=== PATIENT | male | born 1945 | race Caucasian/White ===

== ENCOUNTER 2019-08-30 08:35 | Outpatient (CLI) | payer MEDICARE, SELFPAY ==
--- NOTE | 2019-08-30 08:49 | CT_ITS ---
WS: [id number] CT ABDOMEN PELVIS TECHNIQUE: Noncontrast CT of the abdomen and pelvis with coronal and sagittal reformatted images. CLINICAL INFORMATION: NEOPLASM OF PROSTASTE COMPARISON: CT abdomen pelvis and PET/CT December 18, 2018 DLP: 517.[address] scans at [facility] use at least one of these dose optimization techniques: automat ed exposure control; mA and/or kV adjustment per patient size (includes targeted exams where dose is matched to clinical indication); or iterative reconstruction. FINDINGS: Again seen are multiple low-attenuation lesions in the liver unchanged on this noncontrast examinatio n. Splenomegaly measuring 17.0 cm appears progressed. Noncontrast pancreas appears unremarkable. Adre nal glands are normal. Bilateral renal cortical atrophy with renal cortical cysts. Exophytic increase d attenuation left renal lesion measuring 2.1 cm appears unchanged. Advanced emphysematous change Partially visualized in the lung bases with bullous formation. Multiple nodular areas likely pleural fluid in the lung bases. Small bilateral pleural effusions. Recommend c hest CT follow-up.Cardiomegaly. Loculated pleural fluid along both visualized fissures. Vascular calc ification including coronary. Previously described sclerotic lesion involving the left ilium adjacent to the SI joint measuring 1.3 cm is stable. Additional smaller unchanged left iliac wing sclerotic lesion. Aortic calcification. Normal caliber abdominal aorta. Shotty retroperitoneal and periaortic lymph nod es. Small amount of free fluid in the pelvis. Diverticulosis. No evidence of acute diverticulitis. Small amount of fluid in the right pericolic gutter. IMPRESSION: 1. Stable low-attenuation lesions in both hepatic lobes. 2. Hypodense cyst or exophytic mass lower pole left kidney measuring 2.0 cm is unchanged. 3. Prostate gland enlargement. Recommend correlation PSA. 4. Small amount of free fluid in the pelvis. 5. Diverticulosis. No evidence of acute diverticulitis. 6. Shotty periaortic and retroperitoneal lymph nodes. No significant lymphadenopathy. 7. Splenomegaly appears progressed since the prior examination measuring 17 cm [id number]. 8. Small bilateral pleural effusions with loculated pleural fluid in both lung bases and along the fissures. 9. Cardiomegaly. 10. Previously described sclerotic lesion involving the left ilium adjacent to the SI joint measurin g 1.3 cm is stable. Additional smaller unchanged left iliac wing sclerotic lesion.
--- NOTE | 2019-08-30 08:50 | NM_ITS ---
WS: [id number] NUCLEAR MEDICINE BONE SCAN Radiopharmaceutical: 27.3 Tc-99m MDP mCi IV Injection site: Left antecubital Postinjection imaging delay: 2 hr CLINICAL INFORMATION: RESTAGING EVALUATION COMPARISON: Bone scan November 03, 2018 FINDINGS: Bone lesions: Again seen is the small punctate focus of radiotracer uptake along the left superior sa croiliac joints slightly less intense today. No evidence of disease progression. Low-grade calvarial activity is unchanged and of doubtful clinical significance. No other abnormal areas of uptake. Soft tissue contours: Normal. Kidneys: Normal. Other findings: None. NM/NM bone scan whole body* [id number] IMPRESSION: 1. Again seen is a small punctate focus of radiotracer uptake along the left s uperior sacroiliac joint slightly less intense today. 2. No evidence of disease progression.
[2019-08-30] MEDS: iohexol 300 mg/mL 50 mL Btl IV (08:55)
[2019-08-30 09:53] LABS: Basophils % 0.2 %; Eosinophils # 0.1 10^3/uL (0.0-0.8); Eosinophils % 1.2 %; Hematocrit 37.8 % (42.0-52.0); Hemoglobin 11.3 g/dL (11.7-16.6); Lymphocytes # 0.9 10^3/uL (0.8-4.8); Mean Corpuscular HGB Conc 29.9 g/dL (30.0-36.0); Mean Corpuscular Hemoglobin 27.5 pg (28.0-34.0); Mean Platelet Volume 10.7 fL (7.4-10.4); Monocytes # 0.6 10^3/uL (0.2-0.9); Monocytes % 11.8 %; Neutrophils # 3.3 10^3/uL (1.8-7.7); Neutrophils % 68.6 %; Nucleated Red Blood Cells % 0 %; Platelet Count 130 10^3/cmm (130-400); Red Blood Count 4.11 10^6/uL (4.1-5.3); Red Cell Distribution Width 20.4 % (12.1-15.1); White Blood Count 4.8 10^3/uL (4.0-10.0)
[2019-08-30 10:09] LABS: Alanine Aminotransferase 12 U/L (0-41); Albumin Level 4.3 g/dL (3.5-5.2); Alkaline Phosphatase 194 IU/L (40-130); Anion Gap 17.7 (5-19); Aspartate Amino Transferase 14 U/L (0-40); Blood Urea Nitrogen 37 mg/dL (8-23); Calcium 9.6 mg/Dl (8.8-10.2); Carbon Dioxide 22 mmol/L (22-29); Chloride 106 mmol/L (98-107); Globulin 3.3 g/dL (1.3-4.6); Glucose 97 mg/dL (74-106); Potassium 4.7 mmol/L (3.5-5.1); Sodium 141 mmol/L (136-145); Total Bilirubin 1.3 mg/dL (0.15-1.2); Total Protein 7.6 g/dL (6.6-8.7)
[2019-08-31 15:31] LABS: Testosterone Total 13.3 ng/dL (193-740)
[2019-08-31 15:32] LABS: Prostate Specific Antigen 0.03 ng/mL (0-4)
== END 2019-08-30 08:36 | disposition home or self-care (01) ==
LOC: RAD 08:42
PROVIDERS: Family Provider Family Medicine; PCP Family Medicine; Visit Provider Internal Medicine Hematology & Oncology
DX: C79.51 Secondary malignant neoplasm of bone (principal); C61 Malignant neoplasm of prostate; N28.89 Other specified disorders of kidney and ureter; N40.0 Benign prostatic hyperplasia without lower urinary tract symptoms; K57.90 Diverticulosis of intestine, part unspecified, without perforation or abscess without bleeding; R16.1 Splenomegaly, not elsewhere classified; J90 Pleural effusion, not elsewhere classified; I51.7 Cardiomegaly
CPT/HCPCS: 74176; 78306; 80053; 84153; 84403; 85025; A9561

== ENCOUNTER 2019-08-31 14:11 | Outpatient (CLI) | payer MEDICARE, SELFPAY ==
[2019-08-31] MEDS: denosumab 120 mg SDV SUBCUT (14:20)
[2019-08-31] MEDS: goserelin acetate 10.8 mg Implant SUBCUT (14:22)
--- NOTE | 2019-08-31 15:07 | ONC FU_ITS ---
Dr. Nicholson follow up note Patient: Sam Arevalo Unit #: [id number]: [id number] Dicatated By: Desi Nicholson M.D.Date of Visit:Aug 31, 2019 Onc Med Follow-up/Prog Note History of Present Illness: Mr. Sam Arevalo, is a 73-year-old gentleman with history of elevated PSA recently underwent prostate biopsy on 10/22/2018 which showed adenocarcinoma in 5 cores obtained from right side.PSA checked in August 2018 was 23.9 Patient was seen by Dr. Ahumada, and he was started on Casodex 50 mg by mouth daily Bone scan was done on 11/03/2018 showed focal area of increase activity involving left ilium adjacent to this SI joint most consistent with metastatic disease corresponding sclerotic lesion on the concurrent CT measuring 1.4 cm. Additional 1.4 cm sclerotic lesion seen on CT scan in the left iliac wing and smaller sclerotic lesion right ischium measuring 0.4 cm without corresponding bone scan activity. Some mild amount of low-grade nonspecific activity in the right parieto-occipital calvarium. Next CT scan of abdomen pelvis done on 11/03/2018, showed chronic emphysema, small pleural effusion, small sliding hiatal hernia abnormal liver, ill-defined foci of decreased attenuation/enhancement surrounded by hypervascularity right lobe and medial segment of left lobe. Additional ill-defined non-hypervascular lesion of the lateral segment left lobe. Benign liver lesions including cysts and caudate lobe cavernous hemangioma. Hyperdense cyst or exophytic mass lower pole left kidney Last colonoscopy was done more than [address] scan of abdomen showing hepatic lesions, concern was whether patient has second primary tumor marker were checked including CA 19???9 which was within normal limit at 17.6 and CEA which was [address] PET scan done on 12/18/2018 showed there are multiple hepatic hypodensities, all with uptake isometabolic to normal hepatic background. This makes a benign diagnosis more likely. 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 No additional similar osseous lesion seen. on Casodex 50 mg daily. 3 monthly Zoladex and Xgeva Follow-up bone scan done on 08/30/2019 showed a small punctate focus of radiotracer uptake along the left superior sacroiliac joint slightly less intense today. No evidence of disease progression. Low-grade chlamydial activities unchanged and self doubtful clinical significance CT scan of chest done on 08/30/2019 showed previously described sclerotic lesion involving left ilium adjacent to SI joint migrating 1.3 cm stable. Additional smaller unchanged left iliac wing sclerotic lesion. Splenomegaly appears progressed since prior exam now 17 cm. Bilateral pleural effusion small with loculated pleural fluid in both lungs bases. Cardiomegaly. Shotty periaortic and retroperitoneal lymph nodes. No significant lymphadenopathy Prostrate gland enlargement. Hypodense cyst or exophytic mass lower pole left kidney measured 2 cm is unchanged. Stable low-attenuation lesions in liver both lobes Came for follow-up, denies any specific complaints, no fever or chills, no nausea or vomiting, no diarrhea constipation, no dysuria or hematuria hot flashes otherwise tolerating ADT with Zoladex/Casodex and Xgeva, well Medications: Bicalutamide 1 Tablet (of 50 mg) Oral daily, Lasix 1 Tablet (of 40 mg) Oral b.i.d., Metoprolol Tartrate 1 Tablet (of 25 mg) Oral daily, Plavix 1 Tablet (of 75 mg) Oral daily, Potassium Chloride ER 1 Tablet (of 40 meq) Tablet, controlled release Oral b.i.d., Simvastatin 1 Tablet (of 40 mg) Oral at bedtime, Trelegy Ellipta 1 puff(s) (of 100-62.5-25 mcg/inh) Aerosol Powder, Breath Activated Inhalation daily Allergies: No Known Allergies. Review of Systems: Review of Systems is not available for this patient. Vital Signs: Performed on Aug 31, 2019 14:25 Height - 70.00 in Weight - 160.6 lbs (LOW) BSA - 1.90 sq.m BMI - 23.04 Temperature - 97.2 F (LOW) Pulse - 65 /min Respiration - 18 /min BP - 126/63 mm(hg) O2 Sat - 95 % (LOW) Pain - 0 Performance Status: 2 - Ambulatory/capable of all self-care, unable to perform any work activities. Up and about more than 50% of waking hours. (ECOG) Physical Examination: ENMT - . No oral exudates, ulcers, masses, thrush or mucositis. Oropharynx clear. Tongue normal, Respiratory - Poor air entry bilaterally, Cardiovascular - Regular rate and rhythm of heart without murmurs, gallops or rubs, Abdomen - Non-tender, non-distended, Good bowel sounds. No guarding or rebound tenderness. No pulsatile masses, Extremities - No edema rash. Lab/Imaging: Test performed on Aug 30, 2019 09:10 Glucose 97 mg/dL BUN 37 mg/dL Creatinine 2.3 mg/dL Cr Clearance (Est) 29.99 mL/min Sodium 141 mmol/L Potassium 4.7 mmol/L Chloride 106 mmol/L CO2 22 mmol/L Calcium 9.6 mg/dL Protein, Total 7.6 g/dL Albumin 4.3 g/dL Bilirubin, Total 1.3 mg/dL Alkaline Phosphatase 194 IU/L AST (SGOT) 14 IU/L ALT (SGPT) 12 IU/L WBC 4.8 10 3/uL RBC 4.11 10^12/L HGB 11.3 g/dL HCT 37.8 % MCV 92.0 fL MCH 27.5 pg MCHC 29.9 g/dL Platelet Count 130 10^9/L RDW 20.4 % MPV 10.7 fL Lymphocytes 0.9 10^9/L Neutrophils 0.0 10 3/uL Monocytes 0.6 10^9/L Eosinophils 0.1 10^9/L Basophils 0.0 10^9/L Neutrophil % 1.2 % Manual Lymphocytes 18.0 % Manual Monocytes 11.8 % Manual Eosinophils 1.2 % Manual Basophils 0.2 % NRBCs 0.0 /100 WBC Test performed on Jun 03, 2019 08:52 Anion Gap 16.9 Impression: Prostatic adenocarcinoma per needle biopsy done on 10/22/2018, showed right lateral apex, prostatic adenocarcinoma, [place] score 3+3, 30% involvement Right lateral mid, prostatic adenocarcinoma, [place] score 3+4, 30% involvement Right lateral base, prostatic adenocarcinoma, [place] score 3+3, 95% involvement Right mid, prostatic adenocarcinoma 3+4, 100% involvement Right base, adenocarcinoma, [place] score 3+4, 95% involvement PSA checked in August 2018 was 23.9. Bone scan done on 11/03/2018 showed focal area of increase activity involving left ilium adjacent to the SI joint most consistent with metastatic disease. Or responding sclerotic lesion on the concurrent CT scan measuring 1.4 cm Additional 1.4 cm sclerotic lesion seen on CT scan in the left iliac wing and smaller sclerotic lesion right ischium measuring 0.4 cm without corresponding bone scan activity. Small amount of low-grade nonspecific activity in the right parietal occipital calvarium. CT scan of abdomen pelvis done on 11/03/2018 showed abnormal liver, ill-defined foci of decreased attenuation/enhancement surrounded by hypervascularity right lobe and medial segment of left lobe. Additional ill-defined non-hyper vascular lesions of the lateral segment of left lobe. Next Additional benign liver lesions including cysts and caudate lobe cavernous hemangioma Hyperdense cyst or exophytic mass lower pole left kidney There was a concern about hepatic lesion seen on CT scan, regarding this second primary so tumor markers, CA 19???9, CEA and CT PET scan was ordered, labs done on 11/16/2018 showed CA 19???9 and CEA were within normal limits and PSA was 17.[address] PET scan done on 12/18/2018 showed minimally FDG positive left iliac lesion, consistent with unifocal osseous metastatic disease from prostrate cancer. Uptake in liver hypodensities is iso-metabolic with a normal background, metastatic disease is less likely. Started on Casodex 50 mg by mouth daily by Dr. Ahuamda on 11/04/2018 And Zoladex 10.8 mg on 11/30/2018 [address] Nicholson discussed with patient his CT PET scan findings and tumor markers as there was a concern but possibility of second primary involving the liver. CT scan of liver showed extensive hepatic lesions but CT PET scan findings are consistent with benign hepatic lesion rather than malignant. Tumor markers also within normal range, and a single bone lesion in left iliac bone. So at this point, Dr Nicholson did not feel any further workup was needed. Mr Arevalo has continued with 3 monthly dose of Zoladex and daily Casodex and also change Xgeva to every 3 months. Mr Amezcua returns to clinic in 3 months with CBC CMP and PSA and for Zoladex and Xgeva injection. Mr. Arevalo is here today for follow-up. He is doing well overall. He is tolerating the Casodex, Zoladex and Xgeva well. Plan: Discussed with patient regarding his labs white blood count 4.8 hemoglobin 11.3 crit 37.8 platelets 130,000 CMP within normal limits except creatinine 2.3 compared to 1.8 on 06/03/2019 and 2.4 on 05/30/2019 PSA is pending and bone scan and CT scan of chest abdomen pelvis findings. Clinically, patient is doing well no signs symptoms suggestive of disease progression. Tolerating ADT with Casodex/Zoladex well but with expected side effects e.g. hot flashes and generalized weakness and fatigue. Patient is concern about hot flashes so we will consider discontinuing Casodex as his follow-up CT scan and bone scan showed excellent response as for metastatic prostrate cancer is concern in the meantime we'll continue with 3 monthly Zoladex today along with Xgeva and then he will return to clinic in 3 months with CBC CMP and PSA Mild anemia could be multifactorial we'll continue to monitor if there is a further drop in his hemoglobin may consider anemia workup next Mild thrombocytopenia for due to splenic sequestration due to splenomegaly Patient has history of alcohol abuse so he may have underlying hepatic cirrhosis/portal hypertension. Signed By: Desi Nicholson M.D. <<Signature on File>>
== END 2019-08-31 14:12 | disposition home or self-care (01) ==
LOC: ONCMED 14:17
PROVIDERS: Family Provider Family Medicine; PCP Family Medicine; Visit Provider Internal Medicine Hematology & Oncology
DX: C61 Malignant neoplasm of prostate (principal); C79.51 Secondary malignant neoplasm of bone; J43.9 Emphysema, unspecified; K44.9 Diaphragmatic hernia without obstruction or gangrene; R16.1 Splenomegaly, not elsewhere classified; J90 Pleural effusion, not elsewhere classified; I51.7 Cardiomegaly; D64.9 Anemia, unspecified; F10.21 Alcohol dependence, in remission; Z79.818 Long term (current) use of other agents affecting estrogen receptors and estrogen levels; Z79.899 Other long term (current) drug therapy
CPT/HCPCS: 96372; 96402; 99214; J0897; J9202

== ENCOUNTER 2019-11-22 06:15 | Inpatient (IN) | payer MEDICARE, SELFPAY ==
[2019-11-22] VITALS (24 sets, daily range): BP systolic 110–129; BP diastolic 56–71; PULSE 61–78; RESP 19–29; TEMP 36.3–37.1; O2SAT 73–100; BMI 22.9
--- NOTE | 2019-11-22 | SCC_ITS ---
Procedure Done: Ultrasound-guided hemodialysis catheter placement via right IJ vein 3.6 seconds of fluoroscopic guidance, for a cumulative dose of 0.49 mGy, was provided to Dr. Islas by the radiology department. C-arm images of the chest were saved for the patient's permanent record. [facility]
--- NOTE | 2019-11-22 06:23 | PC.NURSE ---
Patient states that he was tested for COVID-19 last week at [facility] and did not get any results from that test.
--- NOTE | 2019-11-22 06:25 | ED_ITS ---
HPI - Nausea/Vomiting/Diarrhea General: Chief complaint: Nausea/Vomiting/Diarrhea Stated complaint: N/V Time Seen by Provider: 11/22/19 06:24 History of Present Illness: HPI Narrative: 74-year-old male presents emergency room with persistent nausea vomiting diarrhea. He has a history of prostate cancer is been progressively weakening the last few days. Further discussion patient states he has recently traveled to [place] just 2 days ago he has a pending covid 19 test from an outside clinic. He denies any chest pain he has had a bit of a cough denies any fever. Associated nausea: Yes Associated symtoms: Reports bloating, fatigue, malaise and nausea; Denies chest pain or dysuria Review of Systems Const: Reports: fatigue and malaise; Denies: fever, chills, body aches or change in appetite ENMT: Denies: throat pain, ear pain, nasal discharge or nasal congestion Card: Reports: shortness of breath on exertion; Denies: chest pain, edema or shortness of breath when lying down Resp: Reports: non-productive cough; Denies: shortness of breath or productive cough GI: Reports: nausea, vomiting, diarrhea and bloating; Denies: abdominal pain, vomiting blood, coffee grounds in vomit, constipation, blood in stool or black tarry stool : Denies: flank pain, painful urination, urinary frequency or urinary urgency Skin/Breast: Denies: rash or itching PFSH ED PFSH: Medical History Aortic stenosis Arteriosclerosis Atrial fibrillation Cardiac pacemaker COPD (chronic obstructive pulmonary disease) Dementia Diabetes mellitus Glaucoma HTN (hypertension) Hyperlipidemia Hyperthyroidism HUMAIRA (obstructive sleep apnea) Prostate cancer PVD (peripheral vascular disease) Renal mass Varicose vein of leg Vitamin D deficiency Surgical History S/P cataract surgery S/P cholecystectomy Family History Mother , 86; lung Cancer Father , 60's; stomach Cancer Social History Smoking and tobacco status: former smoker Physical Exam Const: GENERAL APPEARANCE: cooperative ORIENTATION/CONSCIOUSNESS: Yes awake, Yes oriented to person, Yes oriented to place and Yes oriented to time HENMT: COMMON NORMALS: normocephalic, head/scalp atraumatic, hearing grossly normal bilaterally, external ears normal, EAC's normal, TM's normal bilaterally, nasal mucous membranes and turbinates normal, moist oral mucous membranes and oropharynx normal HEAD & SCALP: normocephalic and atraumatic NOSE: nasal mucous membranes and turbinates normal EXTERNAL EAR: Yes external ears normal EXTERNAL AUDITORY CANAL: EAC's normal TYMPANIC MEMBRANE: TM's normal bilaterally Eye: COMMON NORMALS: PERRL, EOMs intact bilaterally, conjunctivae normal and no scleral icterus CONJUNCTIVA: Yes conjunctivae normal PUPIL: Yes PERRL Neck/C-Spine: COMMON NORMALS: full ROM, no lymphadenopathy, supple and no JVD Lymph: LYMPHATIC: no lymphadenopathy noted and no lymphedema noted Resp: COMMON NORMALS: normal respiratory effort, no retractions, no use of accessory muscles and clear to auscultation bilaterally AUSCULTATION: clear to auscultation bilaterally Cardio: COMMON NORMALS: no JVD, regular rate, regular rhythm and no murmurs RATE: regular rate RHYTHM: regular rhythm GI: COMMON NORMALS: soft to palpation and no hepatosplenomegaly AUSCULTATION: Yes normoactive bowel sounds PALPATION: Yes soft, Yes tender, No guarding and Yes no hepatosplenomegaly Extremity: COMMON NORMALS: normal to inspection, normal capillary refill, no clubbing, cyanosis or edema, no calf tenderness and no pedal edema Neuro: SENSORIUM/ORIENTATION: Yes oriented to person, Yes oriented to place and Yes oriented to time Skin: COMMON NORMALS: no rashes or lesions noted GENERAL SKIN EXAM: no rashes or lesions noted Course Vital Signs: Vital signs: Vital Signs Temperature 97.6 F 11/24/19 04:00 Pulse Rate 62 11/24/19 04:00 Respiratory Rate 20 H 11/24/19 04:00 Blood Pressure 107/59 11/24/19 04:00 Pulse Oximetry 99 11/24/19 04:00 MDM - Nausea/Vomiting/Diarrhea MDM Narrative: Medical decision making narrative: Patient is in acute renal failure is severe hyperkalemia with EKG changes. Margie taken in the emergency room to decrease his potassium is given sodium bicarb calcium gluconate Kayexalate insulin and glucose. We had considered giving nebulizers however because of the uncertainty of the status concerning Kovic 19 the nebulizers were skipped. There was a big question of whether or not he was still taking Pradaxa it was listed by him but not listed in an oncology note from February to August of this year he states he is only been taking one 1 tablet a day 75 mg but when questioning him further he is not sure if it is clopidogrel or the Pradaxa. Recall to his pharmacy is neither which recorded prescribing those medicines to him in the last several months. Because of the uncertainty and the risk after discussion with Dr. Pickett we went ahead and gave the Praxbind. He will leave here and go to surgery for placement of dialysis catheter. Dr. Eagle has been consulted and will arrange for dialysis. We will continue to be kept in isolation until the results of the coated test are known. We did repeat his covered testing since the outside test would still take several more days repeated test through the hospital lab could be done within 24 hours. Patient also has a significant transaminase elevated of his bilirubin they will need to be further evaluated as an inpatient. Lab Data: Labs: Lab Results 11/22/19 11/22/19 11/22/19 Range/Units 06:35 06:35 06:35 WBC 10.5 H (4.0-10.0) 10^3/ uL RBC 4.81 (4.1-5.3) 10^6/u L Hgb 13.6 (11.7-16.6) g/dL Hct 43.4 (42.0-52.0) % MCV 90.2 (80-94) fL MCH 28.3 (28.0-34.0) pg MCHC 31.3 (30.0-36.0) g/dL RDW 18.7 H (12.1-15.1) % Plt Count 100 L (130-400) 10^3/c mm MPV 10.9 H (7.4-10.4) fL Neut % (Auto) 81.7 % Lymph % (Auto) 8.6 % [place] % (Auto) 9.1 % Eos % (Auto) 0.0 % Baso % (Auto) 0.2 % Neut # (Auto) 8.6 H (1.8-7.7) 10^3/u L Lymph # (Auto) 0.9 (0.8-4.8) 10^3/u L [place] # (Auto) 1.0 H (0.2-0.9) 10^3/u L Eos # (Auto) 0.0 (0.0-0.8) 10^3/u L Baso # (Auto) 0.0 (0.0-0.1) 10^3/u L Nucleated RBC % (a uto) 0 % Nucleated RBCs # 0.0 /100WBC PT (10.5-13.3) SECO NDS INR (0.8-1.2) APTT (23.9-36.7) SECO NDS Sodium 130 L (136-145) mmol/L Potassium 7.5 H* (3.5-5.1) mmol/L Chloride 96 L (98-107) mmol/L Carbon Dioxide 11 L (22-29) mmol/L Anion Gap 30.5 H (5-19) BUN 97 H* D (8-23) mg/dL Creatinine 8.6 H* (0.7-1.2) mg/dL Glucose 82 (65-115) mg/dL POC Glucose (70-110) mg/dL Calculated Osmolal ity 270 L (285-295) mOsm/k g Calcium 8.5 (8.5-10.5) mg/dL Total Bilirubin 2.4 H (0.15-1.2) mg/dL AST 438 H (0-40) U/L ALT 180 H (0-41) U/L Alkaline Phosphata se 428 H (40-130) IU/L Total Protein 8.3 (6.6-8.7) g/dL Albumin 4.2 (3.5-5.2) g/dL Globulin 4.1 (1.3-4.6) g/dL Lipase 96 H (13-60) U/L PTH Intact (15-65) pg/mL Calcium (PTH Intac t) (8.5-10.5) mg/dL Urine Color (Yellow) Urine Appearance (CLEAR) Urine pH (5-7) Ur Specific Gravit y (1.005-1.030) Urine Protein (Negative) Urine Glucose (UA) (Normal) Urine Ketones (Negative) Urine Blood (Negative) Urine Nitrate (Negative) Urine Bilirubin (NEGATIVE) Urine Urobilinogen (Negative) mg/dL Ur Leukocyte Laura ase (Negative) Urine RBC (0-2) /hpf Urine WBC (0-5) /hpf Ur Eosinophil Smea r (0-0) Ur Squamous Epith Cells (0-5) Ur Transition Epit h Cell /hpf Urine Bacteria (NONE) Urine Mucus Urine Eosinophils U Random Total Pro tein mg/dL Ur Random Sodium mmol/L Ur Random Potassiu m mmol/L Ur Random Chloride mmol/L Urine Creatinine (39-259) mg/dL Serum Ketones Negative (Negative) Nasal/Oral COVID-1 9 PCR Hep Bs Antigen (Nonreactive) Hep Bs Antibody (0-8.5) Hepatitis C Antibo dy (Nonreactive) 11/22/19 11/22/19 11/22/19 Range/Units 06:35 06:35 06:35 WBC (4.0-10.0) 10^3/ uL RBC (4.1-5.3) 10^6/u L Hgb (11.7-16.6) g/dL Hct (42.0-52.0) % MCV (80-94) fL MCH (28.0-34.0) pg MCHC (30.0-36.0) g/dL RDW (12.1-15.1) % Plt Count (130-400) 10^3/c mm MPV (7.4-10.4) fL Neut % (Auto) % Lymph % (Auto) % [place] % (Auto) % Eos % (Auto) % Baso % (Auto) % Neut # (Auto) (1.8-7.7) 10^3/u L Lymph # (Auto) (0.8-4.8) 10^3/u L [place] # (Auto) (0.2-0.9) 10^3/u L Eos # (Auto) (0.0-0.8) 10^3/u L Baso # (Auto) (0.0-0.1) 10^3/u L Nucleated RBC % (a uto) % Nucleated RBCs # /100WBC PT 21.70 H (10.5-13.3) SECO NDS INR 1.87 H (0.8-1.2) APTT 51.4 H (23.9-36.7) SECO NDS Sodium (136-145) mmol/L Potassium (3.5-5.1) mmol/L Chloride (98-107) mmol/L Carbon Dioxide (22-29) mmol/L Anion Gap (5-19) BUN (8-23) mg/dL Creatinine (0.7-1.2) mg/dL Glucose (65-115) mg/dL POC Glucose (70-110) mg/dL Calculated Osmolal ity (285-295) mOsm/k g Calcium (8.5-10.5) mg/dL Total Bilirubin (0.15-1.2) mg/dL AST (0-40) U/L ALT (0-41) U/L Alkaline Phosphata se (40-130) IU/L Total Protein (6.6-8.7) g/dL Albumin (3.5-5.2) g/dL Globulin (1.3-4.6) g/dL Lipase (13-60) U/L PTH Intact (15-65) pg/mL Calcium (PTH Intac t) (8.5-10.5) mg/dL Urine Color (Yellow) Urine Appearance (CLEAR) Urine pH (5-7) Ur Specific Gravit y (1.005-1.030) Urine Protein (Negative) Urine Glucose (UA) (Normal) Urine Ketones (Negative) Urine Blood (Negative) Urine Nitrate (Negative) Urine Bilirubin (NEGATIVE) Urine Urobilinogen (Negative) mg/dL Ur Leukocyte Laura ase (Negative) Urine RBC (0-2) /hpf Urine WBC (0-5) /hpf Ur Eosinophil Smea r (0-0) Ur Squamous Epith Cells (0-5) Ur Transition Epit h Cell /hpf Urine Bacteria (NONE) Urine Mucus Urine Eosinophils U Random Total Pro tein mg/dL Ur Random Sodium mmol/L Ur Random Potassiu m mmol/L Ur Random Chloride mmol/L Urine Creatinine (39-259) mg/dL Serum Ketones (Negative) Nasal/Oral COVID-1 9 PCR Hep Bs Antigen Non-reactive (Nonreactive) Hep Bs Antibody 3.5 (0-8.5) Hepatitis C Antibo dy Non-reactive (Nonreactive) 11/22/19 11/22/19 11/22/19 Range/Units 06:35 07:57 08:45 WBC (4.0-10.0) 10^3/ uL RBC (4.1-5.3) 10^6/u L Hgb (11.7-16.6) g/dL Hct (42.0-52.0) % MCV (80-94) fL MCH (28.0-34.0) pg MCHC (30.0-36.0) g/dL RDW (12.1-15.1) % Plt Count (130-400) 10^3/c mm MPV (7.4-10.4) fL Neut % (Auto) % Lymph % (Auto) % [place] % (Auto) % Eos % (Auto) % Baso % (Auto) % Neut # (Auto) (1.8-7.7) 10^3/u L Lymph # (Auto) (0.8-4.8) 10^3/u L [place] # (Auto) (0.2-0.9) 10^3/u L Eos # (Auto) (0.0-0.8) 10^3/u L Baso # (Auto) (0.0-0.1) 10^3/u L Nucleated RBC % (a uto) % Nucleated RBCs # /100WBC PT (10.5-13.3) SECO NDS INR (0.8-1.2) APTT (23.9-36.7) SECO NDS Sodium (136-145) mmol/L Potassium (3.5-5.1) mmol/L Chloride (98-107) mmol/L Carbon Dioxide (22-29) mmol/L Anion Gap (5-19) BUN (8-23) mg/dL Creatinine (0.7-1.2) mg/dL Glucose (65-115) mg/dL POC Glucose 61 (70-110) mg/dL Calculated Osmolal ity (285-295) mOsm/k g Calcium (8.5-10.5) mg/dL Total Bilirubin (0.15-1.2) mg/dL AST (0-40) U/L ALT (0-41) U/L Alkaline Phosphata se (40-130) IU/L Total Protein (6.6-8.7) g/dL Albumin (3.5-5.2) g/dL Globulin (1.3-4.6) g/dL Lipase (13-60) U/L PTH Intact 582.8 H (15-65) pg/mL Calcium (PTH Intac t) 8.2 L (8.5-10.5) mg/dL Urine Color Yellow (Yellow) Urine Appearance Sl hazy (CLEAR) Urine pH 5.0 (5-7) Ur Specific Gravit y 1.015 (1.005-1.030) Urine Protein 3+ H (Negative) Urine Glucose (UA) Norm (Normal) Urine Ketones Negative (Negative) Urine Blood 3+ H (Negative) Urine Nitrate Negative (Negative) Urine Bilirubin Neg (NEGATIVE) Urine Urobilinogen Norm (Negative) mg/dL Ur Leukocyte Laura ase Negative (Negative) Urine RBC 15-25 H (0-2) /hpf Urine WBC None (0-5) /hpf Ur Eosinophil Smea r 0 (0-0) Ur Squamous Epith Cells 0-4 H (0-5) Ur Transition Epit h Cell 0-4 /hpf Urine Bacteria 1+ H (NONE) Urine Mucus 1+ Urine Eosinophils No eosinophils se en U Random Total Pro tein mg/dL Ur Random Sodium mmol/L Ur Random Potassiu m mmol/L Ur Random Chloride mmol/L Urine Creatinine (39-259) mg/dL Serum Ketones (Negative) Nasal/Oral COVID-1 9 PCR Hep Bs Antigen (Nonreactive) Hep Bs Antibody (0-8.5) Hepatitis C Antibo dy (Nonreactive) 11/22/19 11/22/19 11/22/19 Range/Units 08:45 08:52 10:08 WBC (4.0-10.0) 10^3/ uL RBC (4.1-5.3) 10^6/u L Hgb (11.7-16.6) g/dL Hct (42.0-52.0) % MCV (80-94) fL MCH (28.0-34.0) pg MCHC (30.0-36.0) g/dL RDW (12.1-15.1) % Plt Count (130-400) 10^3/c mm MPV (7.4-10.4) fL Neut % (Auto) % Lymph % (Auto) % [place] % (Auto) % Eos % (Auto) % Baso % (Auto) % Neut # (Auto) (1.8-7.7) 10^3/u L Lymph # (Auto) (0.8-4.8) 10^3/u L [place] # (Auto) (0.2-0.9) 10^3/u L Eos # (Auto) (0.0-0.8) 10^3/u L Baso # (Auto) (0.0-0.1) 10^3/u L Nucleated RBC % (a uto) % Nucleated RBCs # /100WBC PT 24.80 H (10.5-13.3) SECO NDS INR 2.22 H (0.8-1.2) APTT 44.1 H (23.9-36.7) SECO NDS Sodium (136-145) mmol/L Potassium (3.5-5.1) mmol/L Chloride (98-107) mmol/L Carbon Dioxide (22-29) mmol/L Anion Gap (5-19) BUN (8-23) mg/dL Creatinine (0.7-1.2) mg/dL Glucose (65-115) mg/dL POC Glucose 116 (70-110) mg/dL Calculated Osmolal ity (285-295) mOsm/k g Calcium (8.5-10.5) mg/dL Total Bilirubin (0.15-1.2) mg/dL AST (0-40) U/L ALT (0-41) U/L Alkaline Phosphata se (40-130) IU/L Total Protein (6.6-8.7) g/dL Albumin (3.5-5.2) g/dL Globulin (1.3-4.6) g/dL Lipase (13-60) U/L PTH Intact (15-65) pg/mL Calcium (PTH Intac t) (8.5-10.5) mg/dL Urine Color (Yellow) Urine Appearance (CLEAR) Urine pH (5-7) Ur Specific Gravit y (1.005-1.030) Urine Protein (Negative) Urine Glucose (UA) (Normal) Urine Ketones (Negative) Urine Blood (Negative) Urine Nitrate (Negative) Urine Bilirubin (NEGATIVE) Urine Urobilinogen (Negative) mg/dL Ur Leukocyte Laura ase (Negative) Urine RBC (0-2) /hpf Urine WBC (0-5) /hpf Ur Eosinophil Smea r (0-0) Ur Squamous Epith Cells (0-5) Ur Transition Epit h Cell /hpf Urine Bacteria (NONE) Urine Mucus Urine Eosinophils U Random Total Pro tein 207 mg/dL Ur Random Sodium 12 mmol/L Ur Random Potassiu m 50 mmol/L Ur Random Chloride 11 mmol/L Urine Creatinine 103 (39-259) mg/dL Serum Ketones (Negative) Nasal/Oral COVID-1 9 PCR Hep Bs Antigen (Nonreactive) Hep Bs Antibody (0-8.5) Hepatitis C Antibo dy (Nonreactive) 11/22/19 11/22/19 Range/Units 11:36 11:40 WBC (4.0-10.0) 10^3/ uL RBC (4.1-5.3) 10^6/u L Hgb (11.7-16.6) g/dL Hct (42.0-52.0) % MCV (80-94) fL MCH (28.0-34.0) pg MCHC (30.0-36.0) g/dL RDW (12.1-15.1) % Plt Count (130-400) 10^3/c mm MPV (7.4-10.4) fL Neut % (Auto) % Lymph % (Auto) % [place] % (Auto) % Eos % (Auto) % Baso % (Auto) % Neut # (Auto) (1.8-7.7) 10^3/u L Lymph # (Auto) (0.8-4.8) 10^3/u L [place] # (Auto) (0.2-0.9) 10^3/u L Eos # (Auto) (0.0-0.8) 10^3/u L Baso # (Auto) (0.0-0.1) 10^3/u L Nucleated RBC % (a uto) % Nucleated RBCs # /100WBC PT (10.5-13.3) SECO NDS INR (0.8-1.2) APTT (23.9-36.7) SECO NDS Sodium 134 L (136-145) mmol/L Potassium 6.2 H (3.5-5.1) mmol/L Chloride 101 (98-107) mmol/L Carbon Dioxide 13 L (22-29) mmol/L Anion Gap 26.2 H (5-19) BUN 93 H* (8-23) mg/dL Creatinine 8.1 H* (0.7-1.2) mg/dL Glucose 154 H (65-115) mg/dL POC Glucose (70-110) mg/dL Calculated Osmolal ity 282 L (285-295) mOsm/k g Calcium 7.5 L (8.5-10.5) mg/dL Total Bilirubin 2.2 H (0.15-1.2) mg/dL AST 734 H (0-40) U/L ALT 279 H (0-41) U/L Alkaline Phosphata se 362 H (40-130) IU/L Total Protein 6.9 (6.6-8.7) g/dL Albumin 3.5 (3.5-5.2) g/dL Globulin 3.4 (1.3-4.6) g/dL Lipase (13-60) U/L PTH Intact (15-65) pg/mL Calcium (PTH Intac t) (8.5-10.5) mg/dL Urine Color (Yellow) Urine Appearance (CLEAR) Urine pH (5-7) Ur Specific Gravit y (1.005-1.030) Urine Protein (Negative) Urine Glucose (UA) (Normal) Urine Ketones (Negative) Urine Blood (Negative) Urine Nitrate (Negative) Urine Bilirubin (NEGATIVE) Urine Urobilinogen (Negative) mg/dL Ur Leukocyte Laura ase (Negative) Urine RBC (0-2) /hpf Urine WBC (0-5) /hpf Ur Eosinophil Smea r (0-0) Ur Squamous Epith Cells (0-5) Ur Transition Epit h Cell /hpf Urine Bacteria (NONE) Urine Mucus Urine Eosinophils U Random Total Pro tein mg/dL Ur Random Sodium mmol/L Ur Random Potassiu m mmol/L Ur Random Chloride mmol/L Urine Creatinine (39-259) mg/dL Serum Ketones (Negative) Nasal/Oral COVID-1 9 PCR Negative Hep Bs Antigen (Nonreactive) Hep Bs Antibody (0-8.5) Hepatitis C Antibo dy (Nonreactive) Discharge Plan Discharge Patient Disposition: Admitted As Inpatient Admit Provider: Jorge Head Clinical Impression: Acute renal failure, Hyperkalemia, Transaminitis, Aortic stenosis, Atrial fibrillation Condition: Stable Referrals: Yao Weeks MD [Primary Care Provider] - Interventions: ED Discharge Assessment Last Done: 11/22/19 11:46 Discharge Date/Time: 11/22/19 11:51 Coding Level of Care Code ED Machine Wedger for Chg Fwd Exam Comprehensive
[2019-11-22] MEDS: sodium chloride 0.9% 1,000 ML 999 ML IV ×3 (06:46→12:00)
[2019-11-22] MEDS: ondansetron 2 mg/ML SDV 2 mL 4 MG IVP (06:46)
[2019-11-22 06:49] LABS: Ketone (Acetest) Serum Negative (Negative)
[2019-11-22 07:04] LABS: Basophils % 0.2 %; Hematocrit 43.4 % (42.0-52.0); Hemoglobin 13.6 g/dL (11.7-16.6); Lymphocytes # 0.9 10^3/uL (0.8-4.8); Lymphocytes % 8.6 %; Mean Corpuscular HGB Conc 31.3 g/dL (30.0-36.0); Mean Corpuscular Hemoglobin 28.3 pg (28.0-34.0); Mean Corpuscular Volume 90.2 fL (80-94); Mean Platelet Volume 10.9 fL (7.4-10.4); Monocytes % 9.1 %; Neutrophils # 8.6 10^3/uL (1.8-7.7); Neutrophils % 81.7 %; Nucleated Red Blood Cells % 0 %; Platelet Count 100 10^3/cmm (130-400); Red Blood Count 4.81 10^6/uL (4.1-5.3); Red Cell Distribution Width 18.7 % (12.1-15.1); White Blood Count 10.5 10^3/uL (4.0-10.0)
[2019-11-22 07:12] LABS: Alanine Aminotransferase 180 U/L (0-41); Albumin Level 4.2 g/dL (3.5-5.2); Alkaline Phosphatase 428 IU/L (40-130); Anion Gap 30.5 (5-19); Calcium 8.5 mg/dL (8.5-10.5); Carbon Dioxide 11 mmol/L (22-29); Chloride 96 mmol/L (98-107); Globulin 4.1 g/dL (1.3-4.6); Glucose 82 mg/dL (65-115); Lipase 96 U/L (13-60); Osmolality Calculated 270 mOsm/kg (285-295); Sodium 130 mmol/L (136-145); Total Bilirubin 2.4 mg/dL (0.15-1.2); Total Protein 8.3 g/dL (6.6-8.7)
[2019-11-22 07:27] LABS: Blood Urea Nitrogen 97 mg/dL (8-23); Potassium 7.5 mmol/L (3.5-5.1)
[2019-11-22 07:28] LABS: Aspartate Amino Transferase 438 U/L (0-40)
--- NOTE | 2019-11-22 08:08 | ECG_ITS ---
Measurements Intervals [place] Rate: 70 P: -70 ND: 168 QRS: -58 QRSD: 194 T: 111 QT: 515 QTc: 557 SINUS RHYTHM WITH OCCASIONAL VENTRICULAR PREMATURE COMPLEXES MARKED LEFT AXIS DEVIATION [QRS AXIS < -30] LEFT BUNDLE BRANCH BLOCK [120+ ms QRS DURATION, 80+ ms Q/S IN V1/V2, 85+ ms R IN I/aVL/V5/V6] Compared to ECG 11/02/2016 22:16:23 Ventricular premature complex(es) now present Left-axis deviation now present Left bundle-branch block now present Left anterior fascicular block no longer present T-wave abnormality no longer present Possible ischemia no longer present Electronically Signed On 11-23-2019 18:01:08 CDT by Humphrey Del Rio M.D. [email or web address]
[2019-11-22] MEDS: sodium bicarbonate 8.4% 1 mEq/mL 50mL Syr 100 MEQ IVP (08:16)
[2019-11-22] MEDS: insulin regular-human 100 units/1 mL 10 UNIT IVP (08:17)
[2019-11-22] MEDS: dextrose 50% syringe 50 mL IVP ×2 (08:17)
[2019-11-22] MEDS: calcium gluconate 0.1 gm/mL 10% SDV 10mL 1 GM IVP (08:17)
--- NOTE | 2019-11-22 08:17 | US_ITS ---
WS: [id number] ULTRASOUND RENAL TECHNIQUE: Ultrasound examination of both kidneys. CLINICAL INFORMATION: acute renal failure COMPARISON: None. FINDINGS: RIGHT: Right kidney is normal in size and appearance. Echogenicity: Normal. Hydronephrosis: None. Perinephric fluid: None. Right kidney measures: 11.4 cm x 5.5 cm x 5.9 cm. LEFT: Left kidney is normal in size and appearance. Echogenicity: Normal. Hydronephrosis: None. Perinephric fluid: None. Left kidney measures: 11.6 cm x 4.8 cm x 5.7 cm. Normal visualized aorta. Normal bladder. US/US renal BI with bladder IMPRESSION: 1. Normal kidneys and bladder. 2. Small amount of fluid/ascites in the midabdomen
[2019-11-22] MEDS: sodium chloride 0.9% 100 ML (08:24)
[2019-11-22] MEDS: dextrose 5% 1,000 ML 100 ML IV (08:26)
--- NOTE | 2019-11-22 08:40 | P.CONIM_ITS ---
Providers/Reason For Consult Consulting Physican/Specialty*: parag nuno md telenephrology Reason for Consult*: GRACIELA on ckd stage 4 and hyperkalemia Requesting Physcian: Dr. Chavez Primary Care Provider: Yao Weeks MD History of Present Illness History of Present Illness Sam Arevalo is a 74 year old male w/ met prostate ca on casodex and zoladex. Pt has h/o COPD, Moderate , a fib, and CKD stage 4- b/l cr 1.8- 2.3 mg/dl. Pt has been weak recently- had a recent COVID-19 test. Pt here w/ nausea, weakness and lethargy. he was found to be in GRACIELA w/ cr of 8.6 mg/dl and Hyperkalemic- k of 7.5 mmol/l. renal was called and luis placed. note pt is on pradaxa, potassium, and lasix at home. he is not sure if he took NSAID's. Review of Systems General: Reports: 10 or more systems reviewed and unremarkable except in HPI and below Narrative: weak, denies fevers, + headaches, no cp, +SOB, nausea, abd distention, dec uop, min edema. + forgetful, no diarrhea. no change in vision or hearing. no rash. no other complaints Meds/Allergies Home Medications and Allergies Home Medications Medication Instructions Recorded Confirmed Type albuterol sulfate 90 mcg/actuation 2 puff INHALATION Q6H PRN 09/19/19 09/19/19 History aerosol inhaler alprazolam 0.25 mg tablet 0.25 mg PO BID PRN 09/19/19 09/19/19 History dabigatran etexilate 75 mg capsule 75 mg PO DAILY cap 09/19/19 09/19/19 History denosumab 60 mg/mL subcutaneous 60 mg SUBCUT .q 3 months ml 09/19/19 09/19/19 History syringe fluticasone fur. 100 mcg-umeclid 1 inh INHALATION DAILY 09/19/19 09/19/19 History 62.5 mcg-vilant 25 mcg inhalat.powder furosemide 40 mg tablet 40 mg PO BID PRN 09/19/19 09/19/19 History goserelin 10.8 mg subcutaneous 10.8 mg SUBCUT .q 3 months each 09/19/19 09/19/19 History implant metoprolol tartrate 50 mg tablet 50 mg PO DAILY 09/19/19 09/19/19 History potassium chloride 20 mEq 20 meq PO BID 09/19/19 09/19/19 History tablet,extended release simvastatin 40 mg tablet 40 mg PO DAILY 09/19/19 09/19/19 History Allergies Allergy/AdvReac Type Severity Reaction Status Date / Time No Known Allergies Allergy Unverified 09/19/19 09:48 Current Medications Current Medications Generic Name Dose Route Start Last Admin Trade Name Marily PRN Reason Stop Dose Admin Dextrose 1,000 mls @ 100 mls/hr 11/22/19 08:15 11/22/19 08:26 D5w IV 100 mls/hr .Q10H FRIEDA Administration PFSH Acute PFSH: Medical History Aortic stenosis Atrial fibrillation Cardiac pacemaker HTN (hypertension) Hyperlipidemia PVD (peripheral vascular disease) Family History Mother , 86; lung Cancer Father , 60's; stomach Cancer Social History Smoking and tobacco status: former smoker Vitals/I&O/Wt Last Vital Signs Temp 97.3 F L 11/22/19 06:16 Pulse 67 11/22/19 06:16 Resp 20 H 11/22/19 06:16 BP 120/61 11/22/19 06:16 Pulse Ox 98 11/22/19 06:16 Weight last 48 hrs Weight 72.575 kg Physical Exam Narrative: EXAM NARRATIVE: elderly man- VS stable NARD heent- nc/at neck + jvp Lung dull bases and crackles heart irreg irreg, +LIZBET abd distended, soft, +BS ext 1 + b/l leg edema neuro- a,a, o x 3 pulses + b/l mood appropriate A&P Additional A&P Information 74 yr old man CKD stage 4- b/l cr approx 2.3, , Diastolic dysfunction, COPD, a fib, PVD, and htn. pt here w/ weakness and found to have GRACIELA. 1. F/u COVID-19 test results 2. CKD stage 4- b/l cr 1.9- 2.3 mg/dl from age, htn, CRS. 3. GRACIELA- stat us to r/o obstruction -luis -urine studies Q of ATN, prerenal -check ck for possible rhabso 4. INC AGMA- check abg -given bicarb 5. hyperkalemia- from GRACIELA and potassium pills -rx medically 6. check cxr 7. unless obstructive uropathy on renal us- will proceed w/ dialysis- WOULD CONSIDER TEMPORARY LINE ON PRADAXA- Then hd for 3 hrs, 2k bath, remove 1.5 liters Consult Attestations Medical Necessity Statement: graciela, met acidosis, hyperkalemia, sob Time Spent in Patient Care: Greater than 35 minutes Coding Level of Care Code Acute [employer] for [employer]on
[2019-11-22 08:49] LABS: INR 1.87 (0.8-1.2); Partial Thromboplastin Time 51.4 SECONDS (23.9-36.7)
--- NOTE | 2019-11-22 08:59 | XR_ITS ---
WS: [id number] CHEST XRAY TECHNIQUE: Portable chest. CLINICAL INFORMATION: chf, as, alirio COMPARISON: November 02, 2016 FINDINGS: Heart: Cardiomegaly. Lungs: Chronic emphysematous changes. Small right pleural effusion. Interstitial thickening right gre ater than left lung. No focal pneumonia. Suspected right hilar and anterior mediastinal lymphadenopat hy. Bones: Mild thoracic curve convex left. XR/XR chest 1V portable [id number] IMPRESSION: 1. Cardiomegaly. 2. Suspected right hilar and mediastinal lymphadenopathy. This can be further evaluated with chest CT. 3. Chronic emphysematous changes with interstitial thickening in the right gre ater than left lung appears chronic. 4. Small right pleural effusion. 5. No focal pneumonia.
[2019-11-22 09:24] LABS: Hepatitis B Surface AB. 3.5 (0-8.5); Hepatitis B Surface Antigen. Non-Reactive (Nonreactive)
--- NOTE | 2019-11-22 09:24 | ANES.PREANE2 ---
Pre-Anesthetic Assessment Pre-Anesthetic Assessment: Height/Weight: Height 1.78 m Weight 72.575 kg Temp Pulse Resp BP Pulse Ox 97.3 F L 67 20 H 120/61 98 11/22/19 06:16 11/22/19 06:16 11/22/19 06:16 11/22/19 06:16 11/22/19 06:16 Preop Diagnosis: ARF Proposed Procedure: Dialysis catheter Familial anesthetic complications: None Last intake: NPO > 8hrs Exam: Pre-Anes Outpt Exam: alert, oriented x 3, clear to auscultation bilaterally and regular rate & rhythm Airway: Cervical ROM: WNL Additional comments: edentulous Pulmonary: Pulmonary: COPD Comments: covid test awaiting CV/HEM: CV/HEM: Afib, HTN and PVD Comments: pacemaker Aortic stenosis 2016 - echo shows ef 55% mild LVH and Mod w/ valve area 0.89 cm2 : : Chronic renal failure Comments: GRACIELA Hepatic: Comments: increased lfts Metabolic: Comments: hyperakalemic K 7.5, on plavix and pradaxa Neuropsych: Neuropsych: None reported Anesthetic Plan: ASA status: 4E Anesthesia: Nurse-admin mod sedation Risk of > 500 ml blood loss (7ml/kg in children): No Other Pertinent Information: INR 1.87 PTT 51.4 K+ 7.5 Na 130 Patient very high risk - will proceed with fentanyl only Meds/Allergies Current Medications: Current Medications Generic Name Dose Route Start Last Admin Trade Name Freq PRN Reason Stop Dose Admin Dextrose 1,000 mls @ 100 m ls/hr 11/22/19 08:15 11/22/19 08:26 D5w IV 100 mls/hr .Q10H FRIEDA Administration PFSH Anesthesia PFSH: Medical History Aortic stenosis Arteriosclerosis Atrial fibrillation Cardiac pacemaker COPD (chronic obstructive pulmonary disease) Dementia Diabetes mellitus Glaucoma HTN (hypertension) Hyperlipidemia Hyperthyroidism HUMAIRA (obstructive sleep apnea) Prostate cancer PVD (peripheral vascular disease) Renal mass Varicose vein of leg Vitamin D deficiency Surgical History S/P cataract surgery S/P cholecystectomy Family History Mother , 86; lung Cancer Father , 60's; stomach Cancer Social History Smoking and tobacco status: former smoker Data Anesthesia CBC & Chem 7: 11/22/19 06:35 11/22/19 06:35 Other Labs: Laboratory Results - last 48 hr 11/22/19 11/22/19 11/22/19 06:35 06:35 06:35 WBC 10.5 H RBC 4.81 Hgb 13.6 Hct 43.4 MCV 90.2 MCH 28.3 MCHC 31.3 RDW 18.7 H Plt Count 100 L MPV 10.9 H Neut % (Auto) 81.7 Lymph % (Auto) 8.6 Williamson % (Auto) 9.1 Eos % (Auto) 0.0 Baso % (Auto) 0.2 Neut # (Auto) 8.6 H Lymph # (Auto) 0.9 Williamson # (Auto) 1.0 H Eos # (Auto) 0.0 Baso # (Auto) 0.0 Nucleated RBC % (auto) 0 Nucleated RBCs # 0.0 PT INR APTT Sodium 130 L Potassium 7.5 H* Chloride 96 L Carbon Dioxide 11 L Anion Gap 30.5 H BUN 97 H* D Creatinine 8.6 H* Glucose 82 Calculated Osmolality 270 L Calcium 8.5 Total Bilirubin 2.4 H AST 438 H ALT 180 H Alkaline Phosphatase 428 H Total Protein 8.3 Albumin 4.2 Globulin 4.1 Lipase 96 H Serum Ketones Negative 11/22/19 06:35 WBC RBC Hgb Hct MCV MCH MCHC RDW Plt Count MPV Neut % (Auto) Lymph % (Auto) Williamson % (Auto) Eos % (Auto) Baso % (Auto) Neut # (Auto) Lymph # (Auto) Williamson # (Auto) Eos # (Auto) Baso # (Auto) Nucleated RBC % (auto) Nucleated RBCs # PT 21.70 H INR 1.87 H APTT 51.4 H Sodium Potassium Chloride Carbon Dioxide Anion Gap BUN Creatinine Glucose Calculated Osmolality Calcium Total Bilirubin AST ALT Alkaline Phosphatase Total Protein Albumin Globulin Lipase Serum Ketones Cardiac Studies: No Data to Display
[2019-11-22 09:25] LABS: Hepatitis C Virus Antibody Non-Reactive (Nonreactive)
[2019-11-22 09:29] LABS: Bilirubin Urine Neg (NEGATIVE); Blood Urine 3+ (Negative); Glucose Urine UA Norm (Normal); Ketones Urine Negative (Negative); Leukocyte Esterase Urine Negative (Negative); Nitrate Urine Negative (Negative); Protein Urine 3+ (Negative); Specific Gravity, Urine 1.015 (1.005-1.030); Urine Appearance SL Hazy (CLEAR); Urine Color Yellow (Yellow); Urobilinogen Urine Norm (Negative)
[2019-11-22 09:36] LABS: Add Urine Culture? Yes; Bacteria Urine 1+; Mucus Urine 1+; RBC Urine 15-25 /hpf (0-2); Squamous Epithelial Cell Urine 0-4 (0-5); Transitional Epi Cells Urine 0-4 /hpf
[2019-11-22 09:45] LABS: Urine Creatinine 103 mg/dL (39-259)
[2019-11-22 09:50] LABS: Calcium 8.2 mg/dL (8.5-10.5); Parathyroid Hormone 582.8 pg/mL (15-65)
[2019-11-22 09:56] LABS: Potassium, Radom Urine 50 mmol/L
[2019-11-22 10:03] LABS: Urine Protein Random 207 mg/dL; Urine Random Chloride 11 mmol/L; Urine Random Sodium 12 mmol/L
[2019-11-22 10:27] LABS: INR 2.22 (0.8-1.2); Partial Thromboplastin Time 44.1 SECONDS (23.9-36.7)
--- NOTE | 2019-11-22 10:33 | P.CONIM_ITS ---
Providers/Reason For Consult Consulting Physican/Specialty*: Maurisio Islas MD Reason for Consult*: Urgent hemodialysis catheter placement Requesting Physcian: Dr Peng Primary Care Provider: Yao Weeks MD History of Present Illness History of Present Illness Chief Complaint: I am tired History of present illness: Sam Arevalo is a 74 year old male presents to the emergency department with worsening nausea vomiting and diarrhea apparently the patient comes from [facility] and 2 days ago was tested for COVID-19 pending results. I was contacted with regard to patient's hyperkalemic status and and need for urgent hemodialysis catheter placement, going through the chart and further discussion with Dr. Lewis anesthesiologist she mentioned to me that the patient has been on Pradaxa and consequently would require to be reversed prior to any invasive procedure. Patient was seen and evaluated in the emergency department under droplet precautions Review of Systems General: Reports: 10 or more systems reviewed and unremarkable except in HPI and below Meds/Allergies Home Medications and Allergies Home Medications Medication Instructions Recorded Confirmed Type albuterol sulfate 90 mcg/actuation 2 puff INHALATION Q6H PRN 09/19/19 11/22/19 History aerosol inhaler alprazolam 0.25 mg tablet 0.25 mg PO BID PRN 09/19/19 11/22/19 History dabigatran etexilate 75 mg capsule 75 mg PO DAILY cap 09/19/19 11/22/19 History denosumab 60 mg/mL subcutaneous 60 mg SUBCUT .q 3 months ml 09/19/19 11/22/19 History syringe fluticasone fur. 100 mcg-umeclid 1 inh INHALATION DAILY 09/19/19 11/22/19 History 62.5 mcg-vilant 25 mcg inhalat.powder furosemide 40 mg tablet 40 mg PO BID PRN 09/19/19 11/22/19 History goserelin 10.8 mg subcutaneous 10.8 mg SUBCUT Q90D each 09/19/19 11/22/19 History implant metoprolol tartrate 50 mg tablet 25 mg PO DAILY 09/19/19 11/22/19 History potassium chloride 20 mEq 20 meq PO BID PRN 09/19/19 11/22/19 History tablet,extended release amoxicillin 875 mg PO BID 11/22/19 11/22/19 History clopidogrel [Plavix] 75 mg PO DAILY 11/22/19 11/22/19 History rosuvastatin [Crestor] 40 mg PO DAILY 11/22/19 11/22/19 History Allergies Allergy/AdvReac Type Severity Reaction Status Date / Time No Known Allergies Allergy Unverified 11/22/19 10:34 Current Medications Current Medications Generic Name Dose Route Start Last Admin Trade Name Freq PRN Reason Stop Dose Admin Dextrose 1,000 mls @ 100 mls/hr 11/22/19 08:15 11/22/19 08:26 D5w IV 100 mls/hr .Q10H FRIEDA Administration PFSH Acute PFSH: Medical History Aortic stenosis Arteriosclerosis Atrial fibrillation Cardiac pacemaker COPD (chronic obstructive pulmonary disease) Dementia Diabetes mellitus Glaucoma HTN (hypertension) Hyperlipidemia Hyperthyroidism HUMAIRA (obstructive sleep apnea) Prostate cancer PVD (peripheral vascular disease) Renal mass Varicose vein of leg Vitamin D deficiency Surgical History S/P cataract surgery S/P cholecystectomy Family History Mother , 86; lung Cancer Father , 60's; stomach Cancer Social History Smoking and tobacco status: former smoker Vitals/I&O/Wt Last Vital Signs Temp 97.3 F L 11/22/19 06:16 Pulse 67 11/22/19 06:16 Resp 20 H 11/22/19 06:16 BP 120/61 11/22/19 06:16 Pulse Ox 98 11/22/19 06:16 Weight last 48 hrs Weight 160 lb Physical Exam Narrative: EXAM NARRATIVE: Patient is conscious alert oriented X3 BMI 23 Head and neck examination PERRLA no masses no cervical lymphadenopathy no jaundice Patient is wearing a mask Cardiac examination audible S1-S2 no murmurs no gallops no arrhythmias Chest is clear bilateral,abscence of Rhonchi or wheezes,no surgical emphysema Abdomen nontender nondistended soft no organomegaly guarding or rigidity/no signs of peritonitis Extremities no cyanosis no clubbing no edema A&P Assessment and plan (1) Acute renal failure: Plan of care; After thorough history physical examination and reviewing the chart, I counseled the patient for tunneled hemodialysis catheter placement, indications, risks including pneumothorax and injury of major vascular structures, benefits, and alternatives were all discussed with the patient, patient understands and is interested to proceed. Also patient has been on Pradaxa for atrial fibrillation he will have to receive the reversal agent for Pradaxa prior to any invasive procedure. The case has been discussed with Dr. Lopez ER attending as well as Dr. Head and Also the whole staff is aware and educated about droplet precautions Informed consent per chart Assurance and education All questions have been answered Status: Acute Consult Attestations Medical Necessity Statement: Per hospitalist service Time Spent in Patient Care: 16 - 35 minutes (>than 50% of time spent in counselling and/or direct pt care on unit) . Coding Level of Care Code Acute Acid Bleacher for Kristel Lennon Diagnoses Acute renal failure N17.9
[2019-11-22 11:02] LABS: Eosinophil Urine No Eosinophils Seen; Urine Eosinophil Count 0 (0-0)
--- NOTE | 2019-11-22 11:51 | CTR_ITS ---
PROCEDURE INFORMATION: Exam: CT Abdomen And Pelvis Without Contrast Exam date and time: 11/22/2019 7:19 AM Age: 74 years old Clinical indication: Abnormal findings; Abnormal lab test; Elevated liver enzymes; Additional info: Elevated liver enzymes and acute kidney injury. TECHNIQUE: Imaging protocol: Computed tomography of the abdomen and pelvis without contrast. Total DLP: 1083.26 mGy-cm Radiation optimization: All CT scans at this facility use at least one of these dose optimization techniques: automated exposure control; mA and/or kV adjustment per patient size (includes targeted exams where dose is matched to clinical indication); or iterative reconstruction. COMPARISON: CT abdomen pelvis wo con [id number] 08/30/2019 11:30 AM FINDINGS: Mild cardiomegaly. Marked emphysematous changes at the right lung base. Moderate atelectasis and/or consolidation at the right lung base. Mild atelectasis and/or consolidation at the left lung base. Small right pleural fluid collection, similar to prior study. There is a defined rim at the posterior margin of the collection, suggesting empyema. Small left pleural fluid collection, decreased from prior study. There is a defined rim at the posterior margin of the collection, suggesting empyema. Many indeterminate hypodense lesions scattered throughout the liver. The largest measures 2.4 cm and is located in the left hepatic lobe on series 2, image 22. These are similar to prior study. Differential diagnosis includes cysts and metastatic disease. Status post cholecystectomy. Mild splenomegaly (craniocaudal measurement of spleen is roughly 13 cm), decreased from prior study. Several small calcified granulomata noted in the spleen. The pancreas is unremarkable within the limits of a noncontrast study. The adrenal glands are unremarkable within the limits of a noncontrast study. Several focal lesions in each kidney, statistically likely to represent cysts. These are similar to prior study. The appendix is not identified as a separate structure. No evidence of bowel obstruction. Diverticulosis of the descending and sigmoid colon without findings to specifically suggest diverticulitis. No free intraperitoneal air identified. Moderate ascites throughout the abdomen and pelvis, overall increased from prior study. Mcbride catheter is noted in the bladder. Extensive atherosclerotic aortoiliac calcification. No abdominal aortic aneurysm. 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 This is similar to prior study. There is a 1.2 cm lesion sclerotic lesion in the left ilium near the sacroiliac joint (series 2, image 58). There is a 0.8 cm sclerotic lesion in the left iliac wing (series 2, image 58). These are similar to prior study. If additional or more detailed information is needed, an addendum can be generated on request. CT/CT abdomen pelvis wo con [id number] IMPRESSION: 1. Moderate ascites throughout the abdomen and pelvis, overall increased from prior study. 2. Many indeterminate hypodense lesions scattered throughout the liver. These are similar to prior study. Differential diagnosis includes cysts and metastatic disease. 3. 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 This is similar to prior study. 4. Mild splenomegaly (craniocaudal measurement of spleen is roughly 13 cm), decreased from prior study. 5. Abnormal appearance of lower thorax. 5.1 Moderate atelectasis and/or consolidation at the right lung base. Mild atelectasis and/or consolidation at the left lung base. 5.2 Small right pleural fluid collection, similar to prior study. There is a defined rim at the posterior margin of the collection, suggesting empyema. 5.3 Small left pleural fluid collection, decreased from prior study. There is a defined rim at the posterior margin of the collection, suggesting empyema. Radiation Dose CTDIVOL = (mGy): DLP = 1083.26 (mGy-cm)
--- NOTE | 2019-11-22 11:54 | SC_ITS ---
WS: [id number] INTRAOPERATIVE TECHNIQUE: 2 Spot fluoroscopic images for intraoperative purposes. FLUOROSCOPY TIME: 3.6 seconds CLINICAL INFORMATION: hemodialysis catheter placement via right IJ vein COMPARISON: None. FINDINGS: Right IJ central venous catheter with tip in the SVC. SC/C-arm FL for CVA [id number] IMPRESSION: Images obtained for intraoperative purposes.
[2019-11-22 11:57] LABS: Alanine Aminotransferase 279 U/L (0-41); Albumin Level 3.5 g/dL (3.5-5.2); Alkaline Phosphatase 362 IU/L (40-130); Anion Gap 26.2 (5-19); Calcium 7.5 mg/dL (8.5-10.5); Carbon Dioxide 13 mmol/L (22-29); Chloride 101 mmol/L (98-107); Globulin 3.4 g/dL (1.3-4.6); Glucose 154 mg/dL (65-115); Osmolality Calculated 282 mOsm/kg (285-295); Potassium 6.2 mmol/L (3.5-5.1); Sodium 134 mmol/L (136-145); Total Bilirubin 2.2 mg/dL (0.15-1.2); Total Protein 6.9 g/dL (6.6-8.7)
[2019-11-22] MEDS: lidocaine 2% INJ 20 mL 10 ML INJECTION (12:15)
--- NOTE | 2019-11-22 12:15 | PM.OP ---
Operative Report Date of procedure: November 22, 2019 Pre-op Diagnosis: ARF Post-op diagnosis: same Post-op Findings: Wide patent right IJ Procedure Done: Ultrasound-guided hemodialysis catheter placement via right IJ vein All fluoroscopic and ultrasound guided interpretation was done by me through the whole entire procedure Implants: Right IJ vein hemodialysis catheter 12 Bulgarian Surgeon: Maurisio Islas Control Tower Radio Operator: Lilliana Velez Anesthesia: Local (Boris Vazquez) Estimated blood loss (mL): 3 Complications: No immediate complication Condition: stable Disposition: ICU Brief History: This is a pleasant 74 years old gentleman presents to the emergency department with weakness associated with history of nausea vomiting diarrhea in the interim patient developed acute renal failure that required urgent hemodialysis access. Patient was tested for Covid-19 pending results Plan of care; After thorough history physical examination and reviewing the chart, I counseled the patient for urgent temporary hemodialysis cath placement, indications, risks including pneumothorax and injury of major vascular structures, benefits, and alternatives were all discussed with the patient, patient understands and is interested to proceed. Informed consent per chart Assurance and education All questions have been answered Informed consent per chart The plan is to perform the procedure in a negative pressure room in the OR also patient is being a high risk. Also the patient has been on Pradaxa per nephrology notes and anesthesia input and thus anti-reversal agent will be given prior to the procedure. Procedure: Pre Procedure diagnosis; acute renal failure Postprocedure diagnoses the same Procedure done; placement of 11 Bulgarian temporary dialysis catheter Indication acute renal failure Medications were reviewed to assess for anticoagulant usage. Risks and benefits and prevention of central line associated blood stream infection (CLABSI) were discussed with the patient/CPOA, and a consent was obtained. Monitors were in place and monitored throughout the procedure. All necessary supplies were available prior to start. Hand hygiene was completed prior to starting. Maximum barrier technique was utilized including a sterile gown, sterile gloves with a hat and mask. Site was was prepped with [chlorhexidine] and a full body drape was placed. 5 mL of 2% lidocaine was injected into the skin with a 25 gauge needle. Description Local anesthetic in the form of 1% lidocaine infiltrated at the site of insertion of the catheter Prep& drape was done under the usual sterile technique of upper chest right and left as well as the neck both sides, lidocaine 1% was injected at the site of the stick, started by right internal jugular vein stick under ultrasound guidance there was no evidence of intraluminal thrombus,retrieved venous blood was obtained from the first stick, a guidewire was then threaded under ultrasound guidance and was found to be in the IVC there was minimal PVC changes so I had to pull the wire which made it gone. At that point the guidewire was secured to the drapes with a hemostat and the needle was taken out, followed by that serial dilators ,the dilator was then taken out, glide wire maintained to be in good position and the hemodialysis catheter 11 Bulgarian was introduced onto the guidewire, with venous and arterial hubs were flushed and retrieved venous blood without difficulty Hep-Lock's were then applied Postprocedure chest x-ray was done, showed catheter in good position and no pneumothorax Patient tolerated the procedure well I Was present for the whole entire procedure
--- NOTE | 2019-11-22 12:17 | XR_ITS ---
WS: [id number] CHEST XRAY TECHNIQUE: Portable chest. CLINICAL INFORMATION: Status post insertion of right IJ vein hemodialysis catheter COMPARISON: November 22, 2019 FINDINGS: Right IJ central venous catheter with tip in the mid to distal SVC in good position. No pneumothorax. Heart: Cardiomegaly. Lungs: Chronic emphysematous changes with chronic interstitial thickening. Stable right suprahilar/az ygo esophageal and AP window lymphadenopathy. Chronic interstitial fibrosis right lung. Chronic left posterior rib fractures with callus formation. Bones: Normal visualized bony structures. XR/XR chest 1V portable [id number] IMPRESSION: 1. Right IJ central venous catheter with tip in distal SVC. No visualized pneu mothorax. 2. Cardiomegaly with stable suprahilar and left AP window lymphadenopathy. 3. Chronic appearing fibrotic changes right lung.
[2019-11-22 12:28] LABS: Glucose Point of Care 116 mg/dL (70-110)
[2019-11-22 12:28] LABS: Glucose Point of Care 61 mg/dL (70-110)
[2019-11-22 12:33] LABS: Blood Urea Nitrogen 93 mg/dL (8-23)
[2019-11-22 12:34] LABS: Aspartate Amino Transferase 734 U/L (0-40)
[2019-11-22] MEDS: heparin, porcine 1,000 unit/mL INJ 10 mL 10000 UNIT INJECTION (12:38)
[2019-11-22 13:58] LABS: ABG PCO2 23.5 mmHg (35-45); ABG PH Result 7.26 (7.35-7.45); Alveolar-Arterial Oxygen Gradi 77.5 mmHg (5-10); Arterial Blood Gas Hematocrit 40.4 % (42-52); Base Excess ABG -14.8 mmol/L (-2.0-2.0); Blood Gas Allen Test Pos; Blood Gas Sample Site Brachial, left; Blood Gas Sample Type Arterial; Carboxyhemoglobin 0.4 %THgb (0.4-20.1); HCO3 ABG 10.4 mmol/L (22-26); HGB O2 Sat 94.6 % (95-100); Ionized Calcium Level - ABG 0.9 mmol/L (1.1-1.4); Methemoglobin 0.9 % (0.4-1.5); Oxygen Device NC; Oxygen Saturation ABG 95.9; PO2 ABG 87.7 mmHg (80.0-100.0); Potassium Level - ABG 5.9 mmol/L (3.5-5.0); Total Hemoglobin 13.2 g/dL (14-18)
--- NOTE | 2019-11-22 14:01 | P.HP_ITS ---
Providers/Chief Complaint Admitting Physician: Jorge Head MD Primary Care Provider: Yao Weeks MD Chief Complaint: N/V History of Present Illness Sam Arevalo is a 74 year old male presents to emergency department with multiple complaints. Reports being nauseous and dry heaving. Denies having abdominal pain or diarrhea although ER records mentioned that he did have. Patient initially told me that he developed cough several days ago and was short of breath but when asked again several minutes later he denied being short of breath in the last 1 week. Apparently patient was tested for COVID nineteen 1 week ago and we have call to [facility] and it appears that result is not back yet. Patient had repeat test performed in ER and currently on droplet and c ontact isolation. He was noted to be in acute kidney injury and had significantly elevated liver enzymes. His potassium was 6.2 with EKG changes and patient was seen by Dr. Eagle with recommendation to proceed with hemodialysis. In ER patient was given Kayexalate, calcium gluconate and Dr. Le performed right IJ dialysis catheter. Apparently there was concern for patient being on Pradaxa and he received reversal agent. Patient himself is a poor historian and does not know what medications he is receiving. He reports that today he feels much better than he fell 2 days ago but could not tell me why he did not present to hospital earlier. I have evaluated patient in ICU as he was getting ready to receive hemodialysis. He has a right IJ dialysis catheter placed. He has bear hugger on as he feels cold. Patient's history is complicated by what appears to be metastatic prostate ca ncer with possible primary liver cancer. He is currently treated with Zoladex and Xgeva. Patient's mild thrombocytopenia felt to be related to splenomegaly. Mcbride catheter was placed with very minimal dark concentrated urine out. Review of Systems Narrative: Except as mentioned above Const: Reports: chills; Denies: fever Eyes: Denies: change in vision ENMT: Denies: throat pain or change in hearing Card: Denies: chest pain, edema or lightheadedness Resp: Reports: non-productive cough; Denies: shortness of breath or productive cough GI: Reports: nausea; Denies: abdominal pain, vomiting, difficulty swallowing, diarrhea, constipation, blood in stool or black tarry stool Musc: Denies: joint pain or joint swelling Skin/Breast: Denies: rash or redness Neuro: Denies: headache or weakness in extremities Psych: Denies: depression Endo: Denies: excessive sweating Romie/Lymph: Denies: easy bleeding or tender lymph nodes All/Imm: Denies: throat swelling Medications/Allergies Home Medications Medication Instructions Recorded Confirmed Last Taken Type amoxicillin 875 mg PO BID 11/22/19 11/22/19 11/21/19 History clopidogrel [Plavix] 75 mg PO DAILY 11/22/19 11/22/19 11/21/19 History rosuvastatin [Crestor] 40 mg PO DAILY 11/22/19 11/22/19 11/21/19 History Allergies Allergy/AdvReac Type Severity Reaction Status Date / Time No Known Allergies Allergy Unverified 11/22/19 10:34 PFSH Acute PFSH: Medical History Aortic stenosis Arteriosclerosis Atrial fibrillation Cardiac pacemaker COPD (chronic obstructive pulmonary disease) Dementia Diabetes mellitus Glaucoma HTN (hypertension) Hyperlipidemia Hyperthyroidism HUMAIRA (obstructive sleep apnea) Prostate cancer PVD (peripheral vascular disease) Renal mass Varicose vein of leg Vitamin D deficiency Surgical History S/P cataract surgery S/P cholecystectomy Family History Mother , 86; lung Cancer Father , 60's; stomach Cancer Social History Smoking and tobacco status: former smoker Vitals/I&O/Wt Last Vital Signs Temp 97.3 F L 11/22/19 06:16 Pulse 78 11/22/19 13:28 Resp 20 H 11/22/19 11:46 BP 125/62 11/22/19 11:46 Pulse Ox 100 11/22/19 13:28 11/21/19 11/22/19 11/22/19 22:59 06:59 14:59 Intake Total 50 / 50 Balance 50 / 50 Weight last 48 hrs Weight 72.575 kg Physical Exam Const: COMMON NORMALS: no apparent distress, oriented x3 and alert HENMT: COMMON NORMALS: normocephalic and head/scalp atraumatic HEAD & SCALP: normocephalic and atraumatic Eye: COMMON NORMALS: EOMs intact bilaterally, conjunctivae normal and no scleral icterus CONJUNCTIVA: Yes conjunctivae normal Neck/C-Spine: COMMON NORMALS: no lymphadenopathy and no meningeal signs Lymph: LYMPHATIC: no lymphadenopathy noted Chest: COMMONS NORMALS: palpation of chest normal Resp: COMMON NORMALS: normal respiratory effort and no use of accessory muscles OTHER: Minimal bibasilar Rales. Cardio: COMMON NORMALS: regular rate, regular rhythm and no murmurs RATE: regular rate RHYTHM: regular rhythm OTHER: Trace lower extremity edema GI: COMMON NORMALS: soft to palpation and non-tender PALPATION: Yes soft RECTAL EXAM: Yes deferred : COMMON NORMALS: Yes no CVA tenderness BLADDER/KIDNEY EXAM: Yes no CVA tenderness Back/Pelvis: COMMON NORMALS: no CVA tenderness and thoracic and lumbar spine normal to inspection Extremity: COMMON NORMALS: normal to inspection and normal capillary refill Neuro: COMMON NORMALS: oriented x3 and no focal motor deficits SENSORIUM/ORIENTATION: Yes alert MENINGEAL SIGNS: Yes no meningeal signs Psych: COMMON NORMALS: mental status grossly normal, thought process normal and cooperative THOUGHT PROCESS: normal thought process Skin: COMMON NORMALS: no rashes or lesions noted GENERAL SKIN EXAM: no rashes or lesions noted Data : 11/22/19 06:35 11/22/19 11:36 A&P Assessment and plan (1) Acute kidney injury superimposed on chronic kidney disease: Status: Acute (2) Hyperkalemia: Status: Acute (3) Transaminitis: Status: Acute (4) Hyponatremia: Status: Acute Additional A&P Information PLAN: Check troponin and CK as significantly elevated AST concerning for muscle damage including cardiac. Denies alcohol use. Will check hepatitis panel including hepatitis A. Hold statin for now. Continue metoprolol and Plavix. Patient's medication list shows amoxicillin and will need to find out why patient is on it. Continue COVID19 precautions until result is back. Obtain echocardiogram to evaluate wall motion and ejection fraction. Obtain CT scan of abdomen and pelvis for further evaluation of reported diarrhea, acute kidney injury and elevated liver enzymes. Stool studies if diarrhea continues. Patient reports good appetite. We will avoid any IV fluids at this point. Attestations Medical Necessity Statement*: Patient with acute kidney injury and transaminitis as well as concern for recent DC requires close ICU monitoring and treatment due to high risk of deterioration. I expect patient will require more than 2 midnights. Coding Level of Care Code Acute Closet Builder for Kristel Lennon Diagnoses Acute kidney injury superimposed on chronic kidney disease N17.9; N18.9 Hyperkalemia E87.5 Transaminitis R74.0 Hyponatremia E87.1
--- NOTE | 2019-11-22 16:15 | PC.NURSE ---
received critical troponin results from lab, let primary nurse Beth GARCIA know.
[2019-11-22 16:26] LABS: Procalcitonin 1.08 ng/mL (0-0.5)
[2019-11-22 16:30] LABS: Hepatitis A Antibody IgM. Non-Reactive (Nonreactive); Hepatitis B Core IgM Non-Reactive (Nonreactive); Hepatitis B Surface Antigen. Non-Reactive (Nonreactive); Hepatitis C Virus Antibody Non-Reactive (Nonreactive)
[2019-11-22 16:32] LABS: Troponin(5th) Baseline 134 ng/mL (0-15)
--- NOTE | 2019-11-22 16:47 | ECG_ITS ---
Measurements Intervals [place] Rate: 75 P: 111 MT: 199 QRS: -62 QRSD: 189 T: 111 QT: 488 QTc: 549 SINUS RHYTHM MARKED LEFT AXIS DEVIATION [QRS AXIS < -30] LEFT BUNDLE BRANCH BLOCK [120+ ms QRS DURATION, 80+ ms Q/S IN V1/V2, 85+ ms R IN I/aVL/V5/V6] WARNING: DATA QUALITY MAY AFFECT INTERPRETATION Compared to ECG 11/02/2016 22:16:23 Left-axis deviation now present Left bundle-branch block now present Left anterior fascicular block no longer present T-wave abnormality no longer present Possible ischemia no longer present Electronically Signed On 11-23-2019 18:09:39 CDT by Humphrey Del Rio M.D. [email or web address]
[2019-11-22 16:55] LABS: Creatine Phosphokinase 4587 U/L (39-308)
[2019-11-22 18:01] LABS: Troponin 5 2HR 131.6 ng/mL (0-15); Troponin 5 2HR Delta -2.4 ABS# (0-10)
[2019-11-22 20:36] LABS: Coronavirus Lab Test PTC Negative
[2019-11-22] MEDS: sodium chloride 0.9% 1,000 ML 100 ML IV (20:37)
--- NOTE | 2019-11-22 20:47 | ECG_ITS ---
Measurements Intervals [place] Rate: 76 P: 101 VT: 196 QRS: -63 QRSD: 193 T: 110 QT: 491 QTc: 554 ELECTRONIC VENTRICULAR PACEMAKER ABNORMAL RHYTHM ECG Compared to ECG 11/02/2016 22:16:23 Sinus rhythm no longer present Left anterior fascicular block no longer present T-wave abnormality no longer present Possible ischemia no longer present Electronically Signed On 11-23-2019 18:08:57 CDT by Humphrey Del Rio M.D. [email or web address]
--- NOTE | 2019-11-22 21:18 | PC.NURSE ---
COVID-19 TESTING RESULT CAME BACK NEGATIVE. DR LOPEZ GAVE THE OKAY TO CALL THE . [facility] WAS UPDATED ON NEGATIVE RESULT. DR LOPEZ GAVE ORDER TO STOP ISOLATION PRECAUTIONS.
[2019-11-22] MEDS: morphine 4 mg/mL SDV 1 mL 2 MG IVP (23:00)
[2019-11-23] VITALS (12 sets, daily range): BP systolic 97–128; BP diastolic 45–62; PULSE 61–74; RESP 12–20; TEMP 36.4–37.2; O2SAT 94–100
[2019-11-23 01:10] LABS: Basophils % 0.1 %; Eosinophils % 0.1 %; Hematocrit 38.3 % (42.0-52.0); Hemoglobin 11.9 g/dL (11.7-16.6); Lymphocytes # 0.5 10^3/uL (0.8-4.8); Mean Corpuscular HGB Conc 31.1 g/dL (30.0-36.0); Mean Corpuscular Hemoglobin 28.4 pg (28.0-34.0); Mean Corpuscular Volume 91.4 fL (80-94); Monocytes # 0.8 10^3/uL (0.2-0.9); Neutrophils # 8.8 10^3/uL (1.8-7.7); Neutrophils % 86.3 %; Nucleated Red Blood Cells % 0 %; Platelet Count 58 10^3/cmm (130-400); Red Blood Count 4.19 10^6/uL (4.1-5.3); Red Cell Distribution Width 18.6 % (12.1-15.1); White Blood Count 10.2 10^3/uL (4.0-10.0)
[2019-11-23 01:32] LABS: Alanine Aminotransferase 261 U/L (0-41); Albumin Level 3.4 g/dL (3.5-5.2); Alkaline Phosphatase 335 IU/L (40-130); Blood Urea Nitrogen 43 mg/dL (8-23); Calcium 7.6 mg/dL (8.5-10.5); Carbon Dioxide 14 mmol/L (22-29); Chloride 99 mmol/L (98-107); Globulin 2.7 g/dL (1.3-4.6); Glucose 85 mg/dL (65-115); Magnesium 2.3 mg/dL (1.7-2.3); Osmolality Calculated 279 mOsm/kg (285-295); Phosphorus 4.9 mg/dL (2.5-4.5); Sodium 136 mmol/L (136-145); Total Protein 6.1 g/dL (6.6-8.7)
[2019-11-23 01:45] LABS: Aspartate Amino Transferase 794 U/L (0-40)
[2019-11-23 01:46] LABS: Creatine Phosphokinase 6946 U/L (39-308)
--- NOTE | 2019-11-23 02:03 | PC.NURSE ---
DR NOTIFICATION DR RAO WAS CONTACTED DUE TO CK LEVEL. DAY NURSE HAD PASSED IN REPORT HE WOULD LIKE VALUE AFTER 500ML OF NS WENT IN. PUT IN ORDERS FOR HEMODIALYSIS THIS MORNING. HE SAID TO REDRAW LABS NEEDED FOR DIALYSIS.
[2019-11-23 02:12] LABS: Slide Review Slide Review Perform
--- NOTE | 2019-11-23 06:15 | PC.NURSE ---
SHIFT SUMMARY PT HAS REMAINED ALERT AND ORIENTATED. PT HAS COMPLAINED OF PAIN ONCE AND WAS GIVEN PAIN MEDS. PT HAS BEEN TURNED NEEDED, NO BREAK DOWN NOTED. DR RAO IS AWARE OF LOW URINE OUTPUT. PT HAS NOT COMPLAINED OF ANY NAUSEA.
[2019-11-23] MEDS: pantoprazole DR 40 mg Tablet PO (08:00)
[2019-11-23] MEDS: metoprolol tartrate 50 mg Tablet 25 MG PO (08:00)
[2019-11-23] MEDS: clopidogrel 75 mg Tablet PO (08:00)
--- NOTE | 2019-11-23 10:01 | P.PN_ITS ---
Subjective Subjective: Interval history: Patient reports feeling better this morning. Denies shortness of breath, cough or chest pain. Denies abdominal pain. I was told yesterday that CT scan cannot be performed until COVID test is back but it appears that the patient had CT performed yesterday around noon. There is a concern for empyema and patient had minimal ascites. Discussed with Dr. Finnegan this morning. Pulmonary fluid appears to be loculated fluid in the fissure and not suggestive of empyema. Patient has moderate ascites and Dr. Finnegan thinks that paracentesis will be risky to perform but if amount of fluid increases this can be revisited. Patient has multiple liver hypodense lesions and underlying malignancy versus cyst considered. He has evidence of rhabdomyolysis and since patient does not make any urine fluids were not recommended by Dr. Eagle. Platelets are down to 58 and appears to be related to underlying infection. Vitals/I&O/Wt Last Vital Signs Temp 98.7 F 11/23/19 08:00 Pulse 73 11/23/19 08:00 Resp 16 11/23/19 08:00 BP 123/61 11/23/19 08:00 Pulse Ox 96 11/23/19 08:00 11/22/19 11/23/19 11/23/19 22:59 06:59 14:59 Intake Total 1000 / 4150 1000 / 5150 120 / 120 Balance 1000 / 4150 1000 / 5150 120 / 120 Weight last 48 hrs Weight 84.731 kg Weight 72.575 kg Physical Exam Const: COMMON NORMALS: no apparent distress and oriented x3 Resp: COMMON NORMALS: normal respiratory effort and clear to auscultation bilaterally AUSCULTATION: clear to auscultation bilaterally Cardio: COMMON NORMALS: regular rate, regular rhythm and S2 normal heart sound RATE: regular rate RHYTHM: regular rhythm HEART SOUNDS: S2 normal OTHER: No lower extremity edema GI: COMMON NORMALS: normal to inspection, nondistended, normoactive bowel sounds, soft to palpation and non-tender PALPATION: Yes soft Neuro: COMMON NORMALS: oriented x3 and no focal motor deficits Data : 11/23/19 01:05 11/23/19 01:05 Micro: Microbiology 11/22/19 08:45 Urine Culture - Preliminary Urine,Clean Catch 11/22/19 17:13 Blood Culture - Preliminary Blood SPECIMEN COLLECTED 11/22/19 15:16 Blood Culture - Preliminary Blood SPECIMEN COLLECTED A&P Assessment and plan (1) Acute kidney injury superimposed on chronic kidney disease: Status: Acute (2) Hyperkalemia: Status: Acute (3) Transaminitis: Status: Acute (4) Hyponatremia: Status: Acute Additional A&P Information PLAN: Start patient on ceftriaxone and Flagyl for possible SBP. Patient's INR and increasing INR in view of thrombocytopenia will go ahead and give patient 10 mg of vitamin K. Will discontinue Plavix for now and avoid any anticoagulation at this point. Discussed with pharmacy and appears patient received 6000 units of heparin during hemodialysis catheter placement. Heparin-induced thrombocytopenia felt unlikely. Patient currently has no clinical evidence of thrombosis or bleeding. We will discuss with Dr. Gomez later today after her evaluation. Awaiting echocardiogram report. Acute coronary syndrome felt unlikely. Elevated troponin is most likely secondary to acute kidney injury. Attestations Medical Necessity Statement*: Patient with rhabdomyolysis and acute kidney injury as well as coagulopathy requires close ICU monitoring and treatment due to risk of deterioration. Coding Level of Care Code Acute Certified Registered Nurse Practitioner for Kristel Lennon Diagnoses Acute kidney injury superimposed on chronic kidney disease N17.9; N18.9 Hyperkalemia E87.5 Transaminitis R74.0 Hyponatremia E87.1
[2019-11-23] MEDS: cefTRIAXone 1,000 MG in sodium chloride 0.9% (plus) 50 ML 100 MG IV ×2 (10:11→21:45)
[2019-11-23] MEDS: metroNIDAZOLE IV 500 MG/100 ML PREMIX 100 MG IV ×2 (10:12→17:07)
--- NOTE | 2019-11-23 10:16 | USCV_ITS ---
Sam Arevalo Age: 74 Gender: M : 1945 Exam Date: 11/23/2019 14:33 Ordering Phys: Jorge Head MD Technologist: Rebecca Malave [place]am Location[place] [facility] [place]: ACUTE KIDNEY INJURY RHABDOMOLYSIS BP: / HR: 71 Rhythm: Sinus Technical Quality: Adequate MEASUREMENTS (Male / Female) Normal Values 2D ECHO LV Diastolic Diameter PLAX 5.0 cm 4.2 - 5.9 / 3.9 - 5.3 cm LV Systolic Diameter PLAX 4.3 cm LV Chamber Size 5.1 cm IVS Diastolic Thickness 1.5 cm 0.6 - 1.0 / 0.6 - 0.9 cm IVS Systolic Thickness 1.8 cm LVPW Diastolic Thickness 1.3 cm 0.6 - 1.0 / 0.6 - 0.9 cm LVPW Systolic Thickness 1.5 cm RV Chamber Size 5.4 cm LVOT Diameter 1.9 cm LV Ejection Fraction 2D Teich 29.1 % LV Ejection Fraction MOD 2C 63.3 % LV Ejection Fraction 2C AL 62.6 % LA Diameter 5.2 cm LA Width 4.6 cm LA Height 5.8 cm RA Width 3.7 cm RA Height 6.0 cm Aorta at Sinotubular Diameter 2.9 cm M-MODE LV Diastolic Diameter MM 5.5 cm 4.2 - 5.9 / 3.9 - 5.3 cm LV Systolic Diameter MM 4.9 cm LV Ejection Fraction MM Teich 24.8 % IVS Diastolic Thickness MM 1.3 cm 0.6 - 1.0 / 0.6 - 0.9 cm IVS Systolic Thickness MM 1.6 cm LVPW Diastolic Thickness MM 1.1 cm 0.6 - 1.0 / 0.6 - 0.9 cm LVPW Systolic Thickness MM 1.5 cm RV Diastolic Diameter MM 3.0 cm Aortic Annulus Diameter 3.3 cm LA Ao Ratio MM 1.6 MV E Point Septal Separation 1.7 cm DOPPLER AV Peak Velocity 340.0 cm/s LVOT Peak Velocity 55.0 cm/s AV Area Cont Eq vti 0.4 cm squared AV Area Cont Eq pk 0.5 cm squared MV Area PHT 8.5 cm squared Mitral E to A Ratio 1.0 MV E' Velocity 8.0 cm/s Mitral E to MV E' Ratio 14.2 Mitral E to LV E' Lateral Ratio 10.2 Mitral E to LV E' Septal Ratio 23.6 TR Peak Velocity 238.4 cm/s TR Peak Gradient 22.7 mmHg TR Mean Velocity 147.9 cm/s TR Mean Gradient 11.1 mmHg TR Velocity Time Integral 92.4 cm TV Peak E Velocity 80.0 cm/s Right Atrial Pressure 3.0 mmHg Pulmonary Artery Systolic Pressu 25.7 mmHg PV Peak Velocity 61.0 cm/s RV Acceleration Time 0.1 s RV Ejection Time 0.4 s RV AcT/ET 0.3 FINDINGS Left Ventricle Mildly increased left ventricular cavity size. Normal left ventricular wall thickness. Severely decreased left ventricular systolic function. Global left ventricular hypokinesis. Grade II/IV diastolic dysfunction, moderately elevated filling pressures. Left ventricular ejection fraction is estimated at 20-25 %. Right Ventricle Mildly increased right ventricular size. Moderately decreased right ventricular systolic function. Normal right ventricular systolic pressure. Right Atrium Moderately increased right atrial size. Left Atrium Moderately increased left atrial size. Mitral Valve Structurally normal mitral valve. Mild mitral valve regurgitation. Aortic Valve Severe aortic valve calcification. Severe aortic valve stenosis, mean gradient 20.1 mmHg, MONCHO 0.44 cm squared. The gradient is low because of the low ejection fraction. This is likely severe aortic stenosis. Mild aortic insufficiency. Tricuspid Valve Structurally normal tricuspid valve. [id number] tricuspid valve regurgitation. Pulmonic Valve Pulmonic valve not well visualized. [id number] pulmonary valve regurgitation. Pericardium Normal pericardium without effusion. Aorta Normal ascending aorta dimension. CONCLUSIONS Mildly increased left ventricular cavity size. Normal left ventricular wall thickness. Severely decreased left ventricular systolic function. Global left ventricular hypokinesis. Grade II/IV diastolic dysfunction, moderately elevated filling pressures. Left ventricular ejection fraction is estimated at 20-25 %. Moderately increased right atrial size. Moderately increased left atrial size. Structurally normal mitral valve. Mild mitral valve regurgitation. Severe aortic valve calcification. Severe aortic valve stenosis, mean gradient 20.1 mmHg, MONCHO 0.44 cm squared. The gradient is low because of the low ejection fraction. This is likely severe aortic stenosis. Mild aortic insufficiency. Dr. Jacques Baird MD (Electronically Signed) Final Date: 24 November 2019 08:09 S
[2019-11-23] MEDS: phytonadione (ADULT) 10 mg/mL Ampule 1 mL PO (10:40)
--- NOTE | 2019-11-23 12:14 | P.PN_ITS ---
Subjective Subjective: Interval history: seen during dialysis, denies pain or dyspnea minimal urine output (none yesterday, 50 ml today) Medications: Reviewed: Yes Vitals/I&O/Wt Last Vital Signs Temp 98.7 F 11/23/19 10:00 Pulse 61 11/23/19 10:00 Resp 16 11/23/19 10:00 BP 97/54 11/23/19 10:00 Pulse Ox 95 11/23/19 10:00 11/22/19 11/23/19 11/23/19 22:59 06:59 14:59 Intake Total 1000 / 4150 1000 / 5150 170 / 170 Balance 1000 / 4150 1000 / 5150 170 / 170 Weight last 48 hrs Weight 84.731 kg Weight 72.575 kg Physical Exam Const: COMMON NORMALS: no apparent distress GENERAL APPEARANCE: cooperative HENMT: COMMON NORMALS: normocephalic HEAD & SCALP: normocephalic Neck/C-Spine: GENERAL: Yes other (right IJ dialysis catheter) Resp: COMMON NORMALS: normal respiratory effort and clear to auscultation bilaterally AUSCULTATION: clear to auscultation bilaterally Cardio: COMMON NORMALS: regular rate and regular rhythm RATE: regular rate RHYTHM: regular rhythm Data : 11/23/19 01:05 11/23/19 01:05 Micro: Microbiology 11/22/19 08:45 Urine Culture - Preliminary Urine,Clean Catch 11/22/19 17:13 Blood Culture - Preliminary Blood SPECIMEN COLLECTED 11/22/19 15:16 Blood Culture - Preliminary Blood SPECIMEN COLLECTED A&P Additional A&P Information 1. Acute kidney injury, rhabdomyolysis (unclear etiology), chronic kidney disease, essentially anuric. Second dialysis treatment today 2. Volume overload, ascites, goal UF 2 liters today 3. Metabolic acidosis - dialysis, add oral sodium bicarbonate 4. Hyperkalemia resolved 5. Secondary hyperparathyroidism 6. Thrombocytopenia, splenomegaly, coagulopathy, elevated LFTs 7. Possible sepsis Plan: Hemodialysis today. Add oral sodium bicarbonate. 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
--- NOTE | 2019-11-23 12:15 | PC.NURSE ---
Pt is receiving HD at this time. No complaints voiced. Will monitor.
[2019-11-23] MEDS: sodium bicarbonate 650 mg Tablet PO ×2 (15:41→21:44)
[2019-11-23] MEDS: heparin, porcine 1,000 unit/mL INJ 10 mL HE (15:41)
[2019-11-23] MEDS: acetaminophen 325 mg Tablet 650 MG PO (16:43)
--- NOTE | 2019-11-23 18:39 | PC.NURSE ---
7a-7p summary: Pt has rested at intervals this shift. Repositioned frequently for comfort. Pt had HD today with 2300 taken off. Pt has little appetite and eating approximately 10% of each meal. Pt is AAOX3, pleasant and cooperative with staff and care. Pt is on O2 @ 1/2LNC. All pt's meds were sent home with the when she brought the pt's dentures. No noted changes in condition, will continue to monitor closely. Report given to RADHA Rich.
--- NOTE | 2019-11-23 21:00 | PC.NURSE ---
DR LOPEZ GAVE VERBAL ORDER TO MOVE TO [facility] FLOOR.
--- NOTE | 2019-11-23 21:58 | PC.NURSE ---
TRANSFER NOTE Pt received via bed from ICU at 2134. Is alert and oriented. Says is feeling much better than when he came to the hospital. c/o hungry on arrival to floor and is eating sandwich. Denies any nausea. Dialysis catheter intact to right neck. Has PIID's to each ac area. Bruising to left arm. monitor technician applied. SCD's to BLE. Bed alarm on for safety. Mcbride catheter in place with minute amt dark selwyn/brown urine present.
[2019-11-24] VITALS: BP 103/56; PULSE 61; RESP 20; TEMP 36.8; O2SAT 99
[2019-11-24] MEDS: metroNIDAZOLE IV 500 MG/100 ML PREMIX 100 MG IV ×3 (01:25→17:16)
[2019-11-24] MEDS: acetaminophen 325 mg Tablet 650 MG PO ×2 (03:58→20:13)
[2019-11-24 04:00] VITALS: BP 107/59; PULSE 62; RESP 20; TEMP 36.4; O2SAT 99
[2019-11-24 05:23] LABS: Basophils % 0.1 %; Eosinophils % 0.1 %; Hematocrit 34.6 % (42.0-52.0); Hemoglobin 11.2 g/dL (11.7-16.6); Lymphocytes # 0.5 10^3/uL (0.8-4.8); Mean Corpuscular HGB Conc 32.4 g/dL (30.0-36.0); Mean Corpuscular Hemoglobin 28.6 pg (28.0-34.0); Mean Corpuscular Volume 88.5 fL (80-94); Mean Platelet Volume 12.2 fL (7.4-10.4); Monocytes # 0.8 10^3/uL (0.2-0.9); Monocytes % 8.9 %; Neutrophils # 7.6 10^3/uL (1.8-7.7); Neutrophils % 84.5 %; Nucleated Red Blood Cells % 0 %; Platelet Count 67 10^3/cmm (130-400); Red Blood Count 3.91 10^6/uL (4.1-5.3); Red Cell Distribution Width 18.6 % (12.1-15.1)
[2019-11-24 05:52] LABS: Alanine Aminotransferase 161 U/L (0-41); Albumin Level 3.1 g/dL (3.5-5.2); Alkaline Phosphatase 350 IU/L (40-130); Anion Gap 18.2 (5-19); Aspartate Amino Transferase 528 U/L (0-40); Blood Urea Nitrogen 30 mg/dL (8-23); Calcium 8.1 mg/dL (8.5-10.5); Carbon Dioxide 26 mmol/L (22-29); Chloride 100 mmol/L (98-107); Globulin 3.1 g/dL (1.3-4.6); Glucose 124 mg/dL (65-115); Magnesium 2.3 mg/dL (1.7-2.3); Osmolality Calculated 289 mOsm/kg (285-295); Phosphorus 3.7 mg/dL (2.5-4.5); Potassium 4.2 mmol/L (3.5-5.1); Sodium 140 mmol/L (136-145); Total Bilirubin 1.7 mg/dL (0.15-1.2); Total Protein 6.2 g/dL (6.6-8.7)
[2019-11-24 06:16] LABS: Creatine Phosphokinase 13095 U/L (39-308)
[2019-11-24 07:19] VITALS: BP 115/62; PULSE 65; RESP 16; TEMP 36.3; O2SAT 98
--- NOTE | 2019-11-24 07:42 | ANE.PACU2 ---
 Inpatient post-anesthesia follow up: Airway intact: Yes Vital signs: Temperature 97.3 F Pulse Rate [Monito r] 67 Pulse Rate 65 Respiratory Rate 16 Blood Pressure [Ri ght Arm] 120/61 Blood Pressure 115/62 Pulse Oximetry 98 Oxygen Delivery Me thod [ Nasal Cannula Current Rate & Del cale] Oxygen Delivery Me thod Nasal Cannula Oxygen Flow Rate [ Current Rate 2 & Delivery] Oxygen Flow Rate 2 Fraction of Inspir ed Oxygen Hydration adequate: Yes Nausea and vomiting: No Pain level: 1 Mental status: Baseline
--- NOTE | 2019-11-24 08:31 | P.PN_ITS ---
Subjective Subjective: Interval history: Patient reports feeling better this morning. He had minimal bilateral lower extremity cramps yesterday. His EF is down to 20 to 25%. He had 50 mL urinary output. He was dialyzed yesterday with approximate 2 L removed. His CK continues to increase. White blood cell count and platelets appear to be improving. He remains afebrile with stable vitals. Reports that his appetite is getting better. Medications: Reviewed: Yes Vitals/I&O/Wt Last Vital Signs Temp 97.3 F L 11/24/19 07:19 Pulse 65 11/24/19 07:19 Resp 16 11/24/19 07:19 BP 115/62 11/24/19 07:19 Pulse Ox 98 11/24/19 07:19 11/23/19 11/24/19 11/24/19 22:59 06:59 14:59 Intake Total 520 / 1110 250 / 1360 Output Total 50 / 50 Balance 520 / 1110 200 / 1310 Weight last 48 hrs Weight 72.167 kg Weight 84.731 kg Physical Exam Const: COMMON NORMALS: no apparent distress and oriented x3 Resp: COMMON NORMALS: normal respiratory effort and clear to auscultation bilaterally AUSCULTATION: clear to auscultation bilaterally Cardio: COMMON NORMALS: regular rate, regular rhythm and S2 normal heart sound RATE: regular rate RHYTHM: regular rhythm HEART SOUNDS: S2 normal OTHER: No lower extremity edema GI: COMMON NORMALS: normal to inspection, nondistended, normoactive bowel sounds, soft to palpation and non-tender PALPATION: Yes soft Neuro: COMMON NORMALS: oriented x3 and no focal motor deficits Data : 11/24/19 04:48 11/24/19 04:48 Micro: Microbiology 11/22/19 08:45 Urine Culture - Final Urine,Clean Catch 11/22/19 17:13 Blood Culture - Preliminary Blood NEGATIVE TO DATE 11/22/19 15:16 Blood Culture - Preliminary Blood NEGATIVE TO DATE A&P Assessment and plan (1) Acute kidney injury superimposed on chronic kidney disease: Status: Acute (2) Hyperkalemia: Status: Acute (3) Transaminitis: This is likely secondary to heart failure related to passive congestion. Status: Acute (4) Hyponatremia: Status: Acute (5) Severe aortic stenosis: Status: Acute (6) Acute combined systolic and diastolic heart failure: Present on admission. Currently appears compensated. Status: Acute Additional A&P Information PLAN: We will continue current antibiotics as patient appears to be responding well. Discussed case with Dr. Gomez this morning and will continue current monitoring and dialysis treatment as needed. Patient appears stable so most likely no dialysis will be performed today unless to remove CK and I will let Dr. Gomez to make that call. Discussed case with Dr. Del Rio will see patient in consultation given drop in EF. In 2016 patient had attempt for left heart catheterization for preparation of aortic valve surgery but unfortunately had difficulty with access and procedure was aborted. Attestations Medical Necessity Statement*: Acute kidney injury and systolic heart failure requires close inpatient monitoring and treatment. Coding Level of Care Code Acute [employer] for Kristel Lennon Diagnoses Acute kidney injury superimposed on chronic kidney disease N17.9; N18.9 Hyperkalemia E87.5 Transaminitis R74.0 Hyponatremia E87.1 Severe aortic stenosis I35.0 Acute combined systolic and diastolic heart failure I50.41
[2019-11-24] MEDS: metoprolol tartrate 50 mg Tablet 25 MG PO (08:40)
[2019-11-24] MEDS: sodium bicarbonate 650 mg Tablet PO ×3 (08:40→20:14)
[2019-11-24] MEDS: pantoprazole DR 40 mg Tablet PO (08:40)
[2019-11-24] MEDS: cefTRIAXone 1,000 MG in sodium chloride 0.9% (plus) 50 ML 100 MG IV ×2 (08:40→20:14)
--- NOTE | 2019-11-24 10:31 | PM.CONSULT ---
Providers/Reason For Consult Consulting Physican/Specialty*: LANI Del Rio MD/cardiology Reason for Consult*: Patient with a severe aortic valve stenosis and diminished LV ejection fraction Attending Physician: Jorge Head MD Primary Care Provider: Yao Weeks MD History of Present Illness History of Present Illness Sam Arevalo is a 74 year old male with multiple medical problems, is admitted to hospital with features of an acute kidney injury requiring hemodialysis. 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 He had an echocardiogram done which revealed a severe aortic valve stenosis with markedly diminished LV ejection fraction. Cardiology consult is requested for further cardiac evaluation recommendations. Patient is a very poor historian. He apparently has been in his baseline state of health up until a week prior to the hospital admission when he started having nausea vomiting and diarrhea. There was some questionable history of cough and shortness of breath as well. He denied any chest pain or palpitation. No unusual dizziness or syncopal episodes. Because of the ongoing GI symptoms and also feeling of generalized weakness, he decided to come to the hospital. He has a history of chronic kidney disease. No other specific symptoms, prior to the hospital admission. At the time of admission, he was found to have features of acute kidney injury with a creatinine of about 8. He underwent emergency dialysis through the right IJ. Currently the patient is feeling better. His echocardiogram revealed LV ejection fraction around 25%. He also was found to have features of a low gradient severe aortic valve stenosis. The lesion fraction was around 55% in 2016. His troponin T was slightly elevated with a negative delta. His CPK was found to be markedly elevated. The liver enzymes also were found to be elevated. At the time of my examination, patient is feeling little better. He denies any chest pain or shortness of breath. Review of Systems Narrative: CONSTITUTIONAL: No fever or chills. Mild had some cough and shortness of breath. EYES: No blurring of vision or other visual disturbances lately. ENT: No hoarseness of voice, auditory disturbances or sore throat. CARDIOVASCULAR: As mentioned above. History of heart failure RESPIRATORY: No significant cough. GASTROINTESTINAL: Nausea, vomiting and diarrhea as mentioned above currently it is resolved. Splenomegaly and enlargement of the lymph nodes in the abdomen and in the mediastinum. GENITOURINARY: History of metastatic prostate cancer INTEGUMENTARY: No skin rashes or history of skin cancer. NEURO: No transient ischemic attacks or amaurosis. PSYCHIATRIC: No history of psychosis or major depression. HEMATOLOGIC: History of thrombocytopenia. ENDOCRINE: History of hyperthyroidism MUSCULOSKELETAL: No recent joint pain or swelling. ALLERGY/IMMUNOLOGY: As mentioned above. Meds/Allergies Home Medications and Allergies Home Medications Medication Instructions Recorded Confirmed Type albuterol sulfate 90 mcg/actuation 2 puff INHALATION Q6H PRN 09/19/19 11/22/19 History aerosol inhaler alprazolam 0.25 mg tablet 0.25 mg PO BID PRN 09/19/19 11/22/19 History dabigatran etexilate 75 mg capsule 75 mg PO DAILY cap 09/19/19 11/22/19 History denosumab 60 mg/mL subcutaneous 60 mg SUBCUT .q 3 months ml 09/19/19 11/22/19 History syringe fluticasone fur. 100 mcg-umeclid 1 inh INHALATION DAILY 09/19/19 11/22/19 History 62.5 mcg-vilant 25 mcg inhalat.powder furosemide 40 mg tablet 40 mg PO BID PRN 09/19/19 11/22/19 History goserelin 10.8 mg subcutaneous 10.8 mg SUBCUT Q90D each 09/19/19 11/22/19 History implant metoprolol tartrate 50 mg tablet 25 mg PO DAILY 09/19/19 11/22/19 History potassium chloride 20 mEq 20 meq PO BID PRN 09/19/19 11/22/19 History tablet,extended release amoxicillin 875 mg PO BID 11/22/19 11/22/19 History clopidogrel [Plavix] 75 mg PO DAILY 11/22/19 11/22/19 History rosuvastatin [Crestor] 40 mg PO DAILY 11/22/19 11/22/19 History Allergies Allergy/AdvReac Type Severity Reaction Status Date / Time No Known Allergies Allergy Unverified 11/22/19 10:34 Current Medications Current Medications Generic Name Dose Route Start Last Admin Trade Name Freq PRN Reason Stop Dose Admin Acetaminophen 650 mg 11/23/19 16:31 11/24/19 03:58 Tylenol PO 650 mg Q6H PRN Administration MILD PAIN Dextrose 1,000 mls @ 100 mls/hr 11/22/19 08:15 11/24/19 04:47 D5w IV Not Given .Q10H FRIEDA Ceftriaxone Sodium 1,000 mg/ 50 mls @ 100 mls/hr 11/23/19 10:00 11/24/19 08:40 Sodium Chloride IV 100 mls/hr Q12H FRIEDA Administration Protocol Metronidazole 500 mg in 100 mls @ 100 mls/hr 11/23/19 10:00 11/24/19 02:29 Flagyl Iv IV Infused Q8H FRIEDA Infusion Protocol Metoprolol Tartrate 25 mg 11/23/19 09:00 11/24/19 08:40 Lopressor PO 25 mg DAILY FRIEDA Administration Morphine Sulfate 2 mg 11/22/19 13:53 11/22/19 23:00 Morphine IVP 2 mg Q4H PRN Administration SEVERE PAIN Non-Formulary Medication 1 inh 11/23/19 09:00 11/23/19 08:01 [id number] [Trelegy Ellipta] INHALATION Not Given DAILY FRIEDA Pantoprazole Sodium 40 mg 11/23/19 09:00 11/24/19 08:40 Protonix PO 40 mg DAILY FRIEDA Administration Sodium Bicarbonate 650 mg 11/23/19 15:00 11/24/19 08:40 Sodium Bicarbonate PO 650 mg TID FRIEDA Administration PFSH Acute PFSH: Medical History Aortic stenosis Arteriosclerosis Atrial fibrillation Cardiac pacemaker COPD (chronic obstructive pulmonary disease) Dementia Diabetes mellitus Glaucoma HTN (hypertension) Hyperlipidemia Hyperthyroidism HUMAIRA (obstructive sleep apnea) Prostate cancer PVD (peripheral vascular disease) Renal mass Severe aortic stenosis Varicose vein of leg Vitamin D deficiency Surgical History S/P cataract surgery S/P cholecystectomy Family History Mother , 86; lung Cancer Father , 60's; stomach Cancer Social History Smoking and tobacco status: former smoker Vitals/I&O/Wt Last Vital Signs Temp 97.3 F L 11/24/19 07:19 Pulse 65 11/24/19 07:19 Resp 16 11/24/19 07:19 BP 115/62 11/24/19 07:19 Pulse Ox 98 11/24/19 07:19 11/23/19 11/24/19 11/24/19 22:59 06:59 14:59 Intake Total 520 / 1110 250 / 1360 240 / 240 Output Total 50 / 50 Balance 520 / 1110 200 / 1310 240 / 240 Weight last 48 hrs Weight 159 lb 1.6 oz Weight 186 lb 12.8 oz Physical Exam Narrative: EXAM NARRATIVE: GENERAL: The patient is alert and chronically ill looking. Lethargic. Not in any acute distress. No lymphadenopathy. HEENT: Moderate pallor and mild icterus.. No lymphadenopathy. Fundus is not visualized. NECK: Trachea appears to be central. No masses noted. No JVD or thyromegaly appreciated. No carotid bruit. RESPIRATORY: Chest is symmetrical. No intercostals muscle retraction or any accessory muscle activation. There is no chest wall tenderness. Breath sounds are heard bilaterally. No rales or rhonchi heard. No evidence of any consolidation. BREASTS: Deferred. HEART: The PMI is slightly shifted to the left. No other palpable events. The first heart sound is soft. Ejection systolic murmur grade 3/6 in the aortic area. No diastolic murmurs. No pericardial rub. ABDOMEN: No vessel pulsations or distention. No tenderness. Splenomegaly appreciated. Minimal abdominal distention. No abdominal bruit. Bowel sounds are normally heard. : Deferred. RECTAL: Deferred. LYMPHATIC: No lymphadenopathy noted in the neck . EXTREMITIES: Trace to 1+ edema bilaterally in the lower extremities. No cyanosis. Peripheral pulse extremely weak bilaterally. MUSCULOSKELETAL: No acute joint deformities or swelling. SKIN: There are no significant scars or skin rash noted. NEUROPSYCHIATRIC: The patient is alert and oriented x3. Lethargic. Complaints of generalized weakness. No focal deficits. Data Micro: Micro: Microbiology 11/22/19 08:45 Urine Culture - Fi nal Urine,Clean Catch 11/22/19 17:13 Blood Culture - Pr eliminary Blood NEGATIVE TO DOROTHY E 11/22/19 15:16 Blood Culture - Pr eliminary Blood NEGATIVE TO DOROTHY E Imaging^: Echo: My impression: Echocardiogram done on 11/22/2018 revealed mildly increased left ventricular cavity size. Normal left ventricular wall thickness. Severely decreased left ventricular systolic function. Global left ventricular hypokinesis. Grade II/IV diastolic dysfunction, moderately elevated filling pressures. Left ventricular ejection fraction is estimated at 20-25 %. Moderately increased right atrial size. Moderately increased left atrial size. Structurally normal mitral valve. Mild mitral valve regurgitation. Severe aortic valve calcification. Severe aortic valve stenosis, mean gradient 20.1 mmHg, MONCHO 0.44 cm squared. The gradient is low because of the low ejection fraction. This is likely severe aortic stenosis. Mild aortic insufficiency. CT Abd/Pel: Radiologist's impression: 11/03/2018 1.? Chronic emphysema.? 2.? Smaller pleural effusion.? 3.? Small sliding-type hiatal hernia.? 4.? Prior cholecystectomy.? 5.? Abnormal liver. Ill-defined foci of decreased attenuation/enhancement surrounded by hypervascularity right lobe and medial segment of the left lobe. Additional ill-defined nonhypervascular lesion of the lateral segment left lobe. Metastatic disease is not excluded.? 6.? Additional benign liver lesions including cysts and caudate lobe cavernous hemangioma.? 7.? Hyperdense cyst or exophytic mass lower pole left kidney.? 8.? Prostate gland enlargement.? 9.? Small umbilical hernia.? 10.? Extensive atherosclerotic peripheral vascular changes including complete occlusion of the infrarenal abdominal aorta extending through the iliac arteries. Reconstitution of the common femoral arteries via inferior epigastric arterial collateral branches.? 11.? Suspicious for blastic metastatic lesion involving the left ilium with bone scan correlation.? CXR: My impression: Cardiomegaly. Increased interstitial markings and possible scarring in the right lower lobe area. Severe emphysema. Small pleural effusion on the right side.? Mediastinal adenopathy EKG^: EKG 1: My Interpretation: Normal sinus rhythm with PVCs. Left bundle branch block. Nonspecific ST-T changes. A&P Assessment and plan (1) Severe aortic valve stenosis: Patient appears to have severe nonrheumatic aortic valve stenosis. For further management of his condition, he may benefit from an aortic valve replacement. Because of the drop in the LV ejection fraction, he requires a cardiac catheterization, prior to the valve replacement. In view of his renal failure and poor LV ejection fraction, he carries a high risk for any interventional procedures. Patient and the family seems to understand this well Status: Acute (2) Acute combined systolic and diastolic heart failure: Patient currently seems to be compensated clinically. He is undergoing dialysis. He is scheduled for the next dialysis tomorrow. The BUN/creatinine ratio seems to be getting better. Status: Acute (3) Cardiomyopathy as manifestation of underlying disease: The etiology of the cardiomyopathy is not clear at this time. Possibility of underlying coronary ischemia causing this is a consideration. The severe aortic valve stenosis also could be a contributing factor. He may require a cardiac catheterization, to further evaluate the coronary status. Status: Acute (4) Acute kidney injury superimposed on chronic kidney disease: The etiology of the acute kidney failure is not clear. The low output state from the severe aortic valve stenosis is a consideration. Because of his history of nausea and vomiting for more than a week, dehydration also could be a contributing factor. May continue on the current management, as per the nephrology service Status: Acute (5) Atrial fibrillation: The arrhythmia is under control. Patient is currently in sinus rhythm. Status: Acute Qualifiers: Atrial fibrillation type: longstanding persistent Qualified Code(s): I48.11 - Longstanding persistent atrial fibrillation (6) Cardiac pacemaker: The pacemaker function appears to be appropriate. We will continue the monitoring. Status: Acute Additional A&P Information His other problems are 1. Elevated liver enzymes, from ischemic liver injury, seems to be improving 2. Metastatic CA of the prostate-discussed with the oncology service. The cancer seems to have a fairly good prognosis. But his oncologist Dr. Nicholson is going to review his chart and will get back with me on this. 3. History of dyslipidemia 4. History of essential benign hypertension 5. Leriche's syndrome/peripheral arterial disease Discussed the further management options with the patient and his . The patient would like to undergo further cardiac evaluation for possible aortic valve replacement, if it is going to help him. So at this point, it would be appropriate to pursue this, once the metabolic status is stabilized. I will be contacting the numerical tool programmer at the [facility] and discussed the case to decide on further management. Based on the patient clinical progress, further recommendations will be made. Thank you for the opportunity to evaluate this patient and make these recommendations. Consult Attestations Medical Necessity Statement: Patient requires continued hospital stay for close monitoring and further management Coding Level of Care Code Acute Alterations Tailor for Chg Fwd History Comprehensive Exam Comprehensive Medical Decision Making High Complexity Diagnoses Severe aortic valve stenosis I35.0 Acute combined systolic and diastolic heart failure I50.41 Cardiomyopathy as manifestation of underlying disease I43 Acute kidney injury superimposed on chronic kidney disease N17.9; N18.9 Atrial fibrillation I48.11 Atrial fibrillation type: longstanding persistent Cardiac pacemaker Z95.0 Time Spent (min) 70
[2019-11-24] MEDS: dextrose 5% 1,000 ML 100 ML IV (10:42)
--- NOTE | 2019-11-24 13:08 | PM.PN ---
Subjective Subjective: Interval history: has moved out of ICU. No complaints Medications: Reviewed: Yes Vitals/I&O/Wt Last Vital Signs Temp 97.3 F L 11/24/19 07:19 Pulse 65 11/24/19 07:19 Resp 16 11/24/19 07:19 BP 115/62 11/24/19 07:19 Pulse Ox 98 11/24/19 07:19 11/23/19 11/24/19 11/24/19 22:59 06:59 14:59 Intake Total 520 / 1110 250 / 1360 240 / 240 Output Total 50 / 50 Balance 520 / 1110 200 / 1310 240 / 240 Weight last 48 hrs Weight 72.167 kg Weight 84.731 kg Physical Exam Const: COMMON NORMALS: no apparent distress GENERAL APPEARANCE: cooperative Cardio: COMMON NORMALS: regular rhythm; negative for no murmurs RHYTHM: regular rhythm Data : 11/24/19 04:48 11/24/19 04:48 Other Labs: CK 13,000, LFTs improving Micro: Microbiology 11/22/19 08:45 Urine Culture - Final Urine,Clean Catch 11/22/19 17:13 Blood Culture - Preliminary Blood NEGATIVE TO DATE 11/22/19 15:16 Blood Culture - Preliminary Blood NEGATIVE TO DATE A&P Additional A&P Information 1. Acute kidney injury, rhabdomyolysis, essentially anuric 2. CHF, aortic stenosis 3. metabolic acidosis, resolved 4. Sepsis syndrome - improved Recommend: No indication for dialysis today. Will plan for tomorrow. Discontinue oral sodium bicarbonate. Temporary dialysis catheter should be changed to tunneled - cyber intel planner to refer to outpatient dialysis unit. Attestations Medical Necessity Statement*: per primary service Coding Level of Care Code Acute Blackjack Supervisor for Chg Fwd Exam Expanded Problem Focused
--- NOTE | 2019-11-24 15:04 | PC.RESP ---
Patient was sent information for Pulmonary rehab.
[2019-11-24 15:19] VITALS: BP 106/63; PULSE 102; RESP 16; TEMP 36.3; O2SAT 96
[2019-11-24 19:00] VITALS: BP 102/59; PULSE 61; RESP 18; TEMP 36.3; O2SAT 100
[2019-11-24 23:00] VITALS: BP 103/56; PULSE 58; RESP 16; TEMP 36.4; O2SAT 99
[2019-11-25] MEDS: dextrose 5% 1,000 ML 100 ML IV (00:28)
[2019-11-25] MEDS: metroNIDAZOLE IV 500 MG/100 ML PREMIX 100 MG IV ×3 (00:28→19:46)
[2019-11-25] MEDS: phenol oral Spray 177 mL 3 SPRAY MUCOUS MEM (00:57)
[2019-11-25 03:00] VITALS: BP 108/61; PULSE 58; RESP 14; TEMP 36.6; O2SAT 100
[2019-11-25 05:34] LABS: Eosinophils % 0.2 %; Hemoglobin 11.3 g/dL (11.7-16.6); Lymphocytes # 0.7 10^3/uL (0.8-4.8); Lymphocytes % 8.2 %; Mean Corpuscular HGB Conc 31.4 g/dL (30.0-36.0); Mean Corpuscular Hemoglobin 28.7 pg (28.0-34.0); Mean Corpuscular Volume 91.4 fL (80-94); Mean Platelet Volume 11.7 fL (7.4-10.4); Monocytes # 0.7 10^3/uL (0.2-0.9); Neutrophils # 6.7 10^3/uL (1.8-7.7); Neutrophils % 82.2 %; Nucleated Red Blood Cells % 0 %; Platelet Count 66 10^3/cmm (130-400); Red Blood Count 3.94 10^6/uL (4.1-5.3); Red Cell Distribution Width 18.7 % (12.1-15.1); White Blood Count 8.2 10^3/uL (4.0-10.0)
[2019-11-25 05:49] LABS: INR 1.45 (0.8-1.2)
[2019-11-25 05:58] LABS: Alanine Aminotransferase 102 U/L (0-41); Albumin Level 3.1 g/dL (3.5-5.2); Alkaline Phosphatase 350 IU/L (40-130); Anion Gap 17.9 (5-19); Aspartate Amino Transferase 373 U/L (0-40); Blood Urea Nitrogen 36 mg/dL (8-23); Calcium 7.5 mg/dL (8.5-10.5); Carbon Dioxide 25 mmol/L (22-29); Chloride 93 mmol/L (98-107); Globulin 3.2 g/dL (1.3-4.6); Glucose 132 mg/dL (65-115); Magnesium 2.2 mg/dL (1.7-2.3); Osmolality Calculated 273 mOsm/kg (285-295); Phosphorus 3.6 mg/dL (2.5-4.5); Potassium 3.9 mmol/L (3.5-5.1); Sodium 132 mmol/L (136-145); Total Bilirubin 1.3 mg/dL (0.15-1.2); Total Protein 6.3 g/dL (6.6-8.7)
[2019-11-25 07:00] VITALS: BP 110/64; PULSE 64; RESP 20; TEMP 36.6; O2SAT 98
[2019-11-25 11:00] VITALS: BP 109/59; PULSE 63; RESP 20; TEMP 36.1; O2SAT 92
--- NOTE | 2019-11-25 11:47 | P.PN_ITS ---
Subjective Subjective: Interval history: Seen on dialysis, feels comfortable. No new issues. Hemodynamics reviewed. Urine output is picking up a little. No ext edema. No other volume Sx. Medications: Reviewed: Yes Vitals/I&O/Wt Last Vital Signs Temp 96.9 F L 11/25/19 11:00 Pulse 63 11/25/19 11:00 Resp 20 H 11/25/19 11:00 BP 109/59 11/25/19 11:00 Pulse Ox 92 11/25/19 11:00 11/24/19 11/25/19 11/25/19 22:59 06:59 14:59 Intake Total 1340 / 1970 120 / 2090 1390 / 1390 Output Total 250 / 250 Balance 1310 / 1940 120 / 2060 1140 / 1140 Weight last 48 hrs Weight 72.575 kg Weight 72.167 kg Physical Exam Narrative: EXAM NARRATIVE: GENERAL: The patient is alert and chronically ill looking. Lethargic. Not in any acute distress. No lymphadenopathy. HEENT: Moderate pallor and mild icterus.. No lymphadenopathy. Fundus is not visualized. NECK: Trachea appears to be central. No masses noted. No JVD or thyromegaly appreciated. No carotid bruit. RESPIRATORY: Chest is symmetrical. No intercostals muscle retraction or any accessory muscle activation. There is no chest wall tenderness. Breath sounds are heard bilaterally. No rales or rhonchi heard. No evidence of any consolidation. BREASTS: Deferred. HEART: The PMI is slightly shifted to the left. No other palpable events. The first heart sound is soft. Ejection systolic murmur grade 3/6 in the aortic area. No diastolic murmurs. No pericardial rub. ABDOMEN: No vessel pulsations or distention. No tenderness. Splenomegaly appreciated. Minimal abdominal distention. No abdominal bruit. Bowel sounds are normally heard. : Deferred. RECTAL: Deferred. LYMPHATIC: No lymphadenopathy noted in the neck . EXTREMITIES: Trace to 1+ edema bilaterally in the lower extremities. No cya nosis. Peripheral pulse extremely weak bilaterally. MUSCULOSKELETAL: No acute joint deformities or swelling. SKIN: There are no significant scars or skin rash noted. NEUROPSYCHIATRIC: The patient is alert and oriented x3. Lethargic. Complaints of generalized weakness. No focal deficits. Const: COMMON NORMALS: no apparent distress, oriented x3 and alert GENERAL APPEARANCE: cooperative ORIENTATION/CONSCIOUSNESS: Yes awake, Yes oriented to person, Yes oriented to place and Yes oriented to time HENMT: COMMON NORMALS: normocephalic, head/scalp atraumatic, hearing grossly normal bilaterally, external ears normal, EAC's normal, TM's normal bilaterally, nasal mucous membranes and turbinates normal, moist oral mucous membranes and oropharynx normal HEAD & SCALP: normocephalic and atraumatic NOSE: nasal mucous membranes and turbinates normal EXTERNAL EAR: Yes external ears normal EXTERNAL AUDITORY CANAL: EAC's normal TYMPANIC MEMBRANE: TM's normal bilaterally Eye: COMMON NORMALS: PERRL, EOMs intact bilaterally, conjunctivae normal and no scleral icterus CONJUNCTIVA: Yes conjunctivae normal PUPIL: Yes PERRL Neck/C-Spine: COMMON NORMALS: full ROM, no lymphadenopathy, supple, no meningeal signs and no JVD GENERAL: Yes other (right IJ dialysis catheter) Lymph: LYMPHATIC: no lymphadenopathy noted and no lymphedema noted Chest: COMMONS NORMALS: palpation of chest normal Resp: COMMON NORMALS: normal respiratory effort, no retractions, no use of accessory muscles and clear to auscultation bilaterally AUSCULTATION: clear to auscultation bilaterally OTHER: Minimal bibasilar Rales. Cardio: COMMON NORMALS: no JVD, regular rate, regular rhythm and S2 normal heart sound; negative for no murmurs RATE: regular rate RHYTHM: regular rhythm HEART SOUNDS: S2 normal OTHER: No lower extremity edema GI: COMMON NORMALS: normal to inspection, nondistended, normoactive bowel sounds, soft to palpation, non-tender and no hepatosplenomegaly AUSCULTATION: Yes normoactive bowel sounds PALPATION: Yes soft, Yes tender, No guarding and Yes no hepatosplenomegaly RECTAL EXAM: Yes deferred : COMMON NORMALS: Yes no CVA tenderness BLADDER/KIDNEY EXAM: Yes no CVA tenderness Back/Pelvis: COMMON NORMALS: no CVA tenderness and thoracic and lumbar spine normal to inspection Extremity: COMMON NORMALS: normal to inspection, normal capillary refill, no clubbing, cyanosis or edema, no calf tenderness and no pedal edema Neuro: COMMON NORMALS: oriented x3 and no focal motor deficits SENSOR IUM/ORIENTATION: Yes alert, Yes oriented to person, Yes oriented to place and Yes oriented to time MENINGEAL SIGNS: Yes no meningeal signs Psych: COMMON NORMALS: mental status grossly normal, thought process normal and cooperative THOUGHT PROCESS: normal thought process Skin: COMMON NORMALS: no rashes or lesions noted GENERAL SKIN EXAM: no rashes or lesions noted Data : 11/25/19 05:00 11/25/19 05:00 Micro: Microbiology 11/25/19 04:15 C.difficile Toxin B Gene (PCR) - Final Stool 11/22/19 08:45 Urine Culture - Final Urine,Clean Catch A&P Additional A&P Information 1. GRACIELA - case d/w Dr Del Rio; we feel that this is more consistent with pre-renal, renal hypoperfusion. He has and low cardiac output, in combination with diuretic use and recent nausea and vomiting. Rhabdo was present on admission but was mild at ~4K, i.e. not a level that would typically cause pigment nephropathy. CPK now rising to 13k which may now start to cause pigment nephropathy - cont supportive care, serial CPK levels, leave on the wetter side - seen on dialysis, monitoring over the weekend for recovery - am labs - strict Is and Os - avoid the usuals 2. Severe - mgmt per Dr Del Rio; if he demonstrates no renal recovery in the next few days, then it may be worth pursuing AVR prior to recovery, however, there is some potential for recovery from the pre-renal insult he sustained. Rhabdo also needs to resolve - At this time, angiogram and CTA with runoff for TAVR prep will obviously jeopardize renal recovery. - keep wet, as pre-load dependent 3. lytes - looks stable, DC bicarb tabs - thanks Attestations Medical Necessity Statement*: maira for GRACIELA Coding Level of Care Code Acute Ground Crew Lines Person for Kristel Lennon
--- NOTE | 2019-11-25 12:14 | P.PN_ITS ---
Subjective Subjective: Interval history: The patient is feeling little better. He denies any chest pain or palpitations. Shortness of breath is improving. Today he is getting the hemodialysis. Urine output is still low. Medications: Reviewed: Yes Medication Review Details: Current Medications Acetaminophen (Tylenol) 650 mg PO Q6H PRN PRN Reason: MILD PAIN Last Admin: 11/24/19 20:13 Dose: 650 mg Documented by: Albuterol Sulfate (Ventolin) 2 puff INHALATION Q6H PRN PRN Reason: Shortness Of Breath Alprazolam (Xanax) 0.25 mg PO BID PRN PRN Reason: Anxiety Dextrose (D5w) 1,000 mls @ 100 mls/hr IV .Q10H [facility] Last Infusion: 11/25/19 11:12 Dose: Infused Documented by: Ceftriaxone Sodium 1,000 mg/ (Sodium Chloride) 50 mls @ 100 mls/hr IV Q12H [facility]; Protocol Last Infusion: 11/25/19 07:14 Dose: Infused Documented by: Metronidazole (Flagyl Iv) 500 mg in 100 mls @ 100 mls/hr IV Q8H [facility]; Protocol Last Infusion: 11/25/19 07:14 Dose: Infused Documented by: Metoprolol Tartrate (Lopressor) 25 mg PO DAILY [facility] Last Admin: 11/25/19 11:13 Dose: Not Given Documented by: Non-Formulary Medication (Czmhauvkktq-Asapzhtat-Elmwfvdc [Trelegy Ellipta]) 1 inh INHALATION DAILY [facility] Last Admin: 11/24/19 14:21 Dose: Not Given Documented by: Ondansetron HCl (Zofran) 4 mg IVP Q6H PRN PRN Reason: NAUSEA AND VOMITING Pantoprazole Sodium (Protonix) 40 mg PO DAILY [facility] Last Admin: 11/25/19 11:14 Dose: Not Given Documented by: Phenol (Phenaseptic) 3 spray MUCOUS MEM Q2H PRN PRN Reason: SORE THROAT Last Admin: 11/25/19 00:57 Dose: 3 spray Documented by: Vitals/I&O/Wt Last Vital Signs Temp 96.9 F L 11/25/19 11:00 Pulse 63 11/25/19 11:00 Resp 20 H 11/25/19 11:00 BP 109/59 11/25/19 11:00 Pulse Ox 92 11/25/19 11:00 11/24/19 11/25/19 11/25/19 22:59 06:59 14:59 Intake Total 1340 / 1970 120 / 0 1390 / 1390 Output Total 250 / 250 Balance 1310 / 1940 120 / 0 1140 / 1140 Weight last 48 hrs Weight 160 lb Weight 159 lb 1.6 oz Physical Exam Narrative: EXAM NARRATIVE: GENERAL: The patient is alert and chronically ill looking. Somewhat lethargic. Not in any acute distress. No lymphadenopathy. HEENT: Moderate pallor and mild icterus.. No lymphadenopathy. Fundus is not visualized. NECK: Trachea appears to be central. No masses noted. No JVD or thyromegaly appreciated. No carotid bruit. RESPIRATORY: Chest is symmetrical. No intercostals muscle retraction or any accessory muscle activation. There is no chest wall tenderness. Breath sounds are heard bilaterally. No rales or rhonchi heard. No evidence of any consolidation. Diminished intensity of breath sounds in the bases. Occasional coarse crackles. BREASTS: Deferred. HEART: The PMI is slightly shifted to the left. No other palpable events. The first heart sound is soft. Ejection systolic murmur grade 3/6 in the aortic area. No diastolic murmurs. No pericardial rub. ABDOMEN: No vessel pulsations or distention. No tenderness. Splenomegaly appreciated. Minimal abdominal distention. No abdominal bruit. Bowel sounds are normally heard. : Deferred. RECTAL: Deferred. LYMPHATIC: No lymphadenopathy noted in the neck . EXTREMITIES: Trace to 1+ edema bilaterally in the lower extremities. No cyanosis. Peripheral pulse extremely weak bilaterally. MUSCULOSKELETAL: No acute joint deformities or swelling. SKIN: There are no significant scars or skin rash noted. NEUROPSYCHIATRIC: The patient is alert and oriented x3. Lethargic. Complaints of generalized weakness. No focal deficits. Data : 11/25/19 05:00 11/25/19 05:00 Micro: Microbiology 11/25/19 04:15 C.difficile Toxin B Gene (PCR) - Final Stool 11/22/19 08:45 Urine Culture - Final Urine,Clean Catch Echo: My impression: Mildly increased left ventricular cavity size. Normal left ventricular wall thickness. Severely decreased left ventricular systolic function. Global left ventricular hypokinesis. Grade II/IV diastolic dysfunction, moderately elevated filling pressures. Left ventricular ejection fraction is estimated at 20-25 %. Moderately increased right atrial size. Moderately increased left atrial size. Structurally normal mitral valve. Mild mitral valve regurgitation. Severe aortic valve calcification. Severe aortic valve stenosis, mean gradient 20.1 mmHg, MONCHO 0.44 cm squared. The gradient is low because of the low ejection fraction. This is likely severe aortic stenosis. Mild aortic insufficiency. A&P Assessment and plan (1) Severe aortic valve stenosis: Patient appears to have severe nonrheumatic, low gradient aortic valve stenosis. For further management of his condition, he may benefit from an aortic valve replacement. Because of the drop in the LV ejection fraction, he requires a cardiac catheterization, prior to the valve replacement. In view of his renal failure and poor LV ejection fraction, he carries a high risk for any interventional procedures. Patient and the family seems to understand this well Status: Acute (2) Acute decompensated heart failure: The heart failure seems to be getting compensated. Coronary ischemia versus aortic valve stenosis causing the heart failure are considerations. Status: Acute (3) Cardiomyopathy as manifestation of underlying disease: The etiology of the cardiomyopathy is not clear at this time. Possibility of underlying coronary ischemia causing this is a consideration. The severe aortic valve stenosis also could be a contributing factor. He may require a cardiac catheterization, to further evaluate the coronary status. The low output state might be contributing to his renal failure and the elevated liver enzymes Status: Acute (4) Acute kidney injury superimposed on chronic kidney disease: The etiology of the acute kidney failure is not clear. The low output state from the severe aortic valve stenosis is a consideration. Because of his history of nausea and vomiting for more than a week, dehydration also could be a contributing factor. May continue on the current management, as per the nephrology service Status: Acute (5) Atrial fibrillation: The arrhythmia is under control. Patient is currently in sinus rhythm. Status: Acute Qualifiers: Atrial fibrillation type: longstanding persistent Qualified Code(s): I48.11 - Longstanding persistent atrial fibrillation (6) Cardiac pacemaker: The pacemaker function appears to be appropriate. We will continue the monitoring. Status: Acute Additional A&P Information His other problems are 1. Elevated liver enzymes, from ischemic liver injury, seems to be improving 2. Metastatic CA of the prostate-discussed with the oncology service. The cancer seems to have a fairly good prognosis. But his oncologist Dr. Nicholson is going to review his chart and will get back with me on this. 3. History of dyslipidemia 4. History of essential benign hypertension, currently normotensive 5. Leriche's syndrome/peripheral arterial disease 6 . Thrombocytopenia 7. History of long-term oral anticoagulation currently on hold May continue on the current management. Will closely monitor his status over the weekend to see whether the kidney function is improving or not. May consider early aortic valve intervention, depending on his clinical progress. May continue on the current medications for the time being. I may add baby aspirin a day. Because of the elevated liver enzymes and the thrombocytopenia, will hold off on any anticoagulation at this time. Attestations Medical Necessity Statement*: Patient requires continued hospital stay for close monitoring and further management Coding Level of Care Code Acute Short Goods Drier for Kristel Lennon Diagnoses Severe aortic valve stenosis I35.0 Acute decompensated heart failure I50.9 Cardiomyopathy as manifestation of underlying disease I43 Acute kidney injury superimposed on chronic kidney disease N17.9; N18.9 Atrial fibrillation I48.11 Atrial fibrillation type: longstanding persistent Cardiac pacemaker Z95.0
[2019-11-25 13:04] LABS: Creatine Phosphokinase 9996 U/L (39-308)
[2019-11-25 13:45] VITALS: BP 109/70; PULSE 59; RESP 16; TEMP 36.6
--- NOTE | 2019-11-25 13:51 | PM.PN ---
Subjective Subjective: Interval history: Reports feeling better this morning. His appetite is gradually improving. He denies shortness of breath or chest pain. Cardiology and nephrology notes reviewed. Discussed with Dr. Del Rio this morning. Medications: Reviewed: Yes Vitals/I&O/Wt Last Vital Signs Temp 97.8 F 11/25/19 13:45 Pulse 59 L 11/25/19 13:45 Resp 16 11/25/19 13:45 BP 109/70 11/25/19 13:45 Pulse Ox 92 11/25/19 11:00 11/24/19 11/25/19 11/25/19 22:59 06:59 14:59 Intake Total 1340 / 1970 120 / 0 1390 / 1390 Output Total 250 / 250 Balance 1310 / 1940 120 / 0 1140 / 1140 Weight last 48 hrs Weight 72.575 kg Weight 72.167 kg Physical Exam Const: COMMON NORMALS: no apparent distress and oriented x3 HENMT: THROAT: posterior oropharynx normal Resp: COMMON NORMALS: normal respiratory effort and clear to auscultation bilaterally AUSCULTATION: clear to auscultation bilaterally Cardio: COMMON NORMALS: regular rate, regular rhythm and S2 normal heart sound RATE: regular rate RHYTHM: regular rhythm HEART SOUNDS: S2 normal OTHER: trace lower extremity edema GI: COMMON NORMALS: normal to inspection, nondistended, normoactive bowel sounds, soft to palpation and non-tender PALPATION: Yes soft Neuro: COMMON NORMALS: oriented x3 and no focal motor deficits Data : 11/25/19 05:00 11/25/19 05:00 Micro: Microbiology 11/25/19 04:15 C.difficile Toxin B Gene (PCR) - Final Stool A&P Assessment and plan (1) Acute kidney injury superimposed on chronic kidney disease: Status: Acute (2) Hyperkalemia: Status: Acute (3) Transaminitis: This is likely secondary to heart failure related to passive congestion. Status: Acute (4) Hyponatremia: Status: Acute (5) Severe aortic stenosis: Status: Acute (6) Acute combined systolic and diastolic heart failure: Present on admission. Currently appears compensated. Status: Acute Additional A&P Information PLAN: Continue current monitoring and treatment. Hopefully patient's kidney function improves. Discussed with Dr. Le and if patient's kidney function does not improve he will change current catheter to tunneled 1 in several days. Patient may require transfer to [place] versus outpatient follow-up depending on patient's progress for aortic valve surgery. Attestations Medical Necessity Statement*: Patient with acute kidney injury and rhabdomyolysis requires close inpatient monitoring and treatment Coding Level of Care Code Acute Project Associate for Kristel Olivaresd Diagnoses Acute kidney injury superimposed on chronic kidney disease N17.9; N18.9 Hyperkalemia E87.5 Transaminitis R74.0 Hyponatremia E87.1 Severe aortic stenosis I35.0 Acute combined systolic and diastolic heart failure I50.41
[2019-11-25] MEDS: cefTRIAXone 1,000 MG in sodium chloride 0.9% (plus) 50 ML 100 MG IV (14:26)
[2019-11-25 15:41] VITALS: BP 110/64; PULSE 58; RESP 16; TEMP 36.7; O2SAT 93
[2019-11-25 21:00] VITALS: BP 106/61; PULSE 70; RESP 18; TEMP 36.6; O2SAT 97
[2019-11-25 21:46] LABS: Glucose Point of Care 134 mg/dL (70-110)
[2019-11-26] VITALS (7 sets, daily range): BP systolic 93–117; BP diastolic 49–67; PULSE 63–79; RESP 17–18; TEMP 36.6–37; O2SAT 92–100
[2019-11-26] MEDS: cefTRIAXone 1,000 MG in sodium chloride 0.9% (plus) 50 ML 100 MG IV ×2 (00:17→12:40)
[2019-11-26] MEDS: metroNIDAZOLE IV 500 MG/100 ML PREMIX 100 MG IV ×3 (05:36→21:35)
[2019-11-26 05:57] LABS: Creatine Phosphokinase 5332 U/L (39-308)
[2019-11-26 06:31] LABS: Glucose Point of Care 89 mg/dL (70-110)
[2019-11-26 08:14] LABS: Basophils % 0.2 %; Eosinophils % 0.2 %; Hematocrit 34.4 % (42.0-52.0); Hemoglobin 10.7 g/dL (11.7-16.6); Lymphocytes # 0.6 10^3/uL (0.8-4.8); Lymphocytes % 9.5 %; Mean Corpuscular HGB Conc 31.1 g/dL (30.0-36.0); Mean Corpuscular Hemoglobin 28.2 pg (28.0-34.0); Mean Corpuscular Volume 90.8 fL (80-94); Monocytes # 0.7 10^3/uL (0.2-0.9); Monocytes % 10.3 %; Neutrophils # 5.3 10^3/uL (1.8-7.7); Neutrophils % 79.5 %; Nucleated Red Blood Cells % 0 %; Platelet Count 55 10^3/cmm (130-400); Red Blood Count 3.79 10^6/uL (4.1-5.3); Red Cell Distribution Width 18.7 % (12.1-15.1); White Blood Count 6.6 10^3/uL (4.0-10.0)
[2019-11-26] MEDS: aspirin 81 mg EC Tablet PO (08:38)
[2019-11-26] MEDS: pantoprazole DR 40 mg Tablet PO (08:38)
[2019-11-26] MEDS: acetaminophen 325 mg Tablet 650 MG PO ×2 (08:38→19:21)
[2019-11-26 09:19] LABS: Alanine Aminotransferase 72 U/L (0-41); Albumin Level 3.1 g/dL (3.5-5.2); Alkaline Phosphatase 352 IU/L (40-130); Aspartate Amino Transferase 240 U/L (0-40); Blood Urea Nitrogen 24 mg/dL (8-23); Calcium 7.8 mg/dL (8.5-10.5); Carbon Dioxide 28 mmol/L (22-29); Chloride 95 mmol/L (98-107); Globulin 2.5 g/dL (1.3-4.6); Glucose 115 mg/dL (65-115); Osmolality Calculated 276 mOsm/kg (285-295); Sodium 134 mmol/L (136-145); Total Bilirubin 1.3 mg/dL (0.15-1.2); Total Protein 5.6 g/dL (6.6-8.7)
--- NOTE | 2019-11-26 09:36 | PM.PN ---
Subjective Subjective: Interval history: Mr. Arevalo is 74 years old and was admitted 4 days ago for a multitude of problems. He had weakness, fatigue and a variety of other symptoms. He was found to be in acute renal failure on top of chronic kidney disease. His creatinine was 8.6 and his potassium was 7.5. He had transaminitis. He required urgent dialysis. He was on Pradaxa which was reversed prior to placing the dialysis catheter. He is now improved somewhat and is moved up to the second floor. His echo shows a significant cardiomyopathy, global hypokinesis with an ejection fraction of 20 to 25%. He has severe low gradient aortic stenosis. He has a multitude of other problems that includes severe COPD, metastatic prostate cancer, stage IV chronic kidney disease, chronic atrial fibrillation, cognitive dysfunction, diabetes and Leriche syndrome. He remains mildly anemic. His creatinine has come down to 3.9. His transaminases are trending downward. His CPK has been extremely high greater than 10,000 and is trending downward as well. He seems reasonably alert but is very frail. He is unable to get out of bed on his own. Today he has no pain and is not short of breath. Medications: Reviewed: Yes Vitals/I&O/Wt Last Vital Signs Temp 97.8 F 11/26/19 08:06 Pulse 72 11/26/19 08:06 Resp 17 11/26/19 08:06 BP 99/61 11/26/19 08:06 Pulse Ox 98 11/26/19 08:06 11/25/19 11/26/19 11/26/19 22:59 06:59 14:59 Intake Total 760 / 2200 50 / 2250 580 / 580 Output Total 100 / 350 0 / 350 Balance 660 / 1850 50 / 1900 580 / 580 Weight last 48 hrs Weight 165 lb 7 oz Weight 160 lb Physical Exam Narrative: EXAM NARRATIVE: GENERAL: In general he is frail and weak HEENT: Exam within normal limits. NECK: Supple without jugular vein distention. The carotid upstroke is normal without bruits. BACK: Exam normal. LUNGS: Clear. HEART: Irregular rate and rhythm. Difficult to hear short aortic stenosis murmur ABDOMEN: Benign without organomegaly or tenderness. EXTREMITIES: No edema. NEUROLOGIC: Exam normal. SKIN: Unremarkable. Data : 11/26/19 04:45 11/26/19 04:45 Micro: Microbiology 11/25/19 04:15 Enteric Pathogens (PCR) - Final Stool C.difficile Toxin B Gene (PCR) - Final A&P Assessment and plan (1) Acute decompensated heart failure: Status: Acute (2) Cardiomyopathy as manifestation of underlying disease: Status: Acute (3) Severe aortic valve stenosis: Status: Acute (4) Acute combined systolic and diastolic heart failure: Status: Acute (5) Hyponatremia: Status: Acute (6) Transaminitis: Status: Acute (7) Hyperkalemia: Status: Acute (8) Acute kidney injury superimposed on chronic kidney disease: Status: Acute (9) Hyperlipidemia: Status: Acute (10) Cardiac pacemaker: Status: Acute (11) Atrial fibrillation: Status: Acute Qualifiers: Atrial fibrillation type: longstanding persistent Qualified Code(s): I48.11 - Longstanding persistent atrial fibrillation (12) PVD (peripheral vascular disease): Status: Acute (13) HTN (hypertension): Status: Acute (14) Diabetes mellitus: Status: Acute (15) COPD (chronic obstructive pulmonary disease): Status: Acute (16) Elevated CPK: Status: Acute Additional A&P Information Things seem relatively stable at this point time. If consideration is being given to a aortic valve procedure, I would seriously reconsider this. He is a terrible candidate for even a TAVR. Given his Leriche syndrome, this would have to be done from the carotid artery. I am not sure given his underlying comorbidities that he will be a candidate for this. Attestations Medical Necessity Statement*: Not applicable Coding Level of Care Code Acute Nuclear Test Technician for Chg Fwd History Comprehensive Exam Comprehensive Medical Decision Making High Complexity Diagnoses Acute decompensated heart failure I50.9 Cardiomyopathy as manifestation of underlying disease I43 Severe aortic valve stenosis I35.0 Acute combined systolic and diastolic heart failure I50.41 Hyponatremia E87.1 Transaminitis R74.0 Hyperkalemia E87.5 Acute kidney injury superimposed on chronic kidney disease N17.9; N18.9 Hyperlipidemia E78.5 Cardiac pacemaker Z95.0 Atrial fibrillation I48.11 Atrial fibrillation type: longstanding persistent PVD (peripheral vascular disease) I73.9 HTN (hypertension) I10 Diabetes mellitus E11.9 COPD (chronic obstructive pulmonary disease) J44.9 Elevated CPK R74.8
--- NOTE | 2019-11-26 11:04 | PM.PN ---
Subjective Subjective: Interval history: Patient denies shortness of breath or chest pain this morning. Denies abdominal pain. Reports that his oral intake is gradually improving. His vitals appears stable. He had 100 mL of urinary output. Platelets continue to decline. CK is improving and down to 5332 this morning. Liver enzymes also appear to be trending down. Vitals/I&O/Wt Last Vital Signs Temp 97.8 F 11/26/19 08:06 Pulse 72 11/26/19 08:06 Resp 17 11/26/19 08:06 BP 99/61 11/26/19 08:06 Pulse Ox 98 11/26/19 08:06 11/25/19 11/26/19 11/26/19 22:59 06:59 14:59 Intake Total 760 / 2200 50 / 2250 580 / 580 Output Total 100 / 350 0 / 350 Balance 660 / 1850 50 / 1900 580 / 580 Weight last 48 hrs Weight 75.041 kg Weight 72.575 kg Physical Exam Const: COMMON NORMALS: no apparent distress and oriented x3 Resp: COMMON NORMALS: normal respiratory effort and clear to auscultation bilaterally AUSCULTATION: clear to auscultation bilaterally Cardio: COMMON NORMALS: regular rate, regular rhythm and S2 normal heart sound RATE: regular rate RHYTHM: regular rhythm HEART SOUNDS: S2 normal OTHER: No lower extremity edema GI: COMMON NORMALS: normal to inspection, nondistended, normoactive bowel sounds, soft to palpation and non-tender PALPATION: Yes soft Neuro: COMMON NORMALS: oriented x3 and no focal motor deficits Data : 11/26/19 04:45 11/26/19 04:45 Micro: Microbiology 11/25/19 04:15 Enteric Pathogens (PCR) - Final Stool C.difficile Toxin B Gene (PCR) - Final A&P Assessment and plan (1) Acute kidney injury superimposed on chronic kidney disease: Status: Acute (2) Hyperkalemia: Status: Acute (3) Transaminitis: This is likely secondary to heart failure related to passive congestion. Status: Acute (4) Hyponatremia: Status: Acute (5) Severe aortic stenosis: Status: Acute (6) Acute combined systolic and diastolic heart failure: Present on admission. Currently appears compensated. Status: Acute Additional A&P Information PLAN: Continue current monitoring and treatment. Hopefully patient's kidney function gradually improved. We will hold off on putting permanent hemodialysis catheter as patient's creatinine and urinary output appears to be improving. Considering overall patient's underlying functional status and comorbidities patient would benefit from conservative treatment. Continue with physical therapy. Family voiced that they want patient to go home when ready to be discharged. They did not want senior care facility placement. Clinically appears to be improving therefore I expect platelets would plateau soon and start improving. Continue ceftriaxone and Flagyl which were started for concern for spontaneous bacterial peritonitis. Attestations Medical Necessity Statement*: Patient with acute kidney injury requires close inpatient monitoring and treatment. Coding Level of Care Code Acute Candy Catcher for g Fwd Diagnoses Acute kidney injury superimposed on chronic kidney disease N17.9; N18.9 Hyperkalemia E87.5 Transaminitis R74.0 Hyponatremia E87.1 Severe aortic stenosis I35.0 Acute combined systolic and diastolic heart failure I50.41
--- NOTE | 2019-11-26 11:41 | P.PN_ITS ---
Subjective Subjective: Interval history: He had dialysis yesterday, feels comfortable. No new issues. Hemodynamics reviewed. Urine output remains very poor and smaller volumes overnight. Mild LE edema. No other volume Sx. No uremic Sx. Eating and drinking ok. Medications: Reviewed: Yes Vitals/I&O/Wt Last Vital Signs Temp 97.8 F 11/26/19 08:06 Pulse 72 11/26/19 08:06 Resp 17 11/26/19 08:06 BP 99/61 11/26/19 08:06 Pulse Ox 98 11/26/19 08:06 11/25/19 11/26/19 11/26/19 22:59 06:59 14:59 Intake Total 760 / 2200 50 / 2250 580 / 580 Output Total 100 / 350 0 / 350 Balance 660 / 1850 50 / 1900 580 / 580 Weight last 48 hrs Weight 75.041 kg Weight 72.575 kg Physical Exam Narrative: EXAM NARRATIVE: GENERAL: The patient is alert and chronically ill looking. Lethargic. Not in any acute distress. No lymphadenopathy. HEENT: Moderate pallor and mild icterus.. No lymphadenopathy. Fundus is not visualized. NECK: Trachea appears to be central. No masses noted. No JVD or thyromegaly appreciated. No carotid bruit. RESPIRATORY: Chest is symmetrical. No intercostals muscle retraction or any accessory muscle activation. There is no chest wall tenderness. Breath sounds are heard bilaterally. No rales or rhonchi heard. No evidence of any consolid ation. BREASTS: Deferred. HEART: The PMI is slightly shifted to the left. No other palpable events. The first heart sound is soft. Ejection systolic murmur grade 3/6 in the aortic area. No diastolic murmurs. No pericardial rub. ABDOMEN: No vessel pulsations or distention. No tenderness. Splenomegaly appreciated. Minimal abdominal distention. No abdominal bruit. Bowel sounds are normally heard. : Deferred. RECTAL: Deferred. LYMPHATIC: No lymphadenopathy noted in the neck . EXTREMITIES: Trace to 1+ edema bilaterally in the lower extremities. No cyanosis. Peripheral pulse extremely weak bilaterally. MUSCULOSKELETAL: No acute joint deformities or swelling. SKIN: There are no significant scars or skin rash noted. NEUROPSYCHIATRIC: The patient is alert and oriented x3. Lethargic. Complaints of generalized weakness. No focal deficits. Const: COMMON NORMALS: no apparent distress, oriented x3 and alert GENERAL APPEARANCE: cooperative ORIENTATION/CONSCIOUSNESS: Yes awake, Yes oriented to person, Yes oriented to place and Yes oriented to time HENMT: COMMON NORMALS: normocephalic, head/scalp atraumatic, hearing grossly normal bilaterally, external ears normal, EAC's normal, TM's normal bilaterally, nasal mucous membranes and turbinates normal, moist oral mucous membranes and oropharynx normal HEAD & SCALP: normocephalic and atraumatic NOSE: nasal mucous membranes and turbinates normal EXTERNAL EAR: Yes external ears normal EXTERNAL AUDITORY CANAL: EAC's normal TYMPANIC MEMBRANE: TM's normal bilaterally Eye: COMMON NORMALS: PERRL, EOMs intact bilaterally, conjunctivae normal and no scleral icterus CONJUNCTIVA: Yes conjunctivae normal PUPIL: Yes PERRL Neck/C-Spine: COMMON NORMALS: full ROM, no lymphadenopathy, supple, no meningeal signs and no JVD GENERAL: Yes other (right IJ dialysis catheter) Lymph: LYMPHATIC: no lymphadenopathy noted and no lymphedema noted Chest: COMMONS NORMALS: palpation of chest normal Resp: COMMON NORMALS: normal respiratory effort, no retractions, no use of accessory muscles and clear to auscultation bilaterally AUSCULTATION: clear to auscultation bilaterally OTHER: Minimal bibasilar Rales. Cardio: COMMON NORMALS: no JVD, regular rate, regular rhythm and S2 normal heart sound; negative for no murmurs RATE: regular rate RHYTHM: regular rhythm HEART SOUNDS: S2 normal OTHER: No lower extremity edema GI: COMMON NORMALS: normal to inspection, nondistended, normoactive bowel sounds, soft to palpation, non-tender and no hepatosplenomegaly AUSCULTATION: Yes normoactive bowel sounds PALPATION: Yes soft, Yes tender, No guarding and Yes no hepatosplenomegaly RECTAL EXAM: Yes deferred : COMMON NORMALS: Yes no CVA tenderness BLADDER/KIDNEY EXAM: Yes no CVA tenderness Back/Pelvis: COMMON NORMALS: no CVA tenderness and thoracic and lumbar spine normal to inspection Extremity: COMMON NORMALS: normal to inspection, normal capillary refill, no clubbing, cyanosis or edema, no calf tenderness and no pedal edema Neuro: COMMON NORMALS: oriented x3 and no focal motor deficits SENSORIUM/ORIENTATION: Yes alert, Yes oriented to person, Yes oriented to place and Yes oriented to time MENINGEAL SIGNS: Yes no meningeal signs Psych: COMMON NORMALS: mental status grossly normal, thought process normal and cooperative THOUGHT PROCESS: normal thought process Skin: COMMON NORMALS: no rashes or lesions noted GENERAL SKIN EXAM: no rashes or lesions noted Data : 11/26/19 04:45 11/26/19 04:45 Micro: Microbiology 11/25/19 04:15 Enteric Pathogens (PCR) - Final Stool C.difficile Toxin B Gene (PCR) - Final A&P Additional A&P Information 1. GRACIELA - case d/w Dr Del Rio; we feel that this is more consistent with pre-renal, renal hypoperfusion. He has and low cardiac output, in combination with diuretic use and recent nausea and vomiting. Rhabdo was present on admission but was mild at ~4K, i.e. not a level that would typically cause pigment nephropathy. CPK now rising to 13k which may now start to cause pigment nephropathy, fortunately is now trending down to ~5k - cont supportive care, serial CPK levels, leave on the wetter side - monitoring over the weekend for recovery; will likely need dialysis again on Thursday if not recovering - am labs - strict Is and Os - avoid the usuals 2. Severe - mgmt per Dr Del Rio; if he demonstrates no renal recovery in the next few days, then it may be worth pursuing AVR prior to recovery, however, there is some potential for recovery from the pre-renal insult he sustained. Rhabdo now resolving - At this time, angiogram and CTA with runoff for TAVR prep will obviously jeopardize renal recovery. - keep wet, as pre-load dependent 3. 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
[2019-11-26 18:10] LABS: Creatinine, Random Urine 164 mg/dL (20-320); Protein, Total, Random 1476 mg/dL (5-25); Protein/Creatinine Ratio 9000 mg/g creat (22-128)
[2019-11-27] VITALS (7 sets, daily range): BP systolic 108–129; BP diastolic 50–68; PULSE 61–73; RESP 16–18; TEMP 36.3–36.7; O2SAT 94–100
[2019-11-27] MEDS: cefTRIAXone 1,000 MG in sodium chloride 0.9% (plus) 50 ML 100 MG IV ×2 (01:00→13:16)
[2019-11-27 05:20] LABS: Basophils % 0.2 %; Eosinophils % 0.3 %; Hematocrit 34.9 % (42.0-52.0); Hemoglobin 11.1 g/dL (11.7-16.6); Lymphocytes # 0.6 10^3/uL (0.8-4.8); Lymphocytes % 10.1 %; Mean Corpuscular HGB Conc 31.8 g/dL (30.0-36.0); Mean Corpuscular Hemoglobin 28.7 pg (28.0-34.0); Mean Corpuscular Volume 90.2 fL (80-94); Mean Platelet Volume 10.8 fL (7.4-10.4); Monocytes # 0.6 10^3/uL (0.2-0.9); Monocytes % 9.9 %; Neutrophils # 4.8 10^3/uL (1.8-7.7); Nucleated Red Blood Cells % 0 %; Platelet Count 56 10^3/cmm (130-400); Red Blood Count 3.87 10^6/uL (4.1-5.3); Red Cell Distribution Width 18.9 % (12.1-15.1)
[2019-11-27 05:39] LABS: Alanine Aminotransferase 55 U/L (0-41); Albumin Level 3.3 g/dL (3.5-5.2); Alkaline Phosphatase 327 IU/L (40-130); Anion Gap 20.1 (5-19); Aspartate Amino Transferase 156 U/L (0-40); Blood Urea Nitrogen 32 mg/dL (8-23); Calcium 7.8 mg/dL (8.5-10.5); Carbon Dioxide 22 mmol/L (22-29); Chloride 97 mmol/L (98-107); Globulin 2.6 g/dL (1.3-4.6); Glucose 110 mg/dL (65-115); Osmolality Calculated 278 mOsm/kg (285-295); Potassium 4.1 mmol/L (3.5-5.1); Sodium 135 mmol/L (136-145); Total Bilirubin 1.1 mg/dL (0.15-1.2); Total Protein 5.9 g/dL (6.6-8.7)
[2019-11-27 06:00] LABS: Creatine Phosphokinase 2704 U/L (39-308)
[2019-11-27] MEDS: metroNIDAZOLE IV 500 MG/100 ML PREMIX 100 MG IV ×3 (06:24→21:06)
--- NOTE | 2019-11-27 07:56 | PM.PN ---
Subjective Subjective: Interval history: Sam thinks he is getting little stronger. He did not sleep last night but wants me to give him something today so that he can sleep the day away. Platelet count continues to decline slowly but appears to have leveled off in the last couple days. He remains anemic. CPK continues to trend downward. Transaminases continue to trend downward. His creatinine however is up from 3.9 yesterday to 4.8 today. He does not have any pain. Medications: Reviewed: Yes Vitals/I&O/Wt Last Vital Signs Temp 98.0 F 11/27/19 04:00 Pulse 70 11/27/19 04:00 Resp 18 11/27/19 04:00 BP 129/68 11/27/19 04:00 Pulse Ox 96 11/27/19 04:00 11/26/19 11/27/19 11/27/19 22:59 06:59 14:59 Intake Total 460 / 1430 50 / 1480 Output Total 0 / 0 0 / 0 Balance 460 / 1430 50 / 1480 Weight last 48 hrs Weight 167 lb 7 oz Weight 165 lb 7 oz Physical Exam Narrative: EXAM NARRATIVE: GENERAL: In general he is very frail HEENT: Exam within normal limits. NECK: Supple without jugular vein distention. The carotid upstroke is normal without bruits. BACK: Exam normal. LUNGS: Clear. HEART: Regular rate and rhythm. ABDOMEN: Benign without organomegaly or tenderness. EXTREMITIES: No edema. NEUROLOGIC: Exam normal. SKIN: Unremarkable. Data : 11/27/19 05:05 11/27/19 05:05 A&P Assessment and plan (1) Elevated CPK: Status: Acute (2) COPD (chronic obstructive pulmonary disease): Status: Acute (3) Diabetes mellitus: Status: Acute (4) Acute decompensated heart failure: Status: Acute (5) Cardiomyopathy as manifestation of underlying disease: Status: Acute (6) Severe aortic valve stenosis: Status: Acute (7) Hyponatremia: Status: Acute (8) Transaminitis: Status: Acute (9) Hyperkalemia: Status: Acute (10) Acute kidney injury superimposed on chronic kidney disease: Status: Acute (11) Hyperlipidemia: Status: Acute (12) Cardiac pacemaker: Status: Acute (13) Atrial fibrillation: Status: Acute Qualifiers: Atrial fibrillation type: longstanding persistent Qualified Code(s): I48.11 - Longstanding persistent atrial fibrillation (14) PVD (peripheral vascular disease): Status: Acute (15) HTN (hypertension): Status: Acute (16) Thrombocytopenia: Status: Acute Additional A&P Information Creatinine has gone back up. He continues to struggle with multiorgan issues. He is not on any nephrotoxic drugs. He remains very tenuous. 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 Operator for Chg Fwd History Comprehensive Exam Comprehensive Medical Decision Making High Complexity Diagnoses Elevated CPK R74.8 COPD (chronic obstructive pulmonary disease) J44.9 Diabetes mellitus E11.9 Acute decompensated heart failure I50.9 Cardiomyopathy as manifestation of underlying disease I43 Severe aortic valve stenosis I35.0 Hyponatremia E87.1 Transaminitis R74.0 Hyperkalemia E87.5 Acute kidney injury superimposed on chronic kidney disease N17.9; N18.9 Hyperlipidemia E78.5 Cardiac pacemaker Z95.0 Atrial fibrillation I48.11 Atrial fibrillation type: longstanding persistent PVD (peripheral vascular disease) I73.9 HTN (hypertension) I10 Thrombocytopenia D69.6
--- NOTE | 2019-11-27 08:47 | PM.PN ---
Subjective Subjective: Interval history: Patient reports feeling better this morning. Reports that he did not sleep well last night but reports that his appetite and oral intake much improved. Platelets appear to plateau. Liver enzymes and CK improving but unfortunately creatinine went up. He had no urinary output. Vitals/I&O/Wt Last Vital Signs Temp 98.1 F 11/27/19 08:00 Pulse 70 11/27/19 08:43 Resp 16 11/27/19 08:00 BP 122/62 11/27/19 08:00 Pulse Ox 96 11/27/19 08:43 11/26/19 11/27/19 11/27/19 22:59 06:59 14:59 Intake Total 460 / 1430 50 / 1480 480 / 480 Output Total 0 / 0 0 / 0 Balance 460 / 1430 50 / 1480 480 / 480 Weight last 48 hrs Weight 75.948 kg Weight 75.041 kg Physical Exam Const: COMMON NORMALS: no apparent distress and oriented x3 Resp: COMMON NORMALS: normal respiratory effort and clear to auscultation bilaterally AUSCULTATION: clear to auscultation bilaterally Cardio: COMMON NORMALS: regular rate, regular rhythm and S2 normal heart sound RATE: regular rate RHYTHM: regular rhythm HEART SOUNDS: S2 normal OTHER: No lower extremity edema GI: COMMON NORMALS: normal to inspection, nondistended, normoactive bowel sounds, soft to palpation and non-tender PALPATION: Yes soft Neuro: COMMON NORMALS: oriented x3 and no focal motor deficits Data : 11/27/19 05:05 11/27/19 05:05 A&P Assessment and plan (1) Acute kidney injury superimposed on chronic kidney disease: Status: Acute (2) Hyperkalemia: Status: Acute (3) Transaminitis: This is likely secondary to heart failure related to passive congestion. Status: Acute (4) Hyponatremia: Status: Acute (5) Severe aortic stenosis: Status: Acute (6) Acute combined systolic and diastolic heart failure: Present on admission. Currently appears compensated. Status: Acute Additional A&P Information PLAN: Continue with current monitoring and treatment. Depending on patient's need for dialysis we will switch temporary dialysis catheter to permanent, tunneled 1. This was discussed with Dr. Le and he will help us when decision is made. We will start patient on 25 mg trazodone at bedtime to help with sleep. Continue with physical therapy and continue with current antibiotics as patient appears to be clinically getting better. Peritoneal carcinomatosis and possibility of spontaneous bacterial peritonitis were considered as reason for antibiotics initiated. CT scan mentioned empyema and this was discussed with Dr. Finnegan who evaluated imaging and does not think fluid represents empyema. Attestations Medical Necessity Statement*: Patient with acute kidney injury requires close inpatient monitoring and treatment Coding Level of Care Code Acute Respiratory Care Technician for [facility] [place] Diagnoses Acute kidney injury superimposed on chronic kidney disease N17.9; N18.9 Hyperkalemia E87.5 Transaminitis R74.0 Hyponatremia E87.1 Severe aortic stenosis I35.0 Acute combined systolic and diastolic heart failure I50.41
--- NOTE | 2019-11-27 09:30 | PC.SOCIAL ---
IMM Page 2 of IMM explained to and signed by patient with [facility] phone number provided. He verbalizes understanding. Initialed, dated, and timed and placed in chart. Copy provided to patient.
[2019-11-27] MEDS: pantoprazole DR 40 mg Tablet PO (09:32)
[2019-11-27] MEDS: aspirin 81 mg EC Tablet PO (09:32)
[2019-11-27] MEDS: metoprolol tartrate 50 mg Tablet 25 MG PO (09:33)
--- NOTE | 2019-11-27 10:15 | PM.PN ---
Subjective Subjective: Interval history: He is a little tired and had not slept very well. He is ok though, feels comfortable. No new issues. Hemodynamics reviewed. Urine output remains very poor and smaller volumes overnight. Mild LE edema. No other volume Sx. No uremic Sx. Eating and drinking ok. Medications: Reviewed: Yes Vitals/I&O/Wt Last Vital Signs Temp 98.1 F 11/27/19 08:00 Pulse 70 11/27/19 08:43 Resp 16 11/27/19 08:00 BP 122/62 11/27/19 08:00 Pulse Ox 96 11/27/19 08:43 11/26/19 11/27/19 11/27/19 22:59 06:59 14:59 Intake Total 460 / 1430 50 / 1480 480 / 480 Output Total 0 / 0 0 / 0 Balance 460 / 1430 50 / 1480 480 / 480 Weight last 48 hrs Weight 75.948 kg Weight 75.041 kg Physical Exam Narrative: EXAM NARRATIVE: GENERAL: The patient is alert and chronically ill looking. Lethargic. Not in any acute distress. No lymphadenopathy. HEENT: Moderate pallor and mild icterus.. No lymphadenopathy. Fundus is not visualized. NECK: Trachea appears to be central. No masses noted. No JVD or thyromegaly appreciated. No carotid bruit. RESPIRATORY: Chest is symmetrical. No intercostals muscle retraction or any accessory muscle activation. There is no chest wall tenderness. Breath sounds are heard bilaterally. No rales or rhonchi heard. No evidence of any consolidation. BREASTS: Deferred. HEART: The PMI is slightly shifted to the left. No other palpable events. The first heart sound is soft. Ejection systolic murmur grade 3/6 in the aortic area. No diastolic murmurs. No pericardial rub. ABDOMEN: No vessel pulsations or distention. No tenderness. Splenomegaly appreciated. Minimal abdominal distention. No abdominal bruit. Bowel sounds are normally heard. : Deferred. RECTAL: Deferred. LYMPHATIC: No lymphadenopathy noted in the neck . EXTREMITIES: Trace to 1+ edema bilaterally in the lower extremities. No cyanosis. Peripheral pulse extremely weak bilaterally. MUSCULOSKELETAL: No acute joint deformities or swelling. SKIN: There are no significant scars or skin rash noted. NEUROPSYCHIATRIC: The patient is alert and oriented x3. Lethargic. Complaints of generalized weakness. No focal deficits. Const: COMMON NORMALS: no apparent distress, oriented x3 and alert GENERAL APPEARANCE: cooperative ORIENTATION/CONSCIOUSNESS: Yes awake, Yes oriented to person, Yes oriented to place and Yes oriented to time HENMT: COMMON NORMALS: normocephalic, head/scalp atraumatic, hearing grossly normal bilaterally, external ears normal, EAC's normal, TM's normal bilaterally, nasal mucous membranes and turbinates normal, moist oral mucous membranes and oropharynx normal HEAD & SCALP: normocephalic and atraumatic NOSE: nasal mucous membranes and turbinates normal EXTERNAL EAR: Yes external ears normal EXTERNAL AUDITORY CANAL: EAC's normal TYMPANIC MEMBRANE: TM's normal bilaterally Eye: COMMON NORMALS: PERRL, EOMs intact bilaterally, conjunctivae normal and no scleral icterus CONJUNCTIVA: Yes conjunctivae normal PUPIL: Yes PERRL Neck/C-Spine: COMMON NORMALS: full ROM, no lymphadenopathy, supple, no meningeal signs and no JVD GENERAL: Yes other (right IJ dialysis catheter) Lymph: LYMPHATIC: no lymphadenopathy noted and no lymphedema noted Chest: COMMONS NORMALS: palpation of chest normal Resp: COMMON NORMALS: normal respiratory effort, no retractions, no use of accessory muscles and clear to auscultation bilaterally AUSCULTATION: clear to auscultation bilaterally OTHER: Minimal bibasilar Rales. Cardio: COMMON NORMALS: no JVD, regular rate, regular rhythm and S2 normal heart sound; negative for no murmurs RATE: regular rate RHYTHM: regular rhythm HEART SOUNDS: S2 normal OTHER: No lower extremity edema GI: COMMON NORMALS: normal to inspection, nondistended, normoactive bowel sounds, soft to palpation, non-tender and no hepatosplenomegaly AUSCULTATION: Yes normoactive bowel sounds PALPATION: Yes soft, Yes tender, No guarding and Yes no hepatosplenomegaly RECTAL EXAM: Yes deferred : COMMON NORMALS: Yes no CVA tenderness BLADDER/KIDNEY EXAM: Yes no CVA tenderness Back/Pelvis: COMMON NORMALS: no CVA tenderness and thoracic and lumbar spine normal to inspection Extremity: COMMON NORMALS: normal to inspection, normal capillary refill, no clubbing, cyanosis or edema, no calf tenderness and no pedal edema Neuro: COMMON NORMALS: oriented x3 and no focal motor deficits SENSORIUM/ORIENTATION: Yes alert, Yes oriented to person, Yes oriented to place and Yes oriented to time MENINGEAL SIGNS: Yes no meningeal signs Psych: COMMON NORMALS: mental status grossly normal, thought process normal and cooperative THOUGHT PROCESS: normal thought process Skin: COMMON NORMALS: no rashes or lesions noted GENERAL SKIN EXAM: no rashes or lesions noted Data : 11/27/19 05:05 11/27/19 05:05 A&P Additional A&P Information 1. GRACIELA - GRACIELA more consistent with pre-renal, renal hypoperfusion. He has and low cardiac output, in combination with diuretic use and recent nausea and vomiting. Rhabdo was present on admission but was mild at ~4K, i.e. not a level that would typically cause pigment nephropathy. CPK now rising to 13k which may now start to cause pigment nephropathy, fortunately is now trending down and will play less of a pathological role - Likely to have pretty dense ATN at this time - cont supportive care, serial CPK levels, leave on the wetter side - monitoring over the weekend for recovery; will likely need dialysis again on Thursday if not recovering and this has been ordered for today - am labs - strict Is and Os, Mcbride in, will need to come out in the next few days - avoid the usuals 2. Severe - mgmt per Dr Del Rio; if he demonstrates no renal recovery in the next few days, then it may be worth pursuing AVR prior to recovery, however, there is some potential for recovery from the pre-renal insult he sustained. Rhabdo now resolving - At this time, angiogram and CTA with runoff for TAVR prep will obviously jeopardize renal recovery. - keep wet, as pre-load dependent 3. lytes - looks stable, DC bicarb tabs 4. 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
[2019-11-27 11:21] LABS: Glucose Point of Care 99 mg/dL (70-110)
[2019-11-27] MEDS: ondansetron 2 mg/ML SDV 2 mL 4 MG IVP (11:28)
[2019-11-27 16:47] LABS: Glucose Point of Care 100 mg/dL (70-110)
[2019-11-27] MEDS: trazodone 50 mg Tablet 25 MG PO (20:35)
[2019-11-27] MEDS: ALPRAZolam 0.25 mg Tablet PO (20:35)
[2019-11-27 20:41] LABS: Glucose Point of Care 103 mg/dL (70-110)
[2019-11-28] VITALS (8 sets, daily range): BP systolic 77–106; BP diastolic 48–67; PULSE 62–75; RESP 16–20; TEMP 36.4–36.9; O2SAT 95–100
[2019-11-28] MEDS: cefTRIAXone 1,000 MG in sodium chloride 0.9% (plus) 50 ML 100 MG IV ×2 (00:15→13:26)
[2019-11-28 05:22] LABS: Basophils % 0.2 %; Eosinophils % 0.4 %; Hematocrit 34.6 % (42.0-52.0); Hemoglobin 10.9 g/dL (11.7-16.6); Lymphocytes # 0.8 10^3/uL (0.8-4.8); Lymphocytes % 14.2 %; Mean Corpuscular HGB Conc 31.5 g/dL (30.0-36.0); Mean Corpuscular Hemoglobin 28.7 pg (28.0-34.0); Mean Corpuscular Volume 91.1 fL (80-94); Monocytes # 0.6 10^3/uL (0.2-0.9); Monocytes % 10.3 %; Neutrophils # 4.1 10^3/uL (1.8-7.7); Neutrophils % 74.5 %; Nucleated Red Blood Cells % 0 %; Platelet Count 56 10^3/cmm (130-400); Red Cell Distribution Width 18.9 % (12.1-15.1); White Blood Count 5.4 10^3/uL (4.0-10.0)
[2019-11-28 05:47] LABS: Alanine Aminotransferase 40 U/L (0-41); Albumin Level 3.1 g/dL (3.5-5.2); Alkaline Phosphatase 271 IU/L (40-130); Anion Gap 19.4 (5-19); Aspartate Amino Transferase 98 U/L (0-40); Blood Urea Nitrogen 46 mg/dL (8-23); Calcium 7.8 mg/dL (8.5-10.5); Carbon Dioxide 23 mmol/L (22-29); Chloride 97 mmol/L (98-107); Globulin 2.8 g/dL (1.3-4.6); Glucose 83 mg/dL (65-115); Osmolality Calculated 277 mOsm/kg (285-295); Potassium 4.4 mmol/L (3.5-5.1); Sodium 135 mmol/L (136-145); Total Protein 5.9 g/dL (6.6-8.7)
[2019-11-28 06:02] LABS: Creatine Phosphokinase 1680 U/L (39-308)
[2019-11-28 06:59] LABS: Glucose Point of Care 94 mg/dL (70-110)
--- NOTE | 2019-11-28 11:12 | P.PN_ITS ---
Subjective Subjective: Interval history: Chart reviewed, overnight urine output of 20 mL, worsening renal function, improving rhabdomyolysis. Hemodynamically stable. Hemodialysis ordered for this morning. Patient seen and examined upon return from hemodialysis, resting quietly in bed, overall appears quite frail but denies any complaints currently. Case discussed with Dr. Garcia and plan is for permacath placement tomorrow, confirmed this with Dr. Khan. Medications: Reviewed: Yes Medication Review Details: Active Medications Generic Name Dose Route Start Last Admin Trade Name Freq PRN Reason Stop Dose Admin Acetaminophen 650 mg 11/23/19 16:31 11/26/19 19:21 Tylenol PO 650 mg Q6H PRN Administration MILD PAIN Albuterol Sulfate 2 puff 11/22/19 14:56 Ventolin INHALATION Q6H PRN Shortness Of Nevin th Alprazolam 0.25 mg 11/22/19 14:56 11/27/19 20:35 Xanax PO 0.25 mg BID PRN Administration Anxiety Aspirin 81 mg 11/25/19 15:00 11/27/19 09:32 Aspirin Ec PO 81 mg DAILY FRIEDA Administration Ceftriaxone Sodium 1,000 mg/ 50 mls @ 100 mls/ hr 11/23/19 10:00 11/28/19 01:03 Sodium Chloride IV Infused Q12H FRIEDA Infusion Protocol Metronidazole 500 mg in 100 mls @ 100 mls/hr 11/23/19 10:00 11/27/19 22:38 Flagyl Iv IV Infused Q8H FRIEDA Infusion Protocol Metoprolol Tartrat e 25 mg 11/23/19 09:00 11/27/19 09:33 Lopressor PO 25 mg DAILY FRIEDA Administration Non-Formulary Medi cation 1 inh 11/23/19 09:00 11/28/19 08:17 Fluticasone-Umec lidin-Vilanter [Tr elegy Ellipta] INHALATION Not Given DAILY FRIEDA Ondansetron HCl 4 mg 11/22/19 13:53 11/27/19 11:28 Zofran IVP 4 mg Q6H PRN Administration NAUSEA AND VOMITI NG Pantoprazole Sodiu m 40 mg 11/23/19 09:00 11/27/19 09:32 Protonix PO 40 mg DAILY FRIEDA Administration Phenol 3 spray 11/25/19 00:39 11/25/19 00:57 Phenaseptic MUCOUS MEM 3 spray Q2H PRN Administration SORE THROAT Trazodone HCl 25 mg 11/27/19 21:00 11/27/19 20:35 Desyrel PO 25 mg BEDTIME FRIEDA Administration No Known Allergies Allergy (Unverified 11/22/19 10:34) Vitals/I&O/Wt Last Vital Signs Temp 97.8 F 11/28/19 11:11 Pulse 75 11/28/19 11:11 Resp 18 11/28/19 11:11 BP 106/67 11/28/19 11:11 Pulse Ox 95 11/28/19 11:11 11/27/19 11/28/19 11/28/19 22:59 06:59 14:59 Intake Total 420 / 1240 50 / 1290 120 / 120 Output Total 75 / 75 20 Balance 345 / 1165 30 / 1195 120 / 120 Weight last 48 hrs Weight 77.678 kg Weight 75.948 kg Physical Exam Const: COMMON NORMALS: no apparent distress and oriented x3 GENERAL APPEARANCE: cooperative, frail appearing and appears older than stated age ORIENTATION/CONSCIOUSNESS: Yes awake HENMT: COMMON NORMALS: normocephalic, head/scalp atraumatic, hearing grossly normal bilaterally and moist oral mucous membranes HEAD & SCALP: normocephalic and atraumatic Eye: COMMON NORMALS: PERRL, EOMs intact bilaterally and conjunctivae normal CONJUNCTIVA: Yes conjunctivae normal PUPIL: Yes PERRL Neck/C-Spine: COMMON NORMALS: full ROM GENERAL: Yes normal visual inspection and Yes trachea midline OTHER: -Right IJ temporary dialysis catheter in place Resp: COMMON NORMALS: normal respiratory effort, no retractions, no use of accessory muscles and clear to auscultation bilaterally EFFORT & INSPECTION: Yes able to speak in complete sentences, Yes symmetric chest movement and No tachypneic AUSCULTATION: clear to auscultation bilaterally Cardio: COMMON NORMALS: regular rate, regular rhythm, S1 normal heart sound and S2 normal heart sound RATE: regular rate RHYTHM: regular rhythm HEART SOUNDS: S1 normal, S2 normal and murmur systolic GI: COMMON NORMALS: normal to inspection, nondistended, normoactive bowel sounds, soft to palpation and non-tender PALPATION: Yes soft : BLADDER/KIDNEY EXAM: Yes catheter in place Catheter type (Male): urethral Extremity: COMMON NORMALS: normal to inspection, full ROM and no clubbing, cyanosis or edema; negative for no pedal edema Neuro: COMMON NORMALS: oriented x3, moves all extremities, no focal motor deficits and no sensory deficits noted Psych: COMMON NORMALS: mental status grossly normal, thought process normal, cooperative, affect normal and speech normal SPEECH: Yes normal speech THOUGHT PROCESS: normal thought process Skin: COMMON NORMALS: no rashes or lesions noted, no jaundice, no petechiae and no mottling GENERAL SKIN EXAM: no rashes or lesions noted Urinary Catheter Management^: Mcbride: Cath Placed During This Visit: no Urethral Indwelling: Yes Reason for Continuing Indwelling Catheter: Acute Urinary Retention or Obstr uction Data : 11/28/19 04:24 11/28/19 04:24 Micro: Microbiology 11/22/19 17:13 Blood Culture - Final Blood NO GROWTH AFTER 5 DAYS 11/22/19 15:16 Blood Culture - Final Blood NO GROWTH AFTER 5 DAYS A&P Assessment and plan (1) Acute kidney injury superimposed on chronic kidney disease: -Acute kidney injury, likely multifactorial given hypoperfusion secondary to underlying low cardiac output and severe aortic stenosis, rhabdomyolysis -Currently anuric, has Mcbride catheter in place for accurate ins and outs -Worsening renal function, continue to monitor, avoid nephrotoxins, renally dose meds -Nephrology consult appreciated, plan for hemodialysis today -has temporary R IJ dialysis catheter; plan for permacath placement tomorrow by Dr. Khan, keep n.p.o. after midnight Status: Acute (2) Severe aortic stenosis: -Has known severe aortic stenosis, confirmed on recent echo with ejection fraction of 20 to 25%, global LV hypokinesis, G2DD, mild MR, mild AR, moderate- severe TR, mild-moderate KS -Cardiology consult appreciated -Considered a poor candidate but cardiology will determine if appropriate for TAVR -Continue medical management Status: Chronic (3) Rhabdomyolysis: -CPK trending down, continue to monitor Status: Acute Qualifiers: Rhabdomyolysis type: non-traumatic Qualified Code(s): M62.82 - Rhabdomyolysis Additional A&P Information -Known metastatic prostate cancer; follows up with Dr. Nicholson, is on Casodex/Zoladex -Suspected SBP, continue ceftriaxone and Flagyl -known normocytic anemia; baseline Hg; continue to trend -Thrombocytopenia due to splenic sequesteration and splenomegaly; continue to monitor closely -prior hx of EtOH abuse -known fusiform descending thoracic aortic aneursym, stable per imaging -Transamnitis; trending down -HTN; VSS, continue to monitor -PVD -Hyponatremia: improved -known combined systolic and diastolic CHF; Echo as noted above; compensated currently -PT/OT evaluations -fall precautions -cardiac renal diet as tolerated -GI ppx with PPI -DVT ppx with SCDs, no AC due to anemia, thrombocytopenia -Dispo: home, declined SNF placement -Code status: FULL code Attestations Medical Necessity Statement*: Patient requires hospitalization for continued management of acute kidney injury, requiring dialysis and continued monitoring of renal function. Time Spent in Patient Care: Greater than 35 minutes (>than 50% of time spent in counselling and/or direct pt care on unit) . Coding Level of Care Code Acute Forklift Technician for Chg Fwd Exam Comprehensive Diagnoses Acute kidney injury superimposed on chronic kidney disease N17.9; N18.9 Severe aortic stenosis I35.0 Rhabdomyolysis M62.82 Rhabdomyolysis type: non-traumatic
[2019-11-28] MEDS: metoprolol tartrate 50 mg Tablet 25 MG PO (11:19)
[2019-11-28] MEDS: aspirin 81 mg EC Tablet PO (11:19)
[2019-11-28] MEDS: pantoprazole DR 40 mg Tablet PO (11:21)
[2019-11-28] MEDS: metroNIDAZOLE IV 500 MG/100 ML PREMIX 100 MG IV ×2 (11:42→18:39)
--- NOTE | 2019-11-28 11:44 | P.PN_ITS ---
Subjective Subjective: Interval history: Feels ok, just finished dialysis, tolerating the procedure well. Persistent LE edema. No SOB. No chest pain. Making minimal amounts of urine. Medications: Reviewed: Yes Medication Review Details: Active Medications Generic Name Dose Route Start Last Admin Trade Name Freq PRN Reason Stop Dose Admin Acetaminophen 650 mg 11/23/19 16:31 11/26/19 19:21 Tylenol PO 650 mg Q6H PRN Administration MILD PAIN Albuterol Sulfate 2 puff 11/22/19 14:56 Ventolin INHALATION Q6H PRN Shortness Of Nevin th Alprazolam 0.25 mg 11/22/19 14:56 11/27/19 20:35 Xanax PO 0.25 mg BID PRN Administration Anxiety Aspirin 81 mg 11/25/19 15:00 11/27/19 09:32 Aspirin Ec PO 81 mg DAILY FRIEDA Administration Ceftriaxone Sodium 1,000 mg/ 50 mls @ 100 mls/ hr 11/23/19 10:00 11/28/19 01:03 Sodium Chloride IV Infused Q12H FRIEDA Infusion Protocol Metronidazole 500 mg in 100 mls @ 100 mls/hr 11/23/19 10:00 11/27/19 22:38 Flagyl Iv IV Infused Q8H FRIEDA Infusion Protocol Metoprolol Tartrat e 25 mg 11/23/19 09:00 11/27/19 09:33 Lopressor PO 25 mg DAILY FRIEDA Administration Non-Formulary Medi cation 1 inh 11/23/19 09:00 11/28/19 08:17 Fluticasone-Umec lidin-Vilanter [Tr elegy Ellipta] INHALATION Not Given DAILY FRIEDA Ondansetron HCl 4 mg 11/22/19 13:53 11/27/19 11:28 Zofran IVP 4 mg Q6H PRN Administration NAUSEA AND VOMITI NG Pantoprazole Sodiu m 40 mg 11/23/19 09:00 11/27/19 09:32 Protonix PO 40 mg DAILY FRIEDA Administration Phenol 3 spray 11/25/19 00:39 11/25/19 00:57 Phenaseptic MUCOUS MEM 3 spray Q2H PRN Administration SORE THROAT Trazodone HCl 25 mg 11/27/19 21:00 11/27/19 20:35 Desyrel PO 25 mg BEDTIME FRIEDA Administration No Known Allergies Allergy (Unverified 11/22/19 10:34) Vitals/I&O/Wt Last Vital Signs Temp 97.8 F 11/28/19 11:11 Pulse 75 11/28/19 11:11 Resp 18 11/28/19 11:11 BP 106/67 11/28/19 11:11 Pulse Ox 95 11/28/19 11:11 11/27/19 11/28/19 11/28/19 22:59 06:59 14:59 Intake Total 420 / 1240 50 / 1290 120 / 120 Output Total 75 / 75 Balance 345 / 1165 30 / 1195 120 / 120 Weight last 48 hrs Weight 77.678 kg Weight 75.948 kg Physical Exam Narrative: EXAM NARRATIVE: GENERAL: The patient is alert and chronically ill looking. Lethargic. Not in any acute distress. No lymphadenopathy. HEENT: Moderate pallor and mild icterus.. No lymphadenopathy. Fundus is not visualized. NECK: Trachea appears to be central. No masses noted. No JVD or thyromegaly appreciated. No carotid bruit. RESPIRATORY: Chest is symmetrical. No intercostals muscle retraction or any accessory muscle activation. There is no chest wall tenderness. Breath sounds are heard bilaterally. No rales or rhonchi heard. No evidence of any consolidation. BREASTS: Deferred. HEART: The PMI is slightly shifted to the left. No other palpable events. The first heart sound is soft. Ejection systolic murmur grade 3/6 in the aortic area. No diastolic murmurs. No pericardial rub. ABDOMEN: No vessel pulsations or distention. No tenderness. Splenomegaly appreciated. Minimal abdominal distention. No abdominal bruit. Bowel sounds are normally heard. : Deferred. RECTAL: Deferred. LYMPHATIC: No lymphadenopathy noted in the neck . EXTREMITIES: Trace to 1+ edema bilaterally in the lower extremities. No cyanosis. Peripheral pulse extremely weak bilaterally. MUSCULOSKELETAL: No acute joint deformities or swelling. SKIN: There are no significant scars or skin rash noted. NEUROPSYCHIATRIC: The patient is alert and oriented x3. Lethargic. Complaints of generalized weakness. No focal deficits. Const: COMMON NORMALS: no apparent distress, oriented x3 and alert GENERAL APPEARANCE: cooperative ORIENTATION/CONSCIOUSNESS: Yes awake, Yes oriented to person, Yes oriented to place and Yes oriented to time HENMT: COMMON NORMALS: normocephalic, head/scalp atraumatic, hearing grossly normal bilaterally, external ears normal, EAC's normal, TM's normal bilaterally, nasal mucous membranes and turbinates normal, moist oral mucous membranes and oropharynx normal HEAD & SCALP: normocephalic and atraumatic NOSE: nasal mucous membranes and turbinates normal EXTERNAL EAR: Yes external ears normal EXTERNAL AUDITORY CANAL: EAC's normal TYMPANIC MEMBRANE: TM's normal bilaterally Eye: COMMON NORMALS: PERRL, EOMs intact bilaterally, conjunctivae normal and no scleral icterus CONJUNCTIVA: Yes conjunctivae normal PUPIL: Yes PERRL Neck/C-Spine: COMMON NORMALS: full ROM, no lymphadenopathy, supple, no meningeal signs and no JVD GENERAL: Yes other (right IJ dialysis catheter) Lymph: LYMPHATIC: no lymphadenopathy noted and no lymphedema noted Chest: COMMONS NORMALS: palpation of chest normal Resp: COMMON NORMALS: normal respiratory effort, no retractions, no use of accessory muscles and clear to auscultation bilaterally AUSCULTATION: clear to auscultation bilaterally OTHER: Minimal bibasilar Rales. Cardio: COMMON NORMALS: no JVD, regular rate, regular rhythm and S2 normal heart sound; negative for no murmurs RATE: regular rate RHYTHM: regular rhythm HEART SOUNDS: S2 normal OTHER: No lower extremity edema GI: COMMON NORMALS: normal to inspection, nondistended, normoactive bowel s ounds, soft to palpation, non-tender and no hepatosplenomegaly AUSCULTATION: Yes normoactive bowel sounds PALPATION: Yes soft, Yes tender, No guarding and Yes no hepatosplenomegaly RECTAL EXAM: Yes deferred : COMMON NORMALS: Yes no CVA tenderness BLADDER/KIDNEY EXAM: Yes no CVA tenderness Back/Pelvis: COMMON NORMALS: no CVA tenderness and thoracic and lumbar spine normal to inspection Extremity: COMMON NORMALS: normal to inspection, normal capillary refill, no clubbing, cyanosis or edema, no calf tenderness and no pedal edema Neuro: COMMON NORMALS: oriented x3 and no focal motor deficits SENSORIUM/ORIENTATION: Yes alert, Yes oriented to person, Yes oriented to place and Yes oriented to time MENINGEAL SIGNS: Yes no meningeal signs Psych: COMMON NORMALS: mental status grossly normal, thought process normal and cooperative THOUGHT PROCESS: normal thought process Skin: COMMON NORMALS: no rashes or lesions noted GENERAL SKIN EXAM: no roby hes or lesions noted Data : 11/28/19 04:24 11/28/19 04:24 Micro: Microbiology 11/22/19 17:13 Blood Culture - Final Blood NO GROWTH AFTER 5 DAYS 11/22/19 15:16 Blood Culture - Final Blood NO GROWTH AFTER 5 DAYS A&P Additional A&P Information 1. GRACIELA - GRACIELA more consistent with pre-renal, renal hypoperfusion. He has and low cardiac output, in combination with diuretic use and recent nausea and vomiting. Rhabdo was present on admission but was mild at ~4K, i.e. not a level that would typically cause pigment nephropathy. CPK now rising to 13k which may now start to cause pigment nephropathy, fortunately is now trending down and will play less of a pathological role - Likely to have pretty dense ATN at this time - cont supportive care, serial CPK levels, leave on the wetter side - dialysis today, plan next treatment on Thu - permacath in the am, machine adjuster leader case trim to set up outpatient HD as acute diagnosis - am labs - strict Is and Os, Mcbride in, will need to come out in the next few days - avoid the usuals 2. Severe - mgmt per Dr Del Rio - I appreciate that he is a poor candidate for TAVR and open AVR. If mgmt is planned to be medical then it is appropriate to commit him to emt intermediate dialysis with the hope that he may eventually recover renal function - At this time, angiogram and CTA with runoff for TAVR prep will obviously jeopardize renal recovery. - keep wet, as pre-load dependent 3. lytes - looks stable, DC bicarb tabs 4. OOB to chair, PT/OT - thanks Attestations Medical Necessity Statement*: eval and mgmt of renal failure Coding Level of Care Code Acute Machine Sand Mixer for Kristel Lennon
[2019-11-28 12:00] LABS: Glucose Point of Care 67 mg/dL (70-110)
[2019-11-28 17:36] LABS: Glucose Point of Care 115 mg/dL (70-110)
--- NOTE | 2019-11-28 18:32 | P.PN_ITS ---
Subjective Subjective: Interval history: Status post dialysis today. Patient says he is interested in aortic valve replacement as he cannot take it anymore. His quality of life is not well. Medications: Reviewed: Yes Medication Review Details: Active Medications Generic Name Dose Route Start Last Admin Trade Name Freq PRN Reason Stop Dose Admin Acetaminophen 650 mg 11/23/19 16:31 11/26/19 19:21 Tylenol PO 650 mg Q6H PRN Administration MILD PAIN Albuterol Sulfate 2 puff 11/22/19 14:56 Ventolin INHALATION Q6H PRN Shortness Of [place] th Alprazolam 0.25 mg 11/22/19 14:56 11/27/19 20:35 Xanax PO 0.25 mg BID PRN Administration Anxiety Aspirin 81 mg 11/25/19 15:00 11/27/19 09:32 Aspirin Ec PO 81 mg DAILY FRIEDA Administration Ceftriaxone Sodium 1,000 mg/ 50 mls @ 100 mls/ hr 11/23/19 10:00 11/28/19 01:03 Sodium Chloride IV Infused Q12H FRIEDA Infusion Protocol Metronidazole 500 mg in 100 mls @ 100 mls/hr 11/23/19 10:00 11/27/19 22:38 Flagyl Iv IV Infused Q8H FRIEDA Infusion Protocol Metoprolol Tartrat e 25 mg 11/23/19 09:00 11/27/19 09:33 Lopressor PO 25 mg DAILY FRIEDA Administration Non-Formulary Medi cation 1 inh 11/23/19 09:00 11/28/19 08:17 Fluticasone-Umec lidin-Vilanter [Tr elegy Ellipta] INHALATION Not Given DAILY FRIEDA Ondansetron HCl 4 mg 11/22/19 13:53 11/27/19 11:28 Zofran IVP 4 mg Q6H PRN Administration NAUSEA AND VOMITI NG Pantoprazole Sodiu m 40 mg 11/23/19 09:00 11/27/19 09:32 Protonix PO 40 mg DAILY FRIEDA Administration Phenol 3 spray 11/25/19 00:39 11/25/19 00:57 Phenaseptic MUCOUS MEM 3 spray Q2H PRN Administration SORE THROAT Trazodone HCl 25 mg 11/27/19 21:00 11/27/19 20:35 Desyrel PO 25 mg BEDTIME FRIEDA Administration No Known Allergies Allergy (Unverified 11/22/19 10:34) Vitals/I&O/Wt Last Vital Signs Temp 97.7 F 11/28/19 15:06 Pulse 63 11/28/19 15:06 Resp 18 11/28/19 15:06 BP 99/58 11/28/19 15:06 Pulse Ox 95 11/28/19 15:06 11/28/19 11/28/19 11/28/19 06:59 14:59 22:59 Intake Total 50 / 1290 580 / 580 480 / 1060 Output Total Balance 30 / 1195 580 / 580 480 / 1060 Weight last 48 hrs Weight 171 lb 4 oz Weight 167 lb 7 oz Physical Exam Narrative: EXAM NARRATIVE: GENERAL: Patient is alert, awake and oriented x3. HEART: Regular S1 and S2. 2/6 sys murmur, rub or gallop. LUNGS: Decreased breath bilaterally. CENTRAL NERVOUS SYSTEM: Grossly nonfocal. EXTREMITIES: Lower extremities without edema bilaterally. Data : 11/28/19 04:24 11/28/19 04:24 Micro: Microbiology 11/22/19 17:13 Blood Culture - Final Blood NO GROWTH AFTER 5 DAYS 11/22/19 15:16 Blood Culture - Final Blood NO GROWTH AFTER 5 DAYS A&P Assessment and plan (1) Elevated CPK: Status: Acute (2) COPD (chronic obstructive pulmonary disease): Status: Acute (3) Diabetes mellitus: Status: Acute (4) Acute decompensated heart failure: Well compensated after dialysis.. Status: Acute (5) Cardiomyopathy as manifestation of underlying disease: Most likely secondary to critical aortic stenosis. Status: Acute (6) Severe aortic valve stenosis: Patient has critical aortic stenosis leading cardiomyopathy and recurrent congestive heart failure. Acute tubular necrosis and worsening of renal function is also secondary to low cardiac output. I have discussed with the patient he would like to take a chance for aortic valve replacement. I will discuss it with TAVR team. Further plan will be advised as per progress of the patient Status: Acute (7) Hyponatremia: Status: Acute (8) Transaminitis: Status: Acute (9) Hyperkalemia: Status: Acute (10) Acute kidney injury superimposed on chronic kidney disease: As per nephrology Status: Acute (11) Hyperlipidemia: Status: Acute (12) Cardiac pacemaker: The pacemaker function appears to be appropriate. We will continue the monitoring. Status: Acute (13) Atrial fibrillation: The arrhythmia is under control. Patient is currently in sinus rhythm. Status: Acute Qualifiers: Atrial fibrillation type: longstanding persistent Qualified Code(s): I48.11 - Longstanding persistent atrial fibrillation (14) PVD (peripheral vascular disease): Status: Acute (15) HTN (hypertension): Status: Acute (16) Thrombocytopenia: Status: Acute Additional A&P Information Creatinine has gone back up. He continues to struggle with multiorgan issues. He is not on any nephrotoxic drugs. He remains very tenuous. Attestations Medical Necessity Statement*: Patient require continuation of hospitalization for above defined care. Coding Level of Care Code Established Pt Acute Destination Imagination Coordinator for g Fwd Patient Type Established History Expanded Problem Focused Exam Expanded Problem Focused Medical Decision Making Moderate Complexity Diagnoses Elevated CPK R74.8 COPD (chronic obstructive pulmonary disease) J44.9 Diabetes mellitus E11.9 Acute decompensated heart failure I50.9 Cardiomyopathy as manifestation of underlying disease I43 Severe aortic valve stenosis I35.0 Hyponatremia E87.1 Transaminitis R74.0 Hyperkalemia E87.5 Acute kidney injury superimposed on chronic kidney disease N17.9; N18.9 Hyperlipidemia E78.5 Cardiac pacemaker Z95.0 Atrial fibrillation I48.11 Atrial fibrillation type: longstanding persistent PVD (peripheral vascular disease) I73.9 HTN (hypertension) I10 Thrombocytopenia D69.6
[2019-11-28] MEDS: trazodone 50 mg Tablet 25 MG PO (20:05)
[2019-11-28 21:10] LABS: Glucose Point of Care 113 mg/dL (70-110)
--- NOTE | 2019-11-28 23:52 | PC.NURSE ---
Patient's blood pressure is low 77/48. Nurse been notified.
[2019-11-29] VITALS (9 sets, daily range): BP systolic 92–148; BP diastolic 48–83; PULSE 65–71; RESP 17–20; TEMP 36.4–36.8; O2SAT 93–974
--- NOTE | 2019-11-29 | SCC_ITS ---
Procedure Done: Exchange of non-tunneled dialysis catheter to tunneled right IJ dialysis catheter Fluoroscopic guidance and interpretation for placement of catheter 98.0 seconds of fluoroscopic guidance, for a cumulative dose of 8.33 mGy, was provided to Dr. Khan by the radiology department. C-arm images of the chest were saved for the patient's permanent record. [facility]
[2019-11-29] MEDS: cefTRIAXone 1,000 MG in sodium chloride 0.9% (plus) 50 ML 100 MG IV ×2 (00:09→13:30)
[2019-11-29] MEDS: metroNIDAZOLE IV 500 MG/100 ML PREMIX 100 MG IV ×3 (03:02→18:10)
[2019-11-29 05:42] LABS: Basophils % 0.4 %; Eosinophils % 0.2 %; Hematocrit 33.3 % (42.0-52.0); Hemoglobin 10.3 g/dL (11.7-16.6); Lymphocytes # 0.7 10^3/uL (0.8-4.8); Lymphocytes % 13.3 %; Mean Corpuscular HGB Conc 30.9 g/dL (30.0-36.0); Mean Corpuscular Hemoglobin 27.9 pg (28.0-34.0); Mean Corpuscular Volume 90.2 fL (80-94); Mean Platelet Volume 12.3 fL (7.4-10.4); Monocytes # 0.6 10^3/uL (0.2-0.9); Monocytes % 12.7 %; Neutrophils # 3.6 10^3/uL (1.8-7.7); Nucleated Red Blood Cells % 0 %; Platelet Count 54 10^3/cmm (130-400); Red Blood Count 3.69 10^6/uL (4.1-5.3)
[2019-11-29 06:00] LABS: Alanine Aminotransferase 31 U/L (0-41); Albumin Level 3.1 g/dL (3.5-5.2); Alkaline Phosphatase 268 IU/L (40-130); Anion Gap 18.3 (5-19); Aspartate Amino Transferase 70 U/L (0-40); Blood Urea Nitrogen 27 mg/dL (8-23); Calcium 7.9 mg/dL (8.5-10.5); Carbon Dioxide 24 mmol/L (22-29); Chloride 97 mmol/L (98-107); Globulin 2.8 g/dL (1.3-4.6); Glucose 98 mg/dL (65-115); Osmolality Calculated 277 mOsm/kg (285-295); Potassium 4.3 mmol/L (3.5-5.1); Sodium 135 mmol/L (136-145); Total Bilirubin 0.9 mg/dL (0.15-1.2); Total Protein 5.9 g/dL (6.6-8.7)
--- NOTE | 2019-11-29 06:33 | PC.NURSE ---
OFF UNIT Patient taken down to surgery at this time.
--- NOTE | 2019-11-29 06:59 | P.ANESUD_ITS ---
Pre-Anesthetic Update Pre-Anesthetic Assessment: Date of Surgery/Procedure: 11/29/19 Preop Danielle gnosis: Acute renal failure Proposed Procedure: Operation Date: 11/22/19 10:45 Proposed Procedures p Dialysis Catheter Insertion(Not Applicable) - Maurisio Islas MD Operation Date: 11/29/19 08:20 Proposed Procedures p Dialysis Catheter Insertion(Not Applicable) - Feliz Khan MD Any changes to Pre-Anesthetic Assessment?: No Changes from Pre-Anesthetic Assessment: date 11/29/[address] [facility] [place] Last Intake: 22:00 Labs Last 48hrs: Laboratory Results - last 48 hr 11/27/19 11/27/19 11/27/19 11:15 16:44 20:33 WBC RBC Hgb Hct MCV MCH MCHC RDW Plt Count MPV Neut % (Auto) Lymph % (Auto) [place] % (Auto) Eos % (Auto) Baso % (Auto) Neut # (Auto) Lymph # (Auto) [place] # (Auto) Eos # (Auto) Baso # (Auto) Nucleated RBC % (a uto) Nucleated RBCs # Sodium Potassium Chloride Carbon Dioxide Anion Gap BUN Creatinine Glucose POC Glucose 99 100 103 Calculated Osmolal ity Calcium Total Bilirubin AST ALT Alkaline Phosphata se Creatine Kinase Total Protein Albumin Globulin 11/28/19 11/28/19 11/28/19 04:24 04:24 04:24 WBC 5.4 RBC 3.80 L Hgb 10.9 L Hct 34.6 L MCV 91.1 MCH 28.7 MCHC 31.5 RDW 18.9 H Plt Count 56 L MPV 11.0 H Neut % (Auto) 74.5 Lymph % (Auto) 14.2 [place] % (Auto) 10.3 Eos % (Auto) 0.4 Baso % (Auto) 0.2 Neut # (Auto) 4.1 Lymph # (Auto) 0.8 [place] # (Auto) 0.6 Eos # (Auto) 0.0 Baso # (Auto) 0.0 Nucleated RBC % (a uto) 0 Nucleated RBCs # 0.0 Sodium 135 L Potassium 4.4 Chloride 97 L Carbon Dioxide 23 Anion Gap 19.4 H BUN 46 H Creatinine 5.5 H Glucose 83 POC Glucose Calculated Osmolal ity 277 L Calcium 7.8 L Total Bilirubin 1.0 AST 98 H ALT 40 Alkaline Phosphata se 271 H Creatine Kinase 1680 H* Total Protein 5.9 L Albumin 3.1 L Globulin 2.8 11/28/19 11/28/19 11/28/19 06:24 11:07 17:29 WBC RBC Hgb Hct MCV MCH MCHC RDW Plt Count MPV Neut % (Auto) Lymph % (Auto) [place] % (Auto) Eos % (Auto) Baso % (Auto) Neut # (Auto) Lymph # (Auto) [place] # (Auto) Eos # (Auto) Baso # (Auto) Nucleated RBC % (a uto) Nucleated RBCs # Sodium Potassium Chloride Carbon Dioxide Anion Gap BUN Creatinine Glucose POC Glucose 94 67 115 Calculated Osmolal ity Calcium Total Bilirubin AST ALT Alkaline Phosphata se Creatine Kinase Total Protein Albumin Globulin 11/28/19 11/29/19 11/29/19 21:04 04:50 04:50 WBC 5.0 RBC 3.69 L Hgb 10.3 L Hct 33.3 L MCV 90.2 MCH 27.9 L MCHC 30.9 RDW 19.0 H Plt Count 54 L MPV 12.3 H Neut % (Auto) 73.0 Lymph % (Auto) 13.3 [place] % (Auto) 12.7 Eos % (Auto) 0.2 Baso % (Auto) 0.4 Neut # (Auto) 3.6 Lymph # (Auto) 0.7 L [place] # (Auto) 0.6 Eos # (Auto) 0.0 Baso # (Auto) 0.0 Nucleated RBC % (a uto) 0 Nucleated RBCs # 0.0 Sodium 135 L Potassium 4.3 Chloride 97 L Carbon Dioxide 24 Anion Gap 18.3 BUN 27 H Creatinine 4.3 H Glucose 98 POC Glucose 113 Calculated Osmolal ity 277 L Calcium 7.9 L Total Bilirubin 0.9 AST 70 H ALT 31 Alkaline Phosphata se 268 H Creatine Kinase Total Protein 5.9 L Albumin 3.1 L Globulin 2.8 Vitals: Temperature 97.7 F 11/29/19 06:50 Temperature Source Temporal Artery S can 11/29/19 06:50 Pulse Rate 68 11/29/19 06:50 Pulse Rhythm 11/28/19 20:00 Pulse Strength 2+ Slightly Dimin ished 11/28/19 20:00 Respiratory Rate 18 11/29/19 06:50 Respiratory Effort Non-Labored 11/28/19 20:00 Respiratory Depth Normal 11/28/19 20:00 Respiratory Patter n 11/28/19 20:00 Blood Pressure 100/59 11/29/19 06:50 Blood Pressure Keyla n 72 11/29/19 06:50 Blood Pressure Pos ition Semi Fowlers 11/29/19 03:33 Pulse Oximetry 974 H 11/29/19 06:50 Oxygen Delivery Me thod 11/29/19 06:50 Oxygen Flow Rate 2 11/28/19 20:00 Sepsis Recent Feve r Within 48 Hours No 11/22/19 06:16 Sepsis New/Unexpla ined Change in Men latoya Status No 11/22/19 06:16 Exam: Pre-Anes Outpt Exam: alert, oriented x 3, clear to auscultation bilaterally and regular rate & rhythm Cardiac Studies: No Data to Display
[2019-11-29] MEDS: sodium chloride 0.9% 1,000 ML 30 ML IV (07:06)
--- NOTE | 2019-11-29 07:51 | P.PN_ITS ---
Subjective Subjective: Interval history: No issues overnight, the division head wants to place the patient on outpatient Medications: Reviewed: Yes Vitals/I&O/Wt Last Vital Signs Temp 97.7 F 11/29/19 07:18 Pulse 68 11/29/19 07:18 Resp 18 11/29/19 07:18 BP 100/59 11/29/19 07:18 Pulse Ox 974 H 11/29/19 07:18 11/28/19 11/29/19 11/29/19 22:59 06:59 14:59 Intake Total 700 / 1330 Output Total 80 / 80 Balance 700 / 1250 -80 / 1250 Weight last 48 hrs Weight 173 lb 3 oz Weight 171 lb 4 oz Physical Exam Narrative: EXAM NARRATIVE: Right IJ non-tunneled dialysis catheter in place Urinary Catheter Management^: Mcbride: Cath Placed During This Visit: no Urethral Indwelling: Yes Reason for Continuing Indwelling Catheter: Acute Urinary Retention or Obstruction Data : 11/29/19 04:50 11/29/19 04:50 A&P Assessment and plan (1) Acute renal failure: Acute renal failure requiring long-term dialysis Plan for converting non-tunneled dialysis catheter into tunneled dialysis catheter under MAC today Procedure, risks, benefits and alternatives have been discussed with the patient who wishes to proceed with surgery. Status: Acute Attestations Medical Necessity Statement*: Dialysis catheter placement Coding Level of Care Code Acute Field Education Coordinator for Kristel Lennon Diagnoses Acute renal failure N17.9
--- NOTE | 2019-11-29 08:11 | SC_ITS ---
NOTE: Report was unsigned for reason: Order was edited. Original Signature date and time was: 11/29/19 @ 8:47 WS: [id number] C-ARM RADIOGRAPHS CHEST; 3 IMAGES HISTORY: cath placement COMPARISON: None available. Intraoperative imaging during dialysis catheter placement. MTDD
[2019-11-29] MEDS: lidocaine 1% INJ 20 mL INTRADERMA (08:39)
[2019-11-29] MEDS: heparin, porcine 1,000 unit/mL INJ 10 mL 10000 UNIT HE (08:42)
--- NOTE | 2019-11-29 08:58 | PM.OP ---
Operative Report Date of procedure: November 29, 2019 Pre-op Diagnosis: Acute renal failure Post-op diagnosis: same Procedure Done: Exchange of non-tunneled dialysis catheter to tunneled right IJ dialysis catheter Fluoroscopic guidance and interpretation for placement of catheter Surgeon: Feliz Khan Anesthesia: MAC Estimated blood loss (mL): 25 Condition: stable Disposition: PACU Procedure: The patient was taken to the operating room and placed under MAC after IV antibiotic had been administered. The chest and neck were prepped and draped in a sterile manner bilaterally. Under fluoroscopy the location for the dialysis catheter was marked. A guidewire was passed through the existing non-tunneled dialysis catheter in the right internal jugular vein and the catheter was removed. Using 11 blade a skin incision was extended at the vein access site as well as the previously marked location on the left chest wall. The dialysis catheter was attached to the tunneler and passed subcutaneously, exiting at the venous access site. Serial dilators were passed over the guidewire under fluoroscopy. Finally the dilator peel-away sheath was passed over the guidewire and the inner dilator and guidewire was removed and the dialysis catheter was introduced into the right internal jugular vein as the peel-away sheath was removed. The tip of the catheter was noted to be in the right atrium. Both ports of the catheter hamida blood and flushed easily. The catheter was sutured to the skin using 2-0 Prolene and the venous access site was closed with 4-0 Monocryl and Dermabond. A total of 5 mL of 1:10,000 heparin was injected into the 2 ports under dialysis catheter. Fluoroscopic guidance and interpretation for passage of guidewire and dilator and placement of catheter in the right atrium.
[2019-11-29 09:33] LABS: Glucose Point of Care 80 mg/dL (70-110)
[2019-11-29 09:33] LABS: Glucose Point of Care 86 mg/dL (70-110)
--- NOTE | 2019-11-29 10:06 | SUR.PHASEI ---
0915 PT AWAKE ALERT TALKATIVE TAKINGICE CHIPS VSS RT NECK PRESSURE DRESSSING D/I NO BLEEDING NOTED RT SUBCLAVIAN SITES X 2 WITH 4X4 TEGADERM D/I REPORT CALLED TO FLOOR PT TO FLOOR PER CART 0925 PT SLID TO BED WITH ASSSIST OF 3 PT ALERT TAKING ICE CHIPS DENIES PAIN SITES D/I RN AT BEDSIDE NO SWELLING OR HEMATOMAS NOTED TO 3 SITES RT NECK AND SUBCLAVIAN SITES.
[2019-11-29 10:57] LABS: Glucose Point of Care 94 mg/dL (70-110)
--- NOTE | 2019-11-29 11:37 | P.PN_ITS ---
Subjective Subjective: Interval history: Tunneled HD catheter placement today. Had 80 mL urine output overnight. AM labs noted including renal function. VSS. Patient seen and examined following return from tunnel catheter placement. Reports feeling well, denies any pain or discomfort currently. Spent several hours sitting in a recliner this afternoon. Case discussed with Dr. Vallejo and plan is for outpatient follow-up with Dr. Monet in [place] to determine next steps for TAVR. Medications: Reviewed: Yes Medication Review Details: Active Medications Generic Name Dose Route Start Last Admin Trade Name Freq PRN Reason Stop Dose Admin Acetaminophen 650 mg 11/23/19 16:31 11/26/19 19:21 Tylenol PO 650 mg Q6H PRN Administration MILD PAIN Albuterol Sulfate 2 puff 11/22/19 14:56 Ventolin INHALATION Q6H PRN Shortness Of [place] th Alprazolam 0.25 mg 11/22/19 14:56 11/27/19 20:35 Xanax PO 0.25 mg BID PRN Administration Anxiety Aspirin 81 mg 11/25/19 15:00 11/28/19 11:19 Aspirin Ec PO 81 mg DAILY FRIEDA Administration Ceftriaxone Sodium 1,000 mg/ 50 mls @ 100 mls/ hr 11/23/19 10:00 11/29/19 09:36 Sodium Chloride IV Infused Q12H FRIEDA Infusion Protocol Metronidazole 500 mg in 100 mls @ 100 mls/hr 11/23/19 10:00 11/29/19 10:36 Flagyl Iv IV 100 mls/hr Q8H FRIEDA Administration Protocol Metoprolol Tartrat e 25 mg 11/23/19 09:00 11/28/19 11:19 Lopressor PO 25 mg DAILY FRIEDA Administration Non-Formulary Medi cation 1 inh 11/23/19 09:00 11/28/19 08:17 Fluticasone-Umec lidin-Vilanter [Tr elegy Ellipta] INHALATION Not Given DAILY FRIEDA Ondansetron HCl 4 mg 11/22/19 13:53 11/27/19 11:28 Zofran IVP 4 mg Q6H PRN Administration NAUSEA AND VOMITI NG Pantoprazole Sodiu m 40 mg 11/23/19 09:00 11/28/19 11:21 Protonix PO 40 mg DAILY FRIEDA Administration Phenol 3 spray 11/25/19 00:39 11/25/19 00:57 Phenaseptic MUCOUS MEM 3 spray Q2H PRN Administration SORE THROAT Trazodone HCl 25 mg 11/27/19 21:00 11/28/19 20:05 Desyrel PO 25 mg BEDTIME FRIEDA Administration No Known Allergies Allergy (Unverified 11/22/19 10:34) Vitals/I&O/Wt Last Vital Signs Temp 98.3 F 11/29/19 11:26 Pulse 70 11/29/19 11:26 Resp 18 11/29/19 11:26 BP 108/64 11/29/19 11:26 Pulse Ox 96 11/29/19 11:26 11/28/19 11/29/19 11/29/19 22:59 06:59 14:59 Intake Total 700 / 1330 200 / 200 Output Total 80 / 80 Balance 700 / 1330 -80 / 1250 200 / 200 Weight last 48 hrs Weight 78.557 kg Weight 77.678 kg Physical Exam Const: COMMON NORMALS: no apparent distress and oriented x3 GENERAL APPEARANCE: cooperative, frail appearing and appears older than stated age ORIENTATION/CONSCIOUSNESS: Yes awake HENMT: COMMON NORMALS: normocephalic, head/scalp atraumatic, hearing grossly normal bilaterally and moist oral mucous membranes HEAD & SCALP: normocephalic and atraumatic TEETH & GINGIVA: Yes edentulous Eye: COMMON NORMALS: PERRL, EOMs intact bilaterally and conjunctivae normal CONJUNCTIVA: Yes conjunctivae normal PUPIL: Yes PERRL Neck/C-Spine: COMMON NORMALS: full ROM GENERAL: Yes normal visual inspection and Yes trachea midline OTHER: -clean pressure dressing over R neck Chest: OTHER: -R tunneled HD catheter in place, pressure dressing in place Resp: COMMON NORMALS: normal respiratory effort, no retractions, no use of accessory muscles and clear to auscultation bilaterally EFFORT & INSPECTION: Yes able to speak in complete sentences, Yes symmetric chest movement and No tachypneic AUSCULTATION: clear to auscultation bilaterally Cardio: COMMON NORMALS: regular rate, regular rhythm, S1 normal heart sound and S2 normal heart sound RATE: regular rate RHYTHM: regular rhythm HEART SOUNDS: S1 normal, S2 normal and murmur systolic GI: COMMON NORMALS: normal to inspection, nondistended, normoactive bowel sounds, soft to palpation and non-tender PALPATION: Yes soft : BLADDER/KIDNEY EXAM: Yes catheter in place Extremity: COMMON NORMALS: normal to inspection, full ROM and no clubbing, cyanosis or edema; negative for no pedal edema Neuro: COMMON NORMALS: oriented x3, moves all extremities, no focal motor deficits and no sensory deficits noted Psych: COMMON NORMALS: mental status grossly normal, thought process normal, cooperative, affect normal and speech normal SPEECH: Yes normal speech THOUGHT PROCESS: normal thought process Skin: COMMON NORMALS: no rashes or lesions noted, no jaundice, no petechiae and no mottling GENERAL SKIN EXAM: no rashes or lesions noted Urinary Catheter Management^: Mcbride: Cath Placed During This Visit: no Urethral Indwelling: Yes Reason for Continuing Indwelling Catheter: Acute Urinary Retention or Obstruction Data : 11/29/19 04:50 11/29/19 04:50 A&P Assessment and plan (1) Acute kidney injury superimposed on chronic kidney disease: -Acute kidney injury, likely multifactorial given hypoperfusion secondary to underlying low cardiac output and severe aortic stenosis, rhabdomyolysis, diuretic use -Currently anuric, has Mcbride catheter in place for accurate ins and outs; anticipate removal tomorrow -Worsening renal function, continue to monitor, avoid nephrotoxins, renally dose meds -Nephrology consult appreciated, on HD -has temporary R IJ dialysis catheter; permacath placement today by Dr. Khan -will need to arrange for outpatient HD Status: Acute (2) Severe aortic stenosis: -Has known severe aortic stenosis, confirmed on recent echo with ejection fraction of 20 to 25%, global LV hypokinesis, G2DD, mild MR, mild AR, moderate- severe TR, mild-moderate DE -Cardiology consult appreciated -Dr. Vallejo has arranged for outpatient f/u with Dr. Monet to determine next steps for possible TAVR -Continue medical management Status: Chronic (3) Rhabdomyolysis: -CPK trending down, continue to monitor Status: Acute Qualifiers: Rhabdomyolysis type: non-traumatic Qualified Code(s): M62.82 - Rhabdomyolysis Additional A&P Information -Known metastatic prostate cancer; follows up with Dr. Nicholson, is on Casodex/Zoladex -Suspected SBP, continue ceftriaxone and Flagyl -known normocytic anemia; baseline Hg; continue to trend -Thrombocytopenia due to splenic sequesteration and splenomegaly; continue to monitor closely -prior hx of EtOH abuse -known fusiform descending thoracic aortic aneursym, stable per imaging -Transamnitis; trending down -HTN; VSS, continue to monitor -PVD -Hyponatremia: improved -known combined systolic and diastolic CHF; Echo as noted above; compensated currently -PT/OT evaluations appreciated -fall precautions -cardiac renal diet as tolerated -GI ppx with PPI -DVT ppx with SCDs, no AC due to anemia, thrombocytopenia -Dispo: [facility]; anticipate d/c tomorrow following dialysis -Code status: FULL code Attestations Medical Necessity Statement*: Patient requires hospitalization for continued medical optimization, decision on possible TAVR. Time Spent in Patient Care: 16 - 35 minutes (>than 50% of time spent in counselling and/or direct pt care on unit) . Coding Level of Care Code Acute Human Services Case Manager for Chg Fwd Exam Comprehensive Diagnoses Acute kidney injury superimposed on chronic kidney disease N17.9; N18.9 Severe aortic stenosis I35.0 Rhabdomyolysis M62.82 Rhabdomyolysis type: non-traumatic
--- NOTE | 2019-11-29 12:00 | PC.SOCIAL ---
IMM Not Given Page 2 of IMM not updated as patient is off floor in surgery getting dialysis catheter placed. SS to follow up.
--- NOTE | 2019-11-29 14:12 | P.PN_ITS ---
Subjective Subjective: Interval history: Tunneled line in and feels ok, no discomfort noted. No SOB, no pain. He is quite jovial at this time. Chronic LE edema remains unchanged. Minimal urine output Medications: Reviewed: Yes Medication Review Details: Active Medications Generic Name Dose Route Start Last Admin Trade Name Freq PRN Reason Stop Dose Admin Acetaminophen 650 mg 11/23/19 16:31 11/26/19 19:21 Tylenol PO 650 mg Q6H PRN Administration MILD PAIN Albuterol Sulfate 2 puff 11/22/19 14:56 Ventolin INHALATION Q6H PRN Shortness Of [place] th Alprazolam 0.25 mg 11/22/19 14:56 11/27/19 20:35 Xanax PO 0.25 mg BID PRN Administration Anxiety Aspirin 81 mg 11/25/19 15:00 11/28/19 11:19 Aspirin Ec PO 81 mg DAILY FRIEDA Administration Ceftriaxone Sodium 1,000 mg/ 50 mls @ 100 mls/ hr 11/23/19 10:00 11/29/19 09:36 Sodium Chloride IV Infused Q12H FRIEDA Infusion Protocol Metronidazole 500 mg in 100 mls @ 100 mls/hr 11/23/19 10:00 11/29/19 10:36 Flagyl Iv IV 100 mls/hr Q8H FRIEDA Administration Protocol Metoprolol Tartrat e 25 mg 11/23/19 09:00 11/28/19 11:19 Lopressor PO 25 mg DAILY FRIEDA Administration Non-Formulary Medi cation 1 inh 11/23/19 09:00 11/28/19 08:17 Fluticasone-Umec lidin-Vilanter [Tr elegy Ellipta] INHALATION Not Given DAILY FRIEDA Ondansetron HCl 4 mg 11/22/19 13:53 11/27/19 11:28 Zofran IVP 4 mg Q6H PRN Administration NAUSEA AND VOMITI NG Pantoprazole Sodiu m 40 mg 11/23/19 09:00 11/28/19 11:21 Protonix PO 40 mg DAILY FRIEDA Administration Phenol 3 spray 11/25/19 00:39 11/25/19 00:57 Phenaseptic MUCOUS MEM 3 spray Q2H PRN Administration SORE THROAT Trazodone HCl 25 mg 11/27/19 21:00 11/28/19 20:05 Desyrel PO 25 mg BEDTIME FRIEDA Administration No Known Allergies Allergy (Unverified 11/22/19 10:34) Vitals/I&O/Wt Last Vital Signs Temp 98.3 F 11/29/19 11:26 Pulse 70 11/29/19 11:26 Resp 18 11/29/19 11:26 BP 108/64 11/29/19 11:26 Pulse Ox 96 11/29/19 11:26 11/28/19 11/29/19 11/29/19 22:59 06:59 14:59 Intake Total 700 / 1330 660 / 660 Output Total 80 / 80 Balance 700 / 1330 -80 / 1250 660 / 660 Weight last 48 hrs Weight 78.557 kg Weight 77.678 kg Physical Exam Narrative: EXAM NARRATIVE: GENERAL: The patient is alert and chronically ill looking. Lethargic. Not in any acute distress. No lymphadenopathy. HEENT: Moderate pallor and mild icterus.. No lymphadenopathy. Fundus is not visualized. NECK: Trachea appears to be central. No masses noted. No JVD or thyromegaly appreciated. No carotid bruit. RESPIRATORY: Chest is symmetrical. No intercostals muscle retraction or any accessory muscle activation. There is no chest wall tenderness. Breath sounds are heard bilaterally. No rales or rhonchi heard. No evidence of any consolidation. BREASTS: Deferred. HEART: The PMI is slightly shifted to the left. No other palpable events. The first heart sound is soft. Ejection systolic murmur grade 3/6 in the aortic area. No diastolic murmurs. No pericardial rub. ABDOMEN: No vessel pulsations or distention. No tenderness. Splenomegaly appreciated. Minimal abdominal distention. No abdominal bruit. Bowel sounds are normally heard. : Deferred. RECTAL: Deferred. LYMPHATIC: No lymphadenopathy noted in the neck . EXTREMITIES: Trace to 1+ edema bilaterally in the lower extremities. No cyanosis. Peripheral pulse extremely weak bilaterally. MUSCULOSKELETAL: No acute joint deformities or swelling. SKIN: There are no significant scars or skin rash noted. NEUROPSYCHIATRIC: The patient is alert and oriented x3. Lethargic. Complaints of generalized weakness. No focal deficits. Const: COMMON NORMALS: no apparent distress, oriented x3 and alert GENERAL APPEARANCE: cooperative ORIENTATION/CONSCIOUSNESS: Yes awake, Yes oriented to person, Yes oriented to place and Yes oriented to time HENMT: COMMON NORMALS: normocephalic, head/scalp atraumatic, hearing grossly normal bilaterally, external ears normal, EAC's normal, TM's normal bilaterally, nasal mucous membranes and turbinates normal, moist oral mucous membranes and oropharynx normal HEAD & SCALP: normocephalic and atraumatic NOSE: nasal mucous membranes and turbinates normal EXTERNAL EAR: Yes external ears normal EXTERNAL AUDITORY CANAL: EAC's normal TYMPANIC MEMBRANE: TM's normal bilaterally Eye: COMMON NORMALS: PERRL, EOMs intact bilaterally, conjunctivae normal and no scleral icterus CONJUNCTIVA: Yes conjunctivae normal PUPIL: Yes PERRL Neck/C-Spine: COMMON NORMALS: full ROM, no lymphadenopathy, supple, no meningeal signs and no JVD GENERAL: Yes other (right IJ dialysis catheter) Lymph: LYMPHATIC: no lymphadenopathy noted and no lymphedema noted Chest: COMMONS NORMALS: palpation of chest normal Resp: COMMON NORMALS: normal respiratory effort, no retractions, no use of accessory muscles and clear to auscultation bilaterally AUSCULTATION: clear to auscultation bilaterally OTHER: Minimal bibasilar Rales. Cardio: COMMON NORMALS: no JVD, regular rate, regular rhythm and S2 normal heart sound; negative for no murmurs RATE: regular rate RHYTHM: regular rhythm HEART SOUNDS: S2 normal OTHER: No lower extremity edema GI: COMMON NORMALS: normal to inspection, nondistended, normoactive bowel sounds, soft to palpation, non-tender and no hepatosplenomegaly AUSCULTATION: Yes normoactive bowel sounds PALPATION: Yes soft, Yes tender, No guarding and Yes no hepatosplenomegaly RECTAL EXAM: Yes deferred : COMMON NORMALS: Yes no CVA tenderness BLADDER/KIDNEY EXAM: Yes no CVA tenderness Back/Pelvis: COMMON NORMALS: no CVA tenderness and thoracic and lumbar spine normal to inspection Extremity: COMMON NORMALS: normal to inspection, normal capillary refill, no clubbing, cyanosis or edema, no calf tenderness and no pedal edema Neuro: COMMON NORMALS: oriented x3 and no focal motor deficits SENSORIUM/ORIENTATION: Yes alert, Yes oriented to person, Yes oriented to place and Yes oriented to time MENINGEAL SIGNS: Yes no meningeal signs Psych: COMMON NORMALS: mental status grossly normal, thought process normal and cooperative THOUGHT PROCESS: normal thought process Skin: COMMON NORMALS: no rashes or lesions noted GENERAL SKIN EXAM: no rashes or lesions noted Urinary Catheter Management^: Mcbride: Cath Placed During This Visit: no Urethral Indwelling: Yes Reason for Continuing Indwelling Catheter: Acute Urinary Retention or Obstruction Data : 11/29/19 04:50 11/29/19 04:50 A&P Additional A&P Information 1. GRACIELA - GRACIELA more consistent with pre-renal, renal hypoperfusion. He has and low cardiac output, in combination with diuretic use and recent nausea and vomiting. Rhabdo was present on admission but was mild at ~4K, i.e. not a level that would typically cause pigment nephropathy. CPK now rising to 13k which may now start to cause pigment nephropathy, fortunately is now trending down and will play less of a pathological role - Likely to have pretty dense ATN at this time - cont supportive care, leave on the wetter side - dialysis tomorrow - permacath now in, manager of case to set up outpatient HD as acute diagnosis - am labs - strict Is and Os, Mcbride in, will need to come out in the next few days - avoid the usuals 2. Severe - mgmt per Dr Del Rio and Dr Vallejo, case discussed with them; given poor quality of life he is interested in exploring TAVR possibilities - keep wet, as pre-load dependent 3. lytes - looks stable 4. OOB to chair, PT/OT - thanks Attestations Medical Necessity Statement*: mgmt of renal failure Coding Level of Care Code Acute [facility] Operations Intelligence Chief for Kristel Lennon
--- NOTE | 2019-11-29 15:32 | PC.SOCIAL ---
IM explained, initialed and copy given to patient. He verbalized understanding with no questions.
[2019-11-29 16:41] LABS: Glucose Point of Care 73 mg/dL (70-110)
--- NOTE | 2019-11-29 17:30 | PM.PN ---
Subjective Subjective: Interval history: Status post dialysis catheter. Patient is sitting in the chair feeling better. Medications: Reviewed: Yes Medication Review Details: Active Medications Generic Name Dose Route Start Last Admin Trade Name Freq PRN Reason Stop Dose Admin Acetaminophen 650 mg 11/23/19 16:31 11/26/19 19:21 Tylenol PO 650 mg Q6H PRN Administration MILD PAIN Albuterol Sulfate 2 puff 11/22/19 14:56 Ventolin INHALATION Q6H PRN Shortness Of Nevin th Alprazolam 0.25 mg 11/22/19 14:56 11/27/19 20:35 Xanax PO 0.25 mg BID PRN Administration Anxiety Aspirin 81 mg 11/25/19 15:00 11/28/19 11:19 Aspirin Ec PO 81 mg DAILY FRIEDA Administration Ceftriaxone Sodium 1,000 mg/ 50 mls @ 100 mls/ hr 11/23/19 10:00 11/29/19 09:36 Sodium Chloride IV Infused Q12H FRIEDA Infusion Protocol Metronidazole 500 mg in 100 mls @ 100 mls/hr 11/23/19 10:00 11/29/19 10:36 Flagyl Iv IV 100 mls/hr Q8H FRIEDA Administration Protocol Metoprolol Tartrat e 25 mg 11/23/19 09:00 11/28/19 11:19 Lopressor PO 25 mg DAILY FRIEDA Administration Non-Formulary Medi cation 1 inh 11/23/19 09:00 11/28/19 08:17 Fluticasone-Umec lidin-Vilanter [Tr elegy Ellipta] INHALATION Not Given DAILY FRIEDA Ondansetron HCl 4 mg 11/22/19 13:53 11/27/19 11:28 Zofran IVP 4 mg Q6H PRN Administration NAUSEA AND VOMITI NG Pantoprazole Sodiu m 40 mg 11/23/19 09:00 11/28/19 11:21 Protonix PO 40 mg DAILY FRIEDA Administration Phenol 3 spray 11/25/19 00:39 11/25/19 00:57 Phenaseptic MUCOUS MEM 3 spray Q2H PRN Administration SORE THROAT Trazodone HCl 25 mg 11/27/19 21:00 11/28/19 20:05 Desyrel PO 25 mg BEDTIME FRIEDA Administration No Known Allergies Allergy (Unverified 11/22/19 10:34) Vitals/I&O/Wt Last Vital Signs Temp 98.1 F 11/29/19 15:18 Pulse 68 11/29/19 15:18 Resp 18 11/29/19 15:18 BP 110/60 11/29/19 15:18 Pulse Ox 93 11/29/19 15:18 11/29/19 11/29/19 11/29/19 06:59 14:59 22:59 Intake Total 660 / 660 Output Total 80 / 80 Balance -80 / 1250 660 / 660 Weight last 48 hrs Weight 173 lb 3 oz Weight 171 lb 4 oz Physical Exam Narrative: EXAM NARRATIVE: GENERAL: Patient is alert, awake and oriented x3. HEART: Regular S1 and S2. 2/6 sys murmur, rub or gallop. LUNGS: Decreased breath bilaterally. CENTRAL NERVOUS SYSTEM: Grossly nonfocal. EXTREMITIES: Lower extremities without edema bilaterally. Urinary Catheter Management^: Mcbride: Cath Placed During This Visit: no Urethral Indwelling: Yes Reason for Continuing Indwelling Catheter: Acute Urinary Retention or Obstruction Data : 11/29/19 04:50 11/29/19 04:50 A&P Assessment and plan (1) Elevated CPK: Most likely due to congestive phenomena with biventricular failure. Continues to improve Status: Acute (2) COPD (chronic obstructive pulmonary disease): Status: Acute (3) Diabetes mellitus: Status: Acute (4) Acute decompensated heart failure: Currently compensated. Continue current diet Status: Acute (5) Cardiomyopathy as manifestation of underlying disease: Most likely secondary to critical aortic stenosis. I have discussed with TAVR team at [facility]. They would like to consider him. Patient has a history of Leriche syndrome most likely approach will be subclavian or carotid. Status: Acute (6) Severe aortic valve stenosis: I have discussed patient's case with TAVR team, Dr Vázquez was of the opinion if we can stabilize the patient and send him as an outpatient to his clinic next week. As per nephrology we will continue with dialysis for now. He may can be transferred to group home or assisted care. From there we will schedule him next week with Dr. Monet as an outpatient. Status: Acute (7) Hyponatremia: Status: Acute (8) Transaminitis: Status: Acute (9) Hyperkalemia: Status: Acute (10) Acute kidney injury superimposed on chronic kidney disease: As per nephrology Status: Acute (11) Hyperlipidemia: Status: Acute (12) Cardiac pacemaker: The pacemaker function appears to be appropriate. We will continue the monitoring. Status: Acute (13) Atrial fibrillation: Rate controlled. Continue current Status: Acute Qualifiers: Atrial fibrillation type: longstanding persistent Qualified Code(s): I48.11 - Longstanding persistent atrial fibrillation (14) PVD (peripheral vascular disease): For now stable. Patient has Leriche's syndrome Status: Acute (15) HTN (hypertension): Status: Acute (16) Thrombocytopenia: Status: Acute Additional A&P Information Creatinine has gone back up. He continues to struggle with multiorgan issues. He is not on any nephrotoxic drugs. He remains very tenuous. Attestations Medical Necessity Statement*: Patient require continuation hospitalization for above defined care. 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 g Fwd Patient Type Established History Expanded Problem Focused Exam Expanded Problem Focused Medical Decision Making Moderate Complexity Diagnoses Elevated CPK R74.8 COPD (chronic obstructive pulmonary disease) J44.9 Diabetes mellitus E11.9 Acute decompensated heart failure I50.9 Cardiomyopathy as manifestation of underlying disease I43 Severe aortic valve stenosis I35.0 Hyponatremia E87.1 Transaminitis R74.0 Hyperkalemia E87.5 Acute kidney injury superimposed on chronic kidney disease N17.9; N18.9 Hyperlipidemia E78.5 Cardiac pacemaker Z95.0 Atrial fibrillation I48.11 Atrial fibrillation type: longstanding persistent PVD (peripheral vascular disease) I73.9 HTN (hypertension) I10 Thrombocytopenia D69.6
[2019-11-29] MEDS: trazodone 50 mg Tablet 25 MG PO (21:09)
[2019-11-29 21:55] LABS: Glucose Point of Care 122 mg/dL (70-110)
[2019-11-30] VITALS: BP 105/63; PULSE 68; RESP 17; TEMP 36.8; O2SAT 90
[2019-11-30] MEDS: cefTRIAXone 1,000 MG in sodium chloride 0.9% (plus) 50 ML 100 MG IV (00:03)
[2019-11-30] MEDS: metroNIDAZOLE IV 500 MG/100 ML PREMIX 100 MG IV ×2 (03:14→11:45)
[2019-11-30 04:00] VITALS: BP 101/66; PULSE 66; RESP 17; TEMP 36.4; O2SAT 97
[2019-11-30 05:38] LABS: Anion Gap 19.4 (5-19); Blood Urea Nitrogen 34 mg/dL (8-23); Calcium 7.5 mg/dL (8.5-10.5); Carbon Dioxide 23 mmol/L (22-29); Chloride 96 mmol/L (98-107); Glucose 97 mg/dL (65-115); Osmolality Calculated 275 mOsm/kg (285-295); Potassium 4.4 mmol/L (3.5-5.1); Sodium 134 mmol/L (136-145)
[2019-11-30 05:47] LABS: Basophils % 0.2 %; Hematocrit 33.1 % (42.0-52.0); Hemoglobin 10.2 g/dL (11.7-16.6); Lymphocytes # 0.5 10^3/uL (0.8-4.8); Lymphocytes % 12.3 %; Mean Corpuscular HGB Conc 30.8 g/dL (30.0-36.0); Mean Corpuscular Hemoglobin 28.4 pg (28.0-34.0); Mean Corpuscular Volume 92.2 fL (80-94); Mean Platelet Volume 11.6 fL (7.4-10.4); Monocytes # 0.7 10^3/uL (0.2-0.9); Monocytes % 15.3 %; Neutrophils # 3.2 10^3/uL (1.8-7.7); Nucleated Red Blood Cells % 0 %; Platelet Count 45 10^3/cmm (130-400); Red Blood Count 3.59 10^6/uL (4.1-5.3); Red Cell Distribution Width 19.1 % (12.1-15.1); White Blood Count 4.4 10^3/uL (4.0-10.0)
[2019-11-30 05:48] LABS: Creatine Phosphokinase 660 U/L (39-308)
--- NOTE | 2019-11-30 06:18 | PC.NURSE ---
Patient oozing from surgical site after pressure dressing applied. Notified Dr Khan, orders received to apply surgicell and reapply pressure dressing. Will continue to monitor patient and site.
--- NOTE | 2019-11-30 08:25 | P.PN_ITS ---
Subjective Subjective: Interval history: Patient had some oozing from the catheter entry site overnight which is now stopped Vitals/I&O/Wt Last Vital Signs Temp 97.6 F 11/30/19 04:00 Pulse 66 11/30/19 04:00 Resp 17 11/30/19 04:00 BP 101/66 11/30/19 04:00 Pulse Ox 97 11/30/19 04:00 11/29/19 11/30/19 11/30/19 22:59 06:59 14:59 Intake Total 510 / 1170 Output Total 75 / 75 Balance 435 / 1095 Weight last 48 hrs Weight 181 lb 4 oz Weight 173 lb 3 oz Physical Exam 2 Narrative: EXAM NARRATIVE: Tunneled catheter right internal jugular vein, dressings dry and intact Urinary Catheter Management^: Mcbride: Cath Placed During This Visit: no Urethral Indwelling: Yes Reason for Continuing Indwelling Catheter: Acute Urinary Retention or Obstruction Data : 11/30/19 05:37 11/30/19 05:04 A&P Assessment and plan (1) S/P dialysis catheter insertion: Status post placement of tunneled dialysis catheter in the right internal jugular vein Currently receiving dialysis Status: Acute Attestations Medical Necessity Statement*: Acute renal failure Coding Level of Care Code Acute Pattern And Chain Maker for [facility] Fwd Diagnoses S/P dialysis catheter insertion Z95.828; Z99.2
--- NOTE | 2019-11-30 08:32 | P.DS_ITS ---
Discharge Providers Date of Admission: 11/22/19 12:40 Date of Discharge: November 30, 2019 Attending Provider at Admission: Jorge Head MD Attending Provider at Discharge: Kusum Presley MD Primary Care Provider: Yao Weeks MD Diagnoses at Discharge Discharge Diagnosis (1) Acute kidney injury superimposed on chronic kidney disease: Status: Acute Problem details: -Acute kidney injury, likely multifactorial given hypoperfusion secondary to underlying low cardiac output and severe aortic stenosis, rhabdomyolysis, diuretic use -anuric, d/c Mcbride catheter -Worsening renal function, continue to monitor, avoid nephrotoxins, renally dose meds -Nephrology consult appreciated, on HD (MWF) -s/p removal of temporary R IJ dialysis catheter; permacath placement done by Dr. Khan (POD # 1) -case management has arranged for outpatient HD (2) Severe aortic stenosis: Status: Chronic Problem details: -Has known severe aortic stenosis, confirmed on recent echo with ejection fraction of 20 to 25%, global LV hypokinesis, G2DD, mild MR, mild AR, moderate- severe TR, mild-moderate TX -Cardiology consult appreciated -Dr. Vallejo has arranged for outpatient f/u with Dr. Monet to determine next steps for possible TAVR -Continue medical management -of note, patient has Leriche syndrome (3) Rhabdomyolysis: Status: Acute Problem details: -CPK trending down, 13,095--->660 -off statin Qualifiers: Rhabdomyolysis type: non-traumatic Qualified Code(s): M62.82 - Rhabdomyolysis Other Information Additional DC diagnoses/information: -Known metastatic prostate cancer; follows up with Dr. Nicholson, is on Casodex/Zoladex -Suspected SBP due to noted ascites on imaging, d/c ceftriaxone and Flagyl -known normocytic anemia; baseline Hg; continue to trend -Thrombocytopenia due to splenic sequesteration and splenomegaly; continue to monitor closely. Off plavix, AC -prior hx of EtOH abuse -known fusiform descending thoracic aortic aneursym, stable per imaging -Transamnitis; trending down; off statin -HTN; VSS, continue to monitor -PVD -Hyponatremia: improved -known combined systolic and diastolic CHF; Echo as noted above; compensated currently -Generalized weakness, frailty and deconditioning; high fall risk Reason for Visit Reason for Visit: Reason For Visit: N/V Hospital Course Hospital Course: Patient has had a somewhat prolonged hospital course; he was initially admitted to ICU due to noted acutely worsening kidney injury, significant elevation in liver enzymes and required urgent HD per nephrology. Temporary dialysis catheter was placed and patient has received several rounds of HD with continued anuria and renal impairment. He did have Mcbride catheter placed for accurate Is & Os. He was tested for COVID-19 and placed on isolation precautions which were discontinued once confirmed negative test result. Unfortunately also developed rhabdomyolysis likely contributing to renal impairment which has since improved with most recent CPK-660. Echocardiogram was done with noted drop in EF-25-30%, severe and cardiology was consulted. Patient had previously been on anticoagulation and dual antiplatelet therapy which required reversal prior to placement of dialysis catheter and with noted thrombocytopenia and persistent anemia these medications have not been continued other than low-dose aspirin. Initial impression from cardiology standpoint was that patient is a poor candidate for any intervention but on reconsideration and further discussion with the patient given his overall poor quality of life he would like to pursue the possibility of TAVR. Dr. Vallejo has reached out to Dr. Monet in [place] who is willing to follow-up with the patient on an outpatient basis. CT chest was surggestive of empyema and some ascites which on further discussion with radiology was loculated fluid and with patient's current clinical status, paracentesis was more risky than beneficial. He has been on dual antibiotic coverage for possible SBP in the interim. Once more stable, patient was transferred to medical-surgical floor for continued care. Decision was made by nephrology to remove temporary dialysis catheter and place permacath as patient has continued need for HD; this was done without complication. He will continue HD on MWF and appropriate outpatient dialysis arrangements have been made by case management. He has continued to be anuric and Mcbride catheter has been discontinued. Anemia persists but he has not required transfusion of blood products. Statin has been discontinued due to elevated LFTs and rhabdomyolysis. He is quite weak and deconditioned and has been working with therapy which should continue on his transition to SNF. Overall prognosis is quite guarded in light of his underlying comorbidities, overall frailty. Discharge Summary: -Patient to follow up with primary care physician within 1 week -Patient to follow up with ultrasonic solderer Dr. Monet in 1 week for further evaluation for possible TAVR -Patient to follow up with nephrology -Patient to continue to follow up with oncologist Dr. Nicholson Physical Exam Const: COMMON NORMALS: no apparent distress and oriented x3 GENERAL APPEARANCE: cooperative, frail appearing and appears older than stated age ORIENTATION/CONSCIOUSNESS: Yes awake HENMT: COMMON NORMALS: normocephalic, head/scalp atraumatic, hearing grossly normal bilaterally and moist oral mucous membranes HEAD & SCALP: normocephalic and atraumatic TEETH & GINGIVA: Yes edentulous Eye: COMMON NORMALS: PERRL, EOMs intact bilaterally and conjunctivae normal CONJUNCTIVA: Yes conjunctivae normal PUPIL: Yes PERRL Neck/C-Spine: COMMON NORMALS: full ROM GENERAL: Yes normal visual inspection and Yes trachea midline OTHER: -clean pressure dressing over R neck Chest: OTHER: -R tunneled HD catheter in place, pressure dressing in place Resp: COMMON NORMALS: normal respiratory effort, no retractions, no use of accessory muscles and clear to auscultation bilaterally EFFORT & INSPECTION: Yes able to speak in complete sentences, Yes symmetric chest movement and No tachypneic AUSCULTATION: clear to auscultation bilaterally Cardio: COMMON NORMALS: regular rate, regular rhythm, S1 normal heart sound and S2 normal heart sound RATE: regular rate RHYTHM: regular rhythm HEART SOUNDS: S1 normal, S2 normal and murmur systolic GI: COMMON NORMALS: normal to inspection, nondistended, normoactive bowel sounds, soft to palpation and non-tender PALPATION: Yes soft : BLADDER/KIDNEY EXAM: Yes catheter in place Extremity: COMMON NORMALS: normal to inspection, full ROM and no clubbing, cyanosis or edema; negative for no pedal edema Neuro: COMMON NORMALS: oriented x3, moves all extremities, no focal motor deficits and no sensory deficits noted Psych: COMMON NORMALS: mental status grossly normal, thought process normal, cooperative, affect normal and speech normal SPEECH: Yes normal speech THOUGHT PROCESS: normal thought process Skin: COMMON NORMALS: no rashes or lesions noted, no jaundice, no petechiae and no mottling GENERAL SKIN EXAM: no rashes or lesions noted Urinary Catheter Management^: Mcbride: Cath Placed During This Visit: no Urethral Indwelling: Yes Reason for Continuing Indwelling Catheter: Acute Urinary Retention or Obstruction Discharge Data Data Completed and Pending: Completed Studies During Hospitalization Category Date Time Status CT abdomen pelvis wo con [id number] Urge nt Cat Scan 11/22/19 11:51 Completed XR chest 1V tr ble [id number] Stat Exams 11/22/19 08:59 Completed XR chest 1V tr ble [id number] Urgent Exams 11/22/19 12:17 Completed CV echo complete* [id number] Routine Ultrasound 11/23/19 10:16 Completed US renal BI with bladder Stat Ultrasound 11/22/19 08:17 Completed Pending at discharge Category Date Time Status Sputum Culture an d Gram Stain Routi ne Lab 11/22/19 15:05 Uncollected Urine Protein Sheri ctrop Random Routi ne Lab 11/22/19 09:37 Results Labs from last 24 hours 11/30/19 11/30/19 11/29/19 05:37 05:04 21:26 WBC 4.4 RBC 3.59 L Hgb 10.2 L Hct 33.1 L MCV 92.2 MCH 28.4 MCHC 30.8 RDW 19.1 H Plt Count 45 L MPV 11.6 H Neut % (Auto) 72.0 Lymph % (Auto) 12.3 Orange % (Auto) 15.3 Eos % (Auto) 0.0 Baso % (Auto) 0.2 Neut # (Auto) 3.2 Lymph # (Auto) 0.5 L Orange # (Auto) 0.7 Eos # (Auto) 0.0 Baso # (Auto) 0.0 Nucleated RBC % (a uto) 0 Nucleated RBCs # 0.0 Sodium 134 L Potassium 4.4 Chloride 96 L Carbon Dioxide 23 Anion Gap 19.4 H BUN 34 H Creatinine 5.0 H Glucose 97 POC Glucose 122 Calculated Osmolal ity 275 L Calcium 7.5 L Creatine Kinase 660 H* 11/29/19 11/29/19 11/29/19 16:36 10:52 09:24 WBC RBC Hgb Hct MCV MCH MCHC RDW Plt Count MPV Neut % (Auto) Lymph % (Auto) Orange % (Auto) Eos % (Auto) Baso % (Auto) Neut # (Auto) Lymph # (Auto) Orange # (Auto) Eos # (Auto) Baso # (Auto) Nucleated RBC % (a uto) Nucleated RBCs # Sodium Potassium Chloride Carbon Dioxide Anion Gap BUN Creatinine Glucose POC Glucose 73 94 80 Calculated Osmolal ity Calcium Creatine Kinase 11/29/19 09:23 WBC RBC Hgb Hct MCV MCH MCHC RDW Plt Count MPV Neut % (Auto) Lymph % (Auto) Orange % (Auto) Eos % (Auto) Baso % (Auto) Neut # (Auto) Lymph # (Auto) Orange # (Auto) Eos # (Auto) Baso # (Auto) Nucleated RBC % (a uto) Nucleated RBCs # Sodium Potassium Chloride Carbon Dioxide Anion Gap BUN Creatinine Glucose POC Glucose 86 Calculated Osmolal ity Calcium Creatine Kinase Vitals: Last Vital Signs Temp 97.6 F 11/30/19 04:00 Pulse 66 11/30/19 04:00 Resp 17 11/30/19 04:00 BP 101/66 11/30/19 04:00 Pulse Ox 97 11/30/19 04:00 Discharge Plan Discharge Patient Disposition: Xfer SNF Condition: Stable Prescriptions: New trazodone 50 mg Tablet 25 mg PO BEDTIME Qty: 15 RF: 0 aspirin 81 mg Tablet,Delayed Release (Dr/Ec) 81 mg PO DAILY Qty: 30 RF: 0 Continued Zoladex 10.8 mg implant 10.8 mg SUBCUT Q90D RF: 0 alprazolam 0.25 mg tablet 0.25 mg PO BID PRN (Reason: Anxiety) Qty: 30 RF: 0 metoprolol tartrate 50 mg tablet 25 mg PO DAILY Qty: 15 RF: 0 ProAir HFA 90 mcg/actuation HFA aerosol inhaler 2 puff INHALATION Q6H PRN (Reason: Shortness Of Breath) Qty: 1 RF: 0 Trelegy Ellipta 100-62.5-25 mcg blister with device 1 inh INHALATION DAILY Qty: 1 RF: 0 Discontinued Pradaxa 75 mg capsule 75 mg PO DAILY RF: 0 potassium chloride 20 mEq tablet extended release 20 meq PO BID PRN (Reason: with Lasix) RF: 0 Prolia 60 mg/mL syringe 60 mg SUBCUT .q 3 months RF: 0 furosemide [Lasix] 40 mg tablet 40 mg PO BID PRN (Reason: edema) RF: 0 Plavix 75 mg Tablet 75 mg PO DAILY RF: 0 amoxicillin 875 mg Tablet 875 mg PO BID RF: 0 Crestor 40 mg Tablet 40 mg PO DAILY RF: 0 Discharge Orders: Discharge Order (Routine); Ordered 11/30/19 Ordered By: Kusum Presley Referrals: Wang Cuadra [Referring] - 1-3 days (Worsening CKD, now on dialysis. ) Wang Monet MD [Physician] - 1 week (Follow up for severe aortic stenosis and evaluation for possible TAVR) Yao Weeks MD [Primary Care Provider] - 4-7 days (Post hospital discharge follow up) Discharge Diet: As Directed Discharge Activity: As per PT/OT instructions Activity Restrictions/Additional Instructions: -Patient is a high fall risk so continue fall precautions and assistance with all out of bed activity -Renal dialysis diet as tolerated Discharge Attestations Time Spent in Discharge Care*: greater than 30 min Specific Discharge Activities: Specific discharge activities: educating patient, discussing with pcp/other providers, discussing with piano case maker/social workers/dc planners, documenting/other paperwork and evaluating patient/reviewing data Status at Discharge: Cognitive status at discharge: cognitively intact , Behavioral status at discharge: cooperative , Functional status at discharge: other assisted ambulation Overall status at discharge: patient is back to baseline Quality Metrics Clinical Quality Measures During this hospital stay, did patient experience: None Coding Level of Care Code Acute Inventory Auditor for g Fwd Exam Comprehensive Diagnoses Acute kidney injury superimposed on chronic kidney disease N17.9; N18.9 Severe aortic stenosis I35.0 Rhabdomyolysis M62.82 Rhabdomyolysis type: non-traumatic
--- NOTE | 2019-11-30 10:00 | PC.NURSE ---
Patient is still currently in Dialysis at this time.
[2019-11-30 11:24] VITALS: BP 117/51; PULSE 75; RESP 18; TEMP 36.7; O2SAT 95
--- NOTE | 2019-11-30 11:36 | P.PN_ITS ---
Subjective Subjective: Interval history: Feels pretty good today with no complaints. Persistent LE edema. Good energy, no SOB, no chest pain. PD cath had some oozing. He had dialysis today and this went well. Hemodynamics remain stable Medications: Reviewed: Yes Medication Review Details: Active Medications Generic Name Dose Route Start Last Admin Trade Name Freq PRN Reason Stop Dose Admin Acetaminophen 650 mg 11/23/19 16:31 11/26/19 19:21 Tylenol PO 650 mg Q6H PRN Administration MILD PAIN Albuterol Sulfate 2 puff 11/22/19 14:56 Ventolin INHALATION Q6H PRN Shortness Of Nevin th Alprazolam 0.25 mg 11/22/19 14:56 11/27/19 20:35 Xanax PO 0.25 mg BID PRN Administration Anxiety Aspirin 81 mg 11/25/19 15:00 11/28/19 11:19 Aspirin Ec PO 81 mg DAILY FRIEDA Administration Ceftriaxone Sodium 1,000 mg/ 50 mls @ 100 mls/ hr 11/23/19 10:00 11/29/19 09:36 Sodium Chloride IV Infused Q12H FRIEDA Infusion Protocol Metronidazole 500 mg in 100 mls @ 100 mls/hr 11/23/19 10:00 11/29/19 10:36 Flagyl Iv IV 100 mls/hr Q8H FRIEDA Administration Protocol Metoprolol Tartrat e 25 mg 11/23/19 09:00 11/28/19 11:19 Lopressor PO 25 mg DAILY FRIEDA Administration Non-Formulary Medi cation 1 inh 11/23/19 09:00 11/28/19 08:17 Fluticasone-Umec lidin-Vilanter [Tr elegy Ellipta] INHALATION Not Given DAILY FRIEDA Ondansetron HCl 4 mg 11/22/19 13:53 11/27/19 11:28 Zofran IVP 4 mg Q6H PRN Administration NAUSEA AND VOMITI NG Pantoprazole Sodiu m 40 mg 11/23/19 09:00 11/28/19 11:21 Protonix PO 40 mg DAILY FRIEDA Administration Phenol 3 spray 11/25/19 00:39 11/25/19 00:57 Phenaseptic MUCOUS MEM 3 spray Q2H PRN Administration SORE THROAT Trazodone HCl 25 mg 11/27/19 21:00 11/28/19 20:05 Desyrel PO 25 mg BEDTIME FRIDEA Administration No Known Allergies Allergy (Unverified 11/22/19 10:34) Vitals/I&O/Wt Last Vital Signs Temp 98.0 F 11/30/19 11:24 Pulse 75 11/30/19 11:24 Resp 18 11/30/19 11:24 BP 117/51 11/30/19 11:24 Pulse Ox 95 11/30/19 11:24 11/29/19 11/30/19 11/30/19 22:59 06:59 14:59 Intake Total 510 / 1170 75 / 75 Output Total 75 / 75 Balance 435 / 1095 75 / 75 Weight last 48 hrs Weight 82.214 kg Weight 78.557 kg Physical Exam Narrative: EXAM NARRATIVE: GENERAL: The patient is alert and chronically ill looking. Lethargic. Not in any acute distress. No lymphadenopathy. HEENT: Moderate pallor and mild icterus.. No lymphadenopathy. Fundus is not visualized. NECK: Trachea appears to be central. No masses noted. No JVD or thyromegaly appreciated. No carotid bruit. RESPIRATORY: Chest is symmetrical. No intercostals muscle retraction or any accessory muscle activation. There is no chest wall tenderness. Breath sounds are heard bilaterally. No rales or rhonchi heard. No evidence of any conso lidation. BREASTS: Deferred. HEART: The PMI is slightly shifted to the left. No other palpable events. The first heart sound is soft. Ejection systolic murmur grade 3/6 in the aortic area. No diastolic murmurs. No pericardial rub. ABDOMEN: No vessel pulsations or distention. No tenderness. Splenomegaly appreciated. Minimal abdominal distention. No abdominal bruit. Bowel sounds are normally heard. : Deferred. RECTAL: Deferred. LYMPHATIC: No lymphadenopathy noted in the neck . EXTREMITIES: Trace to 1+ edema bilaterally in the lower extremities. No cyanosis. Peripheral pulse extremely weak bilaterally. MUSCULOSKELETAL: No acute joint deformities or swelling. SKIN: There are no significant scars or skin rash noted. NEUROPSYCHIATRIC: The patient is alert and oriented x3. Lethargic. Complaints of generalized weakness. No focal deficits. Const: COMMON NORMALS: no apparent distress, oriented x3 and alert GENERAL APPEARANCE: cooperative ORIENTATION/CONSCIOUSNESS: Yes awake, Yes oriented to person, Yes oriented to place and Yes oriented to time HENMT: COMMON NORMALS: normocephalic, head/scalp atraumatic, hearing grossly normal bilaterally, external ears normal, EAC's normal, TM's normal bilaterally, nasal mucous membranes and turbinates normal, moist oral mucous membranes and oropharynx normal HEAD & SCALP: normocephalic and atraumatic NOSE: nasal mucous membranes and turbinates normal EXTERNAL EAR: Yes external ears normal EXTERNAL AUDITORY CANAL: EAC's normal TYMPANIC MEMBRANE: TM's normal bilaterally Eye: COMMON NORMALS: PERRL, EOMs intact bilaterally, conjunctivae normal and no scleral icterus CONJUNCTIVA: Yes conjunctivae normal PUPIL: Yes PERRL Neck/C-Spine: COMMON NORMALS: full ROM, no lymphadenopathy, supple, no meningeal signs and no JVD GENERAL: Yes other (right IJ dialysis catheter) Lymph: LYMPHATIC: no lymphadenopathy noted and no lymphedema noted Chest: COMMONS NORMALS: palpation of chest normal Resp: COMMON NORMALS: normal respiratory effort, no retractions, no use of accessory muscles and clear to auscultation bilaterally AUSCULTATION: clear to auscultation bilaterally OTHER: Minimal bibasilar Rales. Cardio: COMMON NORMALS: no JVD, regular rate, regular rhythm and S2 normal heart sound; negative for no murmurs RATE: regular rate RHYTHM: regular rhythm HEART SOUNDS: S2 normal OTHER: No lower extremity edema GI: COMMON NORMALS: normal to inspection, nondistended, normoactive bowel sounds, soft to palpation, non-tender and no hepatosplenomegaly AUSCULTATION: Yes normoactive bowel sounds PALPATION: Yes soft, Yes tender, No guarding and Yes no hepatosplenomegaly RECTAL EXAM: Yes deferred : COMMON NORMALS: Yes no CVA tenderness BLADDER/KIDNEY EXAM: Yes no CVA tenderness Back/Pelvis: COMMON NORMALS: no CVA tenderness and thoracic and lumbar spine normal to inspection Extremity: COMMON NORMALS: normal to inspection, normal capillary refill, no clubbing, cyanosis or edema, no calf tenderness and no pedal edema Neuro: COMMON NORMALS: oriented x3 and no focal motor deficits SENSORIUM/ORIENTATION: Yes alert, Yes oriented to person, Yes oriented to place and Yes oriented to time MENINGEAL SIGNS: Yes no meningeal signs Psych: COMMON NORMALS: mental status grossly normal, thought process normal and cooperative THOUGHT PROCESS: normal thought process Skin: COMMON NORMALS: no rashes or lesions noted GENERAL SKIN EXAM: no rashes or lesions noted Urinary Catheter Management^: Mcbride: Cath Placed During This Visit: no Urethral Indwelling: Yes Reason for Continuing Indwelling Catheter: Acute Urinary Retention or Obstruction Data : 11/30/19 05:37 11/30/19 05:04 A&P Additional A&P Information 1. GRACIELA - GRACIELA more consistent with pre-renal, renal hypoperfusion. He has and low cardiac output, in combination with diuretic use and recent nausea and vomiting. Rhabdo was present on admission but was mild at ~4K, i.e. not a level that would typically cause pigment nephropathy. CPK now rising to 13k which may now start to cause pigment nephropathy, fortunately is now trending down and will play less of a pathological role - Likely to have pretty dense ATN at this time - cont supportive care, leave on the wetter side - dialysis today and next session on Thursday - field nurse case manager setting up outpatient HD as acute diagnosis - am labs - strict Is and Os, Mcbride in, will need to come out in the next few days - avoid the usuals 2. Severe - pending eval in [place] for TAVR - keep wet, as pre-load dependent 3. lytes - looks stable 4. OOB to chair, PT/OT - for transfer to SNF today - thanks Attestations Medical Necessity Statement*: Eval of GRACIELA Coding Level of Care Code Acute Fisher for Kristel Lennon
[2019-11-30] MEDS: pantoprazole DR 40 mg Tablet PO (11:46)
[2019-11-30] MEDS: aspirin 81 mg EC Tablet PO (11:47)
[2019-11-30] MEDS: metoprolol tartrate 50 mg Tablet 25 MG PO (11:47)
--- NOTE | 2019-11-30 14:53 | PC.RESP ---
Patient given information on Pulmonary Rehab.
--- NOTE | 2019-11-30 15:08 | PC.NURSE ---
Report called to Charito GARCIA at [facility] at this time. Pressure dressing applied by Dr. Liam Presley and Toña RN to be left in place at this time. [facility] Cullen to transport patient. 1510- Patient's Sruthi notified of patient transport to [facility] today.
--- NOTE | 2019-11-30 15:30 | PC.NURSE ---
[facility] here to transport patient to [facility]. IV removed. Patient is A&Ox3.
[2019-11-30 15:35] LABS: Abnormal Protein Band 1 70 mg/dL (NONE DETECTED); Albumin,Urine Random 44 %; Alpha-1-Globulins Urine Random 5 %; Alpha-2-Globulins Urine Random 12 %; Beta-Globulin,Urine Random 16 %; Gamma Globulin,Urine Random 23 %
[2019-11-30 17:51] VITALS: BP 117/51; PULSE 75; RESP 18; TEMP 36.7; O2SAT 95
--- NOTE | 2019-11-30 18:50 | P.PN_ITS ---
Subjective Subjective: Interval history: Post post dialysis patient is feeling much better. Medications: Reviewed: Yes Medication Review Details: Active Medications Generic Name Dose Route Start Last Admin Trade Name Freq PRN Reason Stop Dose Admin Acetaminophen 650 mg 11/23/19 16:31 11/26/19 19:21 Tylenol PO 650 mg Q6H PRN Administration MILD PAIN Albuterol Sulfate 2 puff 11/22/19 14:56 Ventolin INHALATION Q6H PRN Shortness Of Nevin th Alprazolam 0.25 mg 11/22/19 14:56 11/27/19 20:35 Xanax PO 0.25 mg BID PRN Administration Anxiety Aspirin 81 mg 11/25/19 15:00 11/28/19 11:19 Aspirin Ec PO 81 mg DAILY FRIEDA Administration Ceftriaxone Sodium 1,000 mg/ 50 mls @ 100 mls/ hr 11/23/19 10:00 11/29/19 09:36 Sodium Chloride IV Infused Q12H FRIEDA Infusion Protocol Metronidazole 500 mg in 100 mls @ 100 mls/hr 11/23/19 10:00 11/29/19 10:36 Flagyl Iv IV 100 mls/hr Q8H FRIEDA Administration Protocol Metoprolol Tartrat e 25 mg 11/23/19 09:00 11/28/19 11:19 Lopressor PO 25 mg DAILY FRIEDA Administration Non-Formulary Medi cation 1 inh 11/23/19 09:00 11/28/19 08:17 Fluticasone-Umec lidin-Vilanter [Tr elegy Ellipta] INHALATION Not Given DAILY FRIEDA Ondansetron HCl 4 mg 11/22/19 13:53 11/27/19 11:28 Zofran IVP 4 mg Q6H PRN Administration NAUSEA AND VOMITI NG Pantoprazole Sodiu m 40 mg 11/23/19 09:00 11/28/19 11:21 Protonix PO 40 mg DAILY FRIEDA Administration Phenol 3 spray 11/25/19 00:39 11/25/19 00:57 Phenaseptic MUCOUS MEM 3 spray Q2H PRN Administration SORE THROAT Trazodone HCl 25 mg 11/27/19 21:00 11/28/19 20:05 Desyrel PO 25 mg BEDTIME FRIEDA Administration No Known Allergies Allergy (Unverified 11/22/19 10:34) Vitals/I&O/Wt Last Vital Signs Temp 98.0 F 11/30/19 17:51 Pulse 75 11/30/19 17:51 Resp 18 11/30/19 17:51 BP 117/51 11/30/19 17:51 Pulse Ox 95 11/30/19 17:51 11/30/19 11/30/19 11/30/19 06:59 14:59 22:59 Intake Total 100 / 1270 175 / 175 Output Total 350 / 350 Balance 100 / 1195 -175 / -175 Weight last 48 hrs Weight 181 lb 4 oz Weight 173 lb 3 oz Physical Exam Narrative: EXAM NARRATIVE: GENERAL: Patient is alert, awake and oriented x3. HEART: Regular S1 and S2. 2/6 sys murmur, rub or gallop. LUNGS: Decreased breath bilaterally. CENTRAL NERVOUS SYSTEM: Grossly nonfocal. EXTREMITIES: Lower extremities without edema bilaterally. Urinary Catheter Management^: Mcbride: Cath Placed During This Visit: no Urethral Indwelling: Yes Reason for Continuing Indwelling Catheter: Acute Urinary Retention or Obstruction Data : 11/30/19 05:37 11/30/19 05:04 A&P Assessment and plan (1) COPD (chronic obstructive pulmonary disease): As per medicine Status: Acute (2) Diabetes mellitus: As per medicine Status: Acute (3) Acute decompensated heart failure: Currently compensated. Continue current current regimen Status: Acute (4) Cardiomyopathy as manifestation of underlying disease: Most likely secondary to critical aortic stenosis. I have discussed with TAVR team at [facility]. They would like to consider him. Patient has a history of Leriche syndrome most likely approach will be subclavi an or carotid. Status: Acute (5) Severe aortic valve stenosis: I have discussed patient's case with TAVR team, Dr Vázquez was of the opinion if we can stabilize the patient and send him as an outpatient to his clinic next week. As per nephrology we will continue with dialysis for now. He may can be transferred to [facility] or assisted care. From there we will schedule him next week with Dr. Monet as an outpatient. As defined above patient will be referred to Dr. Vázquez as an outpatient for aortic valve replacement consideration. Continue current regimen Status: Acute (6) Hyponatremia: Status: Acute (7) Transaminitis: Status: Acute (8) Hyperkalemia: Status: Acute (9) Acute kidney injury superimposed on chronic kidney disease: As per nephrology Status: Acute (10) Hyperlipidemia: Status: Acute (11) Cardiac pacemaker: The pacemaker function appears to be appropriate. We will continue the monitoring. Status: Acute (12) Atrial fibrillation: Rate controlled. Continue current Status: Acute Qualifiers: Atrial fibrillation type: longstanding persistent Qualified Code(s): I48.11 - Longstanding persistent atrial fibrillation (13) PVD (peripheral vascular disease): For now stable. Patient has Leriche's syndrome Status: Acute (14) HTN (hypertension): Status: Acute (15) Thrombocytopenia: Status: Acute Additional A&P Information Creatinine has gone back up. He continues to struggle with multiorgan issues. He is not on any nephrotoxic drugs. He remains very tenuous. Attestations Medical Necessity Statement*: Patient require continuation hospitalization for above defined care Coding Level of Care Code Established Pt Acute Lead Burner Apprentice for Chg Fwd Patient Type Established History Expanded Problem Focused Exam Expanded Problem Focused Medical Decision Making Moderate Complexity Diagnoses COPD (chronic obstructive pulmonary disease) J44.9 Diabetes mellitus E11.9 Acute decompensated heart failure I50.9 Cardiomyopathy as manifestation of underlying disease I43 Severe aortic valve stenosis I35.0 Hyponatremia E87.1 Transaminitis R74.0 Hyperkalemia E87.5 Acute kidney injury superimposed on chronic kidney disease N17.9; N18.9 Hyperlipidemia E78.5 Cardiac pacemaker Z95.0 Atrial fibrillation I48.11 Atrial fibrillation type: longstanding persistent PVD (peripheral vascular disease) I73.9 HTN (hypertension) I10 Thrombocytopenia D69.6
[2019-11-30 22:14] LABS: Glucose Point of Care 70 mg/dL (70-110)
== END 2019-11-30 15:58 | disposition skilled nursing facility (03) | DRG 673 ==
LOC: ER 10:19 → OR 11:49 → ICU 12:41 → MEDSURG 11-23 21:28
PROVIDERS: Internal Medicine Nephrology; Surgery; Admitting Provider Internal Medicine; Emergency Provider Family Medicine; Family Provider Family Medicine; PCP Family Medicine; Visit Provider Family Medicine
PROC: 02HV33Z Insertion of Infusion Device into Superior Vena Cava, Percutaneous Approach (ICD-10-PCS; principal; 2019-11-22 10:45)
PROC: 0JH63XZ Insertion of Tunneled Vascular Access Device into Chest Subcutaneous Tissue and Fascia, Percutaneous Approach (ICD-10-PCS; principal; 2019-11-29 08:00)
DX: N17.9 Acute kidney failure, unspecified (principal); I50.43 Acute on chronic combined systolic (congestive) and diastolic (congestive) heart failure; K65.2 Spontaneous bacterial peritonitis; I13.0 Hypertensive heart and chronic kidney disease with heart failure and stage 1 through stage 4 chronic kidney disease, or unspecified chronic kidney disease; I48.11 Longstanding persistent atrial fibrillation; C22.9 Malignant neoplasm of liver, not specified as primary or secondary; I42.9 Cardiomyopathy, unspecified; E87.2 Acidosis; M62.82 Rhabdomyolysis; R18.8 Other ascites; E87.1 Hypo-osmolality and hyponatremia; E11.22 Type 2 diabetes mellitus with diabetic chronic kidney disease; E11.51 Type 2 diabetes mellitus with diabetic peripheral angiopathy without gangrene; N18.4 Chronic kidney disease, stage 4 (severe); I50.82 Biventricular heart failure; E87.5 Hyperkalemia; C61 Malignant neoplasm of prostate; Z79.818 Long term (current) use of other agents affecting estrogen receptors and estrogen levels; J44.9 Chronic obstructive pulmonary disease, unspecified; I08.3 Combined rheumatic disorders of mitral, aortic and tricuspid valves; Z95.0 Presence of cardiac pacemaker; E78.5 Hyperlipidemia, unspecified; Z87.891 Personal history of nicotine dependence; I25.10 Atherosclerotic heart disease of native coronary artery without angina pectoris; F03.90 Unspecified dementia, unspecified severity, without behavioral disturbance, psychotic disturbance, mood disturbance, and anxiety; H40.9 Unspecified glaucoma; G47.33 Obstructive sleep apnea (adult) (pediatric); I83.90 Asymptomatic varicose veins of unspecified lower extremity; E55.9 Vitamin D deficiency, unspecified; R33.9 Retention of urine, unspecified; N13.9 Obstructive and reflux uropathy, unspecified; E21.3 Hyperparathyroidism, unspecified; D63.1 Anemia in chronic kidney disease; F10.21 Alcohol dependence, in remission; I71.2 Thoracic aortic aneurysm, without rupture; R74.0 Nonspecific elevation of levels of transaminase and lactic acid dehydrogenase [LDH]; R16.1 Splenomegaly, not elsewhere classified; D69.59 Other secondary thrombocytopenia
CPT/HCPCS: 12345; 36415; 36416; 36600; 71045; 74176; 76000; 76770; 76857; 77001; 80048; 80051; 80053; 80074; 81001; 82009; 82310; 82436; 82550; 82570; 82810; 82962; 83690; 83735; 83883; 83970; 83986; 84100; 84133; 84145; 84156; 84300; 84484; 85025; 85610; 85730; 85999; 86335; 86706; 86803; 87040; 87086; 87340; 87493; 87506; 87635; 90935; 93005; 93306; 96374; 96375; 97110; 97116; 97161; 97167; 97530; 97535; 99284; C1750; C1752; J0610; J0690; J0696; J1644; J1815; J2001; J2270; J2370; J2405; J2704; J3430; J3490; J7030; Q3014; S0030

== ENCOUNTER 2019-12-12 12:42 | Emergency (ER) | payer MEDICARE, SELFPAY ==
[2019-12-12 12:47] VITALS: BMI 22.4
[2019-12-12 12:52] VITALS: BP 126/47; PULSE 75; RESP 20; TEMP 36.4; O2SAT 97
--- NOTE | 2019-12-12 12:52 | ED_ITS ---
HPI - General Adult General: Chief complaint: General Medical Stated complaint: BLEEDING FROM PORT Time Seen by Provider: 12/12/19 12:51 History of Present Illness: HPI narrative: Patient is a 74-year-old male who comes to the ED by ambulance for bleeding around port. Patient has a past medical history of COPD, diabetes, A. fib, heart failure, CKD and on dialysis. Patient was at dialysis receiving treatment and they noticed some bleeding around the port. He was then sent to the ED for evaluation. Patient says that the area around the port bleeds a little bit daily. Patient is also complaining of sore spot on his tailbone. Associated symptoms: Deny chest pain, dyspnea, headache(s), nausea, rash, palpitations or vomiting Review of Systems Narrative: Bleeding around port. Const: Denies: fever, chills or fatigue Eyes: Denies: change in vision or eye discomfort ENMT: Denies: throat pain, painful swallowing, nasal discharge or nasal congestion Card: Denies: chest pain, palpitations, edema, swelling of feet/ankles, shortness of breath on exertion or shortness of breath when lying down Resp: Denies: shortness of breath, productive cough or non-productive cough GI: Denies: abdominal pain, nausea, vomiting, diarrhea, constipation or blood in stool : Denies: flank pain, difficulty urinating, painful urination or blood in urine Musc: Denies: neck pain, back pain or extremity swelling Skin/Breast: Reports: skin tenderness (tailbone area) and sores (tailbone area); Denies: rash or new lesion Neuro: Denies: headache, numbness in extremities or weakness in extremities [facility] ED PFSH: Medical History Aortic stenosis Arteriosclerosis Atrial fibrillation Cardiac pacemaker Cardiomyopathy as manifestation of underlying disease The LV appears to be dilated with a severe diffuse hypokinesia. The LV ejection fraction probably around 15 to 20% COPD (chronic obstructive pulmonary disease) Dementia Diabetes mellitus Glaucoma HTN (hypertension) Hyperlipidemia Hyperthyroidism HUMAIRA (obstructive sleep apnea) Prostate cancer PVD (peripheral vascular disease) Renal mass Severe aortic stenosis -Has known severe aortic stenosis, confirmed on recent echo with ejection fraction of 20 to 25%, global LV hypokinesis, G2DD, mild MR, mild AR, moderate-severe TR, mild-moderate LA -Cardiology consult appreciated -Dr. Vallejo has arranged for outpatient f/u with Dr. Monet to determine next steps for possible TAVR -Continue medical management -of note, patient has Leriche syndrome Severe aortic valve stenosis Varicose vein of leg Vitamin D deficiency Surgical History S/P cataract surgery S/P cholecystectomy S/P dialysis catheter insertion (11/29/19) Family History Mother , 86; lung Cancer Father , 60's; stomach Cancer Social History Smoking and tobacco status: former smoker Physical Exam Const: COMMON NORMALS: no apparent distress, oriented x3 and alert GENERAL APPEARANCE: cooperative and frail appearing NUTRITIONAL APPEARANCE: cachectic HENMT: COMMON NORMALS: normocephalic HEAD & SCALP: normocephalic MOUTH: moist mucous membranes abnormal (appear dry) THROAT: posterior oropharynx normal and uvula midline Eye: COMMON NORMALS: PERRL PUPIL: Yes PERRL Neck/C-Spine: COMMON NORMALS: supple GENERAL: Yes normal visual inspection Resp: COMMON NORMALS: normal respiratory effort, no retractions, no use of accessory muscles and clear to auscultation bilaterally EFFORT & INSPECTION: Yes able to speak in complete sentences AUSCULTATION: clear to auscultation bilaterally Cardio: COMMON NORMALS: regular rate, S1 normal heart sound, S2 normal heart sound, no gallops, no clicks, no murmurs and peripheral pulses 2+ throughout RATE: regular rate RHYTHM: abnormal rhythm irregularly irregular HEART SOUNDS: S1 normal and S2 normal PERIPHERAL PULSES: pulses 2+ throughout GI: COMMON NORMALS: normal to inspection, nondistended, normoactive bowel sounds, soft to palpation, non-tender and no masses PALPATION: Yes soft : COMMON NORMALS: Yes no CVA tenderness BLADDER/KIDNEY EXAM: Yes no CVA tenderness Back/Pelvis: COMMON NORMALS: no CVA tenderness Extremity: COMMON NORMALS: normal to inspection, normal capillary refill and no pedal edema Neuro: COMMON NORMALS: oriented x3 and moves all extremities SENSORIUM/ORIENTATION: Yes alert Skin: LESIONS: lesion noted (tailbone) tailbone Lesion type: Yes macule Lesion size (cm): 1 Lesion location: tailbone Lesion color: Yes blanching (non- blanchable) and Yes red Lesion surface: Yes dry Lesion border: Yes smooth Lesion tenderness: Yes moderate Lesion finding consistent with: Yes other (Stage 1 pressure ulcer) WOUNDS: Yes surgical site (Port-no active bleeding. No signs of infection.) Details: no odor Course Vital Signs: Vital signs: Vital Signs Temperature 97.5 F L 12/12/19 12:52 Pulse Rate 75 12/12/19 14:10 Respiratory Rate 18 12/12/19 14:10 Blood Pressure 121/61 12/12/19 14:10 Pulse Oximetry 95 12/12/19 14:10 MDM - General Adult MDM Narrative: Medical decision making narrative: Patient is a 74-year-old male who comes to the ED with tender area on tailbone and bleeding around CVC dialysis port. Upon physical exam port was not actively bleeding. On the tailbone patient had a stage I pressure ulcer developing. CBC was remarkable for hemoglobin of 9. After reviewing patient's hemoglobin labs for the last several months his hemoglobin has slowly declined. 2 weeks ago patient's hemoglobin was 10.2. New dressing (Surgicel dressing) was placed on patient's port and I discussed with him that he needs to get his hemoglobin rechecked in the next 2 to 3 days. We [facility] to use for later as needed by the staff. I also included in the discharge paperwork about proper care and treatment for stage I pressure ulcer. Patient understood and agreed with plan. Dr. Byers also help evaluate patient's bleeding and assisted with this case. Lab Data: Attestation: I reviewed the patient's lab results. Labs: Lab Results 12/12/19 12/12/19 Range/Units 13:22 13:42 WBC 2.4 L (4.0-10.0) 10^3/ uL RBC 3.13 L (4.1-5.3) 10^6/u L Hgb 9.0 L (11.7-16.6) g/dL Hct 29.7 L (42.0-52.0) % MCV 94.9 H (80-94) fL MCH 28.8 (28.0-34.0) pg MCHC 30.3 (30.0-36.0) g/dL RDW 20.2 H (12.1-15.1) % Plt Count 80 L (130-400) 10^3/c mm MPV 10.1 (7.4-10.4) fL Neut % (Auto) 57.0 % Lymph % (Auto) 22.1 % [place] % (Auto) 18.9 % Eos % (Auto) 0.8 % Baso % (Auto) 0.8 % Neut # (Auto) 1.4 L (1.8-7.7) 10^3/u L Lymph # (Auto) 0.5 L (0.8-4.8) 10^3/u L [place] # (Auto) 0.5 (0.2-0.9) 10^3/u L Eos # (Auto) 0.0 (0.0-0.8) 10^3/u L Baso # (Auto) 0.0 (0.0-0.1) 10^3/u L Nucleated RBC % (a uto) 0 % Nucleated RBCs # 0.0 /100WBC Blood Type A Positive Rho(D) Type Positive Antibody Screen Negative Discharge Plan Discharge Patient Disposition: Home, Self-Care Clinical Impression: Encounter for dialysis and dialysis catheter care, Low hemoglobin Pressure ulcer Qualifiers: Pressure injury location: contiguous region involving back and buttock Pressure injury stage: stage 1 Laterality: unspecified laterality Qualified Code(s): L89.41 - Pressure ulcer of contiguous site of back, buttock and hip, stage 1 Condition: Stable Prescriptions: No Action Zoladex 10.8 mg implant 10.8 mg SUBCUT Q90D RF: 0 trazodone 50 mg Tablet 25 mg PO BEDTIME Qty: 15 RF: 0 aspirin 81 mg Tablet,Delayed Release (Dr/Ec) 81 mg PO DAILY Qty: 30 RF: 0 alprazolam 0.25 mg tablet 0.25 mg PO BID PRN (Reason: Anxiety) Qty: 30 RF: 0 metoprolol tartrate 50 mg tablet 25 mg PO DAILY Qty: 15 RF: 0 ProAir HFA 90 mcg/actuation HFA aerosol inhaler 2 puff INHALATION Q6H PRN (Reason: Shortness Of Breath) Qty: 1 RF: 0 Trelegy Ellipta 100-62.5-25 mcg blister with device 1 inh INHALATION DAILY Qty: 1 RF: 0 Discharge Orders: Discharge Order (Routine); Ordered 12/12/19 Ordered By: Karan Kang Referrals: Yao Weeks MD [Primary Care Provider] - Discharge Diet: Regular Discharge Activity: Resume usual activity Patient Instructions: How to Prevent Pressure Ulcers (ED), Pressure Ulcer (ED) Activity Restrictions/Additional Instructions: Patient needs to follow-up with PCP to get his hemoglobin checked in the next 2 to 3 days. Also patient is developing a stage I pressure ulcer on tailbone region. Encourage better diet with increased calories and protien. Keep skin area around ulcer dry and clean. Move and turn patient frequently to prevent worsening of ulcer. Coding Level of Care Code ED Separator Operator for Kristel Fwd Exam Comprehensive
[2019-12-12 13:34] LABS: Basophils % 0.8 %; Eosinophils % 0.8 %; Hematocrit 29.7 % (42.0-52.0); Lymphocytes # 0.5 10^3/uL (0.8-4.8); Lymphocytes % 22.1 %; Mean Corpuscular HGB Conc 30.3 g/dL (30.0-36.0); Mean Corpuscular Hemoglobin 28.8 pg (28.0-34.0); Mean Corpuscular Volume 94.9 fL (80-94); Mean Platelet Volume 10.1 fL (7.4-10.4); Monocytes # 0.5 10^3/uL (0.2-0.9); Monocytes % 18.9 %; Neutrophils # 1.4 10^3/uL (1.8-7.7); Nucleated Red Blood Cells % 0 %; Platelet Count 80 10^3/cmm (130-400); Red Blood Count 3.13 10^6/uL (4.1-5.3); Red Cell Distribution Width 20.2 % (12.1-15.1); White Blood Count 2.4 10^3/uL (4.0-10.0)
--- NOTE | 2019-12-12 14:07 | PC.NURSE ---
NEW DRESSING APPLIED TO DIALYSIS ACCESS RIGHT CHEST WALL STERILE DRESSING APPLIED
[2019-12-12 14:10] VITALS: BP 121/61; PULSE 75; RESP 18; O2SAT 95
--- NOTE | 2019-12-12 14:31 | PC.NURSE ---
REPORT GIVEN TO ROBB Gunn RN CARE TURNED OVER
--- NOTE | 2019-12-12 17:04 | PC.NURSE ---
DRESSING TO RIGHT DIALYSIS PORT SATURATED WITH BLOOD AFTER HAVING BEEN APPLIED 30 MIN AGO. NEW DRESSING APPLIED. CARSON GARCIA AT [facility] NOTIFIED VIA PHONE, UPDATE GIVEN AND MORE PT HISTORY OBTAINED. WILL MONITOR NEW DRESSING AND REASSESS IN 30 MIN.
--- NOTE | 2019-12-12 17:10 | PC.NURSE ---
DRESSING SATURATED WITH BLOOD AFTER RECHECK. DR PEACE NOTIFIED PER KAREL'S REQUEST. REDRESSED SITE WITH SURGICEL AND 4X4'S. CARSON GARCIA AT [facility] NOTIFIED WITH ANOTHER PT UPDATE.
[2019-12-12 17:14] VITALS: BP 124/80; PULSE 80; RESP 17; O2SAT 98
== END 2019-12-12 17:17 | disposition home or self-care (01) ==
PROVIDERS: Emergency Provider Physician Assistant; Family Provider Family Medicine; PCP Family Medicine
DX: D64.9 Anemia, unspecified (principal); L89.301 Pressure ulcer of unspecified buttock, stage 1; L89.101 Pressure ulcer of unspecified part of back, stage 1; Z79.82 Long term (current) use of aspirin; Z87.891 Personal history of nicotine dependence; I48.91 Unspecified atrial fibrillation; Z95.0 Presence of cardiac pacemaker; J44.9 Chronic obstructive pulmonary disease, unspecified; Z99.2 Dependence on renal dialysis; F03.90 Unspecified dementia, unspecified severity, without behavioral disturbance, psychotic disturbance, mood disturbance, and anxiety; E11.9 Type 2 diabetes mellitus without complications; I10 Essential (primary) hypertension; E78.5 Hyperlipidemia, unspecified; E05.90 Thyrotoxicosis, unspecified without thyrotoxic crisis or storm; Z85.46 Personal history of malignant neoplasm of prostate; I73.9 Peripheral vascular disease, unspecified
CPT/HCPCS: 12345; 85025; 86850; 86900; 99281; 99283

== ENCOUNTER 2019-12-12 18:37 | Observation (INO) | payer MEDICARE, SELFPAY ==
[2019-12-12 18:38] VITALS: BMI 22.4
[2019-12-12 18:42] VITALS: BP 128/52; PULSE 79; RESP 18; TEMP 36.5; O2SAT 96
--- NOTE | 2019-12-12 18:52 | XR_ITS ---
WS: [id number] PORTABLE CHEST HISTORY: Problems with port. COMPARISON: 11/22/2019 RIGHT IJ central venous catheter remains unchanged in position as compared to 11/22/2019. Bilateral interstitial thickening. Ovoid area of increasing consolidation in the central RIGHT lung i s probably fluid in the fissure. There is a small RIGHT pleural effusion. Increasing consolidation ce ntrally in the RIGHT lung. Small LEFT effusion. No pneumothorax. Cardiac size: Moderately enlarged cardiac silhouette. Mediastinum/Aorta: Dilated aorta and mediastinal widening. Similar to prior studies. No osseous abnormality seen. XR/XR chest 1V portable [id number] IMPRESSION: 1. Increasing consolidation with opacification throughout the RIGHT lung. Supe rimposed on patient's chronic fibrosis. 2. Small bilateral pleural effusions. 3. Moderate cardiomegaly. 4. Stable mediastinal widening.
--- NOTE | 2019-12-12 18:55 | W.ED.GENADLT ---
HPI - General Adult General: Chief complaint: General Medical Stated complaint: BLEEDING FROM DIALYSIS PORT Time Seen by Provider: 12/12/19 18:47 Source: patient and EMS Mode of arrival: EMS Limitations: no limitations History of Present Illness: HPI narrative: 74 yo male that was seenhere earlier with bleeding from his dialysis catheter site. while patient was here bleeding had stopped but he soaded his dressing upon arrival to snf and was sent back here. Patient denies any pain. He has had no fever. Onset (ago): hour(s) Associated symptoms: Deny chest pain, dyspnea, headache(s), nausea, rash or vomiting Review of Systems Const: Denies: fever, chills, body aches or change in appetite Eyes: Denies: blurry vision or eye discomfort ENMT: Denies: throat pain or dental pain Card: Denies: chest pain Resp: Denies: shortness of breath GI: Denies: abdominal pain, nausea, vomiting or diarrhea : Denies: painful urination Musc: Denies: neck pain or back pain Skin/Breast: Denies: rash Neuro: Denies: headache Psych: Denies: depression Romie/Lymph: Denies: easy bruising All/Imm: Denies: hives PFSH ED PFSH: Medical History (Updated 12/12/19 @ 20:01 by Christopher Byers MD) Aortic stenosis Arteriosclerosis Atrial fibrillation Cardiac pacemaker Cardiomyopathy as manifestation of underlying disease The LV appears to be dilated with a severe diffuse hypokinesia. The LV ejection fraction probably around 15 to 20% COPD (chronic obstructive pulmonary disease) Dementia Diabetes mellitus Glaucoma HTN (hypertension) Hyperlipidemia Hyperthyroidism HUMAIRA (obstructive sleep apnea) Prostate cancer Follows Dr. Nicholson, he is on Casodex/Zoladex PVD (peripheral vascular disease) Renal mass Rhabdomyolysis Severe aortic stenosis -Has known severe aortic stenosis, confirmed on recent echo with ejection fraction of 20 to 25%, global LV hypokinesis, G2DD, mild MR, mild AR, moderate-severe TR, mild-moderate VA -Cardiology consult appreciated -Dr. Vallejo has arranged for outpatient f/u with Dr. Monet to determine next steps for possible TAVR -Continue medical management -of note, patient has Leriche syndrome Severe aortic valve stenosis Being managed medically, not a surgical candidate for TAVR Thoracic aortic aneurysm Stable as per review of previous imaging Thrombocytopenia Due to splenomegaly Varicose vein of leg Vitamin D deficiency Surgical History S/P cataract surgery S/P cholecystectomy S/P dialysis catheter insertion (11/29/19) Family History Mother , 86; lung Cancer Father , 60's; stomach Cancer Social History Smoking and tobacco status: former smoker Physical Exam Const: COMMON NORMALS: no apparent distress, oriented x3 and healthy appearing HENMT: COMMON NORMALS: normocephalic and head/scalp atraumatic HEAD & SCALP: normocephalic and atraumatic Eye: COMMON NORMALS: PERRL and EOMs intact bilaterally PUPIL: Yes PERRL Neck/C-Spine: COMMON NORMALS: full ROM and supple Chest: COMMONS NORMALS: inspection of chest normal and palpation of chest normal Resp: COMMON NORMALS: normal respiratory effort, no retractions, no use of accessory muscles and clear to auscultation bilaterally AUSCULTATION: clear to auscultation bilaterally Cardio: COMMON NORMALS: regular rate, regular rhythm and no murmurs RATE: regular rate RHYTHM: regular rhythm GI: COMMON NORMALS: normal to inspection, nondistended, normoactive bowel sounds, soft to palpation, non-tender and no masses PALPATION: Yes soft Extremity: COMMON NORMALS: normal to inspection and full ROM Neuro: COMMON NORMALS: oriented x3, moves all extremities and no focal motor deficits Psych: COMMON NORMALS: mental status grossly normal, thought process normal and cooperative THOUGHT PROCESS: normal thought process Skin: COMMON NORMALS: no rashes or lesions noted and no wounds NARRATIVE SKIN EXAM: dressing bandage saturated in blood to the site of his dialysis cath GENERAL SKIN EXAM: no rashes or lesions noted Course Vital Signs: Vital signs: Vital Signs Temperature 97.7 F 12/12/19 18:42 Pulse Rate 78 12/12/19 19:41 Respiratory Rate 16 12/12/19 19:41 Blood Pressure 124/55 12/12/19 19:41 Pulse Oximetry 92 12/12/19 19:41 MDM - General Adult MDM Narrative: Medical decision making narrative: Patient presents here with bleeding from his dialysis port. Patient hemoglobin here is normal. I spoke to Bill he recommended putting a pressure dressing and will admit for observation. I spoke to hospitalist who is admitting. Patient has no expanding hematoma. Lab Data: Labs: Lab Results 12/12/19 12/12/19 Range/Units 18:50 18:50 WBC 3.2 L (4.0-10.0) 10^3/ uL RBC 3.18 L (4.1-5.3) 10^6/u L Hgb 9.1 L (11.7-16.6) g/dL Hct 30.2 L (42.0-52.0) % MCV 95.0 H (80-94) fL MCH 28.6 (28.0-34.0) pg MCHC 30.1 (30.0-36.0) g/dL RDW 20.4 H (12.1-15.1) % Plt Count 95 L (130-400) 10^3/c mm MPV 10.3 (7.4-10.4) fL Neut % (Auto) 62.5 % Lymph % (Auto) 21.9 % [place] % (Auto) 14.7 % Eos % (Auto) 0.0 % Baso % (Auto) 0.6 % Neut # (Auto) 2.0 (1.8-7.7) 10^3/u L Lymph # (Auto) 0.7 L (0.8-4.8) 10^3/u L [place] # (Auto) 0.5 (0.2-0.9) 10^3/u L Eos # (Auto) 0.0 (0.0-0.8) 10^3/u L Baso # (Auto) 0.0 (0.0-0.1) 10^3/u L Nucleated RBC % (a uto) 0 % Nucleated RBCs # 0.0 /100WBC PT 15.20 H (10.5-13.3) SECO NDS INR 1.16 (0.8-1.2) Discharge Plan Discharge Patient Disposition: Admitted As Inpatient Admit Provider: Avelina Long Clinical Impression: Bleeding due to dialysis catheter placement Condition: Stable Coding Level of Care Code ED Manufacturing Clerk for Chg Fwd Exam Comprehensive
[2019-12-12 19:01] LABS: Basophils % 0.6 %; Hematocrit 30.2 % (42.0-52.0); Hemoglobin 9.1 g/dL (11.7-16.6); Lymphocytes # 0.7 10^3/uL (0.8-4.8); Lymphocytes % 21.9 %; Mean Corpuscular HGB Conc 30.1 g/dL (30.0-36.0); Mean Corpuscular Hemoglobin 28.6 pg (28.0-34.0); Mean Platelet Volume 10.3 fL (7.4-10.4); Monocytes # 0.5 10^3/uL (0.2-0.9); Monocytes % 14.7 %; Neutrophils % 62.5 %; Nucleated Red Blood Cells % 0 %; Platelet Count 95 10^3/cmm (130-400); Red Blood Count 3.18 10^6/uL (4.1-5.3); Red Cell Distribution Width 20.4 % (12.1-15.1); White Blood Count 3.2 10^3/uL (4.0-10.0)
[2019-12-12 19:19] LABS: INR 1.16 (0.8-1.2)
[2019-12-12 19:41] VITALS: BP 124/55; PULSE 78; RESP 16; O2SAT 92
--- NOTE | 2019-12-12 19:48 | P.HP_ITS ---
Providers/Chief Complaint Primary Care Provider: Yao Weeks MD Chief Complaint: BLEEDING FROM DIALYSIS PORT History of Present Illness Sam Arevalo is a 74 year old male who had a complicated hospital course on last VISIT which involved rhabdomyolysis, ATN, requiring permanent hemodialysis catheter placement after reversal of anticoagulation and dual antiplatelet therapy, cardiology was consulted because of reduced ejection fraction 30% and aortic stenosis, he was managed medically because of poor candidacy for surgical intervention was discharged on 11/29 (Pradaxa and Plavix were discontinued), coming in today because of active bleeding from hemodialysis catheter site. Patient is a resident of long-term, he is stating that he was in his usual state of health, he went for dialysis today around 9 AM, he finished his dialysis session, at the end there was oozing of blood from dialysis catheter site, he was sent back to the long-term, bleeding was not able to be controlled so he was sent to our ER for further evaluation. He is taking aspirin, he has not noticed bleeding from any other site, no fever, shortness of breath, chest pain. He is stating that it hurts around his pressure ulcer that he acquired from previous long hospitalization. Diagnostics in ER revealed normal hemodynamics, hemoglobin stable, chest x-ray did not reveal any aneurysm or hematoma Patient was admitted as observation to monitor bleeding from the site, Dr. Khan has been notified by the ER physician When I examined the patient he was talking with his family, he looked very pale and dehydrated, he stated all of the events mentioned above. He stated that he is very overwhelmed and fatigued from going back and forth to different facilities. Review of Systems Const: Denies: fever or chills Eyes: Denies: change in vision ENMT: Denies: throat pain Card: Denies: chest pain Resp: Denies: shortness of breath GI: Denies: abdominal pain, nausea or coffee grounds in vomit : Denies: flank pain or difficulty urinating Musc: Reports: back pain and decrease in muscle mass; Denies: neck pain Skin/Breast: Reports: skin tenderness (Pain around gluteal cleft, stage I ulcer); Denies: rash or itching Neuro: Denies: headache Psych: Denies: anxiety Endo: Denies: excessive urination Romie/Lymph: Denies: easy bruising All/Imm: Denies: hives Medications/Allergies Home Medications Medication Instructions Recorded Confirmed Last Taken Type Ashwinleoseas Zelayata 1 inh INHALATION DAILY #1 ea 11/30/19 12/12/19 12/12/19 Rx albuterol sulfate [ProAir HFA] 2 puff INHALATION Q6H PRN #1 unit 11/30/19 0 12/12/19 Unknown Rx alprazolam 0.25 mg PO BID PRN #30 tab 11/30/19 12/12/19 12/11/19 Rx aspirin 81 mg PO DAILY #30 tab 11/30/19 12/12/19 12/12/19 Rx metoprolol tartrate 25 mg PO DAILY #15 tab 11/30/19 12/12/19 12/12/19 Rx trazodone 25 mg PO BEDTIME #15 tab 11/30/19 12/12/19 12/11/19 Rx acetaminophen [Tylenol] 325 mg PO QID PRN 12/12/19 12/12/19 12/12/19 History bisacodyl [Dulcolax (bisacodyl)] 5 mg PO DAILY PRN 12/12/19 12/12/19 Unknown History bisacodyl [Dulcolax (bisacodyl)] 10 mg AR DAILY PRN 12/12/19 12/12/19 Unknown History Allergies Allergy/AdvReac Type Severity Reaction Status Date / Time No Known Allergies Allergy Unverified 12/12/19 18:45 PFSH Acute PFSH: Medical History Aortic stenosis Arteriosclerosis Atrial fibrillation Cardiac pacemaker Cardiomyopathy as manifestation of underlying disease The LV appears to be dilated with a severe diffuse hypokinesia. The LV ejec tion fraction probably around 15 to 20% COPD (chronic obstructive pulmonary disease) Dementia Diabetes mellitus Glaucoma HTN (hypertension) Hyperlipidemia Hyperthyroidism HUMAIRA (obstructive sleep apnea) Prostate cancer Follows Dr. Nicholson, he is on Casodex/Zoladex PVD (peripheral vascular disease) Renal mass Rhabdomyolysis Severe aortic stenosis -Has known severe aortic stenosis, confirmed on recent echo with ejection fraction of 20 to 25%, global LV hypokinesis, G2DD, mild MR, mild AR, moderate-severe TR, mild-moderate AR -Cardiology consult appreciated -Dr. Vallejo has arranged for outpatient f/u with Dr. Monet to determine next steps for possible TAVR -Continue medical management -of note, patient has Leriche syndrome Severe aortic valve stenosis Being managed medically, not a surgical candidate for TAVR Thoracic aortic aneurysm Stable as per review of previous imaging Thrombocytopenia Due to splenomegaly Varicose vein of leg Vitamin D deficiency Surgical History S/P cataract surgery S/P cholecystectomy S/P dialysis catheter insertion (11/29/19) Family History Mother , 86; lung Cancer Father , 60's; stomach Cancer Social History Smoking and tobacco status: former smoker Vitals/I&O/Wt Last Vital Signs Temp 97.7 F 12/12/19 18:42 Pulse 79 12/12/19 18:42 Resp 18 12/12/19 18:42 BP 128/52 12/12/19 18:42 Pulse Ox 96 12/12/19 18:42 Weight last 48 hrs Weight 74.843 kg Physical Exam Narrative: EXAM NARRATIVE: Patient appears dehydrated and pale Very pleasant to communicate Resting comfortably in his bed There is sandbag on right hemodialysis catheter, no active drainage of blood, S1, S2, systolic murmur, mild signs of fluid overload state Bilateral lower extremity 1+ edema Splenomegaly, abdomen is soft, nontender, bowel sound present in all quadrants Alert oriented x3, GCS 15 Stage I pressure ulcer coccygeal area no active drainage Bilateral breath sounds without adventitious sounds Appropriate mood and affect Data : 12/12/19 18:50 A&P Assessment and plan (1) Bleeding due to dialysis catheter placement: Status: Acute Additional A&P Information Bleeding from the permanent hemodialysis catheter site No active drainage No acute drop in hemoglobin from baseline, baseline hemoglobin 9-10 Continue conservative management with sandbag, will try conservatively to control bleeding with local pressure Hold aspirin, currently not on any anticoagulant, Plavix was discontinued on previous admission This seems secondary to uremia induced platelet dysfunction and heparin used before dialysis End-stage renal disease Hemodialysis dependent Thursday I would not consult nephrology at this point (completed dialysis session on Thursday) No acute indication for dialysis Insomnia: I would continue his trazodone Full codE: In case of cardiac arrest would like his to make decision on his behalf Renal dialysis diet Would use SCDs for DVT prophylaxis Attestations Medical Necessity Statement*: Anticipating discharge in less than 48 hours, conservative management for dialysis from catheter site Time Spent in Patient Care: 35 Coding Level of Care Code Acute Cyber Software Engineer for Kristel Lennon Diagnoses Bleeding due to dialysis catheter placement T82.838A
[2019-12-12 20:01] VITALS: BP 114/54; PULSE 79; RESP 18; O2SAT 94
[2019-12-12 20:30] VITALS: BP 120/64; PULSE 78; RESP 18; O2SAT 93
[2019-12-12 22:33] VITALS: PULSE 78; RESP 18; O2SAT 93
[2019-12-12] MEDS: trazodone 50 mg Tablet PO (23:31)
[2019-12-13] VITALS (7 sets, daily range): BP systolic 115–127; BP diastolic 55–64; PULSE 70–80; RESP 18–28; TEMP 36.3–36.7; O2SAT 92–100
[2019-12-13] MEDS: ALPRAZolam 0.25 mg Tablet PO (00:52)
[2019-12-13 05:22] LABS: Basophils % 1.1 %; Eosinophils % 0.4 %; Hematocrit 30.2 % (42.0-52.0); Hemoglobin 9.1 g/dL (11.7-16.6); Lymphocytes # 0.6 10^3/uL (0.8-4.8); Lymphocytes % 20.2 %; Mean Corpuscular HGB Conc 30.1 g/dL (30.0-36.0); Mean Corpuscular Hemoglobin 29.2 pg (28.0-34.0); Mean Corpuscular Volume 96.8 fL (80-94); Monocytes # 0.4 10^3/uL (0.2-0.9); Monocytes % 13.5 %; Neutrophils # 1.8 10^3/uL (1.8-7.7); Neutrophils % 64.4 %; Nucleated Red Blood Cells % 0 %; Platelet Count 97 10^3/cmm (130-400); Red Blood Count 3.12 10^6/uL (4.1-5.3); Red Cell Distribution Width 20.5 % (12.1-15.1); White Blood Count 2.8 10^3/uL (4.0-10.0)
[2019-12-13 05:47] LABS: Anion Gap 19.3 (5-19); Blood Urea Nitrogen 24 mg/dL (8-23); Calcium 8.1 mg/dL (8.5-10.5); Carbon Dioxide 26 mmol/L (22-29); Chloride 97 mmol/L (98-107); Glucose 90 mg/dL (65-115); Osmolality Calculated 282 mOsm/kg (285-295); Potassium 4.3 mmol/L (3.5-5.1); Sodium 138 mmol/L (136-145)
[2019-12-13] MEDS: metoprolol tartrate 50 mg Tablet 25 MG PO (09:17)
--- NOTE | 2019-12-13 11:00 | P.DS_ITS ---
Discharge Providers Date of Admission: 12/12/19 19:36 Date of Discharge: December 13, 2019 Attending Provider at Admission: Avelina Long MD Attending Provider at Discharge: Joshua Agarwal MD Primary Care Provider: Yao Weeks MD Diagnoses at Discharge Discharge Diagnosis (1) Bleeding due to dialysis catheter placement: Status: Acute Reason for Visit Reason for Visit: Reason For Visit: BLEEDING FROM DIALYSIS PORT Hospital Course Discharge Summary: Sam Arevalo is a 74 year old male who had a complicated hospital course on last VISIT which involved rhabdomyolysis, ATN, requiring permanent hemodialysis catheter placement after reversal of anticoagulation and dual antiplatelet therapy, cardiology was consulted because of reduced ejection fraction 30% and aortic stenosis, for which he is to follow- up with final coat sprayer at [facility] and arrangements were made on his last admission by Dr. Vallejo. He was discharged on 11/29 (Pradaxa and Plavix were discontinued), coming in today because of active bleeding from hemodialysis catheter site. Patient is a resident of group home, he is stating that he was in his usual state of health, he went for dialysis today around 9 AM, he finished his dialysis session, at the end there was oozing of blood from dialysis catheter site, he was sent back to the group home, bleeding was not able to be controlled so he was sent to our ER for further evaluation. He is taking aspirin, he has not noticed bleeding from any other site, no fever, shortness of breath, chest pain. He is stating that it hurts around his pressure ulcer that he acquired from previous long hospitalization. Diagnostics in ER revealed normal hemodynamics, hemoglobin stable, chest x-ray did not reveal any aneurysm or hematoma. Patient was admitted under observation to monitor for bleeding and surgery was consulted. By morning his bleeding had stopped with tight compression and hemoglobin had remained stable. Patient was seen by surgical team and was deemed stable to be discharged. Patient is been discharged in hemodynamically stable condition with advised to follow-up with his primary care physician, final coat sprayer at [facility] and continue his dialysis sessions as usual. Physical Exam Narrative: EXAM NARRATIVE: Patient appears dehydrated and pale Very pleasant to communicate Resting comfortably in his bed There is sandbag on right hemodialysis catheter, no active drainage of blood, S1, S2, systolic murmur, mild signs of fluid overload state Bilateral lower extremity 1+ edema Splenomegaly, abdomen is soft, nontender, bowel sound present in all quadrants Alert oriented x3, GCS 15 Stage I pressure ulcer coccygeal area no active drainage Bilateral breath sounds without adventitious sounds Appropriate mood and affect Discharge Data Data Completed and Pending: Completed Studies During Hospitalization Category Date Time Status XR chest 1V tr ble [id number] Stat Exams 12/12/19 18:52 Completed Labs from last 24 hours 12/13/19 12/13/19 12/12/19 04:55 04:55 18:50 WBC 2.8 L RBC 3.12 L Hgb 9.1 L Hct 30.2 L MCV 96.8 H MCH 29.2 MCHC 30.1 RDW 20.5 H Plt Count 97 L MPV 11.0 H Neut % (Auto) 64.4 Lymph % (Auto) 20.2 [place] % (Auto) 13.5 Eos % (Auto) 0.4 Baso % (Auto) 1.1 Neut # (Auto) 1.8 Lymph # (Auto) 0.6 L [place] # (Auto) 0.4 Eos # (Auto) 0.0 Baso # (Auto) 0.0 Nucleated RBC % (a uto) 0 Nucleated RBCs # 0.0 PT 15.20 H INR 1.16 Sodium 138 Potassium 4.3 Chloride 97 L Carbon Dioxide 26 Anion Gap 19.3 H BUN 24 H Creatinine 3.5 H Glucose 90 Calculated Osmolal ity 282 L Calcium 8.1 L 12/12/19 18:50 WBC 3.2 L RBC 3.18 L Hgb 9.1 L Hct 30.2 L MCV 95.0 H MCH 28.6 MCHC 30.1 RDW 20.4 H Plt Count 95 L MPV 10.3 Neut % (Auto) 62.5 Lymph % (Auto) 21.9 [place] % (Auto) 14.7 Eos % (Auto) 0.0 Baso % (Auto) 0.6 Neut # (Auto) 2.0 Lymph # (Auto) 0.7 L [place] # (Auto) 0.5 Eos # (Auto) 0.0 Baso # (Auto) 0.0 Nucleated RBC % (a uto) 0 Nucleated RBCs # 0.0 PT INR Sodium Potassium Chloride Carbon Dioxide Anion Gap BUN Creatinine Glucose Calculated Osmolal ity Calcium Vitals: Last Vital Signs Temp 97.9 F 12/13/19 10:54 Pulse 74 12/13/19 10:54 Resp 28 H 12/13/19 10:54 BP 115/55 12/13/19 10:54 Pulse Ox 93 12/13/19 10:54 Discharge Plan Discharge Patient Disposition: Xfer SNF Condition: Stable Prescriptions: Continued trazodone 50 mg Tablet 25 mg PO BEDTIME Qty: 15 RF: 0 aspirin 81 mg Tablet,Delayed Release (Dr/Ec) 81 mg PO DAILY Qty: 30 RF: 0 alprazolam 0.25 mg tablet 0.25 mg PO BID PRN (Reason: Anxiety) Qty: 30 RF: 0 metoprolol tartrate 50 mg tablet 25 mg PO DAILY Qty: 15 RF: 0 albuterol sulfate [ProAir HFA] 90 mcg/actuation HFA aerosol inhaler 2 puff INHALATION Q6H PRN (Reason: Shortness Of Breath) Qty: 1 RF: 0 Trelegy Ellipta 100-62.5-25 mcg blister with device 1 inh INHALATION DAILY Qty: 1 RF: 0 Tylenol 325 mg Tablet 325 mg PO QID PRN (Reason: Pain) RF: 0 Dulcolax (bisacodyl) 10 mg Suppository 10 mg [place] DAILY PRN (Reason: Constipation) RF: 0 Dulcolax (bisacodyl) 5 mg Tablet,Delayed Release (Dr/Ec) 5 mg PO DAILY PRN (Reason: Constipation) RF: 0 Discharge Orders: Discharge Order (Routine); Ordered 12/13/19 Ordered By: Joshua Agarwal Referrals: Yao Weeks MD [Primary Care Provider] - 2 weeks Discharge Diet: Usual diet Discharge Activity: Resume usual activity Discharge Attestations Time Spent in Discharge Care*: greater than 30 min Specific Discharge Activities: Specific discharge activities: educating patient, discussing with pcp/other providers, documenting/other paperwork and evaluating patient/reviewing data Status at Discharge: Cognitive status at discharge: cognitively intact , Behavioral status at discharge: cooperative , Functional status at discharge: independent ambulation Overall status at discharge: patient is back to [facility] Quality Metrics Clinical Quality Measures During this hospital stay, did patient experience: None Coding Level of Care Code Acute E D Tech for Kallieg Fwd Diagnoses Bleeding due to dialysis catheter placement T82.838A
--- NOTE | 2019-12-13 18:39 | PM.CONSULT ---
Providers/Reason For Consult Consulting Physican/Specialty*: Dr. Sharma Reason for Consult*: Bleeding at the dialysis catheter site Attending Physician: Joshua Agarwal MD Primary Care Provider: Yao Weeks MD History of Present Illness History of Present Illness Sam Arevalo is a 74 year old male who had a right internal jugular vein dialysis catheter placed about 4 weeks ago. Patient had been receiving dialysis and had been doing well but recently he had episodes of bleeding through the dialysis catheter entry site. Patient denies any pain fevers chills or swelling in the region and otherwise feels well Review of Systems General: Reports: 10 or more systems reviewed and unremarkable except in HPI and below Meds/Allergies Home Medications and Allergies Home Medications Medication Instructions Recorded Confirmed Last Taken Type Trelegy Ellipta 1 inh INHALATION DAILY #1 ea 11/30/19 12/15/19 12/12/19 Rx albuterol sulfate [ProAir HFA] 2 puff INHALATION Q6H PRN #1 unit 11/30/19 12/15/19 Unknown Rx alprazolam 0.25 mg PO BID PRN #30 tab 11/30/19 12/15/19 12/11/19 Rx aspirin 81 mg PO DAILY #30 tab 11/30/19 12/15/19 12/12/19 Rx metoprolol tartrate 25 mg PO DAILY #15 tab 11/30/19 12/15/19 12/12/19 Rx trazodone 25 mg PO BEDTIME #15 tab 11/30/19 12/15/19 12/11/19 Rx Dulcolax (bisacodyl) 5 mg PO DAILY PRN 12/12/19 12/15/19 Unknown History Dulcolax (bisacodyl) 10 mg [place] DAILY PRN 12/12/19 12/15/19 Unknown History Tylenol 325 mg PO QID PRN 12/12/19 12/15/19 12/12/19 History Allergies Allergy/AdvReac Type Severity Reaction Status Date / Time No Known Allergies Allergy Unverified 12/15/19 09:26 PFSH Acute PFSH: Medical History Aortic stenosis Arteriosclerosis Atrial fibrillation Cardiac pacemaker Cardiomyopathy as manifestation of underlying disease The LV appears to be dilated with a severe diffuse hypokinesia. The LV ejection fraction probably around 15 to 20% COPD (chronic obstructive pulmonary disease) Dementia Diabetes mellitus Glaucoma HTN (hypertension) Hyperlipidemia Hyperthyroidism HUMAIRA (obstructive sleep apnea) Prostate cancer Follows Dr. Nicholson, he is on Casodex/Zoladex PVD (peripheral vascular disease) Renal mass Rhabdomyolysis Severe aortic valve stenosis Being managed medically, not a surgical candidate for TAVR Thoracic aortic aneurysm Stable as per review of previous imaging Thrombocytopenia Due to splenomegaly Varicose vein of leg Vitamin D deficiency Surgical History S/P cataract surgery S/P cholecystectomy S/P dialysis catheter insertion (11/29/19) Family History Mother , 86; lung Cancer Father , 60's; stomach Cancer Social History Smoking and tobacco status: former smoker Vitals/I&O/Wt Last Vital Signs Temp 97.9 F 12/13/19 14:54 Pulse 74 12/13/19 14:54 Resp 18 12/13/19 14:54 BP 115/55 12/13/19 14:54 Pulse Ox 93 12/13/19 14:54 12/13/19 12/13/19 12/13/19 06:59 14:59 22:59 Intake Total 220 / 460 50 / 50 Output Total 225 / 225 Balance 220 / 460 -175 / -175 Weight last 48 hrs Weight 165 lb Physical Exam Narrative: EXAM NARRATIVE: HEENT: Normocephalic Eye: Sclera /conjunctiva normal Respiratory and chest: Bilateral clear breath sounds on auscultation, right IJ dialysis catheter in place, no cellulitis no edema or active bleeding noted Cardiovascular: Normal S1 and S2 heart sounds Abdomen: Soft to palpation Neurological: Oriented to place person and time Skin: Intact, no lesions appreciated on gross exam A&P Assessment and plan (1) S/P dialysis catheter insertion: 74-year-old gentleman admitted to the hospital with concerns about bleeding from the dialysis catheter site. Pressure dressings were applied overnight and this morning he has no evidence of hematoma or active bleeding. Patient should be able to go home today and continue with dialysis Status: Acute Coding Level of Care Code Acute Powder Loader for Chg Fwd Diagnoses S/P dialysis catheter insertion Z95.828; Z99.2
== END 2019-12-13 15:02 | disposition skilled nursing facility (03) ==
LOC: ER 19:27 → MEDSURG 20:00
PROVIDERS: Admitting Provider Internal Medicine; Emergency Provider Emergency Medicine; Family Provider Family Medicine; PCP Family Medicine; Visit Provider Student in an Organized Health Care Education/Training Program
DX: T82.838A Hemorrhage due to vascular prosthetic devices, implants and grafts, initial encounter (principal); Z79.82 Long term (current) use of aspirin; I48.91 Unspecified atrial fibrillation; Z95.0 Presence of cardiac pacemaker; J44.9 Chronic obstructive pulmonary disease, unspecified; F03.90 Unspecified dementia, unspecified severity, without behavioral disturbance, psychotic disturbance, mood disturbance, and anxiety; E11.9 Type 2 diabetes mellitus without complications; I10 Essential (primary) hypertension; E78.5 Hyperlipidemia, unspecified; E03.9 Hypothyroidism, unspecified; Z85.46 Personal history of malignant neoplasm of prostate; Z87.891 Personal history of nicotine dependence; D64.9 Anemia, unspecified; L89.301 Pressure ulcer of unspecified buttock, stage 1; Z99.2 Dependence on renal dialysis; E05.90 Thyrotoxicosis, unspecified without thyrotoxic crisis or storm
CPT/HCPCS: 12345; 36415; 71045; 80048; 85025; 85610; 86850; 86900; 99281; 99282; 99283; G0378

== ENCOUNTER 2019-12-31 08:57 | Inpatient (IN) | payer MEDICARE, SELFPAY ==
[2019-12-31] VITALS (43 sets, daily range): BP systolic 72–126; BP diastolic 48–84; PULSE 70–122; RESP 16–34; TEMP 36.2–36.5; O2SAT 85–100; BMI 21.5
--- NOTE | 2019-12-31 09:20 | XRR_ITS ---
PROCEDURE INFORMATION: Exam: XR Chest, 1 View Exam date and time: 12/31/2019 9:58 AM Age: 74 years old Clinical indication: Shortness of breath; Additional info: Dyspnea/cough TECHNIQUE: Imaging protocol: XR of the chest Views: 1 view. COMPARISON: CR XR chest 1V portable [id number] 12/12/2019 6:55 PM FINDINGS: Tubes, catheters and devices: Stable right central line. Lungs: Overall slight increased moderate bilateral pulmonary opacities consistent with pneumonia and or atypical pulmonary edema. Pleural space: Unremarkable. No pleural effusion. No pneumothorax. Heart/Mediastinum: Stable globular cardiomegaly consistent with four-chamber enlargement and/or pericardial fluid. Bones/joints: Unremarkable. XR/XR chest 1V portable [id number] IMPRESSION: 1. Stable globular cardiomegaly consistent with four-chamber enlargement and/or pericardial fluid. 2. Overall slight increased moderate bilateral pulmonary opacities consistent with pneumonia and or atypical pulmonary edema.
--- NOTE | 2019-12-31 09:25 | W.ED.NAVMDI ---
HPI - Nausea/Vomiting/Diarrhea General: Chief complaint: Nausea/Vomiting/Diarrhea Stated complaint: SOB Time Seen by Provider: 12/31/19 09:19 History of Present Illness: HPI Narrative: 74-year-old male presents emergency room with complaints of nausea vomiting diarrhea that began suddenly at 3 AM he seemed to be fine yesterday he has not had any cough or shortness of breath he did have one episode of fecal incontinence due to diarrhea stool this morning. He denies any medication melena hematemesis or coffee-ground emesis denies any chest pain or shortness of breath no dysuria urgency or frequency he usually uses oxygen at night at 2 L/min by nasal cannula. When he arrived here he was 5 L/min on nasal cannula satting 86% when he increased to 6 L he sats in the low 90s. He is history of end-stage renal disease and was recently started on hemodialysis with a tunneled dialysis catheter port. Denies any abdominal pain any dysuria urgency or frequency or hematuria. He has a history of aortic stenosis and peripheral artery disease as well. MD elicited complaint: nausea, vomiting and diarrhea Pertinent past history: anorexia Onset (ago): hour(s) Description of diarrhea: other (Watery) Associated nausea: Yes Associated abdominal pain: No Location of pain: None Radiation: diffuse Severity: severe Exacerbating factors: eating Associated symtoms: Reports bloating, fecal incontinence and nausea; Denies chest pain, dysuria, fatigue or malaise Review of Systems Const: Denies: fever(s), chills, body aches, change in appetite, fatigue or malaise ENMT: Denies: throat pain, ear or mastoid pain, nasal discharge or nasal congestion Card: Denies: chest pain, edema, dyspnea on exertion or orthopnea Resp: Denies: dyspnea, productive cough or non-productive cough GI: Reports: nausea, vomiting, diarrhea, bloating and fecal incontinence; Denies: abdominal pain, hematemesis, coffee ground emesis, dysphagia, heartburn, early satiety, hematochezia or melena : Denies: flank pain, dysuria, urinary frequency or urinary urgency Skin/Breast: Denies: rash or pruritus PFSH ED PFSH: Medical History (Updated 01/03/20 @ 08:49 by Piyush Peng DO) Anemia Aortic stenosis Arteriosclerosis Atrial fibrillation Cardiac pacemaker Cardiomyopathy as manifestation of underlying disease The LV appears to be dilated with a severe diffuse hypokinesia. The LV ejection fraction probably around 15 to 20% COPD (chronic obstructive pulmonary disease) Dementia Diabetes mellitus ESRD (end stage renal disease) Glaucoma HTN (hypertension) Hyperlipidemia Hyperthyroidism HUMAIRA (obstructive sleep apnea) Prostate cancer Follows Dr. Nicholson, he is on Casodex/Zoladex PVD (peripheral vascular disease) Renal mass Rhabdomyolysis Severe aortic valve stenosis Being managed medically, not a surgical candidate for TAVR Thoracic aortic aneurysm Stable as per review of previous imaging Thrombocytopenia Due to splenomegaly Varicose vein of leg Vitamin D deficiency Surgical History S/P cataract surgery S/P cholecystectomy S/P dialysis catheter insertion (11/29/19) Family History Mother , 86; lung Cancer Father , 60's; stomach Cancer Social History Smoking and tobacco status: former smoker Alcohol intake: former Physical Exam Const: COMMON NORMALS: no acute distress GENERAL APPEARANCE: cooperative and comfortable ORIENTATION/CONSCIOUSNESS: Yes awake, Yes oriented to person, Yes oriented to place and Yes oriented to time HENMT: COMMON NORMALS: normocephalic, atraumatic, hearing grossly normal bilaterally, external ears normal, EAC's normal, TM's normal bilaterally, Normal nasal mucous membranes and turbinates present, moist oral mucous membranes and oropharynx normal HEAD & SCALP: normocephalic and atraumatic NOSE: Normal nasal mucous membranes and turbinates present EXTERNAL EAR: Yes external ears normal EXTERNAL AUDITORY CANAL: EAC's normal TYMPANIC MEMBRANE: TM's normal bilaterally Eye: COMMON NORMALS: Equal, round and reactive pupils present, EOMs intact bilaterally, conjunctivae normal and no scleral icterus CONJUNCTIVA: Yes conjunctivae normal PUPIL: Yes Equal, round and reactive pupils present Neck/C-Spine: COMMON NORMALS: full ROM, no lymphadenopathy, supple and no JVD Lymph: LYMPHATIC: no lymphadenopathy noted and no lymphedema noted Resp: COMMON NORMALS: normal respiratory effort, No retractions, No use of accessory muscles and clear to auscultation bilaterally AUSCULTATION: clear to auscultation bilaterally Cardio: COMMON NORMALS: no JVD, regular rate, regular rhythm and No murmurs present (Cardio) RATE: regular rate RHYTHM: regular rhythm GI: COMMON NORMALS: Soft to palpation and No hepatosplenomegaly present AUSCULTATION: Yes normoactive bowel sounds PALPATION: Yes Soft to palpation, No Tenderness to palpation present (GI), No Guarding due to palpation present (GI) and Yes No hepatosplenomegaly present Extremity: COMMON NORMALS: normal to inspection, capillary refill normal, no clubbing, cyanosis or edema, no calf tenderness and no pedal edema Neuro: SENSORIUM/ORIENTATION: Yes oriented to person, Yes oriented to place and Yes oriented to time Skin: COMMON NORMALS: no rashes or lesions noted GENERAL SKIN EXAM: no rashes or lesions noted Course Vital Signs: Vital signs: Vital Signs Temperature 97.8 F 01/02/20 12:01 Pulse Rate 91 01/02/20 16:26 Respiratory Rate 17 01/02/20 16:26 Blood Pressure 127/57 01/02/20 16:26 Pulse Oximetry 100 01/02/20 16:26 MDM - Nausea/Vomiting/Diarrhea MDM Narrative: Medical decision making narrative: Sepsis secondary to pneumonia. Additionally patient has COPD and end-stage renal disease on hemodialysis. Discussed Dr. Johnson will admit to ICU Lab Data: Labs: Lab Results 12/31/19 12/31/19 12/31/19 Range/Units 09:18 09:18 09:18 WBC 10.0 (4.0-10.0) 10^3/ uL RBC 2.93 L (4.1-5.3) 10^6/u L Hgb 8.9 L (11.7-16.6) g/dL Hct 30.5 L (42.0-52.0) % MCV 104.1 H (80-94) fL MCH 30.4 (28.0-34.0) pg MCHC 29.2 L (30.0-36.0) g/dL RDW 21.7 H (12.1-15.1) % Plt Count 96 L (130-400) 10^3/c mm MPV 11.0 H (7.4-10.4) fL Neut % (Auto) 80.5 % Lymph % (Auto) 9.7 % Custer % (Auto) 7.2 % Eos % (Auto) 2.0 % Baso % (Auto) 0.2 % Neut # (Auto) 8.0 H (1.8-7.7) 10^3/u L Lymph # (Auto) 1.0 (0.8-4.8) 10^3/u L Custer # (Auto) 0.7 (0.2-0.9) 10^3/u L Eos # (Auto) 0.2 (0.0-0.8) 10^3/u L Baso # (Auto) 0.0 (0.0-0.1) 10^3/u L Nucleated RBC % (a uto) 0 % Nucleated RBCs # 0.0 /100WBC Specimen Type Sample Site ABG pH (7.35-7.45) ABG pCO2 (35-45) mmHg ABG pO2 (80.0-100.0) mmH g ABG HCO3 (22-26) mmol/L ABG O2 Saturation ABG Base Excess (-2.0-2.0) mmol/ L Christiano Test A-a O2 Gradient (5-10) mmHg Hematocrit (42-52) % Hgb O2 Saturation (95-100) % Carboxyhemoglobin (0.4-20.1) %THgb Methemoglobin (0.4-1.5) % Total Hemoglobin (14-18) g/dL Ionized Calcium (1.1-1.4) mmol/L O2 Delivery Device O2 Liters/Min % Pile Trimmer ID Sodium 141 (136-145) mmol/L Potassium 4.4 (3.5-5.1) mmol/L Chloride 101 (98-107) mmol/L Carbon Dioxide 20 L (22-29) mmol/L Anion Gap 24.4 H (5-19) BUN 32 H (8-23) mg/dL Creatinine 3.3 H (0.7-1.2) mg/dL Glucose 144 H (65-115) mg/dL Calculated Osmolal ity 292 (285-295) mOsm/k g Lactate 7.0 H* (0.5-2.2) mmol/L Calcium 8.2 L (8.5-10.5) mg/dL Total Bilirubin 1.2 (0.15-1.2) mg/dL AST 17 (0-40) U/L ALT 10 (0-41) U/L Alkaline Phosphata se 162 H (40-130) IU/L Total Protein 7.0 (6.6-8.7) g/dL Albumin 4.0 (3.5-5.2) g/dL Globulin 3.0 (1.3-4.6) g/dL Lipase 44 (13-60) U/L / Range/Units 10:02 WBC (4.0-10.0) 10^3/ uL RBC (4.1-5.3) 10^6/u L Hgb (11.7-16.6) g/dL Hct (42.0-52.0) % MCV (80-94) fL MCH (28.0-34.0) pg MCHC (30.0-36.0) g/dL RDW (12.1-15.1) % Plt Count (130-400) 10^3/c mm MPV (7.4-10.4) fL Neut % (Auto) % Lymph % (Auto) % Custer % (Auto) % Eos % (Auto) % Baso % (Auto) % Neut # (Auto) (1.8-7.7) 10^3/u L Lymph # (Auto) (0.8-4.8) 10^3/u L Custer # (Auto) (0.2-0.9) 10^3/u L Eos # (Auto) (0.0-0.8) 10^3/u L Baso # (Auto) (0.0-0.1) 10^3/u L Nucleated RBC % (a uto) % Nucleated RBCs # /100WBC Specimen Type Arterial Sample Site Brachial, left ABG pH 7.37 (7.35-7.45) ABG pCO2 31.6 L (35-45) mmHg ABG pO2 61.7 L (80.0-100.0) mmH g ABG HCO3 18.3 L (22-26) mmol/L ABG O2 Saturation 90.4 ABG Base Excess -6.2 L (-2.0-2.0) mmol/ L Christiano Test Pos A-a O2 Gradient 46.8 H (5-10) mmHg Hematocrit 27.7 L (42-52) % Hgb O2 Saturation 87.9 L (95-100) % Carboxyhemoglobin 1.7 (0.4-20.1) %THgb Methemoglobin 1.0 (0.4-1.5) % Total Hemoglobin 9.0 L (14-18) g/dL Ionized Calcium 1.0 L (1.1-1.4) mmol/L O2 Delivery Device Nc O2 Liters/Min 5.0 % Pile Trimmer ID jmn Sodium 141.0 (136-145) mmol/L Potassium 4.1 (3.5-5.1) mmol/L Chloride (98-107) mmol/L Carbon Dioxide (22-29) mmol/L Anion Gap (5-19) BUN (8-23) mg/dL Creatinine (0.7-1.2) mg/dL Glucose 111.0 (65-115) mg/dL Calculated Osmolal ity (285-295) mOsm/k g Lactate (0.5-2.2) mmol/L Calcium (8.5-10.5) mg/dL Total Bilirubin (0.15-1.2) mg/dL AST (0-40) U/L ALT (0-41) U/L Alkaline Phosphata se (40-130) IU/L Total Protein (6.6-8.7) g/dL Albumin (3.5-5.2) g/dL Globulin (1.3-4.6) g/dL Lipase (13-60) U/L Discharge Plan Discharge Admit Provider: Oscar Hardwick Clinical Impression: Sepsis, COPD (chronic obstructive pulmonary disease), Pneumonia, End-stage renal disease (ESRD) Condition: Stable Discharge Orders: Discharge Order (Routine); Ordered 01/02/20 Ordered By: Daron Mckeon Discharge Activity: Use walker/crutches as instructed and Oxygen as instructed Interventions: ED Discharge Assessment Last Done: 12/31/19 13:42 ED Charges Last Done: 12/31/19 13:43 Discharge Date/Time: 12/31/19 14:13 Coding Level of Care Code ED Port Engineer for [facility] Fwd Exam Comprehensive
[2019-12-31 09:29] LABS: Basophils % 0.2 %; Eosinophils # 0.2 10^3/uL (0.0-0.8); Hematocrit 30.5 % (42.0-52.0); Hemoglobin 8.9 g/dL (11.7-16.6); Lymphocytes % 9.7 %; Mean Corpuscular HGB Conc 29.2 g/dL (30.0-36.0); Mean Corpuscular Hemoglobin 30.4 pg (28.0-34.0); Mean Corpuscular Volume 104.1 fL (80-94); Monocytes # 0.7 10^3/uL (0.2-0.9); Monocytes % 7.2 %; Neutrophils % 80.5 %; Nucleated Red Blood Cells % 0 %; Platelet Count 96 10^3/cmm (130-400); Red Blood Count 2.93 10^6/uL (4.1-5.3); Red Cell Distribution Width 21.7 % (12.1-15.1)
--- NOTE | 2019-12-31 09:29 | CTR_ITS ---
PROCEDURE INFORMATION: Exam: CT Angiography Abdomen With Contrast Exam date and time: 12/31/2019 10:44 AM Age: 74 years old Clinical indication: Abdominal pain; Generalized; Additional info: Sudden onset n/v/d, pad TECHNIQUE: Imaging protocol: Computed tomographic angiography images of the abdomen with intravenous contrast material. 3D rendering: MIP and/or 3D reconstructed images were created by the technologist. Radiation optimization: All CT scans at this facility use at least one of these dose optimization techniques: automated exposure control; mA and/or kV adjustment per patient size (includes targeted exams where dose is matched to clinical indication); or iterative reconstruction. Contrast material: VISI 320; Contrast volume: 95 ml; Contrast route: LT AC; COMPARISON: CT abdomen pelvis wo con [id number] 11/23/2019 7:36 AM, CT abdomen pelvis with contrast dated November 03, 2018. RADIATION DOSE METRICS: Total DLP: 511.28 mGy-cm FINDINGS: Lungs: Stable multiple large bulla or subpleural blebs in the right lung base. Interval appearance of moderate pneumonia or atypical pulmonary edema in the lower lobes bilaterally. Heart: Increased moderate cardiomegaly with four-chamber enlargement. Aorta: Stable occlusion of the abdominal aorta just below the renal arteries and common iliac artery occlusion bilaterally with continued reconstitution of the common femoral arteries from collaterals. Calcification of the abdominal aorta and/or iliac arteries consistent with atherosclerotic vessel disease. Celiac trunk and mesenteric arteries: Continued patent celiac axis and superior mesenteric arteries with continued reconstitution of the mid and distal inferior mesenteric artery from collaterals. Renal arteries: No occlusion or significant stenosis. Liver: Multiple hepatic cysts at least one of which measures larger than 1.0 cm in size. Other low-attenuation lesions in the liver are too small to characterize. Several subtle low-density lesions in the liver with the largest in the lateral segment left liver, axial series 3, image 47. Hemangiomas versus liver metastasis. The 2.6 cm left liver lesion appears to have possibly increased in size since 1.7 cm measurement on November 03, 2018. Correlation with the PET-CT scan results dated December 18, 2018 are recommended. Gallbladder and bile ducts: Surgical clips in the gallbladder fossa consistent with cholecystectomy. Stable cholecystectomy. Pancreas: Normal. No ductal dilation. Spleen: Normal. No splenomegaly. Adrenals: Normal. No mass. Kidneys and ureters: 2.2 cm exophytic hemorrhagic cyst lower pole left kidney with increased density since the previous scan November 03, 2018. Multiple right renal simple cysts with the largest measuring > 1.0 cm . 1.7 cm high density hemorrhagic cyst right mid pole kidney. Stomach and bowel: Unremarkable. No obstruction. No mucosal thickening. Lymph nodes: Unremarkable. No enlarged lymph nodes. Intraperitoneal space: Stable mild to moderate four-quadrant ascites. Bones/joints: Unremarkable. No acute fracture. No dislocation. Soft tissues: Unremarkable. Other findings: Increased bilateral pleural fluid collections. Loculated pleural and inferior left major fissure with pseudotumor appearance. Examination is limited secondary to motion artifact. CT/CT angio abdomen [id number] IMPRESSION: 1. Stable occlusion of the abdominal aorta just below the renal arteries and common iliac artery occlusion bilaterally with continued reconstitution of the common femoral arteries from collaterals. 2. Continued patent celiac axis and superior mesenteric arteries with continued reconstitution of the mid and distal inferior mesenteric artery from collaterals. 3. Increased bilateral pleural fluid collections. 4. Increased moderate cardiomegaly with four-chamber enlargement. 5. Stable multiple large bulla or subpleural blebs in the right lung base. 6. Interval appearance of moderate pneumonia or atypical pulmonary edema in the lower lobes bilaterally. 7. Several subtle low-density lesions in the liver with the largest in the lateral segment left liver, axial series 3, image 47. Hemangiomas versus liver metastasis. The 2.6 cm left liver lesion appears to have possibly increased in size since 1.7 cm measurement on November 03, 2018. Correlation with the PET-CT scan results dated December 18, 2018 are recommended. 8. Stable mild to moderate four-quadrant ascites. Radiation Dose CTDIVOL = (mGy): DLP = 511.28 (mGy-cm)
[2019-12-31] MEDS: ondansetron 2 mg/ML SDV 2 mL 4 MG IVP (09:30)
[2019-12-31 09:47] LABS: Alanine Aminotransferase 10 U/L (0-41); Alkaline Phosphatase 162 IU/L (40-130); Anion Gap 24.4 (5-19); Aspartate Amino Transferase 17 U/L (0-40); Blood Urea Nitrogen 32 mg/dL (8-23); Calcium 8.2 mg/dL (8.5-10.5); Carbon Dioxide 20 mmol/L (22-29); Chloride 101 mmol/L (98-107); Glucose 144 mg/dL (65-115); Lipase 44 U/L (13-60); Osmolality Calculated 292 mOsm/kg (285-295); Potassium 4.4 mmol/L (3.5-5.1); Sodium 141 mmol/L (136-145); Total Bilirubin 1.2 mg/dL (0.15-1.2)
[2019-12-31 10:14] LABS: ABG PCO2 31.6 mmHg (35-45); ABG PH Result 7.37 (7.35-7.45); Alveolar-Arterial Oxygen Gradi 46.8 mmHg (5-10); Arterial Blood Gas Hematocrit 27.7 % (42-52); Base Excess ABG -6.2 mmol/L (-2.0-2.0); Blood Gas Allen Test Pos; Blood Gas Sample Site Brachial, left; Blood Gas Sample Type Arterial; Carboxyhemoglobin 1.7 %THgb (0.4-20.1); HCO3 ABG 18.3 mmol/L (22-26); HGB O2 Sat 87.9 % (95-100); Oxygen Device NC; Oxygen Saturation ABG 90.4; PO2 ABG 61.7 mmHg (80.0-100.0); Potassium Level - ABG 4.1 mmol/L (3.5-5.0)
[2019-12-31] MEDS: ipratropium-albuterol 3 mL Neb INHALATION (10:19)
[2019-12-31] MEDS: piperacillin-tazobactam 3.375 GM in sodium chloride 0.9% (plus) 50 ML IV (10:24)
[2019-12-31] MEDS: iodixanol 320 mg/mL 100mL Btl IV (10:45)
[2019-12-31] MEDS: sodium chloride 0.9% 500 ML IV (11:09)
[2019-12-31] MEDS: sodium chloride 0.9% 1,000 ML 100 ML IV (12:06)
[2019-12-31] MEDS: vancomycin 1,000 MG in sodium chloride 0.9% 250 ML 250 MG IV (12:41)
--- NOTE | 2019-12-31 13:39 | PM.HP ---
Providers/Chief Complaint Admitting Physician: Oscar Hardwick MD Primary Care Provider: Yao Weeks MD Chief Complaint: SOB History of Present Illness Sam Arevalo is a 74 year old male who presents to the emergency department after getting ill around 3 AM. He reports he was doing okay prior to this. He reports he felt nauseated, had some vomiting, and had some loose stools. He denies any blood in his stool or black or tarry stools. He had no hematemesis. He has had no fever or chills. He reports no shortness of breath although he was found to be hypoxic in the emergency department. Denies any chest pain, abdominal pain, headache, or pain in any since. Review of Systems General: Reports: 10 or more systems reviewed and unremarkable except in HPI and below Const: Reports: malaise; Denies: fever(s) or chills Eyes: Denies: change in vision ENMT: Denies: throat pain Card: Denies: chest pain or palpitations Resp: Denies: dyspnea, productive cough or non-productive cough GI: Reports: nausea and vomiting; Denies: abdominal pain, hematemesis, coffee ground emesis, hematochezia or melena : Denies: flank pain Musc: Denies: neck pain Skin/Breast: Denies: rash Neuro: Denies: headache(s) Psych: Denies: anxiety Endo: Denies: polyuria Romie/Lymph: Denies: easy bruising All/Imm: Denies: urticaria Medications/Allergies Home Medications Medication Instructions Recorded Confirmed Last Taken Type Trelegy Ellipta 1 inh INHALATION DAILY #1 ea 11/30/19 12/31/19 12/12/19 Rx albuterol sulfate [ProAir HFA] 2 puff INHALATION Q6H PRN #1 unit 11/30/19 12/31/19 Unknown Rx alprazolam 0.25 mg PO BID PRN #30 tab 11/30/19 12/31/19 12/11/19 Rx cilostazol 100 mg PO BID 12/31/19 12/31/19 Unknown History metoprolol tartrate 12.5 mg PO BID 12/31/19 12/31/19 Unknown History Allergies Allergy/AdvReac Type Severity Reaction Status Date / Time No Known Allergies Allergy Unverified 12/15/19 09:26 PFSH Acute PFSH: Medical History (Updated 12/31/19 @ 13:48 by Oscar Hardwick MD) Aortic stenosis Arteriosclerosis Atrial fibrillation Cardiac pacemaker Cardiomyopathy as manifestation of underlying disease The LV appears to be dilated with a severe diffuse hypokinesia. The LV ejection fraction probably around 15 to 20% COPD (chronic obstructive pulmonary disease) Dementia Diabetes mellitus Glaucoma HTN (hypertension) Hyperlipidemia Hyperthyroidism HUMAIRA (obstructive sleep apnea) Prostate cancer Follows Dr. Nicholson, he is on Casodex/Zoladex PVD (peripheral vascular disease) Renal mass Rhabdomyolysis Severe aortic valve stenosis Being managed medically, not a surgical candidate for TAVR Thoracic aortic aneurysm Stable as per review of previous imaging Thrombocytopenia Due to splenomegaly Varicose vein of leg Vitamin D deficiency Surgical History S/P cataract surgery S/P cholecystectomy S/P dialysis catheter insertion (11/29/19) Family History Mother , 86; lung Cancer Father , 60's; stomach Cancer Social History (Updated 12/31/19 @ 13:44 by Oscar Hardwick MD) Smoking and tobacco status: former smoker Alcohol intake: former Substance/Drug Use: never Vitals/I&O/Wt Last Vital Signs Temp 97.7 F 12/31/19 09:00 Pulse 102 H 12/31/19 12:15 Resp 16 12/31/19 10:20 BP 79/55 12/31/19 12:15 Pulse Ox 98 12/31/19 12:15 12/30/19 12/31/19 12/31/19 22:59 06:59 14:59 Intake Total 552.787 / 552.787 Balance 552.787 / 552.787 Weight last 48 hrs Weight 72.121 kg Physical Exam Narrative: EXAM NARRATIVE: General exam: Pleasant white male in no apparent distress, conversive HEENT pupils equally round. Oropharynx clear. Neck is supple no lymphadenopathy or thyromegaly Cardiovascular tachycardic, irregular, with 2/6 systolic murmur. Dialysis catheter right chest, tunneled Lungs slightly coarse bibasilar Abdomen is soft with positive bowel sounds. No obvious organomegaly was deferred Extremities no cyanosis clubbing or edema, cap refill brisk Skin no rash Neuro no focal deficits Sepsis: Is patient septic: Yes Focused sepsis exam performed: Yes Data : 12/31/19 09:18 12/31/19 09:18 Micro: Microbiology 12/31/19 09:18 Blood Culture - Preliminary Blood SPECIMEN COLLECTED 12/31/19 09:35 Blood Culture - Preliminary Blood SPECIMEN COLLECTED Other data: pH 7.37, PCO2 31, PO2 61. Lactic acid 7.0. Liver function tests largely normal with exception of alk phos which is slightly high. Lipase is normal. Abdominal CTA demonstrates significant atherosclerotic disease, unchanged from previous. No free air. Multiple liver lesions, hemangiomas versus metastasis, mild ascites Chest x-ray bibasilar pneumonia, likely COPD Of note patient reports he has had 2 COVID test which were both negative. A&P Assessment and plan (1) Sepsis: Admission to ICU sepsis secondary to concern of infectious etiology with vomiting and diarrhea, evidence of pneumonia on x-ray, oxygen requirement, significant hypotension requiring pressors, elevated lactic acid. Etiology is likely pneumonia but have to rule out bacteremia from dialysis catheter, UTI, etc. Await urinalysis Status: Acute (2) Pneumonia: Zosyn, vancomycin initiated Status: Acute (3) Hypotension: Norepinephrine initiated. He received 1 L of fluid in the ER. I am reluctant to continue any more boluses. We will give him 30 cc an hour. He is a dialysis patient with a significantly low EF and could easily fluid overload. Check TSH and cortisol level Serial troponins and EKGs. Initial EKG has been provided to me and demonstrates atrial fibrillation, left axis deviation, frequent PVCs, nonspecific ST-T wave changes. Lateral T wave inversion is noted. Hold beta-julia secondary to hypotension Status: Acute Additional A&P Information End-stage renal disease on hemodialysis. Nephrology consultation. Aortic stenosis, severe, deemed not to be a surgical candidate Ischemic cardiomyopathy with history of EF 15 to 20% History of atrial fibrillation. Not on anticoagulation with past history of significant bleeding Coronary artery disease COPD, no evidence of exacerbation. Typically on 2 L per nasal cannula. Past history of type 2 diabetes, now on no medications for this currently History of hypertension History of hyperthyroidism Thrombocytopenia, chronic History of renal mass History of prostate cancer History of dementia Multiple other medical problems as outlined in his past medical history Heparin for DVT prophylaxis Tried to discuss with him CODE STATUS. He reported that he would want everything done but if anything happened call his and she will decide. Attestations Medical Necessity Statement*: Will need greater than 2 midnight stay for treatment of sepsis with IV antibiotic. Time Spent in Patient Care: Greater than 35 minutes Coding Level of Care Code Acute Invasive Cardiologist for [facility] Fwd Diagnoses Sepsis A41.9 Pneumonia J18.9 Hypotension I95.9
--- NOTE | 2019-12-31 13:40 | ECG_ITS ---
Measurements Intervals Valentine Rate: 107 P: -62 NC: 134 QRS: -64 QRSD: 128 T: 106 QT: 379 QTc: 507 SINUS TACHYCARDIA WITH FREQUENT VENTRICULAR PREMATURE COMPLEXES MARKED LEFT AXIS DEVIATION MODERATE INTRAVENTRICULAR CONDUCTION DELAY ST DEVIATION AND MODERATE T-WAVE ABNORMALITY, CONSIDER LATERAL ISCHEMIA Compared to ECG 11/22/2019 21:31:47 Ventricular premature complex(es) now present Intraventricular conduction delay now present T-wave abnormality now present Possible ischemia now present Sinus rhythm no longer present Left bundle-branch block no longer present Electronically Signed On 01-02-2020 20:47:07 CDT by Angelina Dyson M.D. [email or web address]
[2019-12-31] MEDS: levofloxacin-dextrose 5 % 500 MG/100 ML PREMIX 100 MG IV (13:49)
[2019-12-31 14:39] LABS: Add On to Lab Order(s) Added; Troponin(5th) Baseline 257 ng/mL (0-15)
--- NOTE | 2019-12-31 14:48 | PC.RESP ---
Pulmonary Rehab information sent to patient.
[2019-12-31 15:05] LABS: Thyroid Stimulating Hormone 0.19 uIU/mL (0.27-4.20)
--- NOTE | 2019-12-31 15:40 | ECG_ITS ---
Measurements Intervals [place] Rate: 105 P: -44 DE: 134 QRS: -63 QRSD: 122 T: 106 QT: 367 QTc: 486 SINUS TACHYCARDIA WITH FREQUENT VENTRICULAR PREMATURE COMPLEXES MARKED LEFT AXIS DEVIATION [QRS AXIS < -30] MODERATE INTRAVENTRICULAR CONDUCTION DELAY [110+ ms QRS DURATION] ST DEVIATION AND MODERATE T-WAVE ABNORMALITY, CONSIDER LATERAL ISCHEMIA Compared to ECG 11/22/2019 21:31:47 Ventricular premature complex(es) now present Intraventricular conduction delay now present T-wave abnormality now present Possible ischemia now present Sinus rhythm no longer present Left bundle-branch block no longer present Electronically Signed On 01-02-2020 20:52:17 CDT by Angelina Dyson M.D. [email or web address]
[2019-12-31 16:37] LABS: Troponin 5 2HR 291.9 ng/mL (0-15); Troponin 5 2HR Delta 34.9 ABS# (0-10)
--- NOTE | 2019-12-31 16:45 | P.CONIM_ITS ---
Providers/Reason For Consult Consulting Physican/Specialty*: [place]/Telenephrology Reason for Consult*: ESRD Management and dialysis needs Requesting Pitaan: Ronen Attending Physician: Oscar Hardwick MD Primary Care Provider: Yao Weeks MD History of Present Illness History of Present Illness Sam Arevalo is a 74 year old male with h/o ESRD on HD presents with shortness of breath, nausea,vomiting and diarrhea. Found to have pneumonia and low BP, started on iv fluids and antibiotics, admitted to icu, currently on levophed for low BP. Last dialysis was yesterday, got full treatment Review of Systems General: Reports: 10 or more systems reviewed and unremarkable except in HPI and below Const: Reports: fever(s) Card: Reports: dyspnea on exertion Resp: Reports: dyspnea and non-productive cough GI: Reports: nausea, vomiting and fecal incontinence Meds/Allergies Home Medications and Allergies Home Medications Medication Instructions Recorded Confirmed Last Taken Type Trelegy Ellipta 1 inh INHALATION DAILY #1 ea 11/30/19 12/31/19 12/12/19 Rx albuterol sulfate [ProAir HFA] 2 puff INHALATION Q6H PRN #1 unit 11/30/19 12/31/19 Unknown Rx alprazolam 0.25 mg PO BID PRN #30 tab 11/30/19 12/31/19 12/11/19 Rx cilostazol 100 mg PO BID 12/31/19 12/31/19 Unknown History metoprolol tartrate 12.5 mg PO BID 12/31/19 12/31/19 Unknown History Allergies Allergy/AdvReac Type Severity Reaction Status Date / Time No Known Allergies Allergy Unverified 12/15/19 09:26 Current Medications Current Medications Generic Name Dose Route Start Last Admin Trade Name Freq PRN Reason Stop Dose Admin Norepinephrine Bitartrate 4 mg 254 mls @ 0 mls/hr 12/31/19 11:30 12/31/19 12:18 / Dextrose IV 6 mcg/min .Q0M FRIEDA 22.9 mls/hr Titration Protocol Per Protocol Vancomycin HCl 1,000 mg/ 250 mls @ 250 mls/hr 12/31/19 12:30 12/31/19 12:41 Sodium Chloride IV 250 mls/hr Q36H FRIEDA Administration Protocol Sodium Chloride 1,000 mls @ 30 mls/hr 12/31/19 13:45 12/31/19 16:27 Sodium Chloride 0.9% IV Not Given .Q24H FRIEDA Piperacillin Sod/Tazobactam 50 mls @ 12.5 mls/hr 12/31/19 14:30 12/31/19 16:29 Sod 3.375 gm/ Sodium Chloride IV Not Given Q12H FRIEDA Protocol PFSH Acute PFSH: Medical History Aortic stenosis Arteriosclerosis Atrial fibrillation Cardiac pacemaker Cardiomyopathy as manifestation of underlying disease The LV appears to be dilated with a severe diffuse hypokinesia. The LV ejection fraction probably around 15 to 20% COPD (chronic obstructive pulmonary disease) Dementia Diabetes mellitus Glaucoma HTN (hypertension) Hyperlipidemia Hyperthyroidism HUMAIRA (obstructive sleep apnea) Prostate cancer Follows Dr. Nicholson, he is on Casodex/Zoladex PVD (peripheral vascular disease) Renal mass Rhabdomyolysis Severe aortic valve stenosis Being managed medically, not a surgical candidate for TAVR Thoracic aortic aneurysm Stable as per review of previous imaging Thrombocytopenia Due to splenomegaly Varicose vein of leg Vitamin D deficiency Surgical History S/P cataract surgery S/P cholecystectomy S/P dialysis catheter insertion (11/29/19) Family History Mother , 86; lung Cancer Father , 60's; stomach Cancer Social History Smoking and tobacco status: former smoker Alcohol intake: former Substance/Drug Use: never Vitals/I&O/Wt Last Vital Signs Temp 97.7 F 12/31/19 09:00 Pulse 108 H 12/31/19 16:03 Resp 23 H 12/31/19 16:00 BP 103/66 12/31/19 16:00 Pulse Ox 96 12/31/19 16:03 12/31/19 12/31/19 12/31/19 06:59 14:59 22:59 Intake Total 552.787 / 552.787 Balance 552.787 / 552.787 Weight last 48 hrs Weight 72.121 kg Physical Exam Const: COMMON NORMALS: no acute distress, patient oriented x3 and alert GENERAL APPEARANCE: cooperative ORIENTATION/CONSCIOUSNESS: Yes awake HENMT: COMMON NORMALS: normocephalic HEAD & SCALP: normocephalic Eye: GENERAL EYE: appearance normal, both eyes and all related structures Resp: AUSCULTATION: rhonchi Cardio: COMMON NORMALS: S1 normal heart sound present and S2 normal heart sound present HEART SOUNDS: S1 normal heart sound present and S2 normal heart sound present GI: AUSCULTATION: Yes normoactive bowel sounds Neuro: COMMON NORMALS: patient oriented x3 SENSORIUM/ORIENTATION: Yes alert Skin: COMMON NORMALS: no rashes or lesions noted GENERAL SKIN EXAM: no rashes or lesions noted Data Micro: Micro: Microbiology 12/31/19 09:18 Blood Culture - Pr eliminary Blood SPECIMEN [facility] 12/31/19 09:35 Blood Culture - Pr eliminary Blood SPECIMEN [facility] A&P Assessment and plan (1) ESRD (end stage renal disease): No acute indication for dialysis today. Will tentatively plan HD on mon Status: Acute (2) Hypotension: Titrate pressor to keep MAP above 65, ok to give 1 -2 lit of fluids as pt had vomiting & diarrhea Status: Acute (3) Pneumonia: Antibiotics as per dialysis schedule, which will be mon/wed/fri Status: Acute (4) Anemia: Will dose erythropoietin with dialysis Status: Acute Consult Attestations Medical Necessity Statement: Hypotension, pneumonia Coding Level of Care Code Acute Hot Blaster for [facility] Fwd Diagnoses ESRD (end stage renal disease) N18.6 Hypotension I95.9 Pneumonia J18.9 Anemia D64.9
[2019-12-31 16:46] LABS: Cortisol Random 39.96 mcg/dL (2.47-19.5)
[2019-12-31] MEDS: cilostazol 100 mg Tablet PO (17:34)
[2019-12-31] MEDS: heparin 5,000 unit/mL INJ 1 mL 5000 UNIT SUBCUT (17:34)
--- NOTE | 2019-12-31 19:40 | ECG_ITS ---
Measurements Intervals [place] Rate: 102 P: ND: 0 QRS: -60 QRSD: 126 T: 104 QT: 369 QTc: 482 POSSIBLE ATRIAL FIBRILLATION WITH RAPID VENTRICULAR RESPONSE WITH ABERRANT CONDUCTION OR VENTRICULAR PREMATURE COMPLEXES LEFT AXIS DEVIATION [QRS AXIS < -30] MODERATE INTRAVENTRICULAR CONDUCTION DELAY ST DEVIATION AND MODERATE T-WAVE ABNORMALITY, CONSIDER LATERAL ISCHEMIA Compared to ECG 11/22/2019 21:31:47 Ventricular premature complex(es) now present Aberrant conduction of supraventricular beat(s) now present Intraventricular conduction delay now present T-wave abnormality now present Possible ischemia now present Sinus rhythm no longer present Left bundle-branch block no longer present Electronically Signed On 01-02-2020 20:53:10 CDT by Angelina Dyson M.D. [email or web address]
[2019-12-31 20:47] LABS: Troponin 5 6HR 322.9 ng/mL (0-15); Troponin 5 6HR Delta 65.9 ng/L (0-12)
[2019-12-31] MEDS: ALPRAZolam 0.25 mg Tablet PO (21:20)
[2019-12-31] MEDS: aspirin 81 mg EC Tablet 162 MG PO (23:34)
[2019-12-31] MEDS: atorvastatin 40 mg Tablet PO (23:34)
[2020-01-01] VITALS (18 sets, daily range): BP systolic 89–150; BP diastolic 46–75; PULSE 70–78; RESP 16–20; TEMP 36.2–36.7; O2SAT 93–100
[2020-01-01] MEDS: piperacillin-tazobactam 3.375 GM in sodium chloride 0.9% (plus) 50 ML IV ×2 (02:32→14:28)
[2020-01-01 05:30] LABS: Basophils % 0.1 %; Hematocrit 28.9 % (42.0-52.0); Hemoglobin 8.8 g/dL (11.7-16.6); Lymphocytes # 0.6 10^3/uL (0.8-4.8); Lymphocytes % 3.4 %; Mean Corpuscular HGB Conc 30.4 g/dL (30.0-36.0); Mean Corpuscular Hemoglobin 30.1 pg (28.0-34.0); Monocytes # 0.6 10^3/uL (0.2-0.9); Monocytes % 3.7 %; Neutrophils % 92.2 %; Nucleated Red Blood Cells % 0 %; Platelet Count 85 10^3/cmm (130-400); Red Blood Count 2.92 10^6/uL (4.1-5.3); Red Cell Distribution Width 21.5 % (12.1-15.1); White Blood Count 17.3 10^3/uL (4.0-10.0)
[2020-01-01 05:45] LABS: Alanine Aminotransferase 38 U/L (0-41); Albumin Level 3.5 g/dL (3.5-5.2); Alkaline Phosphatase 114 IU/L (40-130); Anion Gap 14.4 (5-19); Aspartate Amino Transferase 59 U/L (0-40); Blood Urea Nitrogen 44 mg/dL (8-23); Calcium 7.6 mg/dL (8.5-10.5); Carbon Dioxide 26 mmol/L (22-29); Chloride 100 mmol/L (98-107); Glucose 144 mg/dL (65-115); Osmolality Calculated 282 mOsm/kg (285-295); Potassium 4.4 mmol/L (3.5-5.1); Sodium 136 mmol/L (136-145); Total Bilirubin 1.2 mg/dL (0.15-1.2); Total Protein 6.5 g/dL (6.6-8.7)
[2020-01-01] MEDS: heparin 5,000 unit/mL INJ 1 mL 5000 UNIT SUBCUT ×2 (06:07→17:41)
--- NOTE | 2020-01-01 06:44 | PM.PN ---
Subjective Subjective: Interval history: sleepy. no further n/v/f/c/d/ Medications: Reviewed: Yes Medication Review Details: Current Medications Acetaminophen (Tylenol) 650 mg PO Q6H PRN PRN Reason: Mild/Mod Pain Or Temp >/= 101 Albuterol Sulfate (Ventolin) 2 puff INHALATION Q6H PRN PRN Reason: Shortness Of Breath Alprazolam (Xanax) 0.25 mg PO BID PRN PRN Reason: Anxiety Last Admin: 12/31/19 21:20 Dose: 0.25 mg Documented by: Aspirin (Aspirin Ec) 81 mg PO DAILY [facility] Atorvastatin Calcium (Lipitor) 40 mg PO BEDTIME FRIEDA Last Admin: 12/31/19 23:34 Dose: 40 mg Documented by: Cilostazol (Pletal) 100 mg PO BID FRIEDA Last Admin: 12/31/19 17:34 Dose: 100 mg Documented by: Heparin Sodium (Beef Lung) (Heparin) 5,000 unit SUBCUT Q12H [facility]RIEDA Last Admin: 01/01/20 06:07 Dose: 5,000 unit Documented by: Norepinephrine Bitartrate 4 mg (/ Dextrose) 254 mls @ 0 mls/hr IV .Q0M FRIEDA; Protocol Last Titration: 01/01/20 04:30 Dose: 2 mcg/min, 7.6 mls/hr Documented by: Vancomycin HCl 1,000 mg/ (Sodium Chloride) 250 mls @ 250 mls/hr IV Q36H FRIEDA; Protocol Last Infusion: 12/31/19 13:40 Dose: Infused Documented by: Sodium Chloride (Sodium Chloride 0.9%) 1,000 mls @ 30 mls/hr IV .Q24H [facility]RIEDA Last Admin: 12/31/19 16:27 Dose: Not Given Documented by: Piperacillin Sod/Tazobactam (Sod 3.375 gm/ Sodium Chloride) 50 mls @ 12.5 mls/hr IV Q12H FRIEDA; Protocol Last Admin: 01/01/20 02:32 Dose: 12.5 mls/hr Documented by: Amiodarone HCl 900 mg/Dextrose/ IV Miscellaneous Supplies 518 mls @ 0 mls/hr IV .Q0M FRIEDA; Protocol Last Titration: 12/31/19 23:36 Dose: 0.5 mg/min, 17.3 mls/hr Documented by: Non-Formulary Medication (Gqoiargaemt-Aqihddpwj-Qgcbmllx [Trelegy Ellipta]) 1 inh INHALATION DAILY [facility] Ondansetron HCl (Zofran) 4 mg IVP Q6H PRN PRN Reason: NAUSEA AND VOMITING Vitals/I&O/Wt Last Vital Signs Temp 98.0 F 01/01/20 04:00 Pulse 72 01/01/20 06:00 Resp 20 H 01/01/20 06:00 BP 94/55 01/01/20 06:00 Pulse Ox 96 01/01/20 06:00 12/31/19 12/31/19 01/01/20 14:59 22:59 06:59 Intake Total 802.787 / 802.787 613.542 / 1416.329 334.635 / 1750.964 Balance 802.787 / 802.787 613.542 / 1416.329 334.635 / 1750.964 Weight last 48 hrs Weight 72.121 kg Physical Exam Narrative: EXAM NARRATIVE: comfortable in bed, NARD on low dose levophed heent- nc/at, eomi neck supple lungs clear b/l heart irreg irreg, +LIZBET abd- soft, nt, nd, +BS ext 1+ b/l leg edema access- rt chest wall permactg neuro- sleepy but arousable Data : 01/01/20 04:57 01/01/20 04:57 Micro: Microbiology 12/31/19 09:18 Blood Culture - Preliminary Blood SPECIMEN COLLECTED 12/31/19 09:35 Blood Culture - Preliminary Blood SPECIMEN COLLECTED A&P Assessment and plan (1) ESRD (end stage renal disease): HD in am. renavite check phos and pth TAVR candidate. - DM- glucose control - COPD - monitor on abx - htn BP on low side, - prostte ca- on casodex and zoladex Status: Acute (2) Hypotension: Titrate pressor to keep MAP above 65, ok to give fluids. he is not clinically volume overloaded Status: Acute (3) Pneumonia: renal dose abx. monitor wbc and vanco levels Status: Acute (4) Anemia: Will dose erythropoietin with dialysis check vit d levels Status: Acute Attestations Medical Necessity Statement*: ESRD, PNA, anemia- per hospitalist Time Spent in Patient Care: 16 - 35 minutes Coding Level of Care Code Acute Track Walker for [facility] Fwd Diagnoses ESRD (end stage renal disease) N18.6 Hypotension I95.9 Pneumonia J18.9 Anemia D64.9
[2020-01-01 07:57] LABS: 25 Hydroxy Vitamin D 12 ng/mL (30-100)
[2020-01-01] MEDS: cilostazol 100 mg Tablet PO ×2 (08:02→17:42)
[2020-01-01] MEDS: aspirin 81 mg EC Tablet PO (08:02)
[2020-01-01] MEDS: b-complex-vitamin c Tablet 1 EACH PO (08:02)
--- NOTE | 2020-01-01 08:10 | ECG_ITS ---
Measurements Intervals [place] Rate: 75 P: -14 VA: 193 QRS: -58 QRSD: 130 T: 105 QT: 466 QTc: 523 SINUS RHYTHM MARKED LEFT AXIS DEVIATION MODERATE INTRAVENTRICULAR CONDUCTION DELAY ST DEVIATION AND MODERATE T-WAVE ABNORMALITY, CONSIDER LATERAL ISCHEMIA Compared to ECG 11/22/2019 21:31:47 Intraventricular conduction delay now present T-wave abnormality now present Possible ischemia now present Left bundle-branch block no longer present Electronically Signed On 01-01-2020 9:38:59 CDT by Angelina Dyson M.D. [email or web address]
[2020-01-01 08:15] LABS: Hepatitis C Virus Antibody Non-Reactive (Nonreactive)
[2020-01-01 08:17] LABS: Hepatitis B Surface AB 3.5 (0-8.5); Hepatitis B Surface Antigen Non-Reactive (Nonreactive)
[2020-01-01 10:40] LABS: Add On to Lab Order(s) Added
--- NOTE | 2020-01-01 10:54 | P.PN_ITS ---
Subjective Subjective: Interval history: Sam reports he is doing well. When he went into atrial fibrillation with rapid ventricular rate and amiodarone was started. He denies any chest pain or shortness of breath. Medications: Reviewed: Yes Vitals/I&O/Wt Last Vital Signs Temp 97.9 F 01/01/20 09:43 Pulse 70 01/01/20 10:00 Resp 18 01/01/20 10:00 BP 98/50 01/01/20 10:30 Pulse Ox 95 01/01/20 10:00 12/31/19 01/01/20 01/01/20 22:59 06:59 14:59 Intake Total 613.542 / 1416.329 334.635 / 1750.964 154.2 / 154.2 Balance 613.542 / 1416.329 334.635 / 1750.964 154.2 / 154.2 Weight last 48 hrs Weight 72.121 kg Physical Exam Narrative: EXAM NARRATIVE: General exam no apparent distress Cardiovascular irregular, irregular, with 2/6 systolic murmur. Dialysis catheter right chest, tunneled Lungs coarse breath sounds bibasilar Abdomen is soft with positive bowel sounds. No obvious organomegaly was deferred Extremities no cyanosis clubbing or edema, cap refill brisk Data : 01/01/20 04:57 01/01/20 04:57 Micro: Microbiology 12/31/19 09:18 Blood Culture - Preliminary Blood NEGATIVE TO DATE 12/31/19 09:35 Blood Culture - Preliminary Blood NEGATIVE TO DATE A&P Assessment and plan (1) Sepsis: Continue to taper off norepinephrine as tolerated Sepsis thought to be secondary to pneumonia. Urine has yet to be tested. Blood cultures negative to date Status: Acute (2) Pneumonia: Continue vancomycin and Zosyn Status: Acute (3) Hypotension: Taper off norepinephrine as tolerated Cortisol level normal. TSH abnormal. Free T4 and T3 were ordered Status: Acute Additional A&P Information Atrial fibrillation with rapid ventricular rate. Amiodarone drip initiated yesterday. Tonight we will convert to oral amiodarone. I visited briefly with patient's news broadcaster who would prefer he stay on this as an outpatient. There is a potential that metoprolol will need to be re-added but currently secondary to hypotension this is not been done. End-stage renal disease on hemodialysis. Nephrology consultation appreciated. Aortic stenosis, severe, apparently still under investigation on whether he is a surgical candidate. Ischemic cardiomyopathy with history of EF 15 to 20% History of atrial fibrillation. Not on anticoagulation with past history of significant bleeding Coronary artery disease COPD, no evidence of exacerbation. Typically on 2 L per nasal cannula. Past history of type 2 diabetes, now on no medications for this currently History of hypertension History of hyperthyroidism Thrombocytopenia, chronic History of renal mass History of prostate cancer History of dementia Multiple other medical problems as outlined in his past medical history Heparin for DVT prophylaxis Tried to discuss with him CODE STATUS. He reported that he would want everything done but if anything happened call his and she will decide. Attestations Medical Necessity Statement*: Needs continued hospitalization secondary to hypotension requiring norepinephrine Critical Care Time: 32 minutes spent in critical care time reviewing norepinephrine doses, interviewing the patient, examination and formulation of plan on this patient with renal failure, hypotension requiring pressors, sepsis, and pneumonia. Coding Level of Care Code Acute Supervisor Dyer for Kristel [facility]on Diagnoses Sepsis A41.9 Pneumonia J18.9 Hypotension I95.9
[2020-01-01 11:08] LABS: Free T4 Free Thyroxine 1.52 ng/dL (0.82-1.77); T3 Free 1.3 PG/ML (2.0-4.4)
[2020-01-01] MEDS: amiodarone 200 mg Tablet PO (17:42)
--- NOTE | 2020-01-01 18:40 | PC.NURSE ---
shift Patient off levophed at 0900. Patient BP soft but with MAP greater than 65. Patient has been alert and oriented. denies any pain. sat on edge of bed for an hour this evening and then stood in place taking steps. Patient tolerated well. Amiodarone was stopped 1715, PO amiodarone started at 1800. patient remains in NSR with a rate of 70-75.
[2020-01-01] MEDS: ALPRAZolam 0.25 mg Tablet PO (20:52)
[2020-01-01] MEDS: atorvastatin 40 mg Tablet PO (20:52)
[2020-01-02] VITALS (14 sets, daily range): BP systolic 96–155; BP diastolic 46–74; PULSE 74–91; RESP 12–22; TEMP 36–36.7; O2SAT 87–100
[2020-01-02 00:21] LABS: Bilirubin Urine 1+ (NEGATIVE); Blood Urine Trace (Negative); Glucose Urine UA Norm (Normal); Ketones Urine 1+ (Negative); Leukocyte Esterase Urine Negative (Negative); Nitrate Urine Negative (Negative); Protein Urine 1+ (Negative); Urine Appearance Clear (CLEAR); Urine Color Dark Yellow (Yellow); Urobilinogen Urine 1 mg/dL (Negative); pH Urine 5 (5-7)
[2020-01-02 00:22] LABS: Add Urine Microscopic? YES
[2020-01-02 00:23] LABS: Bacteria Urine 1+; Mucus Urine TRACE; RBC Urine 0-4 /hpf (0-2); Squamous Epithelial Cell Urine 0-4 (0-5)
[2020-01-02 00:24] LABS: Add Urine Culture? No; Amorphous Sediment Urine 1+; Coarse Granular Casts Urine 0-4 /lpf; Fine Granular Casts Urine 0-4 /lpf
[2020-01-02] MEDS: piperacillin-tazobactam 3.375 GM in sodium chloride 0.9% (plus) 50 ML IV ×2 (02:22→14:33)
[2020-01-02 05:04] LABS: Hematocrit 23.8 % (42.0-52.0); Hemoglobin 7.4 g/dL (11.7-16.6); Lymphocytes # 0.5 10^3/uL (0.8-4.8); Lymphocytes % 7.3 %; Mean Corpuscular HGB Conc 31.1 g/dL (30.0-36.0); Mean Corpuscular Hemoglobin 30.6 pg (28.0-34.0); Mean Corpuscular Volume 98.3 fL (80-94); Mean Platelet Volume 10.5 fL (7.4-10.4); Monocytes # 0.4 10^3/uL (0.2-0.9); Monocytes % 6.4 %; Neutrophils # 5.7 10^3/uL (1.8-7.7); Neutrophils % 85.7 %; Nucleated Red Blood Cells % 0 %; Platelet Count 55 10^3/cmm (130-400); Red Blood Count 2.42 10^6/uL (4.1-5.3); Red Cell Distribution Width 21.2 % (12.1-15.1); White Blood Count 6.7 10^3/uL (4.0-10.0)
[2020-01-02 05:25] LABS: Alanine Aminotransferase 33 U/L (0-41); Albumin Level 3.5 g/dL (3.5-5.2); Alkaline Phosphatase 90 IU/L (40-130); Anion Gap 21.4 (5-19); Aspartate Amino Transferase 34 U/L (0-40); Blood Urea Nitrogen 59 mg/dL (8-23); Carbon Dioxide 20 mmol/L (22-29); Chloride 97 mmol/L (98-107); Globulin 2.7 g/dL (1.3-4.6); Glucose 118 mg/dL (65-115); Osmolality Calculated 278 mOsm/kg (285-295); Phosphorus 4.4 mg/dL (2.5-4.5); Potassium 4.4 mmol/L (3.5-5.1); Sodium 134 mmol/L (136-145); Total Bilirubin 0.9 mg/dL (0.15-1.2); Total Protein 6.2 g/dL (6.6-8.7)
[2020-01-02 05:40] LABS: Calcium 7.2 mg/dL (8.5-10.5); Parathyroid Hormone 360.1 pg/mL (15-65)
[2020-01-02] MEDS: heparin 5,000 unit/mL INJ 1 mL 5000 UNIT SUBCUT (05:45)
[2020-01-02] MEDS: amiodarone 200 mg Tablet PO (05:45)
[2020-01-02 08:30] LABS: Ferritin 593 ng/mL (30-400); Iron 76 ug/dL (59-158); Total Iron Binding Capacity 211 mcg/dl; Unsaturated Iron Binding 135 ug/dL (112-347)
[2020-01-02 08:45] LABS: Vitamin B12 537 pg/mL (232-1245)
[2020-01-02] MEDS: cilostazol 100 mg Tablet PO (08:49)
[2020-01-02] MEDS: b-complex-vitamin c Tablet 1 EACH PO (08:49)
[2020-01-02] MEDS: aspirin 81 mg EC Tablet PO (08:49)
--- NOTE | 2020-01-02 10:40 | PM.PN ---
Subjective Subjective: Interval history: Feels better today with no new issues. Breathing better, no nausea and vomiting. Eating and drinking ok. About to start dialysis. Hemodynamics remain somewhat soft. No edema and no other volume assoc Sx. Medications: Reviewed: Yes Medication Review Details: Current Medications Acetaminophen (Tylenol) 650 mg PO Q6H PRN PRN Reason: Mild/Mod Pain Or Temp >/= 101 Albuterol Sulfate (Ventolin) 2 puff INHALATION Q6H PRN PRN Reason: Shortness Of Breath Alprazolam (Xanax) 0.25 mg PO BID PRN PRN Reason: Anxiety Last Admin: 12/31/19 21:20 Dose: 0.25 mg Documented by: Aspirin (Aspirin Ec) 81 mg PO DAILY [facility] Atorvastatin Calcium (Lipitor) 40 mg PO BEDTIME [facility] Last Admin: 12/31/19 23:34 Dose: 40 mg Documented by: Cilostazol (Pletal) 100 mg PO BID [facility] Last Admin: 12/31/19 17:34 Dose: 100 mg Documented by: Heparin Sodium (Beef Lung) (Heparin) 5,000 unit SUBCUT Q12H [facility] Last Admin: 01/01/20 06:07 Dose: 5,000 unit Documented by: Norepinephrine Bitartrate 4 mg (/ Dextrose) 254 mls @ 0 mls/hr IV .Q0M [facility]; Protocol Last Titration: 01/01/20 04:30 Dose: 2 mcg/min, 7.6 mls/hr Documented by: Vancomycin HCl 1,000 mg/ (Sodium Chloride) 250 mls @ 250 mls/hr IV Q36H [facility]; Protocol Last Infusion: 12/31/19 13:40 Dose: Infused Documented by: Sodium Chloride (Sodium Chloride 0.9%) 1,000 mls @ 30 mls/hr IV .Q24H [facility] Last Admin: 12/31/19 16:27 Dose: Not Given Documented by: Piperacillin Sod/Tazobactam (Sod 3.375 gm/ Sodium Chloride) 50 mls @ 12.5 mls/hr IV Q12H [facility]; Protocol Last Admin: 01/01/20 02:32 Dose: 12.5 mls/hr Documented by: Amiodarone HCl 900 mg/Dextrose/ IV Miscellaneous Supplies 518 mls @ 0 mls/hr IV .Q0M [facility]; Protocol Last Titration: 12/31/19 23:36 Dose: 0.5 mg/min, 17.3 mls/hr Documented by: Non-Formulary Medication (Dlifwffvfvo-Xbvbttcbk-Xedmgozl [Trelegy Ellipta]) 1 inh INHALATION DAILY [facility] Ondansetron HCl (Zofran) 4 mg IVP Q6H PRN PRN Reason: NAUSEA AND VOMITING Vitals/I&O/Wt Last Vital Signs Temp 98.0 F 01/02/20 00:00 Pulse 80 01/02/20 10:00 Resp 20 H 01/02/20 10:00 BP 112/58 01/02/20 10:00 Pulse Ox 99 01/02/20 10:00 01/01/20 01/02/20 01/02/20 22:59 06:59 14:59 Intake Total 610 / 1099.585 240 / 240 Output Total 200 / 200 Balance 610 / 1099.585 -200 / 899.585 240 / 240 Physical Exam Narrative: EXAM NARRATIVE: Exam performed with the aid of the bedside RN using EKO device, via telemed General exam no apparent distress Cardiovascular irregular, irregular, with 2/6 systolic murmur. Dialysis catheter right chest, tunneled Lungs coarse breath sounds bibasilar Abdomen is soft with positive bowel sounds. No obvious organomegaly was deferred Extremities no cyanosis clubbing or edema, cap refill brisk Const: COMMON NORMALS: no acute distress, patient oriented x3 and alert GENERAL APPEARANCE: cooperative and comfortable ORIENTATION/CONSCIOUSNESS: Yes awake, Yes oriented to person, Yes oriented to place and Yes oriented to time HENMT: COMMON NORMALS: normocephalic, atraumatic, hearing grossly normal bilaterally, external ears normal, EAC's normal, TM's normal bilaterally, Normal nasal mucous membranes and turbinates present, moist oral mucous membranes and oropharynx normal HEAD & SCALP: normocephalic and atraumatic NOSE: Normal nasal mucous membranes and turbinates present EXTERNAL EAR: Yes external ears normal EXTERNAL AUDITORY CANAL: EAC's normal TYMPANIC MEMBRANE: TM's normal bilaterally Eye: COMMON NORMALS: Equal, round and reactive pupils present, EOMs intact bilaterally, conjunctivae normal and no scleral icterus GENERAL EYE: appearance normal, both eyes and all related structures CONJUNCTIVA: Yes conjunctivae normal PUPIL: Yes Equal, round and reactive pupils present Neck/C-Spine: COMMON NORMALS: full ROM, no lymphadenopathy, supple and no JVD Lymph: LYMPHATIC: no lymphadenopathy noted and no lymphedema noted Resp: COMMON NORMALS: normal respiratory effort, No retractions, No use of accessory muscles and clear to auscultation bilaterally AUSCULTATION: clear to auscultation bilaterally and rhonchi Cardio: COMMON NORMALS: no JVD, regular rate, regular rhythm, S1 normal heart sound present, S2 normal heart sound present and No murmurs present (Cardio) RATE: regular rate RHYTHM: regular rhythm HEART SOUNDS: S1 normal heart sound present and S2 normal heart sound present GI: COMMON NORMALS: Soft to palpation and No hepatosplenomegaly present AUSCULTATION: Yes normoactive bowel sounds PALPATION: Yes Soft to palpation, No Tenderness to palpation present (GI), No Guarding due to palpation present (GI) and Yes No hepatosplenomegaly present Extremity: COMMON NORMALS: normal to inspection, capillary refill normal, no clubbing, cyanosis or edema, no calf tenderness and no pedal edema Neuro: COMMON NORMALS: patient oriented x3 SENSORIUM/ORIENTATION: Yes alert, Yes oriented to person, Yes oriented to place and Yes oriented to time Skin: COMMON NORMALS: no rashes or lesions noted GENERAL SKIN EXAM: no rashes or lesions noted WOUNDS: Yes surgical site (Port-no active bleeding. No signs of infection.) Details: no odor Data : 01/02/20 04:46 01/02/20 04:46 Micro: Microbiology 12/31/19 18:20 MRSA Culture - Final Nose 12/31/19 09:18 Blood Culture - Preliminary Blood NEGATIVE TO DATE 12/31/19 09:35 Blood Culture - Preliminary Blood NEGATIVE TO DATE A&P Additional A&P Information 1. ESRD - for dialysis today; 3K, UF 500ml - cont MWF schedule - dose meds for eGFR < 15 on dialysis 2. Anemia - for 1 unit of PRBCs today - iron and EPO in outpatient unit 3. Hemodynamics remain stable off pressors - limited UF given pre-load dependence of 4. Pneumonia - on Zosyn - culture unrevealing so far - likely to go home in next 24hrs if he remains stable Attestations Medical Necessity Statement*: Eval for ESRD mgmt Coding Level of Care Code Acute Horse Groomer for g [facility]
[2020-01-02] MEDS: sodium chloride 0.9% (100 ml) 100 ML (11:50)
[2020-01-02] MEDS: heparin, porcine 1,000 unit/mL INJ 10 mL HE (12:05)
[2020-01-02] MEDS: acetaminophen 325 mg Tablet 650 MG PO (15:01)
--- NOTE | 2020-01-02 20:01 | PM.DCS ---
Discharge Providers Date of Admission: 12/31/19 11:41 Date of Discharge: January 02, 2020 Attending Provider at Admission: Oscar Hardwick MD Attending Provider at Discharge: Daron Mckeon Primary Care Provider: Yao Weeks MD Diagnoses at Discharge Discharge Diagnosis (1) Sepsis: Status: Acute (2) Pneumonia: Status: Acute (3) Hypotension: Status: Acute Reason for Visit Reason for Visit: Reason For Visit: SOB Hospital Course Hospital Course: Pleasant 74-year-old gentleman with ESRD, on chronic hemodialysis, with otherwise extensive past medical history that includes severe aortic stenosis, severe intra-abdominal and peripheral arterial disease, atrial fibrillation, status post pacemaker, COPD, HUMAIRA, renal mass, chronic thrombocytopenia, prostate cancer, cardiomyopathy with chronic CHF, EF 15 to 20%, was admitted for assessment management of sepsis, with pneumonia and presentation, also with vomiting and diarrhea. With hypotension on presentation for which he received IV hydration. Initially also required pressor support with norepinephrine. This was weaned off. Pneumonia was treated with Zosyn and vancomycin with good results and clinical improvement. He then developed A. fib with RVR which necessitated starting amiodarone due to concern for soft blood pressures, and preference of his senior oracle adf developer. His heart rates had since improved, and remained stable. This morning blood pressure was slightly soft, but allowed him for hemodialysis without any issues, and subsequently was higher. His blood count was noted lower this morning, hemoglobin down to 7.4, although without active bleeding noted. Although with atrial fibrillation he is not on chronic anticoagulation due to history of GI bleed. He is on a baby aspirin. He received 1 unit PRBC transfusion. He overall reports has been feeling great and does not want to remain in the hospital any longer stating that he will be leaving today regardless after his hemodialysis. His hemoglobin decline appears to be somewhat gradual, overall likely of anemia of chronic disease, however, please monitor level, and pursue additional evaluation for possible recurrence of GI bleeding as necessary. He does not wish to remain in the hospital longer to allow additional evaluation. Of note on abdominal CT found to have incidental 2.5 cm left liver lesion, which appears to be increased in size since October 2018, although he states he is aware of this and has been following with his oncologist. Discussed with him he should see his oncologist again soon to discuss changes in the lesions. Of note also severe peripheral arterial disease noted in the abdomen, also with stable occlusion of abdominal aorta just below renal arteries and common iliac artery occlusion bilaterally with continued reconstitution of common femoral arteries from collaterals. Continued patent celiac axis and SMA with continued reconstitution of mid and distal PETTY from collaterals. 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 Requested that he follow-up with cardiology, as he states he is being referred for additional assessment of the severe peripheral arterial disease. He is also aware to follow-up with cardiology with regards to his severe aortic stenosis, and his atrial fibrillation with RVR. Consider referral to pulmonology as needed. He will need continued follow-up with his biztalk developer and hemodialysis center. His hemoglobin will be rechecked in 3 days, please follow level and adjust aspirin therapy, pursue additional evaluation as necessary. Continue management of other chronic problems. Physical Exam Const: COMMON NORMALS: no acute distress and patient oriented x3 OTHER: He reports he is feeling great and does not want to remain in the hospital longer. HENMT: COMMON NORMALS: oropharynx normal Neck/C-Spine: COMMON NORMALS: no JVD Resp: COMMON NORMALS: normal respiratory effort and clear to auscultation bilaterally AUSCULTATION: clear to auscultation bilaterally Cardio: COMMON NORMALS: no JVD, regular rhythm, S1 normal heart sound present, S2 normal heart sound present and No murmurs present (Cardio) RHYTHM: regular rhythm HEART SOUNDS: S1 normal heart sound present and S2 normal heart sound present GI: COMMON NORMALS: Normal to inspection, nondistended, normoactive bowel sounds present, Soft to palpation and non-tender PALPATION: Yes Soft to palpation Extremity: COMMON NORMALS: no joint enlargement GENERAL: Yes edema (2+) Neuro: COMMON NORMALS: patient oriented x3 and moves all extremities Skin: COMMON NORMALS: no rashes or lesions noted GENERAL SKIN EXAM: no rashes or lesions noted Discharge Data Data Completed and Pending: Completed Studies During Hospitalization Category Date Time Status CT angio abdomen 54554 Urgent Cat Scan 12/31/19 09:29 Completed XR chest 1V tr ble [id number] Stat Exams 12/31/19 09:20 Completed Pending at discharge Category Date Time Status Blood Culture Sta t Lab 12/31/19 09:18 Results Labs from last 24 hours 01/02/20 01/02/20 01/02/20 08:44 04:46 04:46 WBC RBC Hgb Hct MCV MCH MCHC RDW Plt Count MPV Neut % (Auto) Lymph % (Auto) [place] % (Auto) Eos % (Auto) Baso % (Auto) Neut # (Auto) Lymph # (Auto) [place] # (Auto) Eos # (Auto) Baso # (Auto) Nucleated RBC % (a uto) Nucleated RBCs # Sodium Potassium Chloride Carbon Dioxide Anion Gap BUN Creatinine Glucose Calculated Osmolal ity Calcium Phosphorus Magnesium Iron 76 TIBC 211 % Saturation 36.0 Unsat Iron Binding 135 Ferritin 593 H Total Bilirubin AST ALT Alkaline Phosphata se Total Protein Albumin Globulin Vitamin B12 537 Folate 5.0 PTH Intact Calcium (PTH Intac t) Urine Color Urine Appearance Urine pH Ur Specific Gravit y Urine Protein Urine Glucose (UA) Urine Ketones Urine Blood Urine Nitrate Urine Bilirubin Urine Urobilinogen Ur Leukocyte Laura ase Urine RBC Urine WBC Ur Squamous Epith Cells Amorphous Sediment Urine Bacteria Fine Granular Cast s Coarse Granular Ca sts Urine Mucus Blood Type A Positive Rho(D) Type Positive Antibody Screen Negative Crossmatch See Detail 01/02/20 01/02/20 01/02/20 04:46 04:46 04:46 WBC 6.7 RBC 2.42 L Hgb 7.4 L Hct 23.8 L MCV 98.3 H MCH 30.6 MCHC 31.1 RDW 21.2 H Plt Count 55 L MPV 10.5 H Neut % (Auto) 85.7 Lymph % (Auto) 7.3 [place] % (Auto) 6.4 Eos % (Auto) 0.0 Baso % (Auto) 0.0 Neut # (Auto) 5.7 Lymph # (Auto) 0.5 L [place] # (Auto) 0.4 Eos # (Auto) 0.0 Baso # (Auto) 0.0 Nucleated RBC % (a uto) 0 Nucleated RBCs # 0.0 Sodium 134 L Potassium 4.4 Chloride 97 L Carbon Dioxide 20 L Anion Gap 21.4 H BUN 59 H Creatinine 4.5 H Glucose 118 H Calculated Osmolal ity 278 L Calcium 8.0 L Phosphorus 4.4 Magnesium 2.0 Iron TIBC % Saturation Unsat Iron Binding Ferritin Total Bilirubin 0.9 AST 34 ALT 33 Alkaline Phosphata se 90 Total Protein 6.2 L Albumin 3.5 Globulin 2.7 Vitamin B12 Folate PTH Intact 360.1 H Calcium (PTH Intac t) 7.2 L Urine Color Urine Appearance Urine pH Ur Specific Gravit y Urine Protein Urine Glucose (UA) Urine Ketones Urine Blood Urine Nitrate Urine Bilirubin Urine Urobilinogen Ur Leukocyte Laura ase Urine RBC Urine WBC Ur Squamous Epith Cells Amorphous Sediment Urine Bacteria Fine Granular Cast s Coarse Granular Ca sts Urine Mucus Blood Type Rho(D) Type Antibody Screen Crossmatch 01/01/20 23:55 WBC RBC Hgb Hct MCV MCH MCHC RDW Plt Count MPV Neut % (Auto) Lymph % (Auto) [place] % (Auto) Eos % (Auto) Baso % (Auto) Neut # (Auto) Lymph # (Auto) [place] # (Auto) Eos # (Auto) Baso # (Auto) Nucleated RBC % (a uto) Nucleated RBCs # Sodium Potassium Chloride Carbon Dioxide Anion Gap BUN Creatinine Glucose Calculated Osmolal ity Calcium Phosphorus Magnesium Iron TIBC % Saturation Unsat Iron Binding Ferritin Total Bilirubin AST ALT Alkaline Phosphata se Total Protein Albumin Globulin Vitamin B12 Folate PTH Intact Calcium (PTH Intac t) Urine Color Dark yellow Urine Appearance Clear Urine pH 5 Ur Specific Gravit y 1.010 Urine Protein 1+ H Urine Glucose (UA) Norm Urine Ketones 1+ H Urine Blood Trace H Urine Nitrate Negative Urine Bilirubin 1+ H Urine Urobilinogen 1 H Ur Leukocyte Laura ase Negative Urine RBC 0-4 H Urine WBC 5-10 H Ur Squamous Epith Cells 0-4 H Amorphous Sediment 1+ Urine Bacteria 1+ H Fine Granular Cast s 0-4 H Coarse Granular Ca sts 0-4 H Urine Mucus Trace Blood Type Rho(D) Type Antibody Screen Crossmatch Vitals: Last Vital Signs Temp 97.8 F 01/02/20 12:01 Pulse 91 01/02/20 16:26 Resp 17 01/02/20 16:26 BP 127/57 01/02/20 16:26 Pulse Ox 100 01/02/20 16:26 Discharge Plan Discharge Patient Disposition: Home Health Service Condition: Stable Prescriptions: New metoprolol tartrate 25 mg tablet 12.5 mg PO BID Qty: 30 RF: 0 Pacerone 200 mg Tablet See Rx Instructions .ROUTE .COMPLEX 30 Days Qty: 60 RF: 0 atorvastatin 40 mg Tablet 40 mg PO BEDTIME Qty: 30 RF: 0 aspirin 81 mg Tablet,Delayed Release (Dr/Ec) 81 mg PO DAILY 30 Days Qty: 30 RF: 0 Total B/C Tablet 1 ea PO DAILY Qty: 30 RF: 0 Levaquin 750 mg tablet 750 mg PO EVERY OTHER DAY 5 Days Qty: 3 RF: 0 Continued alprazolam 0.25 mg tablet 0.25 mg PO BID PRN (Reason: Anxiety) Qty: 30 RF: 0 albuterol sulfate [ProAir HFA] 90 mcg/actuation HFA aerosol inhaler 2 puff INHALATION Q6H PRN (Reason: Shortness Of Breath) Qty: 1 RF: 0 Trelegy Ellipta 100-62.5-25 mcg blister with device 1 inh INHALATION DAILY Qty: 1 RF: 0 cilostazol 100 mg tablet 100 mg PO BID RF: 0 Discontinued metoprolol tartrate 50 mg tablet 12.5 mg PO BID RF: 0 Discharge Orders: Discharge Order (Routine); Ordered 01/02/20 Ordered By: Daron Mckeon Other Ambulatory Orders: Complete Blood Count w/Auto (Routine) Timeframe: 3 Days Location: Determined by Patient Ordered By: Daron Mckeon DME: Oxygen (Order) Location: None Selected Ordered By: Daron Mckeon Referrals: Your, biztalk developer [Other] - 4-7 days [facility] [place]] Avelina Vallejo MD [Physician] - 1 week (Appointment scheduled for Friday, January 10, 2020 at 11:00am. Severe aortic stenosis, AFib w RVR, severe PAD) Yao Weeks MD [Primary Care Provider] - 4-7 days (Appointment scheduled for Friday, January 10, 2020 at 8:15am.) Desi Nicholson MD [Staff Physician] - 1 week (Appointment scheduled for Saturday, January 11, 2020 at 8:30am. Liver lesions) Discharge Activity: Use walker/crutches as instructed and Oxygen as instructed Activity Restrictions/Additional Instructions: Continue renal hemodialysis and cardiac diet. Please continue oxygen as instructed. He will likely need oxygen during the day for some time before he can be weaned down to your prior regimen of using it at night only. Please check your oxygen saturation at home, target saturation 88-92%. Monitor your blood pressure and heart rate 3 times daily, record values to bring to your appointment. Hold your metoprolol if your blood pressure is lower than 110 systolic or 70 diastolic, or heart rate is lower than 60. Make sure to follow-up with your senior oracle adf developer regarding this, as well as aortic stenosis, as well as severe peripheral arterial disease in your abdomen and legs. Please make sure to follow-up with your oncologist as well regarding the liver lesions to discuss whether he wants any additional imaging or biopsy. If you experience progressively worsening shortness of breath, cough, high spiking fevers, persistent/severe chest pain, persistently low blood pressure, or elevated heart rates above 110 which are not improving with medication, please seek medical attention without delay. 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
== END 2020-01-02 17:00 | disposition home health service (06) | DRG 871 ==
LOC: ER 10:11 → ICU 12:02
PROVIDERS: Family Medicine; Internal Medicine Nephrology; Admitting Provider Internal Medicine; PCP Family Medicine; Visit Provider Internal Medicine
DX: A41.9 Sepsis, unspecified organism (principal); J18.9 Pneumonia, unspecified organism; N18.6 End stage renal disease; J44.0 Chronic obstructive pulmonary disease with (acute) lower respiratory infection; I13.0 Hypertensive heart and chronic kidney disease with heart failure and stage 1 through stage 4 chronic kidney disease, or unspecified chronic kidney disease; I25.5 Ischemic cardiomyopathy; I48.91 Unspecified atrial fibrillation; Z99.2 Dependence on renal dialysis; G47.33 Obstructive sleep apnea (adult) (pediatric); I35.0 Nonrheumatic aortic (valve) stenosis; I73.9 Peripheral vascular disease, unspecified; Z95.0 Presence of cardiac pacemaker; D69.6 Thrombocytopenia, unspecified; Z85.46 Personal history of malignant neoplasm of prostate; R19.7 Diarrhea, unspecified; Z79.82 Long term (current) use of aspirin; D63.1 Anemia in chronic kidney disease; I70.90 Unspecified atherosclerosis; F03.90 Unspecified dementia, unspecified severity, without behavioral disturbance, psychotic disturbance, mood disturbance, and anxiety; E78.5 Hyperlipidemia, unspecified; E11.51 Type 2 diabetes mellitus with diabetic peripheral angiopathy without gangrene; E11.22 Type 2 diabetes mellitus with diabetic chronic kidney disease; H40.9 Unspecified glaucoma; E05.90 Thyrotoxicosis, unspecified without thyrotoxic crisis or storm; Z87.891 Personal history of nicotine dependence; I71.2 Thoracic aortic aneurysm, without rupture; I25.10 Atherosclerotic heart disease of native coronary artery without angina pectoris; I50.9 Heart failure, unspecified
CPT/HCPCS: 12345; 36415; 36430; 36600; 71045; 74175; 80051; 80053; 81001; 82306; 82310; 82533; 82607; 82728; 82746; 82810; 83540; 83550; 83605; 83690; 83735; 83970; 83986; 84100; 84439; 84443; 84481; 84484; 85025; 86706; 86803; 86850; 86900; 86920; 87040; 87340; 87641; 93005; 94640; 96372; 96375; 99284; J0282; J1644; J1956; J2405; J2543; J3370; J7030; J7040; J7050; J7060; P9016; Q3014; Q4081; Q9967

== ENCOUNTER 2020-01-11 08:46 | Outpatient (CLI) | payer MEDICARE, SELFPAY ==
[2020-01-11] MEDS: lidocaine 1% INJ 20 mL INJECTION (10:15)
[2020-01-11] MEDS: goserelin acetate 10.8 mg Implant IM (10:30)
[2020-01-11 10:58] LABS: Prostate Specific Antigen 0.27 ng/mL (0-4)
--- NOTE | 2020-01-13 14:41 | ONC FU_ITS ---
Dr. Nicholson follow up note Patient: Sam Arevalo Unit #: [id number]: 1945 Dicatated By: Desi Nicholson M.D.Date of Visit:January 11, 2020 Onc Med Follow-up/Prog Note History of Present Illness: Mr. Sam Arevalo, is a 74-year-old gentleman with history of elevated PSA recently underwent prostate biopsy on 10/22/2018 which showed adenocarcinoma in 5 cores obtained from right side.PSA checked in August 2018 was 23.9 Patient was seen by Dr. Ahumada, and he was started on Casodex 50 mg by mouth daily Bone scan was done on 11/03/2018 showed focal area of increase activity involving left ilium adjacent to this SI joint most consistent with metastatic disease corresponding sclerotic lesion on the concurrent CT measuring 1.4 cm. Additional 1.4 cm sclerotic lesion seen on CT scan in the left iliac wing and smaller sclerotic lesion right ischium measuring 0.4 cm without corresponding bone scan activity. Some mild amount of low-grade nonspecific activity in the right parieto-occipital calvarium. Next CT scan of abdomen pelvis done on 11/03/2018, showed chronic emphysema, small pleural effusion, small sliding hiatal hernia abnormal liver, ill-defined foci of decreased attenuation/enhancement surrounded by hypervascularity right lobe and medial segment of left lobe. Additional ill-defined non-hypervascular lesion of the lateral segment left lobe. Benign liver lesions including cysts and caudate lobe cavernous hemangioma. Hyperdense cyst or exophytic mass lower pole left kidney Last colonoscopy was done more than [address] scan of abdomen showing hepatic lesions, concern was whether patient has second primary tumor marker were checked including CA 19???9 which was within normal limit at 17.6 and CEA which was [address] PET scan done on 12/18/2018 showed there are multiple hepatic hypodensities, all with uptake isometabolic to normal hepatic background. This makes a benign diagnosis more likely. 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 No additional similar osseous lesion seen. on Casodex 50 mg daily. 3 monthly Zoladex and Xgeva Follow-up bone scan done on 08/30/2019 showed a small punctate focus of radiotracer uptake along the left superior sacroiliac joint slightly less intense today. No evidence of disease progression. Low-grade chlamydial activities unchanged and doubtful clinical significance CT scan of chest done on 08/30/2019 showed previously described sclerotic lesion involving left ilium adjacent to SI joint migrating 1.3 cm stable. Additional smaller unchanged left iliac wing sclerotic lesion. Splenomegaly appears progressed since prior exam now 17 cm. Bilateral pleural effusion small with loculated pleural fluid in both lungs bases. Cardiomegaly. Shotty periaortic and retroperitoneal lymph nodes. No significant lymphadenopathy Prostrate gland enlargement. Hypodense cyst or exophytic mass lower pole left kidney measured 2 cm is unchanged. Stable low-attenuation lesions in liver both lobes CT angiogram abdomen done on 12/31/2019 due to recent hospitalization showed severe peripheral vascular disease including stable occlusion of abdominal aorta just below the renal arteries and common iliac arteries occlusion bilaterally with continued reconstitution of the common femoral arteries from the collaterals. Increased bilateral pleural fluid collections. Several subtle low density lesions in the liver with the largest in the lateral segment left liver size 2.6 cm, appears to have possibly increase in size since 1.7 measurements on 11/03/2018. Concerned about metastatic disease, CT PET scan was recommended Came for follow-up, patient was recently admitted to hospital on 12/31/2019 with sepsis, pneumonia, nausea vomiting and diarrhea and progressive congestive heart failure, ejection fraction was 15-20%, is a pneumonia was treated with Zosyn, cardiology was consulted as patient required vasopressors for hypotension and CBC showed progressive anemia hemoglobin gone down to 7.4 with no evidence of acute bleeding, patient has history of atrial fibrillation but not on chronic anticoagulation due to history of GI bleed. Patient was given 1 unit of packed RBC. Patient had CT scan of abdomen done which showed incidental 2.5 cm left liver lesion which appeared to have increased in size since October 2018 Patient also has history of severe peripheral vascular disease and with stable occlusion of abdominal aorta just below the renal arteries and common iliac artery occlusion bilaterally, now being evaluated by vascular surgeon in [place] Patient denies any fever or chills, denies any nausea or vomiting, denies any diarrhea constipation, denies any melena or hematochezia, denies any hemoptysis or hematemesis, denies any jaundice, denies any new bony pains. Medications: Albuterol Sulfate 1 Puff(s) (of 108 (90 base) mcg/act) Aerosol Powder, Breath Activated Inhalation daily, ALPRAZolam 1 Tablet (of 0.25 mg) Oral b.i.d. PRN, Amiodarone HCl 0.5 Tablet (of 200 mg) Oral b.i.d., Aspirin 1 Tablet (of 81 mg) Oral daily, Atorvastatin Calcium 1 Tablet (of 40 mg) Oral at bedtime, B Complex Vitamins 1 Tablet Oral daily, Cilostazol 1 Tablet (of 100 mg) Oral b.i.d., Metoprolol Tartrate 0.5 Tablet (of 25 mg) Oral b.i.d. PRN, Trelegy Ellipta 1 puff(s) (of 100-62.5-25 mcg/inh) Aerosol Powder, Breath Activated Inhalation daily Allergies: No Known Allergies. Review of Systems: Constitutional - Appetite is fair. Energy level is poor. No fever, chills, night sweats. Weight is stable, ENMT - Positive for sinus congestion/drainage. No mouth sores. No sore throat or difficulty swallowing, Hematologic/Lymphatic - Positive for easy bruising, Respiratory - Positive for shortness of breath. No cough. No pleuritic pain or hemoptysis, Cardiovascular - No angina pain. No palpitations, Gastrointestinal - No nausea or vomiting. No heartburn or acid reflux. No diarrhea or constipation. No blood in the stool or black stools, Genitourinary (M) - No dysuria or hematuria. No urinary frequency. No urgency or incontinence. Pt recently started dialysis 3x weekly, Musculoskeletal - Positive for generalized joint pain. Pt also report chronic back pain, Neurologic - No headache or dizziness. No numbness/paresthesias or other focal neurologic symptoms, Psychiatric - Positive for anxiety, no depression. No insomnia. Vital Signs: Performed on January 11, 2020 09:35 Height - 70.00 in Weight - 173.4 lbs (HIGH) BSA - 1.96 sq.m BMI - 24.88 Temperature - 98.2 F (LOW) Pulse - 67 /min Respiration - 22 /min BP - 111/47 mm(hg) O2 Sat - 93 % (LOW) Pain - 0 Performance Status: 2 - Ambulatory/capable of all self-care, unable to perform any work activities. Up and about more than 50% of waking hours. (ECOG) Physical Examination: ENMT - no mouth sores, no thrush, Respiratory - decreased breath sounds at the base with bibasilar rales, Cardiovascular - irregular rate and rhythm, Abdomen - soft, bowel sounds present, Extremities - 2+ edema bilaterally. Lab/Imaging: Test performed on January 11, 2020 09:55 PSA 0.27 ng/mL Test performed on Aug 30, 2019 09:10 Testosterone 13.3 ng/dL Glucose 97 mg/dL BUN 37 mg/dL Creatinine 2.3 mg/dL Cr Clearance (Est) 29.99 mL/min Sodium 141 mmol/L Potassium 4.7 mmol/L Chloride 106 mmol/L CO2 22 mmol/L Calcium 9.6 mg/dL Protein, Total 7.6 g/dL Albumin 4.3 g/dL Bilirubin, Total 1.3 mg/dL Alkaline Phosphatase 194 IU/L AST (SGOT) 14 IU/L ALT (SGPT) 12 IU/L WBC 4.8 10 3/uL RBC 4.11 10^12/L HGB 11.3 g/dL HCT 37.8 % MCV 92.0 fL MCH 27.5 pg MCHC 29.9 g/dL Platelet Count 130 10^9/L RDW 20.4 % MPV 10.7 fL Lymphocytes 0.9 10^9/L Neutrophils 0.0 10 3/uL Monocytes 0.6 10^9/L Eosinophils 0.1 10^9/L Basophils 0.0 10^9/L Neutrophil % 1.2 % Manual Lymphocytes 18.0 % Manual Monocytes 11.8 % Manual Eosinophils 1.2 % Manual Basophils 0.2 % NRBCs 0.0 /100 WBC Impression: Prostatic adenocarcinoma per needle biopsy done on 10/22/2018, showed right lateral apex, prostatic adenocarcinoma, [place] score 3+3, 30% involvement Right lateral mid, prostatic adenocarcinoma, [place] score 3+4, 30% involvement Right lateral base, prostatic adenocarcinoma, Alice score 3+3, 95% involvement Right mid, prostatic adenocarcinoma 3+4, 100% involvement Right base, adenocarcinoma, Alice score 3+4, 95% involvement PSA checked in August 2018 was 23.9. Bone scan done on 11/03/2018 showed focal area of increase activity involving left ilium adjacent to the SI joint most consistent with metastatic disease. Or responding sclerotic lesion on the concurrent CT scan measuring 1.4 cm Additional 1.4 cm sclerotic lesion seen on CT scan in the left iliac wing and smaller sclerotic lesion right ischium measuring 0.4 cm without corresponding bone scan activity. Small amount of low-grade nonspecific activity in the right parietal occipital calvarium. CT scan of abdomen pelvis done on 11/03/2018 showed abnormal liver, ill-defined foci of decreased attenuation/enhancement surrounded by hypervascularity right lobe and medial segment of left lobe. Additional ill-defined non-hyper vascular lesions of the lateral segment of left lobe. Next Additional benign liver lesions including cysts and caudate lobe cavernous hemangioma Hyperdense cyst or exophytic mass lower pole left kidney There was a concern about hepatic lesion seen on CT scan, regarding this second primary so tumor markers, CA 19???9, CEA and CT PET scan was ordered, labs done on 11/16/2018 showed CA 19???9 and CEA were within normal limits and PSA was 17.[address] PET scan done on 12/18/2018 showed minimally FDG positive left iliac lesion, consistent with unifocal osseous metastatic disease from prostrate cancer. Uptake in liver hypodensities is iso-metabolic with a normal background, metastatic disease is less likely. Started on Casodex 50 mg by mouth daily by Dr. Ahumada on 11/04/2018 And Zoladex 10.8 mg on 11/30/2018 and Xgeva 120 mg discussed with patient his CT PET scan findings and tumor markers as there was a concern but possibility of second primary involving the liver. CT scan of liver showed extensive hepatic lesions but CT PET scan findings are consistent with benign hepatic lesion rather than malignant. Tumor markers also within normal range, and a single bone lesion in left iliac bone. So at this point, did not feel any further workup was needed. Mr Arevalo has continued with 3 monthly dose of Zoladex and daily Casodex and also change Xgeva to every 3 months. Mr Amezcua returns to clinic in 3 months with CBC CMP and PSA and for Zoladex and Xgeva injection. He is tolerating the Casodex, Zoladex and Xgeva well. Atrial fibrillation, not on anticoagulation because of history of GI bleed End stage renal disease on hemodialysis Congestive heart failure, Plan: Discussed with patient regarding his labs from 01/10/2020, which showed white blood count 5.8 hemoglobin 8.6 hematocrit 28.3 platelets 87,000, patient was given 1 unit of packed RBCs for hemoglobin 7.4 on 01/02/2020, due to recent hospitalization. Clinically, patient is doing reasonably well, now recovering from recent hospitalization, As far as prostrate cancer is concern, PSA is pending, we will proceed with his next 3 monthly dose of Zoladex today but we will hold his Xgeva and and patient return to clinic in 6 weeks with CBC and CMP and at that time we'll consider follow-up CT PET scan .To evaluate enlarging hepatic lesion seen on recently done CT angiogram due to recent hospitalization on 12/31/2019 Signed By: Desi Nicholson M.D. <<Signature on File>>
== END 2020-01-11 08:47 | disposition home or self-care (01) ==
LOC: ONCMED 08:49
PROVIDERS: PCP Family Medicine; Visit Provider Internal Medicine Hematology & Oncology
DX: C61 Malignant neoplasm of prostate (principal); C79.51 Secondary malignant neoplasm of bone; R93.2 Abnormal findings on diagnostic imaging of liver and biliary tract; I48.91 Unspecified atrial fibrillation; N18.6 End stage renal disease; Z99.2 Dependence on renal dialysis; I50.9 Heart failure, unspecified; Z79.818 Long term (current) use of other agents affecting estrogen receptors and estrogen levels; Z79.899 Other long term (current) drug therapy
CPT/HCPCS: 84153; 96372; 96402; 99214; J2001; J9202

== ENCOUNTER 2020-01-30 10:21 | Inpatient (IN) | payer MEDICARE, SELFPAY ==
[2020-01-30] VITALS (25 sets, daily range): BP systolic 67–114; BP diastolic 43–65; PULSE 78–99; RESP 10–27; TEMP 36.4; O2SAT 89–99; BMI 21.5
--- NOTE | 2020-01-30 10:46 | ECG_ITS ---
Measurements Intervals [place] Rate: 96 P: RI: 0 QRS: -73 QRSD: 217 T: 103 QT: 458 QTc: 581 UNCERTAIN REGULAR RHYTHM-possibly sinus MARKED LEFT AXIS DEVIATION [QRS AXIS < -30] LEFT BUNDLE BRANCH BLOCK [120+ ms QRS DURATION, 80+ ms Q/S IN V1/V2, 85+ ms R I/aVL/V5/V6] Compared to ECG 01/01/2020 08:47:00 Left bundle-branch block now present Sinus rhythm no longer present Intraventricular conduction delay no longer present T-wave abnormality no longer present Possible ischemia no longer present Electronically Signed On 01-30-2020 20:33:39 CDT by Humphrey Del Rio M.D. [email or web address]
--- NOTE | 2020-01-30 10:46 | XR_ITS ---
WS: [id number] XR chest 1V portable [id number] REASON FOR EXAM: sob FINDINGS: Gross cardiomegaly is again noted. A triple-lumen catheter is seen extends from the right s rachel. In the right middle lobe there is evidence of a smooth appearing mass most likely a phantom tumo r from pulmonary edema. There is also increased pneumonia in the right lung base and pulmonary edema. XR/XR chest 1V portable [id number] IMPRESSION: Gross cardiomegaly Congestive heart failure. A nodular mass in the right lung most likely a phantom tumor from pulmonary jennifer ma. The chest appears to be more disease than on previous exam.
--- NOTE | 2020-01-30 10:48 | W.ED.NAVMDI ---
HPI - Nausea/Vomiting/Diarrhea General: Chief complaint: Nausea/Vomiting/Diarrhea Stated complaint: n/v Time Seen by Provider: 01/30/20 10:45 Source: patient Mode of arrival: ambulatory Limitations: no limitations History of Present Illness: HPI Narrative: 74-year-old male that has a history of end-stage renal disease states he has had nausea vomiting diarrhea for last 3 days along with increased shortness of breath and weakness. Patient's PCP sent him here and he is not receive dialysis today. He denies any worsening or improving factors. He denies any abdominal pain or fevers. MD elicited complaint: nausea, vomiting and diarrhea Associated nausea: Yes Associated symtoms: Reports nausea; Denies chest pain, dysuria or headache(s) Review of Systems Const: Denies: fever(s), chills, body aches or change in appetite Eyes: Denies: blurry vision or eye discomfort ENMT: Denies: throat pain or dental pain Card: Denies: chest pain Resp: Reports: dyspnea GI: Reports: nausea and vomiting : Denies: dysuria Musc: Denies: neck pain or back pain Skin/Breast: Denies: rash Neuro: Denies: headache(s) Psych: Denies: depression Romie/Lymph: Denies: easy bruising All/Imm: Denies: urticaria PFSH ED PFSH: Medical History Anemia Aortic stenosis Arteriosclerosis Atrial fibrillation Cardiac pacemaker Cardiomyopathy as manifestation of underlying disease The LV appears to be dilated with a severe diffuse hypokinesia. The LV ejection fraction probably around 15 to 20% COPD (chronic obstructive pulmonary disease) Dementia Diabetes mellitus ESRD (end stage renal disease) Glaucoma HTN (hypertension) Hyperlipidemia Hyperthyroidism HUMAIRA (obstructive sleep apnea) Prostate cancer Follows Dr. Nicholson, he is on Casodex/Zoladex PVD (peripheral vascular disease) Renal mass Rhabdomyolysis Severe aortic valve stenosis Thoracic aortic aneurysm Stable as per review of previous imaging Thrombocytopenia Due to splenomegaly Varicose vein of leg Vitamin D deficiency Surgical History S/P cataract surgery S/P cholecystectomy S/P dialysis catheter insertion (11/29/19) Family History Mother , 86; lung Cancer Father , 60's; stomach Cancer Social History Smoking and tobacco status: former smoker Alcohol intake: former Physical Exam Const: COMMON NORMALS: no acute distress, patient oriented x3 and healthy appearing HENMT: COMMON NORMALS: normocephalic and atraumatic HEAD & SCALP: normocephalic and atraumatic Eye: COMMON NORMALS: Equal, round and reactive pupils present and EOMs intact bilaterally PUPIL: Yes Equal, round and reactive pupils present Neck/C-Spine: COMMON NORMALS: full ROM and supple Chest: COMMONS NORMALS: normal inspection of the chest and normal palpation of entire chest wall Resp: COMMON NORMALS: normal respiratory effort, No retractions, No use of accessory muscles and clear to auscultation bilaterally AUSCULTATION: clear to auscultation bilaterally Cardio: COMMON NORMALS: regular rate, regular rhythm and No murmurs present (Cardio) RATE: regular rate RHYTHM: regular rhythm GI: COMMON NORMALS: Normal to inspection, nondistended, normoactive bowel sounds present, Soft to palpation, non-tender and no masses PALPATION: Yes Soft to palpation Extremity: COMMON NORMALS: normal to inspection and full ROM Neuro: COMMON NORMALS: patient oriented x3, moves all extremities and no focal motor deficits Psych: COMMON NORMALS: mental status grossly normal, Normal thought process present and cooperative THOUGHT PROCESS: Normal thought process present Skin: COMMON NORMALS: no rashes or lesions noted and no wounds GENERAL SKIN EXAM: no rashes or lesions noted Course Vital Signs: Vital signs: Vital Signs Temperature 97.6 F 01/30/20 10:22 Pulse Rate 97 01/30/20 11:18 Respiratory Rate 15 01/30/20 11:18 Blood Pressure 114/60 01/30/20 11:18 Pulse Oximetry 96 01/30/20 11:18 MDM - Nausea/Vomiting/Diarrhea MDM Narrative: Medical decision making narrative: Sam presents here with shortness of breath likely from pulmonary edema. Patient has pulmonary edema on chest x-ray slightly fluid overloaded as well. Patient is on dialysis and is scheduled for dialysis today. Patient has been stable here. I spoke to hospitalist and will admit to Dr. Saucedo patient given Lasix and will dialyze here as well Lab Data: Labs: Lab Results 01/30/20 01/30/20 01/30/20 Range/Units 10:47 10:47 10:47 WBC 6.7 (4.0-10.0) 10^3/ uL RBC 2.87 L (4.1-5.3) 10^6/u L Hgb 9.5 L (11.7-16.6) g/dL Hct 31.6 L (42.0-52.0) % MCV 110.1 H (80-94) fL MCH 33.1 (28.0-34.0) pg MCHC 30.1 (30.0-36.0) g/dL RDW 22.9 H (12.1-15.1) % Plt Count 100 L (130-400) 10^3/c mm MPV 10.6 H (7.4-10.4) fL Neut % (Auto) 76.0 % Lymph % (Auto) 8.8 % [place] % (Auto) 11.8 % Eos % (Auto) 2.1 % Baso % (Auto) 0.4 % Neut # (Auto) 5.1 (1.8-7.7) 10^3/u L Lymph # (Auto) 0.6 L (0.8-4.8) 10^3/u L [place] # (Auto) 0.8 (0.2-0.9) 10^3/u L Eos # (Auto) 0.1 (0.0-0.8) 10^3/u L Baso # (Auto) 0.0 (0.0-0.1) 10^3/u L Nucleated RBC % (a uto) 0 % Nucleated RBCs # 0.0 /100WBC Sodium 136 (136-145) mmol/L Potassium 5.2 H (3.5-5.1) mmol/L Chloride 94 L (98-107) mmol/L Carbon Dioxide 19 L (22-29) mmol/L Anion Gap 28.2 H (5-19) BUN 38 H (8-23) mg/dL Creatinine 4.6 H (0.7-1.2) mg/dL Glucose 114 (65-115) mg/dL Calculated Osmolal ity 280 L (285-295) mOsm/k g Calcium 9.2 (8.5-10.5) mg/dL Total Bilirubin 3.9 H (0.15-1.2) mg/dL AST 32 (0-40) U/L ALT 19 (0-41) U/L Alkaline Phosphata se 152 H (40-130) IU/L NT-Pro-B Natriuret Pep [id number] H (0-125) pg/mL Total Protein 7.6 (6.6-8.7) g/dL Albumin 4.2 (3.5-5.2) g/dL Globulin 3.4 (1.3-4.6) g/dL Lipase 15 (13-60) U/L Imaging Data^: CXR: Radiologist's impression: [place] [address] XRay Report Signed Patient: Sam Arevalo Unit #: [id number] : 1945 Age/Sex: 74 / M ADM Date: 01/30/20 Loc: ER Room/Bed: Attending Dr: Ordering Provider/Ordering MD: Christopher Byers MD Date of Service: 01/30/20 Procedure(s): XR chest 1V portable [id number] Accession Number(s): [id number] Report Number: [id number] WS: [id number] XR chest 1V portable [id number] REASON FOR EXAM: sob FINDINGS: Gross cardiomegaly is again noted. A triple-lumen catheter is seen extends from the right side. In the right middle lobe there is evidence of a smooth appearing mass most likely a phantom tumor from pulmonary edema. There is also increased pneumonia in the right lung base and pulmonary edema. XR/XR chest 1V portable [id number] IMPRESSION: Gross cardiomegaly Congestive heart failure. A nodular mass in the right lung most likely a phantom tumor from pulmonary edema. The chest appears to be more disease than on previous exam. EKG Data^: EKG 1: Attestation: I personally reviewed and interpreted this EKG as follows: EKG interpretation date: 01/30/20 EKG interpretation time: 11:05 Interpretation: nsr hr 96 peaked t waves and lbbb qrs 217 qtc 512 Discharge Plan Discharge Patient Disposition: Admitted As Inpatient Clinical Impression: End-stage renal disease (ESRD), Pulmonary edema Condition: Stable Referrals: Yao Weeks MD [Primary Care Provider] - Coding Level of Care Code ED Senior Marketing Specialist for Chg Fwd Exam Comprehensive
[2020-01-30] MEDS: ondansetron 2 mg/ML SDV 2 mL 4 MG IVP (10:51)
[2020-01-30 10:59] LABS: Basophils % 0.4 %; Eosinophils # 0.1 10^3/uL (0.0-0.8); Eosinophils % 2.1 %; Hematocrit 31.6 % (42.0-52.0); Hemoglobin 9.5 g/dL (11.7-16.6); Lymphocytes # 0.6 10^3/uL (0.8-4.8); Lymphocytes % 8.8 %; Mean Corpuscular HGB Conc 30.1 g/dL (30.0-36.0); Mean Corpuscular Hemoglobin 33.1 pg (28.0-34.0); Mean Corpuscular Volume 110.1 fL (80-94); Mean Platelet Volume 10.6 fL (7.4-10.4); Monocytes # 0.8 10^3/uL (0.2-0.9); Monocytes % 11.8 %; Neutrophils # 5.1 10^3/uL (1.8-7.7); Nucleated Red Blood Cells % 0 %; Platelet Count 100 10^3/cmm (130-400); Red Blood Count 2.87 10^6/uL (4.1-5.3); Red Cell Distribution Width 22.9 % (12.1-15.1); White Blood Count 6.7 10^3/uL (4.0-10.0)
[2020-01-30 11:19] LABS: Alanine Aminotransferase 19 U/L (0-41); Albumin Level 4.2 g/dL (3.5-5.2); Alkaline Phosphatase 152 IU/L (40-130); Anion Gap 28.2 (5-19); Aspartate Amino Transferase 32 U/L (0-40); Blood Urea Nitrogen 38 mg/dL (8-23); Calcium 9.2 mg/dL (8.5-10.5); Carbon Dioxide 19 mmol/L (22-29); Chloride 94 mmol/L (98-107); Globulin 3.4 g/dL (1.3-4.6); Glucose 114 mg/dL (65-115); Lipase 15 U/L (13-60); Osmolality Calculated 280 mOsm/kg (285-295); Potassium 5.2 mmol/L (3.5-5.1); Sodium 136 mmol/L (136-145); Total Bilirubin 3.9 mg/dL (0.15-1.2); Total Protein 7.6 g/dL (6.6-8.7)
[2020-01-30] MEDS: FUROsemide 10 mg/mL SDV 2mL 20 MG IVP (12:40)
--- NOTE | 2020-01-30 13:18 | P.HP_ITS ---
Providers/Chief Complaint Primary Care Provider: Yao Weeks MD Chief Complaint: n/v History of Present Illness Sam Arevalo is a 74 year old male with ESRD, on chronic hemodialysis, with otherwise extensive past medical history that includes severe aortic stenosis, severe intra-abdominal and peripheral arterial disease, atrial fibrillation, status post pacemaker, COPD, HUMAIRA, renal mass, chronic thrombocytopenia, prostate cancer, cardiomyopathy with chronic CHF, EF 2025% was brought to the ER today because of nausea which is been ongoing since his last discharge. Patient also stated that he was feeling a little short of breath early in the morning and required more oxygen than his baseline. He complains of cough with ex pectoration on and off. Sputum production is not bloodstained, not foul- smelling. He denies of having any fever, chills, orthopnea, PND, leg swelling, dizziness, palpitation, loss of consciousness. He denies of having any COVID-19 exposure other than when he was in the hospital. He denies of having any dysuria, diarrhea, abdominal pain, chest pain. Patient states he gets dialysis Thursday, Thursday, Thursday with last dialysis on Thursday in which he had completed his session without any problem. Since Thursday he started having more nausea and today morning he was mildly short of breath than his baseline. Blood work done in the ER showed a hemoglobin of 9.5, white count of 6.7, platelet count of 100, potassium of 5.2, creatinine of 4.6 with proBNP of [id number], chest x-ray was concerning for bilateral fluffy infiltrates concerning for pulmonary edema so hospitalist service was requested for admission. In the ER he was given 20 mg of IV Lasix by the time I had seen him and was on 3 L roberth al cannula saturating 94%. Review of Systems Const: Denies: fever(s), chills, body aches, change in appetite, malaise, night sweats, diaphoresis, change in sleep pattern, daytime sleepiness or sno ring Eyes: Denies: change in vision, blurry vision, photophobia, eye discomfort or eye discharge ENMT: Denies: throat pain, enlarged tonsils, hoarseness, mouth pain, oral sores, dry mouth, tinnitus, nasal congestion or post nasal drip Card: Reports: palpitations and irregular heart rhythm; Denies: chest pain, edema, swelling of feet/ankles, lightheadedness, syncope, pre-syncope, dyspnea on exertion, orthopnea, leg pain with exertion or acrocyanosis Resp: Reports: dyspnea and productive cough; Denies: non-productive cough, wheezing, stridor, pain on inspiration, change in phlegm color, hemoptysis or chest congestion GI: Reports: nausea; Denies: abdominal pain, vomiting, hematemesis, coffee ground emesis, dysphagia, heartburn, diarrhea, constipation, bloating, GI cramping, change in bowel habits, pain on defecation, hematochezia or melena : Denies: flank pain, difficulty urinating, dysuria, urinary frequency, urinary urgency, urinary hesitancy, urinary dribbling, difficulty starting urination, change in urine stream, nocturia or hematuria Musc: Denies: neck pain, back pain, extremity pain, joint pain, joint swelling, joint redness, joint stiffness or limited range of motion Neuro: Denies: headache(s), numbness in extremities, weakness in extremities, sensory changes, lack of coordination, difficulty walking, frequent falls, dizziness, vertigo, confusion, Slurred speech present, difficulty communicating thoughts or seizure-like activity Psych: Denies: anxiety, depression, mood swings, panic attacks, hopelessness or irritability Endo: Denies: polyuria, polydipsia, tired all the time, cold intolerance, excessive sweating, flushing or heat intolerance Romie/Lymph: Denies: easy bruising or easy bleeding All/Imm: Denies: tongue swelling, facial swelling or acute wheezing Medications/Allergies Home Medications Medication Instructions Recorded Confirmed Last Taken Type Jake Ellipta 1 inh INHALATION DAILY #1 ea 11/30/19 01/30/20 01/30/20 Rx albuterol sulfate [ProAir HFA] 2 puff INHALATION Q6H PRN #1 unit 11/30/19 01/30/20 Unknown Rx alprazolam 0.25 mg PO BID PRN #30 tab 11/30/19 01/30/20 01/28/20 Rx cilostazol 100 mg PO BID 12/31/19 01/30/20 01/30/20 History aspirin 81 mg PO DAILY 30 Days #30 tab 01/02/20 01/30/20 01/30/20 Rx amiodarone 200 mg tablet 200 mg PO DAILY 30 Days #60 tab 01/10/20 01/30/20 01/30/20 Rx nitroglycerin [Nitrostat] 0.4 mg SUBLINGUAL Q5M PRN 01/30/20 01/30/20 01/29/20 History rosuvastatin 40 mg PO DAILY 01/30/20 01/30/20 Unknown History Allergies Allergy/AdvReac Type Severity Reaction Status Date / Time No Known Allergies Allergy Verified 01/30/20 10:32 PFSH Acute PFSH: Medical History Anemia Aortic stenosis Arteriosclerosis Atrial fibrillation Cardiac pacemaker Cardiomyopathy as manifestation of underlying disease The LV appears to be dilated with a severe diffuse hypokinesia. The LV ejection fraction probably around 15 to 20% COPD (chronic obstructive pulmonary disease) Dementia Diabetes mellitus ESRD (end stage renal disease) Glaucoma HTN (hypertension) Hyperlipidemia Hyperthyroidism HUMAIRA (obstructive sleep apnea) Prostate cancer Follows Dr. Nicholson, he is on Casodex/Zoladex PVD (peripheral vascular disease) Renal mass Rhabdomyolysis Severe aortic valve stenosis Thoracic aortic aneurysm Stable as per review of previous imaging Thrombocytopenia Due to splenomegaly Varicose vein of leg Vitamin D deficiency Surgical History S/P cataract surgery S/P cholecystectomy S/P dialysis catheter insertion (11/29/19) Family History Mother , 86; lung Cancer Father , 60's; stomach Cancer Social History Smoking and tobacco status: former smoker Alcohol intake: former Vitals/I&O/Wt Last Vital Signs Temp 97.6 F 01/30/20 10:22 Pulse 97 01/30/20 11:18 Resp 15 01/30/20 11:18 BP 114/60 01/30/20 11:18 Pulse Ox 96 01/30/20 11:18 Weight last 48 hrs Weight 72.121 kg Physical Exam Narrative: EXAM NARRATIVE: General: No acute distress, AO x3, pale HEENT: PERRLA, pupils bilaterally equal and reactive Chest: Normal vesicular breath sounds, bilateral coarse crackles present more on the right lower and middle zone, anterior more than posterior, equal good air entry bilaterally, dialysis port present in the right hemithorax, no bleeding or redness around the insertion site. CVS: S1-S2 irregularly ill irregular, ejection systolic murmur 1/6 at the aortic area radiating to carotids, no tachycardia, no gallops, no rubs Abdomen: Soft, nontender, no organomegaly, bowel sounds present Neuro: No focal deficits, no facial deformity, AO x3, power 5/5 in all limbs Data : 01/30/20 10:47 01/30/20 10:47 A&P Assessment and plan (1) Acute decompensated heart failure: Status: Acute (2) Pulmonary edema: Status: Acute (3) Atrial fibrillation: Status: Acute Qualifiers: Atrial fibrillation type: longstanding persistent Qualified Code(s): I48.11 - Longstanding persistent atrial fibrillation (4) End-stage renal disease (ESRD): Status: Acute (5) Hyperkalemia: Status: Acute (6) Severe aortic stenosis: Status: Chronic (7) Cardiomyopathy as manifestation of underlying disease: Status: Acute (8) Leriche syndrome: Status: Acute (9) Diabetes mellitus: Status: Acute (10) HTN (hypertension): Status: Acute (11) COPD (chronic obstructive pulmonary disease): Status: Acute Additional A&P Information Shortness of breath: Most likely because of pulmonary edema from acute decompensated heart failure: Ischemic cardiomyopathy: Echocardiogram from November 2019 shows an EF of 20 to 25% with grade 2 diastolic dysfunction with severely decreased left ventricle systolic function, mildly increased RV size, moderately decreased RV systolic function, severe aortic stenosis with MONCHO of 0.44 cm?. CKD: End-stage renal disease on maintenance hemodialysis on Thursday, Thursday, Thursday. Last dialysis on Thursday. proBNP more than 10,000. Check procalcitonin, CT chest without contrast to rule out any infiltrate. Giv en the fact that patient does not have any fever, no leukocytosis is present we will hold off on antibiotics for now. If patient has any fever will start him on a coverage for hospital-acquired pneumonia. We will consult nephrology stat for hemodialysis. Oxygen supplementation keeping saturation over 90%. DuoNeb's every 4 hours, albuterol as needed. Atrial fibrillation: Rate controlled for now. Continue with home dose of amiodarone 200 mg daily. Not on anticoagulation due to history of GI bleed. Anemia: History of GI bleed in the past. On last admission patient's hemoglobin was 7.4 and required warranted transfusion. Hemoglobin 9.4 today. Check iron panel. Continue to monitor CBC daily. Hypertension: Blood pressure controlled for now. We will continue to monitor. History of type 2 diabetes mellitus: Patient is not on any oral hypoglycemics at home. Check HbA1c. 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 CODE STATUS: Patient's for now wants to get everything done if needed. But also states in case of acute event would like his to make decisions. Cardiac renal dialysis diet. Full code. Heparin 5000 every 12 hourly for DVT prophylaxis. Attestations Medical Necessity Statement*: Most likely more than 2 midnights for acute decompensated heart failure Time Spent in Patient Care: Greater than 35 minutes Coding Level of Care Code Acute Washer Blanket for [facility] Elised Diagnoses Acute decompensated heart failure I50.9 Pulmonary edema J81.1 Atrial fibrillation I48.11 Atrial fibrillation type: longstanding persistent End-stage renal disease (ESRD) N18.6 Hyperkalemia E87.5 Severe aortic stenosis I35.0 Cardiomyopathy as manifestation of underlying disease I43 Leriche syndrome I74.09 Diabetes mellitus E11.9 HTN (hypertension) I10 COPD (chronic obstructive pulmonary disease) J44.9
--- NOTE | 2020-01-30 13:41 | CT_ITS ---
WS: [id number] CT chest wo con [id number] REASON FOR EXAM: chf IV CONTRAST ADMINISTERED: None. TOTAL EXAM DLP: 654.[address] scans at [facility] use at least one of these dose optimization techniques: automat ed exposure control; mA and/or kV adjustment per patient size (includes targeted exams where dose is matched to clinical indication); or iterative reconstruction. FINDINGS: Bilateral pleural effusion changes are noted with bilateral alveolar consolidations through out both lung starr. There is a reticular nodular pattern seen in both lung starr. The lobulations described above are similar to the previous exam of May 07, 2016. CT numbers are slightly more elevated than fluid but probably within that range. There is gross cardiomegaly seen. A reticular nodular pattern is noted in both upper lungs especially There are scattered bullae throughout both lung starr. The liver shows multiple hypointense lesions weren't sure if these represent neoplasm or cysts. There is ascites present in the upper abdomen. The adrenal glands are normal The vena cava inferiorly is dilated. IMPRESSION: Congestive heart failure Multiple lobular lesions unchanged in both lung starr most likely fluid densities these are similar. Heavy arteriosclerotic changes of the aorta Cardiomegaly A small amount of ascites Lesions are again seen in the liver on previous exam with contrast these were hemangiomas. Prior cholecystectomy. Congestion of the inferior vena cava Diffuse interstitial disease Bullous emphysema
[2020-01-30 14:15] LABS: Procalcitonin 0.35 ng/mL (0-0.5)
[2020-01-30 14:26] LABS: Iron 92 ug/dL (59-158); Percent Saturation 40.3 % (20-50); Total Iron Binding Capacity 228 mcg/dl; Unsaturated Iron Binding 136 ug/dL (112-347)
--- NOTE | 2020-01-30 14:41 | PC.NURSE ---
PATIENT TO CT
--- NOTE | 2020-01-30 16:49 | PM.PN ---
Subjective Subjective: Interval history: Thanks for consultation. Mr Arevalo presents with increasing SOB, weakness, slight productive cough but no fevers or chills. He reports a full dialysis session last Thursday but the clinic has been having trouble getting a lot of fluid off him, its limited by labile hemodynamics. His clinical history includes severe aortic stenosis, severe intra-abdominal and peripheral arterial disease, atrial fibrillation, status post pacemaker, COPD, HUMAIRA, renal mass, chronic thrombocytopenia, prostate cancer, cardiomyopathy with chronic CHF, EF 2025% He is now seen on dialysis, tolerating well so far, but Bps remain soft. He is breathing comfortably. Vitals/I&O/Wt Last Vital Signs Temp 97.6 F 01/30/20 10:22 Pulse 96 01/30/20 14:53 Resp 18 01/30/20 14:53 BP 100/62 01/30/20 14:56 Pulse Ox 96 01/30/20 14:53 Weight last 48 hrs Weight 72.121 kg Physical Exam Narrative: EXAM NARRATIVE: Exam performed with the aid of the bedside RN General: No acute distress, AO x3, pale HEENT: PERRLA, pupils bilaterally equal and reactive Chest: bilateral basal rales CVS: S1-S2 irregularly ill irregular, 2/6 ESM, no tachycardia, no gallops, no rubs Abdomen: Soft, nontender, no organomegaly, bowel sounds present Neuro: No focal deficits, no facial deformity, AO x3, power 5/5 in all limbs Const: COMMON NORMALS: no acute distress, patient oriented x3 and healthy appearing HENMT: COMMON NORMALS: normocephalic and atraumatic HEAD & SCALP: normocephalic and atraumatic Eye: COMMON NORMALS: Equal, round and reactive pupils present and EOMs intact bilaterally PUPIL: Yes Equal, round and reactive pupils present Neck/C-Spine: COMMON NORMALS: full ROM and supple Chest: COMMONS NORMALS: normal inspection of the chest and normal palpation of entire chest wall Resp: COMMON NORMALS: normal respiratory effort, No retractions, No use of accessory muscles and clear to auscultation bilaterally AUSCULTATION: clear to auscultation bilaterally Cardio: COMMON NORMALS: regular rate, regular rhythm and No murmurs present (Cardio) RATE: regular rate RHYTHM: regular rhythm GI: COMMON NORMALS: Normal to inspection, nondistended, normoactive bowel sounds present, Soft to palpation, non-tender and no masses PALPATION: Yes Soft to palpation Extremity: COMMON NORMALS: normal to inspection and full ROM Neuro: COMMON NORMALS: patient oriented x3, moves all extremities and no focal motor deficits Psych: COMMON NORMALS: mental status grossly normal, Normal thought process present and cooperative THOUGHT PROCESS: Normal thought process present Skin: COMMON NORMALS: no rashes or lesions noted and no wounds GENERAL SKIN EXAM: no rashes or lesions noted WOUNDS: Yes surgical site (Port-no active bleeding. No signs of infection.) Details: no odor Data : 01/30/20 10:47 01/30/20 10:47 A&P Additional A&P Information - 1. ESRD - seen and examined on dialysis today - will plan on dialysis dialysis for the next few days to get him a dry as possible. - UF is limited by , ie he is pre-load dependent - Lasix may help - am labs 2. Lytes look good 3. Anemia - A little low, Serial H/h while in house - EPO and iron outpatient 4. Other chronic outpatient ESRD issues to be addressed in the clinic inc bone metabolism etc - thanks for consult Karan Garcia MD [facility] [phone] Attestations Medical Necessity Statement*: eval for esrd mgmt Coding Level of Care Code Acute Nurse Examiner for Kristel Lennon
[2020-01-30 21:11] LABS: Lactic Sepsis W/Reflex 1.3 mmol/L (0.5-2.2)
[2020-01-30] MEDS: famotidine 20 mg/2 mL INJ IVP (21:27)
[2020-01-30] MEDS: cilostazol 100 mg Tablet PO (21:27)
[2020-01-30] MEDS: heparin 5,000 unit/mL INJ 1 mL 5000 UNIT SUBCUT (21:27)
[2020-01-30] MEDS: ipratropium-albuterol 3 mL Neb INHALATION ×2 (21:31→21:32)
--- NOTE | 2020-01-30 21:48 | PC.NURSE ---
Patient arrived to the floor after report was received from dialysis nurse. Patient is alert and oriented. Patient was transferred from bed to bed with 3 assist. Patient has dialysis catheter in right chest that is WNL. Patient was offered a hospital gown and stated I'll put one on in the morning. Patient has been oriented to his room and has call light within reach. Other delay chosen on medication administration. Patient was a new arrival to the floor and had to have vital taken and be assessed for stability before medications could be given. Pharmacy also had to verify medication orders.
--- NOTE | 2020-01-30 22:38 | PC.NURSE ---
Dr. Mckeon notified of blood pressure of 71/49 at 2227. Awaiting response.
--- NOTE | 2020-01-30 22:57 | PC.NURSE ---
Dr. Mckeon notified of blood pressure of 82/49. Systolic has maintained 70s-80s since being on the floor. Ordered to give 25 g of 25% Albumin x1.
[2020-01-31] VITALS (83 sets, daily range): BP systolic 70–113; BP diastolic 38–65; PULSE 64–103; RESP 11–35; TEMP 36.4–36.8; O2SAT 81–100
--- NOTE | 2020-01-31 | PC.NURSE ---
Patient asked that his SCDs be taken off, stating they are too tight on my legs.
--- NOTE | 2020-01-31 01:37 | PC.NURSE ---
Dr. Mckeon notified of blood pressure of 70/45 after Albumin and patient is complaining of pain on the neck. 250 mL bolus and Tylenol ordered.
[2020-01-31] MEDS: acetaminophen 325 mg Tablet 650 MG PO ×2 (01:47→21:27)
[2020-01-31] MEDS: sodium chloride 0.9% 250 ML IV (01:47)
[2020-01-31] MEDS: ipratropium-albuterol 3 mL Neb INHALATION ×4 (02:34→21:29)
--- NOTE | 2020-01-31 03:06 | PC.NURSE ---
Dr. Mckeon notified of blood pressure of 77/48 when lying down and 69/41 when sitting on the side of the bed. Ordered another dose of Albumin.
--- NOTE | 2020-01-31 03:09 | PC.NURSE ---
Dr. Mckeon notified of patient being turned up from 2 L NC to 4 L NC due to oxygen saturation in upper 80s.
--- NOTE | 2020-01-31 03:27 | PC.NURSE ---
Dr. Mckeon notified of blood pressures running 90s systolic in left arm and 70s systolic in right arm. These results occurred with manual and automatic cuff. Ordered to go ahead and give Albumin that is ordered and notify if MAP is below 60.
--- NOTE | 2020-01-31 03:50 | PC.NURSE ---
Patient states that his neck feels better. Patient was placed in hospital gown. 22 gauge IV removed from left upper arm due to difficulty flushing and 20 gauge placed in left AC on first attempt.
[2020-01-31 03:58] LABS: Basophils % 0.5 %; Eosinophils # 0.1 10^3/uL (0.0-0.8); Eosinophils % 2.2 %; Hemoglobin 8.2 g/dL (11.7-16.6); Lymphocytes # 0.7 10^3/uL (0.8-4.8); Lymphocytes % 12.2 %; Mean Corpuscular HGB Conc 31.5 g/dL (30.0-36.0); Mean Corpuscular Hemoglobin 34.2 pg (28.0-34.0); Mean Corpuscular Volume 108.3 fL (80-94); Mean Platelet Volume 11.2 fL (7.4-10.4); Monocytes # 0.8 10^3/uL (0.2-0.9); Monocytes % 13.9 %; Neutrophils # 3.9 10^3/uL (1.8-7.7); Neutrophils % 70.7 %; Nucleated Red Blood Cells % 0 %; Platelet Count 75 10^3/cmm (130-400); Red Cell Distribution Width 22.5 % (12.1-15.1); White Blood Count 5.5 10^3/uL (4.0-10.0)
--- NOTE | 2020-01-31 03:58 | ECG_ITS ---
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 Measurements Intervals [place] Rate: 96 P: 87 [place]: 292 QRS: 59 QRSD: 156 T: 109 QT: 476 QTc: 604 Interpretive Statements SINUS RHYTHM WITH FIRST DEGREE AV BLOCK LEFT ATRIAL ENLARGEMENT [-0.15mV P WAVE IN V1/V2] LEFT BUNDLE BRANCH BLOCK Compared to ECG 01/30/2020 11:05:15 First degree AV block now present Atrial abnormality now present Left-axis deviation no longer present Electronically Signed On 02-01-2020 13:50:57 CDT by Angelina Dyson M.D. [id number]
[2020-01-31 04:38] LABS: Alanine Aminotransferase 32 U/L (0-41); Albumin Level 3.9 g/dL (3.5-5.2); Alkaline Phosphatase 142 IU/L (40-130); Anion Gap 21.4 (5-19); Aspartate Amino Transferase 45 U/L (0-40); Blood Urea Nitrogen 22 mg/dL (8-23); Calcium 8.7 mg/dL (8.5-10.5); Carbon Dioxide 24 mmol/L (22-29); Chloride 95 mmol/L (98-107); Globulin 2.4 g/dL (1.3-4.6); Glucose 92 mg/dL (65-115); Osmolality Calculated 278 mOsm/kg (285-295); Potassium 4.4 mmol/L (3.5-5.1); Sodium 136 mmol/L (136-145); Total Bilirubin 3.6 mg/dL (0.15-1.2); Total Protein 6.3 g/dL (6.6-8.7)
[2020-01-31 04:56] LABS: Troponin(5th) Baseline 441 ng/L (0-15)
--- NOTE | 2020-01-31 05:58 | ECG_ITS ---
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 Measurements Intervals [place] Rate: 97 P: 85 [place]: 292 QRS: -60 QRSD: 214 T: 111 QT: 473 QTc: 604 Interpretive Statements Regular supraventricular rhythm LEFT ATRIAL ENLARGEMENT [-0.15mV P WAVE IN V1/V2] LEFT AXIS DEVIATION [QRS AXIS < -30] LEFT BUNDLE BRANCH BLOCK [120+ ms QRS DURATION, 80+ ms Q/S IN V1/V2, 85+ ms R IN I/aVL/V5/V6] Compared to ECG 01/30/2020 11:05:15 First degree AV block now present Atrial abnormality now present Electronically Signed On 02-01-2020 19:26:24 CDT by Humphrey Del Rio M.D. [id number]
[2020-01-31 07:55] LABS: Cortisol Random 19.02 ug/mL (2.47-19.5); Procalcitonin 0.49 ng/mL (0-0.5)
[2020-01-31 08:06] LABS: Iron 81 ug/dL (59-158); Total Iron Binding Capacity 184 mcg/dl; Unsaturated Iron Binding 103 ug/dL (112-347)
[2020-01-31] MEDS: aspirin 81 mg EC Tablet PO (08:31)
[2020-01-31] MEDS: atorvastatin 40 mg Tablet 80 MG PO (08:31)
[2020-01-31] MEDS: cilostazol 100 mg Tablet PO ×2 (08:31→16:34)
[2020-01-31] MEDS: famotidine 20 mg/2 mL INJ IVP ×2 (08:32→20:27)
[2020-01-31] MEDS: heparin 5,000 unit/mL INJ 1 mL 5000 UNIT SUBCUT ×2 (08:32→20:28)
[2020-01-31] MEDS: amiodarone 200 mg Tablet PO (08:32)
--- NOTE | 2020-01-31 09:07 | XR_ITS ---
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 There is less conge stion now as seen in the right lower lungs and left lungs. Base hilum and catheter is again seen in good position. The heart remains enlarged but smaller than previous exam. XR/XR chest 1V portable [id number] IMPRESSION: Resolving congestive heart failure.
--- NOTE | 2020-01-31 09:09 | PM.PN ---
Subjective Subjective: Interval history: Patient underwent dialysis yesterday and was kept 4.2 L negative. Today morning patient also had dialysis and was net 600 cc negative. Overnight patient's blood pressure was on the lower side postdialysis. He was given 50 grams of albumin in divided doses and a 250 cc of normal saline. On checking blood pressure again there is a difference of systolic 20 mmHg between the blood pressures on the right and the left arm. Blood pressure on the left arm is better and seems to be more accurate. Today morning patient was seen post dialysis. He is feeling tired and fatigued complaining of mild nausea. Denies of having any chest pain, cough, headache, dizziness, palpitations. Patient continues to remain on 3 L nasal cannula to maintain a saturation over 90%. Right now he saturating 97%. Vitals/I&O/Wt Last Vital Signs Temp 97.9 F 01/31/20 07:18 Pulse 97 01/31/20 09:08 Resp 17 01/31/20 09:05 BP 96/50 01/31/20 07:18 Pulse Ox 95 01/31/20 09:05 01/30/20 01/31/20 01/31/20 22:59 06:59 14:59 Intake Total 180 / 180 120 / 120 Balance 180 / 180 120 / 120 Weight last 48 hrs Weight 78.925 kg Weight 72.121 kg Physical Exam Narrative: EXAM NARRATIVE: General: No acute distress, AO x3 HEENT: PERRLA, pupils bilaterally equal and reactive Chest: Normal vesicular breath sounds, bilateral coarse crackles present all over the lung starr right more than left, anterior more than posterior, lower zone more than upper zone, equal good air entry bilaterally CVS: S1-S2 regular, ejection systolic murmur in the aortic area rating to carotids 1/6, no tachycardia, no gallops, no rubs Abdomen: Soft, nontender, no organomegaly, bowel sounds present Neuro: No focal deficits, no facial deformity, AO x3, power 5/5 in all limbs Data : 01/31/20 03:05 01/31/20 03:05 A&P Assessment and plan (1) Acute decompensated heart failure: Status: Acute (2) Hypotension: Status: Acute (3) Pulmonary edema: Status: Acute (4) Atrial fibrillation: Status: Acute Qualifiers: Atrial fibrillation type: longstanding persistent Qualified Code(s): I48.11 - Longstanding persistent atrial fibrillation (5) End-stage renal disease (ESRD): Status: Acute (6) Hyperkalemia: Status: Acute (7) Severe aortic stenosis: Status: Chronic (8) Cardiomyopathy as manifestation of underlying disease: Status: Acute (9) Leriche syndrome: Status: Acute (10) Diabetes mellitus: Status: Acute (11) HTN (hypertension): Status: Acute (12) COPD (chronic obstructive pulmonary disease): Status: Acute (13) Abnormal liver enzymes: Status: Acute Additional A&P Information Shortness of breath: Most likely because of pulmonary edema from acute decompensated heart failure: Ischemic cardiomyopathy: Echocardiogram from November 2019 shows an EF of 20 to 25% with grade 2 diastolic dysfunction with severely decreased left ventricle systolic function, mildly increased RV size, moderately decreased RV systolic function, severe aortic stenosis with MONCHO of 0.44 cm?. proBNP more than 100,000. Procalcitonin negative, CT chest without any infiltrate, no leukocytosis, no fever will hold off on antibiotics for now. Repeat chest x-ray. CKD: End-stage renal disease on maintenance hemodialysis on Thursday, Thursday, Thursday. Appreciate nephrology recommendations. Patient underwent dialysis on Thursday and Thursday. Ultrafiltrate overall 4.8. Oxygen supplementation keeping saturation over 90%. DuoNeb's every 4 hours, albuterol as needed. Hypotension: Blood pressure post dialysis soft. Most likely because of third spacing given ESRD and severe aortic stenosis. Sepsis unlikely given no leukocytosis, no fever, normal procalcitonin, no abdominal tenderness, no rash. There is a discrepancy in blood pressure on both arms with the left arm blood pressure is better and more appropriate. Continue to monitor blood pressure with the left arm. We will start patient on midodrine 10 mg 3 times daily. Patient most likely needs Midrin on the days of dialysis prior to discharge as an outpatient. Atrial fibrillation: Rate controlled for now. Continue with home dose of amiodarone 200 mg daily. Not on anticoagulation due to history of GI bleed. Anemia: History of GI bleed in the past. On last admission patient's hemoglobin was 7.4 and required warranted transfusion. Hemoglobin 8.2. Iron panel appreciated. Check reticulocyte count, vitamin B12 and folate levels. Stool for occult blood We will discuss with nephrology if patient requires Procrit. Deranged liver functions: Most likely hepatorenal syndrome along with congestive hepatic dysfunction. Check liver ultrasound to rule out cholelithiasis versus CBD dysfunction. If any abnormality will most likely require a HIDA scan. Even though liver functions are little deranged will continue on statins given extensive cardiac history. We will continue to monitor CMP daily. History of type 2 diabetes mellitus: Patient is not on any oral hypoglycemics at home. Check HbA1c. 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 CODE STATUS: Patient's for now wants to get everything done if needed. But also states in case of acute event would like his to make decisions. Cardiac renal dialysis diet. Full code. Heparin 5000 every 12 hourly for DVT prophylaxis. Attestations Medical Necessity Statement*: Pulmonary edema, hypotension Time Spent in Patient Care: Greater than 35 minutes Coding Level of Care Code Acute Hotel Or Motel Manager [facility] Diagnoses Acute decompensated heart failure I50.9 Hypotension I95.9 Pulmonary edema J81.1 Atrial fibrillation I48.11 Atrial fibrillation type: longstanding persistent End-stage renal disease (ESRD) N18.6 Hyperkalemia E87.5 Severe aortic stenosis I35.0 Cardiomyopathy as manifestation of underlying disease I43 Leriche syndrome I74.09 Diabetes mellitus E11.9 HTN (hypertension) I10 COPD (chronic obstructive pulmonary disease) J44.9 Abnormal liver enzymes R74.8
[2020-01-31 09:43] LABS: Ferritin 781 ng/mL (30-400); Gamma Glutamyl Transferase 73 U/L (8-61); Lactate Dehydrogenase 272 U/L (135-225)
--- NOTE | 2020-01-31 09:47 | PC.NURSE ---
[facility] Nurse transported patient to dialysis via bed.
--- NOTE | 2020-01-31 09:47 | PC.NURSE ---
call from [facility] regarding ABD ultrasound patient has to be completely NPO for 6-8 hours [facility] reports that he should be npo after midnight and well be scheduled for first thing in the am spoke with Dr Stefano SANTOYO okayed to complete test early am
[2020-01-31 09:56] LABS: Vitamin B12 847 pg/mL (232-1245)
--- NOTE | 2020-01-31 09:58 | ECG_ITS ---
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 Measurements Intervals [place] Rate: 71 P: -63 [place]: 205 QRS: -59 QRSD: 218 T: 118 QT: 521 QTc: 568 Interpretive Statements SINUS RHYTHM WITH MARKED SINUS ARRHYTHMIA MARKED LEFT AXIS DEVIATION [QRS AXIS < -30] LEFT BUNDLE BRANCH BLOCK Compared to ECG 01/30/2020 11:05:15 No significant changes Electronically Signed On 02-01-2020 14:16:37 CDT by Angelina Dyson M.D. [id number]
[2020-01-31 10:01] LABS: Folate Level 4.4 ng/mL (4.5-32.2)
[2020-01-31 11:09] LABS: Troponin 5 6HR 427.6 ng/L (0-15); Troponin 5 6HR Delta -13.4 ng/L (0-12)
--- NOTE | 2020-01-31 11:57 | PC.NURSE ---
bladder irrigation performed patient tolerated well
--- NOTE | 2020-01-31 12:00 | PC.NURSE ---
shelbie back to room from dialysis; dialysis nurse reported 1100ml off and 500ml replaced net off 600 ml moderate weakness noted patient denies wanting anything to eat or drink at this time. Dr lynch notified no new instructions given at this time. will continue to monitor
--- NOTE | 2020-01-31 13:30 | PM.PN ---
Subjective Subjective: Interval history: Dialyzed today in attempt to get him as euvolemic as possible, however, this was cut short due to labile hemodynamics and 500ml of saline was returned to him. He still has subjective SOB, but no edema and no uremic Sx Vitals/I&O/Wt Last Vital Signs Temp 97.8 F 01/31/20 12:00 Pulse 73 01/31/20 12:00 Resp 11 L 01/31/20 12:00 BP 102/51 01/31/20 12:00 Pulse Ox 97 01/31/20 12:00 01/30/20 01/31/20 01/31/20 22:59 06:59 14:59 Intake Total 180 / 180 120 / 120 Balance 180 / 180 120 / 120 Weight last 48 hrs Weight 78.925 kg Weight 72.121 kg Physical Exam Narrative: EXAM NARRATIVE: Exam performed with the aid of the bedside RN General: No acute distress, AO x3, pale HEENT: PERRLA, pupils bilaterally equal and reactive Chest: bilateral basal rales CVS: S1-S2 irregularly ill irregular, 2/6 ESM, no tachycardia, no gallops, no rubs Abdomen: Soft, nontender, no organomegaly, bowel sounds present Neuro: No focal deficits, no facial deformity, AO x3, power 5/5 in all limbs Const: COMMON NORMALS: no acute distress, patient oriented x3 and healthy appearing HENMT: COMMON NORMALS: normocephalic and atraumatic HEAD & SCALP: normocephalic and atraumatic Eye: COMMON NORMALS: Equal, round and reactive pupils present and EOMs intact bilaterally PUPIL: Yes Equal, round and reactive pupils present Neck/C-Spine: COMMON NORMALS: full ROM and supple Chest: COMMONS NORMALS: normal inspection of the chest and normal palpation of entire chest wall Resp: COMMON NORMALS: normal respiratory effort, No retractions, No use of accessory muscles and clear to auscultation bilaterally AUSCULTATION: clear to auscultation bilaterally Cardio: COMMON NORMALS: regular rate, regular rhythm and No murmurs present (Cardio) RATE: regular rate RHYTHM: regular rhythm GI: COMMON NORMALS: Normal to inspection, nondistended, normoactive bowel sounds present, Soft to palpation, non-tender and no masses PALPATION: Yes Soft to palpation Extremity: COMMON NORMALS: normal to inspection and full ROM Neuro: COMMON NORMALS: patient oriented x3, moves all extremities and no focal motor deficits Psych: COMMON NORMALS: mental status grossly normal, Normal thought process present and cooperative THOUGHT PROCESS: Normal thought process present Skin: COMMON NORMALS: no rashes or lesions noted and no wounds GENERAL SKIN EXAM: no rashes or lesions noted Data : 01/31/20 03:05 01/31/20 03:05 A&P Additional A&P Information - 1. ESRD - will eval him tomorrow but likely dialyze him on or Thursday - UF is limited by , ie he is pre-load dependent - Lasix may help - am labs 2. Lytes look good 3. Anemia - A little low, Serial H/h while in house - EPO and iron outpatient 4. Other chronic outpatient ESRD issues to be addressed in the clinic inc bone metabolism etc 5. For some abdo imaging later today - thanks for consult Karan Garcia MD [facility] [phone] Attestations Medical Necessity Statement*: eval and mgmt of ESRD Coding Level of Care Code Acute Scraper Meat for Kristel Lennon
[2020-01-31] MEDS: ALPRAZolam 0.25 mg Tablet PO (13:56)
[2020-01-31] MEDS: midodrine 5 mg TABLET 10 MG PO ×3 (14:09→20:27)
--- NOTE | 2020-01-31 15:05 | PC.NURSE ---
patient blood pressure and o2 saturation started declining. Respiratory called to assess and treat. Dr santos notified in changes in condition as well as possibly letting the family come in to see the patient. instructions to start heated High flow if respiratory needed to. patient turned up to 6L NC and cough and deep breath. Patient maintaining o2 saturations at this time. okayed for patient to have a visitor; his Sruthi a later call from Dr santos with instructions to move patient to ICU Patient assisted to side of bed; blood pressure remains low how ever patient appears do being doing well at this time
--- NOTE | 2020-01-31 16:00 | PC.NURSE ---
Report called to jose GARCIA in ICU
--- NOTE | 2020-01-31 16:21 | PC.NURSE ---
patient transferred to ICU 10 at this time patient stable and alert at bedside
--- NOTE | 2020-01-31 16:49 | PM.EVENT ---
Event Note Event Note: Goals of care discussion. 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 Both and patient agreed for patient to be hospice and the referral was sent out. Both patient and would like to think further regarding the CODE STATUS. For now patient will remain full code and hospice referral has been sent. Will request care coordination to visit with patient and regarding further questions. Event Notes Attestations Time Spent in Patient Care: Greater than 35 minutes
--- NOTE | 2020-01-31 19:37 | PC.NURSE ---
Patient resting quietly in bed, denies pain, no SOB, no acute signs of distress, BP improved (last BP 99/57 MAP 71).
[2020-02-01] VITALS (33 sets, daily range): BP systolic 85–115; BP diastolic 27–66; PULSE 75–110; RESP 9–29; TEMP 36.7–36.8; O2SAT 86–98
[2020-02-01] MEDS: ALPRAZolam 0.25 mg Tablet PO ×2 (00:37→14:04)
[2020-02-01] MEDS: ipratropium-albuterol 3 mL Neb INHALATION ×3 (03:24→20:44)
[2020-02-01 05:07] LABS: Basophils # 0.1 10^3/uL (0.0-0.1); Basophils % 0.6 %; Eosinophils # 0.2 10^3/uL (0.0-0.8); Eosinophils % 2.6 %; Hematocrit 28.4 % (42.0-52.0); Hemoglobin 8.7 g/dL (11.7-16.6); Lymphocytes # 0.8 10^3/uL (0.8-4.8); Mean Corpuscular HGB Conc 30.6 g/dL (30.0-36.0); Mean Corpuscular Hemoglobin 33.1 pg (28.0-34.0); Mean Platelet Volume 10.7 fL (7.4-10.4); Monocytes # 1.3 10^3/uL (0.2-0.9); Monocytes % 15.7 %; Neutrophils # 5.7 10^3/uL (1.8-7.7); Neutrophils % 70.2 %; Nucleated Red Blood Cells % 0 %; Platelet Count 152 10^3/cmm (130-400); Red Blood Count 2.63 10^6/uL (4.1-5.3); Red Cell Distribution Width 22.5 % (12.1-15.1); White Blood Count 8.1 10^3/uL (4.0-10.0)
[2020-02-01 05:33] LABS: Alanine Aminotransferase 57 U/L (0-41); Albumin Level 4.2 g/dL (3.5-5.2); Alkaline Phosphatase 133 IU/L (40-130); Anion Gap 20.2 (5-19); Aspartate Amino Transferase 68 U/L (0-40); Blood Urea Nitrogen 25 mg/dL (8-23); Calcium 8.8 mg/dL (8.5-10.5); Carbon Dioxide 25 mmol/L (22-29); Chloride 95 mmol/L (98-107); Globulin 2.1 g/dL (1.3-4.6); Glucose 115 mg/dL (65-115); Osmolality Calculated 280 mOsm/kg (285-295); Potassium 4.2 mmol/L (3.5-5.1); Sodium 136 mmol/L (136-145); Total Bilirubin 3.6 mg/dL (0.15-1.2); Total Protein 6.3 g/dL (6.6-8.7)
--- NOTE | 2020-02-01 06:00 | US_ITS ---
WS: [id number] ABDOMINAL ULTRASOUND LIMITED REASON FOR VISIT: persistent nausea TECHNIQUE: Grayscale and Doppler ultrasound examination of the abdomen. FINDINGS: Pancreas: Normal Abdominal aorta and IVC: Vena cava was normal early aneurysmal changes of the abdominal aorta. Liver: Liver measures 16.6 cm in length. Fatty infiltration of liver and in the left lobe is a 1.59 x 1.42 x 1.9 no mass most likely a hemangioma. Also shows small cysts are seen in the liver. Hepatoped al circulation is present. Gallbladder: Not visualized.. Bile duct measures 0.78 cm Right kidney: Right kidney measures 8.6 cm x 5.1 cm x 4.4 cm. A solid mass measures 2.33 x 1.59 x 2.5 8 cm is seen in the right kidney. A small cyst measures 1.4 5.81 x 1.58 cm. US/US liver [id number] IMPRESSION: Gallbladder not visualized. Fatty infiltration of liver Hyperechoic lesion left lobe of the liver most likely hemangioma The right kidney shows a solid mass follow-up with IVP with contrast recommende d. Small aneurysm of the abdominal aorta.
[2020-02-01] MEDS: midodrine 5 mg TABLET 10 MG PO ×3 (07:56→20:46)
[2020-02-01] MEDS: atorvastatin 40 mg Tablet 80 MG PO (07:59)
[2020-02-01] MEDS: amiodarone 200 mg Tablet PO (07:59)
[2020-02-01] MEDS: aspirin 81 mg EC Tablet PO (07:59)
[2020-02-01] MEDS: cilostazol 100 mg Tablet PO ×2 (07:59→15:49)
[2020-02-01] MEDS: heparin 5,000 unit/mL INJ 1 mL 5000 UNIT SUBCUT ×2 (07:59→20:49)
[2020-02-01] MEDS: famotidine 20 mg/2 mL INJ IVP ×2 (08:00→20:48)
--- NOTE | 2020-02-01 09:04 | PC.NURSE ---
PATIENTS MANDY ASKED THAT HIS DIALYSIS NURSE MY GATHER INFORMATION TO EXPLAIN WHY MR CHILDRESS IS A HOSPICE PATIENT. . I EXPLAINED THAT WE WERE INVESTIGATING HIS LIVER AND WAS UNSURE OF HIS CURRENT HEART CONDITION BUT ANTICIPATED MORE TESTING TO SEE IF THE DIALYSIS WOULD CONTINUE ONCE HE WAS RELEASED. MY FELT LIKE HE NOT READY FOR HOSPICE BUT UNDERSTOOD A DNR STATUS , SHE SAID HE WAS TO GET A TAVR SOON. SHE SAID THAT SHE WOULD TELL HIS THAT IF INDEED HIS HEART IS WEAKER, AND HE IS GOING INTO MULTI ORGAN FAILURE THAT THIS WAS A GOOD STEP IN HIS LIFE QUALITY. PATIENT WAS DROWSY BUT ORIENTATED ONCE WIDE AWAKE. HE REFUSED HIS BREAKFAST AFTER ONE BITE AND SETTLED ON A CUP OF COFFEE AND WATER. HIS MOIST COUGH WAS UNPRODUCTIVE.
[2020-02-01] MEDS: ondansetron 2 mg/ML SDV 2 mL 4 MG IVP ×2 (09:58→14:11)
--- NOTE | 2020-02-01 10:02 | PC.RESP ---
Pulmonary Rehab information sent to patient.
[2020-02-01 10:34] LABS: ABG PCO2 42.5 mmHg (35-45); ABG PH Result 7.38 (7.35-7.45); Alveolar-Arterial Oxygen Gradi 27.5 mmHg (5-10); Arterial Blood Gas Hematocrit 28.2 % (42-52); Base Excess ABG -0.1 mmol/L (-2.0-2.0); Blood Gas Allen Test Pos; Blood Gas Sample Site Brachial, left; Blood Gas Sample Type Arterial; Carboxyhemoglobin 2.4 %THgb (0.4-20.1); HCO3 ABG 25.1 mmol/L (22-26); HGB O2 Sat 91.4 % (95-100); Ionized Calcium Level - ABG 1.1 mmol/L (1.1-1.4); Methemoglobin 0.7 % (0.4-1.5); Oxygen Device OXY MASK; Oxygen Saturation ABG 94.4; PO2 ABG 69.7 mmHg (80.0-100.0); Total Hemoglobin 9.2 g/dL (14-18)
--- NOTE | 2020-02-01 11:24 | P.PN_ITS ---
Subjective Subjective: Interval history: Remains SOB, although subjectively he feels ok. No pain, no uremic Sx. Minimal peripheral edema. Exertional dyspnea and fatigue. Had 600ml removed yesterday but this was somewhat difficult given labile hemodynamics. Vitals/I&O/Wt Last Vital Signs Temp 98.0 F 02/01/20 08:00 Pulse 99 02/01/20 08:57 Resp 16 02/01/20 08:51 BP 98/56 02/01/20 08:00 Pulse Ox 92 02/01/20 08:51 01/31/20 02/01/20 02/01/20 22:59 06:59 14:59 Intake Total 400 / 520 150 / 150 Output Total 25 / 25 Balance 375 / 495 150 / 150 Weight last 48 hrs Weight 77.111 kg Weight 78.925 kg Physical Exam Narrative: EXAM NARRATIVE: Exam performed with the aid of the bedside RN General: No acute distress, AO x3, pale HEENT: PERRLA, pupils bilaterally equal and reactive Chest: bilateral basal rales CVS: S1-S2 irregularly ill irregular, 2/6 ESM, no tachycardia, no gallops, no rubs Abdomen: Soft, nontender, no organomegaly, bowel sounds present Neuro: No focal deficits, no facial deformity, AO x3, power 5/5 in all limbs Const: COMMON NORMALS: no acute distress, patient oriented x3 and healthy appearing HENMT: COMMON NORMALS: normocephalic and atraumatic HEAD & SCALP: normocephalic and atraumatic Eye: COMMON NORMALS: Equal, round and reactive pupils present and EOMs intact bilaterally PUPIL: Yes Equal, round and reactive pupils present Neck/C-Spine: COMMON NORMALS: full ROM and supple Chest: COMMONS NORMALS: normal inspection of the chest and normal palpation of entire chest wall Resp: COMMON NORMALS: normal respiratory effort, No retractions, No use of accessory muscles and clear to auscultation bilaterally AUSCULTATION: clear to auscultation bilaterally Cardio: COMMON NORMALS: regular rate, regular rhythm and No murmurs present (Cardio) RATE: regular rate RHYTHM: regular rhythm GI: COMMON NORMALS: Normal to inspection, nondistended, normoactive bowel sounds present, Soft to palpation, non-tender and no masses PALPATION: Yes Soft to palpation Extremity: COMMON NORMALS: normal to inspection and full ROM Neuro: COMMON NORMALS: patient oriented x3, moves all extremities and no focal motor deficits Psych: COMMON NORMALS: mental status grossly normal, Normal thought process present and cooperative THOUGHT PROCESS: Normal thought process present Skin: COMMON NORMALS: no rashes or lesions noted and no wounds GENERAL SKIN EXAM: no rashes or lesions noted Data : 02/01/20 04:38 02/01/20 04:38 A&P Additional A&P Information - 1. ESRD - will attempt dialysis again with a goal of 2-3L UF but may stop early if hemodynamics limit - UF is limited by , ie he is pre-load dependent - Lasix may help - am labs 2. Lytes look good 3. Anemia - A little low, Serial H/h while in house - EPO and iron outpatient 4. Other chronic outpatient ESRD issues to be addressed in the clinic inc bone metabolism etc 5. Plans for hospice noted, remains full code for the time being - thanks for consult Karan Garcia MD [facility] [phone] Attestations Medical Necessity Statement*: eval and mgmt of renal failure Coding Level of Care Code Acute Skin Care Specialist for Kristel Lennon
[2020-02-01] MEDS: guaiFENesin 100 mg/5 mL UDC 10 mL 400 MG PO (15:49)
[2020-02-01] MEDS: acetaminophen 325 mg Tablet 650 MG PO (17:28)
[2020-02-01] MEDS: heparin, porcine 1,000 unit/mL INJ 10 mL 1000 UNIT IV (17:29)
[2020-02-01] MEDS: morphine 4 mg/mL SDV 1 mL 1 MG IVP (18:32)
--- NOTE | 2020-02-01 18:41 | P.PN_ITS ---
Subjective Subjective: Interval history: Last 24 hours patient was transferred to the ICU. Overnight he has remained hemodynamically borderline stable, he has been requiring higher oxygen requirement to maintain his saturations and on examination he is on Oxy mask 7 L saturating 97%. Other goals of care discussion meeting was held with patient and family today. Patient stated he really wants to give a try for TAVR for which he has been accepted at [facility]. I did tell the patient in detail that he is not a good candidate for TAVR given multiple comorbidities and current multiorgan failure with LFTs going worse, patient not able to tolerate dialysis because of borderline blood pressures, cardiogenic shock which has been going on for some time as this is his second admission with similar complaints in last 1 month. Patient he understood the above but would still like to give a try for TAVR. Patient stated given his current comorbidities and condition he would not want to undergo chest compressions or mechanical ventilation if and when required but would be okay with pressure when needed. CODE STATUS has been changed to DNR/DNI in the system. Vitals/I&O/Wt Last Vital Signs Temp 98.2 F 02/01/20 14:00 Pulse 106 H 02/01/20 17:00 Resp 22 H 02/01/20 18:32 BP 92/48 02/01/20 17:00 Pulse Ox 93 02/01/20 18:32 02/01/20 02/01/20 02/01/20 06:59 14:59 22:59 Intake Total 300 / 300 50 / 350 Balance 300 / 300 50 / 350 Weight last 48 hrs Weight 77.111 kg Weight 78.925 kg Physical Exam Narrative: EXAM NARRATIVE: General: No acute distress, AO x3, anxious HEENT: PERRLA, pupils bilaterally equal and reactive Chest: Normal vesicular breath sounds, bilateral coarse crackles present all over the lung starr right more than left, anterior more than posterior, lower zone more than upper zone, equal good air entry bilaterally CVS: S1-S2 regular, ejection systolic murmur in the aortic area rating to carotids 1/6, no tachycardia, no gallops, no rubs Abdomen: Soft, nontender, no organomegaly, bowel sounds present Neuro: No focal deficits, no facial deformity, AO x3, power 5/5 in all limbs Data : 02/01/20 04:38 02/01/20 04:38 A&P Assessment and plan (1) Acute decompensated heart failure: Status: Acute (2) Hypotension: Status: Acute (3) Pulmonary edema: Status: Acute (4) Atrial fibrillation: Status: Acute Qualifiers: Atrial fibrillation type: longstanding persistent Qualified Code(s): I48.11 - Longstanding persistent atrial fibrillation (5) End-stage renal disease (ESRD): Status: Acute (6) Hyperkalemia: Status: Acute (7) Severe aortic stenosis: Status: Chronic (8) Cardiomyopathy as manifestation of underlying disease: Status: Acute (9) Leriche syndrome: Status: Acute (10) Diabetes mellitus: Status: Acute (11) HTN (hypertension): Status: Acute (12) COPD (chronic obstructive pulmonary disease): Status: Acute (13) Abnormal liver enzymes: Status: Acute (14) Cardiogenic shock: Status: Acute (15) Respiratory failure: Status: Acute Additional A&P Information Shortness of breath: Most likely because of pulmonary edema from acute decompensated heart failure: Ischemic cardiomyopathy: Echocardiogram from November 2019 shows an EF of 20 to 25% with grade 2 diastolic dysfunction with severely decreased left ventricle systolic function, mildly increased RV size, moderately decreased RV systolic function, severe aortic stenosis with MONCHO of 0.44 cm?. proBNP more than 100,000. Procalcitonin negative, CT chest without any infiltrate, no leukocytosis, no fever will hold off on antibiotics for now. Given critical situation and worsening respiratory status we will start patient on budesonide, DuoNeb's and Solu-Medrol 60 mg every 6 hourly. Patient still does not have any fever and leukocytosis so we will hold off on any antibiotics for now. Sputum culture Gram stain. CKD: End-stage renal disease on maintenance hemodialysis on Thursday, Thursday, Thursday. Appreciate nephrology recommendations. Patient underwent dialysis on Thursday and Thursday. Ultrafiltrate overall 4.8. Patient is due for another dialysis session today. If blood pressures are not supporting we will start patient on Levophed at that time. For now continue with midodrine 10 mg twice daily. Oxygen supplementation keeping saturation over 90%. Hypotension: Most likely secondary to cardiogenic shock: Sepsis unlikely given no leukocytosis, no fever, normal procalcitonin, no abdominal tenderness, no rash. There is a discrepancy in blood pressure on both arms with the left arm blood pressure is better and more appropriate. Continue to monitor blood pressure with the left arm. We will start patient on midodrine 10 mg 3 times daily. Patient most likely needs Midrin on the days of dialysis prior to discharge as an outpatient. Atrial fibrillation: Rate controlled for now. Continue with home dose of amiodarone 200 mg daily. Not on anticoagulation due to history of GI bleed. Anemia: History of GI bleed in the past. On last admission patient's hemoglobin was 7.4 and required warranted transfusion. Hemoglobin 8.2. Iron panel, reticulocyte count, vitamin B12 and folate levels appreciated Check stool for occult blood We will discuss with nephrology if patient requires Procrit. Deranged liver functions: Most likely hepatorenal syndrome along with congestive hepatic dysfunction. Check liver ultrasound to rule out cholelithiasis versus CBD dysfunction. If any abnormality will most likely require a HIDA scan. Even though liver functions are little deranged will continue on statins given extensive cardiac history. We will continue to monitor CMP daily. 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 CODE STATUS: Changed to DNR/DNI as above stated in subjective. Cardiac renal dialysis diet. Heparin 5000 every 12 hourly for DVT prophylaxis. Given multiple comorbidities along with severe aortic stenosis, cardiogenic shock, possible cardiac cardiorenal syndrome patient's prognosis is severely guarded. The above has been conveyed to both patient and his who was present at bedside. All the questions were answered. Attestations Medical Necessity Statement*: Cardiogenic shock, end-stage renal disease, respiratory failure Critical Care Time: Critical Care Time (min): 80 Coding Level of Care Code Acute Superintendent Local for [facility] Fwd Diagnoses Acute decompensated heart failure I50.9 Hypotension I95.9 Pulmonary edema J81.1 Atrial fibrillation I48.11 Atrial fibrillation type: longstanding persistent End-stage renal disease (ESRD) N18.6 Hyperkalemia E87.5 Severe aortic stenosis I35.0 Cardiomyopathy as manifestation of underlying disease I43 Leriche syndrome I74.09 Diabetes mellitus E11.9 HTN (hypertension) I10 COPD (chronic obstructive pulmonary disease) J44.9 Abnormal liver enzymes R74.8 Cardiogenic shock R57.0 Respiratory failure J96.90
--- NOTE | 2020-02-01 19:05 | PC.NURSE ---
Report received from Lyudmila GARCIA. Patient has been progressively more confused toward end of day. Pulling at lines and oxygen but easily redirected. Patient code status changed to DNR earlier today, was put on levophed for BP support. Patient resting quietly in bed, occasionally pulling at oxygen mask.
[2020-02-01] MEDS: budesonide 0.5 mg/2 mL Neb INHALATION (20:44)
[2020-02-01 21:13] LABS: Alanine Aminotransferase 63 U/L (0-41); Albumin Level 4.3 g/dL (3.5-5.2); Alkaline Phosphatase 158 IU/L (40-130); Anion Gap 22.4 (5-19); Aspartate Amino Transferase 65 U/L (0-40); Blood Urea Nitrogen 12 mg/dL (8-23); Calcium 8.7 mg/dL (8.5-10.5); Carbon Dioxide 23 mmol/L (22-29); Chloride 99 mmol/L (98-107); Globulin 2.1 g/dL (1.3-4.6); Glucose 131 mg/dL (65-115); Osmolality Calculated 288 mOsm/kg (285-295); Potassium 4.4 mmol/L (3.5-5.1); Sodium 140 mmol/L (136-145); Total Bilirubin 4.7 mg/dL (0.15-1.2); Total Protein 6.4 g/dL (6.6-8.7)
[2020-02-01 21:44] LABS: NT Pro B Type Natriuretic Pept > 35000 pg/mL (0-125)
[2020-02-02] VITALS (29 sets, daily range): BP systolic 68–112; BP diastolic 22–44; PULSE 48–74; RESP 15–23; TEMP 36.6–36.8; O2SAT 79–94
--- NOTE | 2020-02-02 | PC.NURSE ---
Patient continues to be more lethargic, SpO2 continuing to decrease despite oxy-mask O2 increased to max per RT Cory, sustaining in low 80s. Family notified and all concerns/questions addressed, invited to come to bedside given patient's continued rapid deterioration.
--- NOTE | 2020-02-02 00:45 | PC.NURSE ---
and son at bedside, all questions answered. Culvert Installer paged to bedside.
[2020-02-02] MEDS: lanolin oint 7 gm 1 APPLIC TOPICAL (05:42)
[2020-02-02 05:51] LABS: Alanine Aminotransferase 155 U/L (0-41); Albumin Level 3.9 g/dL (3.5-5.2); Alkaline Phosphatase 166 IU/L (40-130); Anion Gap 19.8 (5-19); Aspartate Amino Transferase 315 U/L (0-40); Blood Urea Nitrogen 16 mg/dL (8-23); Calcium 8.4 mg/dL (8.5-10.5); Carbon Dioxide 27 mmol/L (22-29); Chloride 97 mmol/L (98-107); Globulin 2.3 g/dL (1.3-4.6); Glucose 123 mg/dL (65-115); Osmolality Calculated 286 mOsm/kg (285-295); Potassium 4.8 mmol/L (3.5-5.1); Sodium 139 mmol/L (136-145); Total Bilirubin 4.7 mg/dL (0.15-1.2); Total Protein 6.2 g/dL (6.6-8.7)
[2020-02-02 07:00] LABS: Hematocrit 32.3 % (42.0-52.0); Mean Corpuscular HGB Conc 27.9 g/dL (30.0-36.0); Mean Corpuscular Volume 125.7 fL (80-94); Mean Platelet Volume 10.8 fL (7.4-10.4); Nucleated Red Blood Cells # 0.3 /100WBC; Nucleated Red Blood Cells % 1.5 %; Platelet Count 130 10^3/cmm (130-400); Red Blood Count 2.57 10^6/uL (4.1-5.3); Red Cell Distribution Width 23.5 % (12.1-15.1); White Blood Count 16.3 10^3/uL (4.0-10.0)
[2020-02-02 07:17] LABS: Slide Review Slide Review Perform
[2020-02-02 07:20] LABS: Absolute Neutrophil 14.2 10^3/cmm (1.4-6.5); Absolute Segmented Neutrophil 12.2 10/cmm (1.6-7.1); Anisocytosis 1+; Lymphocytes 2 %; Macrocytosis 1+; Monocytes Absolute 1.3 10^3/cmm (0.1-0.6); Platelet Estimate Normal (Normal); Poikilocytosis 1+; Segmented Neutrophils 75 %; Total Cells Counted 100 (0-100)
--- NOTE | 2020-02-02 08:34 | PC.RESP ---
PT. COMFORT CARE
[2020-02-02] MEDS: famotidine 20 mg/2 mL INJ IVP (08:39)
[2020-02-02] MEDS: heparin 5,000 unit/mL INJ 1 mL 5000 UNIT SUBCUT (08:41)
--- NOTE | 2020-02-02 09:33 | PC.SOCIAL ---
IMM Update Pg 2 of IMM updated with patient. Initialed, dated, and timed and placed in chart, copy provided to patient.
--- NOTE | 2020-02-02 11:12 | PM.PN ---
Subjective Subjective: Interval history: Case discussed with RN over telemed. Patient is now comfort measures. No indication for dialysis and given comfort measures will hold off providing further dialysis treatment. Please contact our team if the situation changes and if we may be of further assistance in his case. Vitals/I&O/Wt Last Vital Signs Temp 97.8 F 02/02/20 00:00 Pulse 68 02/02/20 08:33 Resp 18 02/02/20 08:33 BP 99/31 02/02/20 08:23 Pulse Ox 86 L 02/02/20 08:33 02/01/20 02/02/20 02/02/20 22:59 06:59 14:59 Intake Total 50 / 350 254.000 / 604.000 181.218 / 181.218 Balance 50 / 350 254.000 / 604.000 181.218 / 181.218 Weight last 48 hrs Weight 74.525 kg Weight 77.111 kg Data : 02/02/20 06:39 02/02/20 04:53 Micro: Microbiology 02/01/20 15:30 Gram Stain - Final Sputum - Expectorated Sputum Attestations Medical Necessity Statement*: mgmt of ESRD Coding Level of Care Code Acute Weather Clerk for Kristel Lennon
--- NOTE | 2020-02-02 13:08 | PC.NURSE ---
and son back in to room. I explained of order to turn down Levophed drip down gradually, where Mr. Arevalo will be responsible for keeping blood pressure up himself. Systolic in 80's.
--- NOTE | 2020-02-02 13:32 | P.PN_ITS ---
Subjective Subjective: Interval history: Last 24 hours patient received another session of dialysis yesterday after goals of care were discussed. Patient was around 2 L ultrafiltrate negative after dialysis. Patient was started on Levophed to maintain mean arterial pressure. Patient was made DN R/DNI yesterday morning after family discussion. Today morning on examination patient is on levo fed of 9 with mean arterial pressure of 50 which seems to be running at the same overnight, patient is not responsive, saturating 90% on oxygen mask 15 L. Further goals of care were discussed with patient's and son Mac at bedside. They decided given his poor functional capacity, multiple doe rbidities, multiorgan dysfunction at present it would be best if patient would be made comfort care and let nature takes its own course. Vitals/I&O/Wt Last Vital Signs Temp 98.2 F 02/02/20 12:45 Pulse 67 02/02/20 12:45 Resp 20 H 02/02/20 12:45 BP 80/30 02/02/20 12:45 Pulse Ox 91 02/02/20 12:45 02/01/20 02/02/20 02/02/20 22:59 06:59 14:59 Intake Total 50 / 350 254.000 / 604.000 181.218 / 181.218 Balance 50 / 350 254.000 / 604.000 181.218 / 181.218 Weight last 48 hrs Weight 74.525 kg Weight 77.111 kg Physical Exam Narrative: EXAM NARRATIVE: General: No acute distress, somnolent, not disturbed after goals of care discussion as patient was resting HEENT: PERRLA, pupils bilaterally equal and reactive Chest: Normal vesicular breath sounds, bilateral coarse crackles present all over the lung starr right more than left, anterior more than posterior, lower zone more than upper zone, equal good air entry bilaterally CVS: S1-S2 regular, ejection systolic murmur in the aortic area rating to carotids 1/6, no tachycardia, no gallops, no rubs Abdomen: Soft, nontender, no organomegaly, bowel sounds present Neuro: No focal deficits, no facial deformity, AO x3, power 5/5 in all limbs Data : 02/02/20 06:39 02/02/20 04:53 Micro: Microbiology 02/01/20 15:30 Gram Stain - Final Sputum - Expectorated Sputum A&P Assessment and plan (1) Acute decompensated heart failure: Status: Acute (2) Hypotension: Status: Acute (3) Pulmonary edema: Status: Acute (4) Atrial fibrillation: Status: Acute Qualifiers: Atrial fibrillation type: longstanding persistent Qualified Code(s): I48.11 - Longstanding persistent atrial fibrillation (5) End-stage renal disease (ESRD): Status: Acute (6) Hyperkalemia: Status: Acute (7) Severe aortic stenosis: Status: Chronic (8) Cardiomyopathy as manifestation of underlying disease: Status: Acute (9) Leriche syndrome: Status: Acute (10) Diabetes mellitus: Status: Acute (11) HTN (hypertension): Status: Acute (12) COPD (chronic obstructive pulmonary disease): Status: Acute (13) Abnormal liver enzymes: Status: Acute (14) Cardiogenic shock: Status: Acute (15) Respiratory failure: Status: Acute Additional A&P Information Given multiple comorbidities, multiorgan dysfunction which seems to be worsening with worsening liver function panel, cardiogenic shock requiring high-dose of Levophed family including patient's and son decided that patient should be made comfort care. Levo fed will be weaned off gradually. Family has been made aware once Levophed is turned off it is possible patient blood pressure would start trending down and he may . Family is is okay with the same. Scopolamine patch, Ativan and morphine as needed for comfort. No blood work, occasional white to check. Shortness of breath: Most likely because of pulmonary edema from acute decompensated heart failure: Ischemic cardiomyopathy: Echocardiogram from November 2019 shows an EF of 20 to 25% with grade 2 diastolic dysfunction with severely decreased left ventricle systolic function, mildly increased RV size, moderately decreased RV systolic function, severe aortic stenosis with MONCHO of 0.44 cm?. proBNP more than 100,000. Procalcitonin negative, CT chest without any infiltrate, no leukocytosis, no fever will hold off on antibiotics for now. Given goals of care discussion will continue budesonide and DuoNeb's but will hold off on any further Solu-Medrol. CKD: End-stage renal disease on maintenance hemodialysis on Thursday, Thursday, Thursday. Appreciate nephrology recommendations. Overall patient received 3 cycles of dialysis during admission. Overall her ultrafiltrate was 6.8 L negative. Hold off on any further Levophed or Midodrin. Oxygen supplementation keeping saturation around 90%. Hypotension: Most likely secondary to cardiogenic shock: Sepsis unlikely given no leukocytosis, no fever, normal procalcitonin, no abdominal tenderness, no rash. There is a discrepancy in blood pressure on both arms with the left arm blood pressure is better and more appropriate. Continue to monitor blood pressure with the left arm. Wean off Levophed as per the family discussion. Hold off on Midrin. 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 After goals of care discussion patient is comfort care now. Attestations Medical Necessity Statement*: Multiorgan dysfunction, cardiogenic shock, comfort measures Critical Care Time: Critical Care Time (min): 60 Coding Level of Care Code Acute Vp Transportation for [facility] Fwd Diagnoses Acute decompensated heart failure I50.9 Hypotension I95.9 Pulmonary edema J81.1 Atrial fibrillation I48.11 Atrial fibrillation type: longstanding persistent End-stage renal disease (ESRD) N18.6 Hyperkalemia E87.5 Severe aortic stenosis I35.0 Cardiomyopathy as manifestation of underlying disease I43 Leriche syndrome I74.09 Diabetes mellitus E11.9 HTN (hypertension) I10 COPD (chronic obstructive pulmonary disease) J44.9 Abnormal liver enzymes R74.8 Cardiogenic shock R57.0 Respiratory failure J96.90
--- NOTE | 2020-02-02 13:32 | PC.NURSE ---
Blood pressure and heart rate lower, family aware. I ask family if they felt he is in any pain, and they said no. I don't see any signs of him being in pain.
--- NOTE | 2020-02-02 13:37 | PC.NURSE ---
At or around 1030 this am, Dr. Pillai spoke with and son, and now orders Comfort Care only and turn down Levophed drip slowly over several hours.
--- NOTE | 2020-02-02 14:44 | P.DES_ITS ---
Discharge Providers DDS Date of Admission: 01/30/20 12:46 Date Summary Completed: 02/02/20 Attending Provider at Admission: Julita Saucedo MD Time of : 14:04 Attending Provider at Discharge: Joshua Agarwal MD Pronouncing Clinician: Joshua Agarwal Consults: Telemetry nephrology: Primary Care Provider: Yao Weeks MD DS Diagnoses Hospital Diagnoses (1) Acute decompensated heart failure: (2) Hypotension: (3) Pulmonary edema: (4) Atrial fibrillation: Qualifiers: Atrial fibrillation type: longstanding persistent Qualified Code(s): I48.11 - Longstanding persistent atrial fibrillation (5) End-stage renal disease (ESRD): (6) Hyperkalemia: (7) Severe aortic stenosis: Problem details: -Has known severe aortic stenosis, confirmed on recent echo with ejection frac tion of 20 to 25%, global LV hypokinesis, G2DD, mild MR, mild AR, moderate- severe TR, mild-moderate ID -Cardiology consult appreciated -Dr. Vallejo has arranged for outpatient f/u with Dr. Monet to determine next steps for possible TAVR -Continue medical management -of note, patient has Leriche syndrome (8) Cardiomyopathy as manifestation of underlying disease: Problem details: The LV appears to be dilated with a severe diffuse hypokinesia. The LV ejection fraction probably around 15 to 20% (9) Leriche syndrome: (10) Diabetes mellitus: (11) HTN (hypertension): (12) COPD (chronic obstructive pulmonary disease): (13) Abnormal liver enzymes: (14) Cardiogenic shock: (15) Respiratory failure: Reason for Visit Reason for Visit: n/v Summary Date and Time of : Date of : 02/02/20 Time of : 14:04 Summary: Summary: Sam Arevalo is a 74 year old male with ESRD, on chronic hemodialysis, with otherwise extensive past medical history that includes severe aortic stenosis, severe intra-abdominal and peripheral arterial disease, atrial fibrillation, status post pacemaker, COPD, HUMAIRA, renal mass, chronic thrombocytopenia, prostate cancer, cardiomyopathy with chronic CHF, EF 2025% was brought to the ER today because of nausea which is been ongoing since his last discharge. Patient also stated that he was feeling a little short of breath early in the morning and required more oxygen than his baseline. He complains of cough with expectoration on and off. Sputum production is not bloodstained, not foul- smelling. He denies of having any fever, chills, orthopnea, PND, leg swelling, dizziness, palpitation, loss of consciousness. He denies of having any COVID-19 exposure other than when he was in the hospital. He denies of having any dysuria, diarrhea, abdominal pain, chest pain. Patient states he gets dialysis Thursday, Thursday, Thursday with last dialysis on Thursday in which he had completed his session without any problem. Since Thursday he started having more nausea and today morning he was mildly short of breath than his baseline. Blood work done in the ER showed a hemoglobin of 9.5, white count of 6.7, platelet count of 100, potassium of 5.2, creatinine of 4.6 with proBNP of 295237, chest x-ray was concerning for bilateral fluffy infiltrates concerning for pulmonary edema so hospitalist service was requested for admission. In the ER he was given 20 mg of IV Lasix by the time I had seen him and was on 3 L nasal cannula saturating 94%. On admission patient was in congestive heart failure. During admission patient had worsening liver functions and blood pressures which are most likely because of cardiogenic shock leading to congestive heart failure and multiorgan dysfunction because of hepatorenal syndrome. His clinical picture was getting complicated by severe aortic stenosis for which he was being worked up at [facility]. During hospitalization dialysis was being difficult because of borderline blood pressures for which he was even started on Midodrin and then later Levophed. His respiratory status continued to worsen. He did not have any fever, leukocytosis and procalcitonin was on the normal limit the chance of infections are very low. He was started on IV steroids and nebulizations which did not help much. Multiple goals of care discussions were done with the family and eventually he was made comfort care on the morning of February 02, 2020 as his clinical picture was not improving along with multiple comorbidities, multiorgan failure and baseline poor lifestyle. Levophed was being gradually weaned off as per comfort measures. Patient went into cardiopulmonary arrest and was declared on February 01 at 1404. Family was at bedside and patient was comfortable in his last time. Additional Data: Advance directives?: No Discharge Plan Discharge Patient Disposition: Condition: Stable Prescriptions: No Action Pacerone 200 mg tablet 200 mg PO DAILY 30 Days Qty: 60 RF: 1 alprazolam 0.25 mg tablet 0.25 mg PO BID PRN (Reason: Anxiety) Qty: 30 RF: 0 albuterol sulfate [ProAir HFA] 90 mcg/actuation HFA aerosol inhaler 2 puff INHALATION Q6H PRN (Reason: Shortness Of Breath) Qty: 1 RF: 0 Trelegy Ellipta 100-62.5-25 mcg blister with device 1 inh INHALATION DAILY Qty: 1 RF: 0 Nitrostat 0.4 mg Tablet, Sublingual 0.4 mg SUBLINGUAL Q5M PRN (Reason: Chest Pain) RF: 0 rosuvastatin 40 mg Tablet 40 mg PO DAILY RF: 0 cilostazol 100 mg tablet 100 mg PO BID RF: 0 aspirin 81 mg Tablet,Delayed Release (Dr/Ec) 81 mg PO DAILY 30 Days Qty: 30 RF: 0 Discharge Orders: Discharge Order (Routine); Ordered 02/02/20 Ordered By: Joshua Agarwal Referrals: Yao Weeks MD [Primary Care Provider] - DS Attestations Time Spent in /Discharge Care*: less than 30 min Quality - AMI: AMI present?: No Quality - Stroke: CVA present?: No Quality - VTE: VTE present?: No Coding Level of Care Code Acute Senior Information Systems Architect for g Fwd Diagnoses Acute decompensated heart failure I50.9 Hypotension I95.9 Pulmonary edema J81.1 Atrial fibrillation I48.11 Atrial fibrillation type: longstanding persistent End-stage renal disease (ESRD) N18.6 Hyperkalemia E87.5 Severe aortic stenosis I35.0 Cardiomyopathy as manifestation of underlying disease I43 Leriche syndrome I74.09 Diabetes mellitus E11.9 HTN (hypertension) I10 COPD (chronic obstructive pulmonary disease) J44.9 Abnormal liver enzymes R74.8 Cardiogenic shock R57.0 Respiratory failure J96.90
--- NOTE | 2020-02-02 14:57 | PC.NURSE ---
1350 patients heart rate had long pause, and b/p 68 systolic, resp much slower and more shallow. ask me to bring son from waiting room back into room. Heart rate gradually slowing and resp gradually slowed to agonal. Time of at 1404 with , Sruthi and son, Jovon Watts at bedside. Dr. Agarwal and [facility] notified.
== END 2020-02-02 14:04 | disposition expired | DRG 291 ==
LOC: ER 14:02 → CSU 15:11 → ICU 01-31 16:17
PROVIDERS: Internal Medicine; Admitting Provider Student in an Organized Health Care Education/Training Program; Emergency Provider Emergency Medicine; PCP Family Medicine; Visit Provider Student in an Organized Health Care Education/Training Program
DX: I13.2 Hypertensive heart and chronic kidney disease with heart failure and with stage 5 chronic kidney disease, or end stage renal disease (principal); I50.43 Acute on chronic combined systolic (congestive) and diastolic (congestive) heart failure; N18.6 End stage renal disease; K76.7 Hepatorenal syndrome; I48.11 Longstanding persistent atrial fibrillation; I74.09 Other arterial embolism and thrombosis of abdominal aorta; E11.22 Type 2 diabetes mellitus with diabetic chronic kidney disease; Z99.2 Dependence on renal dialysis; I08.2 Rheumatic disorders of both aortic and tricuspid valves; I73.9 Peripheral vascular disease, unspecified; Z95.0 Presence of cardiac pacemaker; J44.9 Chronic obstructive pulmonary disease, unspecified; G47.33 Obstructive sleep apnea (adult) (pediatric); D69.59 Other secondary thrombocytopenia; N28.9 Disorder of kidney and ureter, unspecified; C61 Malignant neoplasm of prostate; Z99.81 Dependence on supplemental oxygen; D63.1 Anemia in chronic kidney disease; F03.90 Unspecified dementia, unspecified severity, without behavioral disturbance, psychotic disturbance, mood disturbance, and anxiety; H40.9 Unspecified glaucoma; E78.5 Hyperlipidemia, unspecified; E05.90 Thyrotoxicosis, unspecified without thyrotoxic crisis or storm; I71.6 Thoracoabdominal aortic aneurysm, without rupture; R57.0 Cardiogenic shock; Z51.5 Encounter for palliative care; Z66 Do not resuscitate; I95.9 Hypotension, unspecified; I25.5 Ischemic cardiomyopathy; E87.5 Hyperkalemia; Z87.891 Personal history of nicotine dependence; E55.9 Vitamin D deficiency, unspecified
CPT/HCPCS: 12345; 36415; 36600; 71045; 71250; 76705; 80051; 80053; 82533; 82607; 82728; 82746; 82810; 82977; 83540; 83550; 83605; 83615; 83690; 83880; 83986; 84145; 84484; 85007; 85025; 85045; 87070; 87077; 87186; 87205; 90935; 93005; 94640; 94664; 96372; 96375; 99283; J1644; J1940; J2270; J2405; J2930; J3490; J7050; J7626; P9047; Q3014